=== PATIENT | male | born 1955 | race Two or more races ===

== ENCOUNTER 2022-10-03 22:17 | Inpatient (IN) | payer OTHER ==
[~2022-10-03] VITALS: Ht 177.8 cm; Wt 112.0 kg
[2022-10-03] MEDS ORDERED: ACETAMINOPHEN 650 MG/SUPP.RECT RC ONE ×2 (22:30→22:57)
[2022-10-03] MEDS ORDERED: IV NS 0.9% 500 ML BAG IV ONE ×2 (22:30→23:30)
--- NOTE | 2022-10-03 22:30 | NUR ---
Nayan mccrary in ED - 10/03/22 at 2252 by KELLY CRYS FROM [facility] POST ACUTE FOR AMS LWK 2100. PATIENT IN
--- NOTE | 2022-10-03 22:30 | NUR ---
[id number] FROM [facility] POST ACUTE FOR AMS LWK 2100. PATIENT IN BED 11 ON MONITOR AND POX. MD AT BEDSIDE. ICE PLACED ON PATIENT. PATIENT FEBRILE.
--- NOTE | 2022-10-03 22:47 | NUR ---
COVID SWAB DONE AND SENT TO LAB
--- NOTE | 2022-10-03 22:47 | NUR ---
BLOOD COLLECTED AND SENT TO LAB
--- NOTE | 2022-10-03 22:47 | NUR ---
URINE COLLECTED AND SENT TO LAB
--- NOTE | 2022-10-03 22:50 | NUR ---
IV CANNULA G20 INSERTED ON LEFT HAND AND LEFT INNER WRIST.
--- NOTE | 2022-10-03 23:00 | NUR ---
ADLS DONE. LARGE INCONTINENT BM NOTED. SKIN INTACT; KEPT CLEAN AND DRY. REPOSITIONED PT. SAFETY MEASURES IN PLACE.
--- NOTE | 2022-10-03 23:00 | NUR ---
INFLUENZA SWAB COLLECTED AND SENT TO LAB
[2022-10-03 23:05] LABS: EOSINOPHILS % (AUTO) 0.4 % (0.0-6.0); HEMATOCRIT 28 % (39-51); HEMOGLOBIN 9.1 g/dL (13.5-17.5); LYMPHOCYTES # (AUTO) 0.8 K/uL (0.8-4.8); LYMPHOCYTES % (AUTO) 30.2 % (20.0-44.0); MEAN CORPUSCULAR HGB CONC 33 g/dl (31.0-36.0); MEAN CORPUSCULAR VOLUME 98 fL (80-96); MONOCYTES # (AUTO) 0.2 K/uL (0.1-1.30); MONOCYTES % (AUTO) 9.1 % (2.0-12.0); NEUTROPHILS # (AUTO) 1.5 K/uL (1.8-8.9); NEUTROPHILS % (AUTO) 60.3 % (43.0-81.0); RED BLOOD CELL COUNT(AUTO) 2.85 MIL/uL (4.5-6.0); WHITE BLOOD COUNT (AUTO) 2.5 K/uL (4.3-11.0)
--- NOTE | 2022-10-03 23:07 | NUR ---
taken to radiology
[2022-10-03 23:19] LABS: BILIRUBIN,URINE 2+ (NEGATIVE); COLOR,URINE DARK YELLOW (YELLOW); LEUKOCYTE ESTERASE ,URINE 1+ (NEGATIVE); NITRITE, URINE NEGATIVE (NEGATIVE); PROTEIN,URINE TRACE mg/dl (NEGATIVE); UGLUCOSE NEGATIVE (NEGATIVE); UROBILINOGEN,URINE >=8.0 EU/dL (0.2)
--- NOTE | 2022-10-03 23:19 | NUR ---
PT RETURNED TO ER BED [address]
[2022-10-03 23:27] LABS: PLATELET COUNT (AUTO) 43 K/uL (150-450)
--- NOTE | 2022-10-03 23:27 | NUR ---
PLT 43
[2022-10-03 23:28] LABS: ALANINE AMINOTRANSFERASE 118 U/L (12-78); ALBUMIN 2.5 g/dL (3.4-5.0); ALKALINE PHOSPHATASE 926 U/L (46-116); ASPARTATE AMINOTRANSFERASE 125 U/L (15-37); BILIRUBIN,DIRECT 4.9 mg/dL (0.0-0.2); BILIRUBIN,TOTAL 6.3 mg/dL (0.2-1.0); CALCIUM, SERUM 7.8 mg/dL (8.5-10.1); CARBON DIOXIDE 20 mmol/L (21-32); CHLORIDE 90 mmol/L (98-107); CREATININE 2.9 mg/dL (0.6-1.3); GLUCOSE 96 mg/dL (74-106); POTASSIUM 5.1 mmol/L (3.5-5.1); UREA NITROGEN, BLOOD 54 mg/dL (7-18)
[2022-10-03 23:31] LABS: SODIUM SERUM 120 mmol/L (136-145)
--- NOTE | 2022-10-03 23:31 | NUR ---
BP 76/46 HR 112. ADMINISTERED NS IVF 500ML ORDERED PER DR. ANDINO. WILL REASSESS BP
[2022-10-03] MEDS ORDERED: CEFTRIAXONE 1GM BAG (ER ONLY) 50 ML IV ONE (23:35)
--- NOTE | 2022-10-03 23:36 | NUR ---
LA 4.1 Na 120 COVID +
--- NOTE | 2022-10-03 23:37 | NUR ---
MOVE SHEET SUBMITTED
[2022-10-04] VITALS (46 sets, daily range): BP systolic 77–161; BP diastolic 36–86
[2022-10-04] MEDS ORDERED: CEFTRIAXONE 1GM BAG (ER ONLY) 1 GM/50 ML PIGGYBACK IV ONE
[2022-10-04 00:24] LABS: BACTERIA,URINE Many /HPF (None Seen)
[2022-10-04 00:25] LABS: SQUAMOUS EPITHELIAL CELL,UR Few /HPF (None Seen)
[2022-10-04] MEDS ORDERED: MAGNESIUM HYDROXIDE 30 ML UDC PO PRN (00:30)
[2022-10-04] MEDS ORDERED: ZOLPIDEM TARTRATE 5 MG TABLET PO PRN (00:30)
[2022-10-04] MEDS ORDERED: ONDANSETRON HCL/PF 4 MG/2 ML VIAL IVP PRN (00:30)
[2022-10-04] MEDS ORDERED: Z GUARD REMEDY 4 OZ OINT TP PRN (00:30)
[2022-10-04] MEDS ORDERED: MORPHINE SULFATE INJ 2 MG/ML DISP.SYRIN IV PRN (00:30)
[2022-10-04] MEDS ORDERED: HYDROCODONE/APAP 5/325MG TABLET PO PRN (00:30)
[2022-10-04] MEDS ORDERED: MAG HYDROX/AL HYDROX/SIMETH 30 ML UDC PO PRN (00:30)
[2022-10-04] MEDS ORDERED: IV NS 0.9% 1,000 ML IV PRN (00:30)
--- NOTE | 2022-10-04 00:30 | NUR ---
BELONGINGS LIST DONE AND MRSA SWAB COLLECTED AND SENT TO LAB
--- NOTE | 2022-10-04 00:41 | NUR ---
REPORT GIVEN TO ANN GALLEGOS
--- NOTE | 2022-10-04 00:52 | NUR ---
PT TRANSFERRED TO [facility] VIA ACLS PROTOCOL. VSS. ALL BELONGINGS WITH PT.
--- NOTE | 2022-10-04 01:00 | NUR ---
RN NOTE 0100 RECEIVED 66 Y/O M PATIENT FROM ER TRANSFERRED VIA GURNEY, PT FINAL DX OF ALTERED MENTAL STATUS, PT RESPONSIVE TO TACTILE STIMULI, UNABLE TO OBTAIN INFORMATION FROM PT DUE TO CONDITION, ON O2 VIA NC AT 2LPM, ADMISSION CARE RENDERED, PICTURES TAKEN AND PLACED ON CHART, V/S TAKEN AND RECORDED, ALL DUE MEDS GIVEN, SAFETY MEASURES IN PLACED, BED IN LOWEST AND ISAI POSITION, BED ALARM ON, WILL CONT TO MONITOR THROUGHOUT THE SHIFT.
--- NOTE | 2022-10-04 01:40 | NUR ---
RN NOTE NOTED BP LOW AT 77/53 HR OF 142, ROLLING MACHINE OPERATOR MD WORKMAN MADE AWARE, ORDERED BOLUS NS OF 500 ML. ORDER TAKEN AND CARRIED OUT, WILL CONT TO MONITOR PT.
[2022-10-04] MEDS ORDERED: IV NS 0.9% 500 ML IV ONE ×2 (02:00→10:30)
--- NOTE | 2022-10-04 02:40 | NUR ---
RN NOTE RECHECKED BP AT 98/65, CN MADE AWARE. WILL CONT TO MONITOR.
[2022-10-04 04:46] LABS: BAND % (MANUAL) 5 % (0.0-5.0); BASOPHILS % (MANUAL) 0 % (0.0-2.0); EOSINOPHILS % (MANUAL) 4 % (0-4); LYMPHOCYTES % (MANUAL) 29 % (16-48); MONOCYTES % (MANUAL) 9 % (0-11.0); NEUTROPHILS % (MANUAL) 53 (42-76)
[2022-10-04] MEDS ORDERED: CEFEPIME 1 GM in IV D5W 50 ML IV SCH (05:00)
--- NOTE | 2022-10-04 07:22 | NUR ---
RN CLOSING NOTE PT RESTING ON BED, RESPONSIVE TO TACTILE STIMULI, ON O2 VIA NC AT 2LPM, NOT IN RESPIRATORY DISTRESS, ON TELEMONITORING CURRENTLY READING SR, WITH IVF OF NS AT 100 ML/HR AT L HAND #20G IV ACCESS, ALL DUE MEDS GIVEN, SAFETY MEASURES IN PLACED, BED IN LOWEST AND ISAI POSITION, BED ALARM ON, WILL ENDORSE TO AM SHIFT NURSE FOR CONTINUITY OF CARE.
[2022-10-04] MEDS: PANTOPRAZOLE 40 MG TABLET.DR PO SCH (07:30)
--- NOTE | 2022-10-04 08:30 | NUR ---
TRANSFER SPECIALIST OPENING NOTES RECEIVED PATIENT IN BED SLEEPING, PT RESPONSIVE TO TACTILE STIMULI, UNABLE TO OBTAIN INFORMATION FROM PT DUE TO CONDITION, ON O2 VIA NC AT 2LPM TOLERATING WELL, NOT IN DISTRESS, DENIES ANY PAIN. LFA, RIGHT WRIST, LEFT HAD PIV NOTED INTACT, WITH NS @100ML/HR RUNNING, ON TELE MONITORING WITH READING ST HR 106, NPO STATUS AWAITING SWALLOW EVALUATION, COVID ISOLATIO PRECAUTION CONTINUED. SAFETY MEASURES IN PLACED, BED IN LOWEST AND ISAI POSITION, BED ALARM ON, CALL LIGHT WITHIN REACH. PLAN OF CARE CONTINUED.
[2022-10-04] MEDS ORDERED: AMLO5TAB4 PO (08:31)
[2022-10-04] MEDS ORDERED: MULT-447 PO (08:31)
[2022-10-04] MEDS ORDERED: LEVO25TA7 PO (08:31)
[2022-10-04] MEDS ORDERED: ALLO100T PO (08:31)
[2022-10-04] MEDS ORDERED: TAMS-12 PO (08:31)
[2022-10-04] MEDS ORDERED: SUCR1ORA15 PO (08:31)
[2022-10-04] MEDS ORDERED: EPOE40002 IJ (08:31)
[2022-10-04] MEDS ORDERED: AMIN887L PO (08:31)
[2022-10-04] MEDS ORDERED: ASCO500C17 PO (08:31)
[2022-10-04] MEDS ORDERED: POTA20TA83 PO (08:31)
[2022-10-04] MEDS ORDERED: FINA5TAB4 PO (08:31)
[2022-10-04] MEDS ORDERED: MAGN400O6 PO (08:31)
[2022-10-04] MEDS ORDERED: FERR325T23 PO (08:31)
[2022-10-04] MEDS ORDERED: PANT40TA2 PO (08:31)
[2022-10-04] MEDS: CEFEPIME 2 GM in IV D5W 100 ML IV SCH ×2 (09:44→22:05)
--- NOTE | 2022-10-04 10:20 | NUR ---
CENTRAL OFFICE INSPECTOR NOTES NOTED PATIENT REMOVED PERIPHERAL LINE, NOTIFIED, WITH NEW ORDER TO INSERT MIDLINE, NOTED AND CARRIED OUT, ENVIRONMENTAL PROPERTY ASSESSOR INFORMED AND MIDLINE NURSE. NOTED PATIENT BP 83/43, PATIENT IS ALERT, BUT NOTICED WEAK, MD NOTIFIED, WITH NEW ORDER TO GIVE NS BOLUS 500ML. SEEN BY ST WITH ORDER TO BE NPO TODAY DUE TO PATIENT DYSPHAGIA AND GURGLY. PLAN OF CARE CONTINUED.
[2022-10-04] MEDS ORDERED: NOREPINEPHRINE 8 MG in IV NS 0.9% 242 ML IV PRN (11:30)
--- NOTE | 2022-10-04 11:39 | NUR ---
SPECIALTY COOK Bedside report taken from tele nurse Sultana Prasad RN. Pt arrived to ICU via bed. pt awake, alert and oriented x3, follows commands, moves bue 3/5 and ble 2/5. perrla. pt on room air, tolerating well, natalee lung sounds clear / diminished at bases. pt NSR on monitor hr 90s sbp 90s with map > 65. bue and ble pulses present. pt incontinent of urine and stool. wounds noted, see flowsheet. all lines traced. all drips verified. safety measures in place. will continue to monitor.
--- NOTE | 2022-10-04 11:50 | NUR ---
ELECTRIC METER REPAIRER HELPER NOTES RECHECKED BP USING BP MACINE 85/50, DID MANUAL BP 40/40 HR 96, 99% @2LPM2 02, PATIENT IS ALERT AND VERBALLY RESPONSIVE, NOT IN DISTRESS, MD MADE AWARE WITH ORDER TO TRANSFER TO ICU. TRANSFER PATIENT TO ICU RM 259, GAVE REPORT TO GN RN, FAMILY IS AWARE OF THE TRANSFER.
[2022-10-04] MEDS ORDERED: NOREPINEPHRINE 32 MG in IV NS 0.9% 218 ML IV STA (11:53)
--- NOTE | 2022-10-04 11:57 | NUR ---
GEAR REPAIRER Dr Subramanian at bedside assessing pt and updated on pt status. verbal order for levophed drip entered per OIL AND GAS SPECIALIST , verified with charge nurse Rodri RN, no other orders at this time. safety measures in place. will continue to monitor.
--- NOTE | 2022-10-04 12:45 | NUR ---
MONKEY TRAINER Pharmacy aware that dulplicate order for levophed entered, informed that levophed 8 mg in 250 ml currently infusing and requested that next bag of levophed be 32mg in 250 ml d/t chf, ok per pharmacy. per pharmacy continue running current bag and next bag sent will be quadrouple concentration. charge nurse Rodri GALLEGOS aware.
[2022-10-04] MEDS ORDERED: NOREPINEPHRINE 32 MG in IV NS 0.9% 218 ML IV PRN (13:00)
--- NOTE | 2022-10-04 13:35 | NUR ---
SWIMMER Marilynn SPINNING SUPERVISOR messaged and informed that lactic 2.1, no new orders at this time, per SPINNING SUPERVISOR much better than previous result. charge nurse Rodri GALLEGOS aware.
--- NOTE | 2022-10-04 14:29 | NUR ---
HOSPICE MUSIC THERAPIST Guccistein FACILITIES MAINTENANCE MANAGER messaged and informed that mittens placed on pt d/t pt removing lines and wires, order for restraints placed. FACILITIES MAINTENANCE MANAGER also aware that Karandish placed order for urine specimen collect, pt incontinent, order for chester placed per FACILITIES MAINTENANCE MANAGER. no other orders at this time. charge nurse Rodri GALLEGOS aware.
--- NOTE | 2022-10-04 16:10 | NUR ---
SOCIOLOGY RESEARCH ASSISTANT Pt bathed and cleaned. linen change done. skin check done , no new wounds noted. wound care done per protocol. pt tolerated well. vitals stable. safety measures in place. mittens removed, pt not removing lines or tubes. will continue to monitor.
--- NOTE | 2022-10-04 16:42 | NUR ---
LINE DRIVER Annalise TURF KEEPER from Oncology at bedside assessing pt.
[2022-10-04 17:03] LABS: COLOR,URINE BROWN (YELLOW)
[2022-10-04 17:05] LABS: BACTERIA,URINE 2+ /HPF (None Seen); COARSE GRANULAR CASTS,URINE Few /LPF (None Seen); RBC,URINE 21-50 /HPF (0-2); SQUAMOUS EPITHELIAL CELL,UR 0-2 /HPF (None Seen); WBC,URINE 21-50 /HPF (0-3)
[2022-10-04 18:17] LABS: D-DIMER 2.19 mg/L(FEU (0.17-0.50)
[2022-10-04 18:49] LABS: ALBUMIN 1.9 g/dL (3.4-5.0); BILIRUBIN,DIRECT 4.9 mg/dL (0.0-0.2); BILIRUBIN,TOTAL 6.1 mg/dL (0.2-1.0); TOTAL PROTEIN, SERUM 4.5 g/dL (6.4-8.2)
--- NOTE | 2022-10-04 18:55 | NUR ---
MANAGER OF MANUFACTURING Bedside report given to [facility] nurse Evaristo RN. pt awake alert and resting comfortable in bed. Pt on room air, tolerating well spo2 100%. all lines traced. all drips verified. pt clean and dry. safety measures in place. no signs of acute distress at this time. Addendum: 10/04/22 at 1902 by [facility]ISTRY [facility] INPATIENT RN6 RN MANAGER OF MANUFACTURING Bedside report given to [facility] nurse Moncho GALLEGOS. pt awake alert and resting comfortable in bed. Pt on room air, tolerating well spo2 100%. all lines traced. all drips verified. pt clean and dry. safety measures in place. no signs of acute distress at this time.
--- NOTE | 2022-10-04 19:43 | NUR ---
FENCE INSTALLER FOREMAN NOC shift assignment change, bedside report given to noc nurse Anna GALLEGOS
[2022-10-04 20:29] LABS: THYROID STIMULATING HORMONE 0.012 uIU/mL (0.358-3.74)
[2022-10-04] MEDS: IV NS 0.9% 1,000 ML IV PRN (22:06)
[2022-10-04] MEDS: NOREPINEPHRINE 8 MG in IV NS 0.9% 242 ML IV PRN (22:06)
[2022-10-04] MEDS ORDERED: GUAIFENESIN/CODEINE 10 ML UDC PO PRN (23:00)
[2022-10-04] MEDS ORDERED: BENZONATATE 100 MG CAPSULE PO PRN (23:00)
--- NOTE | 2022-10-04 23:06 | NUR ---
research agricultural engineer. initial assessment. received the pt rest in bed. awake, alert. lethargic. hob eleavted. room air. sat 98%. no acute distress noted. loose stool and cough noted. notified clinical education specialist DNP mary. fc patent. ANNA LOWER and upper extremity weakness noted. IV LT UPPER ARM MID LINE. LEVOPHED 0.1MCG/KG/MIN, NS 100ML/H SKIN TOGGLER SHOWING NSR. SACRUM AND ANNA INNER THIGH ABRATION NOTED. SACRUM DISCOLORATION. WILL CONTINUE TO MONITOR VITALS.
[2022-10-05] VITALS (71 sets, daily range): BP systolic 80–160; BP diastolic 29–97
[2022-10-05] MEDS ORDERED: CEFTRIAXONE 1 G in IV D5W 50 ML IV SCH ×2
--- NOTE | 2022-10-05 05:42 | NUR ---
PAIRING MACHINE OPERATOR. AM CARE GIVEN. REMAINING SAME IVF RUNNING. HOB ELEVATED. ROOM AIR. SAT 98%. WOOD CRAFTER SHOWING NSR. IV LT UPPER ARM MID LINE. NS 100ML/H, LEVOPHED 0.02MCG/KG/MIN,TEMPERATURE 99.6. TURN AND REPOSITION Q2H
[2022-10-05] MEDS ORDERED: METRONIDAZOLE 500 MG TABLET PO SCH (06:30)
--- NOTE | 2022-10-05 07:05 | NUR ---
RN NOTES RECEIVED PT ON BED, ON RA, SLEEPING AT THIS TIME, ON TELE SR HR IN 80'S, CHAMORRO DRAINING TO GRAVITY, NPO AT THIS TIME, PENDING SWALLOWING EVAL . LEFT UPPER ARM MIDLINE AND R HAND IV SITE CDI, LEVO AT .02 MCG/KG/MIN RUNNING FOR BP SUPPORT, SR UP x3, CALL LIGHT WITHIN EASY REACH, BED LOCKED AND IN LOWEST POSITION, CONTINUE TO MONITOR
[2022-10-05 07:07] LABS: IMMUNOGLOBULIN A, SERUM 96 mg/dL (61-437); IMMUNOGLOBULIN G, SERUM 946 mg/dL (603-1613); IMMUNOGLOBULIN M, SERUM 77 mg/dL (20-172)
[2022-10-05] MEDS: PANTOPRAZOLE 40 MG TABLET.DR PO SCH (08:23)
[2022-10-05 09:39] LABS: BASOPHILS # (AUTO) 0.1 K/uL (0.0-0.2); BASOPHILS % (AUTO) 2.3 % (0.0-2.0); EOSINOPHILS % (AUTO) 1.7 % (0.0-6.0); HEMATOCRIT 24 % (39-51); HEMOGLOBIN 7.8 g/dL (13.5-17.5); LYMPHOCYTES # (AUTO) 0.3 K/uL (0.8-4.8); LYMPHOCYTES % (AUTO) 14.2 % (20.0-44.0); MEAN CORPUSCULAR HGB CONC 33 g/dl (31.0-36.0); MEAN CORPUSCULAR VOLUME 97 fL (80-96); MONOCYTES # (AUTO) 0.1 K/uL (0.1-1.30); MONOCYTES % (AUTO) 6.1 % (2.0-12.0); NEUTROPHILS # (AUTO) 1.7 K/uL (1.8-8.9); NEUTROPHILS % (AUTO) 75.7 % (43.0-81.0); RED BLOOD CELL COUNT(AUTO) 2.44 MIL/uL (4.5-6.0); WHITE BLOOD COUNT (AUTO) 2.2 K/uL (4.3-11.0)
[2022-10-05 09:52] LABS: PLATELET COUNT (AUTO) 43 K/uL (150-450)
[2022-10-05] MEDS: CEFEPIME 2 GM in IV D5W 100 ML IV SCH ×2 (10:05→21:42)
[2022-10-05 10:29] LABS: D-DIMER 3.16 mg/L(FEU (0.17-0.50)
--- NOTE | 2022-10-05 11:00 | NUR ---
RN NOTES DR RAMIREZ NOTIFIED REGARDING ,LOW URINE OUT PUT , CONTINUE TO MONITOR
[2022-10-05 11:02] LABS: BILIRUBIN,DIRECT 6.6 mg/dL (0.0-0.2); BILIRUBIN,TOTAL 7.8 mg/dL (0.2-1.0); CALCIUM, SERUM 6.5 mg/dL (8.5-10.1); CREATININE 3.6 mg/dL (0.6-1.3); MAGNESIUM 1.8 mg/dL (1.8-2.4); PHOSPHORUS 3.8 mg/dL (2.5-4.9); POTASSIUM 4.2 mmol/L (3.5-5.1); TOTAL PROTEIN, SERUM 4.6 g/dL (6.4-8.2)
[2022-10-05 11:07] LABS: *SPE A/G RATIO 0.8 (0.7-1.7); *SPE ALPHA-1-GLOBULIN 0.4 g/dL (0.0-0.4); *SPE ALPHA-2-GLOBULIN 0.6 g/dL (0.4-1.0); *SPE BETA GLOBULIN 0.5 g/dL (0.7-1.3); *SPE M-SPIKE Not Observed g/dL (Not Observed)
[2022-10-05] MEDS: IV NS 0.9% 1,000 ML IV PRN (11:30)
[2022-10-05] MEDS: NOREPINEPHRINE 8 MG in IV NS 0.9% 242 ML IV PRN ×2 (11:55→23:53)
[2022-10-05] MEDS: METRONIDAZOLE 500MG/ NS 100ML 500 MG in PREMIX 1 EA IV SCH ×2 (13:18→21:42)
[2022-10-05] MEDS: ACETAMINOPHEN 325 MG TABLET PO PRN (15:52)
--- NOTE | 2022-10-05 17:49 | NUR ---
RN NOTES PT IS CONGESTED , ON RA, O2 SAT 98%, FREQUENT SUCTIONING DONE , STILL LETHARGIC , DR FLORES NOTIFIED, ORDER RECEIVED FOR BREATHING TX, CONTINUE TO MONITOR .
--- NOTE | 2022-10-05 18:45 | NUR ---
RN NOTES DR FLORES NOTIFIED REGARDING LOW URINE OUT PUT
[2022-10-05 18:52] LABS: ABG BASE EXCESS -17.8 mmol/L; ABG OXYGEN SATURATION 81.6 % (92.0-98.5); ABG PCO2 17.5 mmHg (35.0-45.0); ABG PH 7.253 (7.350-7.450); ABG PO2 53.6 mmHg (75.0-100.0); AaDO2 75.2 mmHg; COHb 0.6 % (0.5-1.5); MetHb 0.4 % (0.0-1.5); O2Hb 80.8 % (94.0-97.0); SITE, ABG Left Radial; VENT MODE, BG ROOM AIR
[2022-10-05] MEDS ORDERED: SODIUM BICARBONATE SYR 50 MEQ/50 ML DISP.SYRIN IV ONE (19:00)
--- NOTE | 2022-10-05 19:05 | NUR ---
RN NOTES ABG RESULTS SENT TO DR FLORES, NEW ORDER RECEIVED , WILL ENDORSE TO EMBOSSING MACHINE OPERATOR NURSE FOR CONTINUITY OF CARE
[2022-10-05] MEDS: Sodium Bicarbonate 100 MEQ in IV D5W 1,000 ML IV SCH (19:44)
[2022-10-05] MEDS ORDERED: diphenhydrAMINE HCL 50 MG/ML VIAL IV ONE (20:30)
[2022-10-05] MEDS ORDERED: ACETAMINOPHEN 325 MG TABLET PO ONE (20:30)
--- NOTE | 2022-10-05 21:08 | NUR ---
NUCLEAR MEDICINE PHYSICIAN. INITIAL ASSESSMENT. RECEIVED THE PT REST IN BED. AWAKE, LETHARGIC. HOB ELEVATED. STOCK SHEETS CLEANER INSPECTOR SHOWING S TACH. OXYGEN 3L VIA N/C. IV RT HAND PICC LINE. LT UPPER ARM MID LINE. IVF BICARB DRIP 50 ML/H, LEVOPHED 0.02MCG/KG/MIN. FC PATENT. TEMPERATURE 100. WILL CONTINUE TO MONITOR VITALS.
[2022-10-05 21:32] LABS: ABG BASE EXCESS -15.9 mmol/L; ABG OXYGEN SATURATION 97.9 % (92.0-98.5); ABG PCO2 18.3 mmHg (35.0-45.0); ABG PO2 134.2 mmHg (75.0-100.0); AaDO2 72.6 mmHg; COHb 0.3 % (0.5-1.5); MetHb 0.4 % (0.0-1.5); O2Hb 97.2 % (94.0-97.0); SITE, ABG Right Brachial; VENT MODE, BG Nasal Cannula
--- NOTE | 2022-10-05 21:33 | NUR ---
ABG DONE RN NOTIFIED WITH THE RESULT.
[2022-10-05] MEDS: HYDROCORTISONE SOD SUCCINATE 100 MG/2 ML VIAL IV SCH (21:42)
[2022-10-06] VITALS (76 sets, daily range): BP systolic 65–238; BP diastolic 37–259
[2022-10-06 04:02] LABS: BAND % (MANUAL) 8 % (0.0-5.0); EOSINOPHILS % (MANUAL) 3 % (0-4); LYMPHOCYTES % (MANUAL) 12 % (16-48); MONOCYTES % (MANUAL) 8 % (0-11.0); NEUTROPHILS % (MANUAL) 69 (42-76)
[2022-10-06] MEDS: METRONIDAZOLE 500MG/ NS 100ML 500 MG in PREMIX 1 EA IV SCH ×3 (04:14→21:18)
[2022-10-06] MEDS: HYDROCORTISONE SOD SUCCINATE 100 MG/2 ML VIAL IV SCH ×3 (04:14→21:17)
--- NOTE | 2022-10-06 05:33 | NUR ---
agricultural inspector. cryo not ready. pt antibody positive. lab waiting for [facility].
[2022-10-06 05:56] LABS: BASOPHILS % (AUTO) 0.7 % (0.0-2.0); EOSINOPHILS % (AUTO) 0.2 % (0.0-6.0); LYMPHOCYTES # (AUTO) 0.6 K/uL (0.8-4.8); LYMPHOCYTES % (AUTO) 16.8 % (20.0-44.0); MEAN CORPUSCULAR HGB CONC 32 g/dl (31.0-36.0); MEAN CORPUSCULAR VOLUME 99 fL (80-96); MONOCYTES # (AUTO) 0.2 K/uL (0.1-1.30); MONOCYTES % (AUTO) 6.6 % (2.0-12.0); NEUTROPHILS # (AUTO) 2.5 K/uL (1.8-8.9); NEUTROPHILS % (AUTO) 75.7 % (43.0-81.0); RED BLOOD CELL COUNT(AUTO) 2.05 MIL/uL (4.5-6.0); WHITE BLOOD COUNT (AUTO) 3.3 K/uL (4.3-11.0)
--- NOTE | 2022-10-06 06:01 | NUR ---
SNAKER TRACTOR DRIVER. AM CARE GIVEN. REMAINING SAME OXYGEN TOLERATED WELL. SAT 98%, NO ACUTE DISTRESS NOTED, SCIENCE EDUCATION PROFESSOR SHOWING NSR. IV RT UPPER ARM PICC LINE. BICARB DRIP RUNNING. LEVO OFF. HOB ELEVATED. FC PATENT. MINIMAL OUT PUT. CRYO NOT READY. TURN AND REPOSITION Q2H. WILL CONTINUE TO MONITOR VITALS.
[2022-10-06 06:07] LABS: HEMATOCRIT 20 % (39-51); HEMOGLOBIN 6.5 g/dL (13.5-17.5); PLATELET COUNT (AUTO) 24 K/uL (150-450)
[2022-10-06 06:19] LABS: ALBUMIN 1.6 g/dL (3.4-5.0); BILIRUBIN,DIRECT 5.4 mg/dL (0.0-0.2); BILIRUBIN,TOTAL 6.4 mg/dL (0.2-1.0); CALCIUM, SERUM 6.3 mg/dL (8.5-10.1); CREATININE 4.6 mg/dL (0.6-1.3); PHOSPHORUS 5.2 mg/dL (2.5-4.9); POTASSIUM 4.5 mmol/L (3.5-5.1); TOTAL PROTEIN, SERUM 3.9 g/dL (6.4-8.2)
[2022-10-06] MEDS ORDERED: REMDESIVIR (CHARGED) 200 MG, *LOADING DOSE 1 EA in IV NS 0.9% 210 ML IV ONE (06:30)
[2022-10-06 06:57] LABS: D-DIMER 3.87 mg/L(FEU (0.17-0.50)
--- NOTE | 2022-10-06 07:15 | NUR ---
RN OPENING NOTES RECEIVED PATIENT REPORT FROM NIGHTSHIFT RN BASIL. PATIENT REMAINS IN ROOM ON 2 LITERS SUPPLEMENTAL OXYGEN VIA NASAL CANULA. OXYGEN SATURATION AT 100%, PATIENT IS TACHYPNEIC BREATHING AT 43 BREATHS PER MINUTE. PATIENT ALERT AND ORIENTED TIMES 1, AROUSABLE TO NAME. SINUS RYTHYM ON THE MONITOR AT THIS TIME. CHAMORRO CATHETER DRAINING OUTPUT. PATIENT HAS IV ACCESS ON RIGHT UPPER ARM PICC LINE, LEFT UPPER ARM MIDLINE, AND RIGHT HAND 22 GAUGE. PATIENT SHAKING HAND RESULTING IN ABNORMAL BLOOD PRESSURE READING, WILL READJUST BP CUFF AND PLAN INTERVENTIONS ACCORDINGLY. SAFETY MEASURES IMPLEMENTED, WILL CONTINUE PLAN OF CARE AND ANTICIPATE NEEDS.
--- NOTE | 2022-10-06 08:00 | NUR ---
RECEIVED VERBAL ORDER FROM DR FLORES FOR TRANSFUSION OF 1 UNIT PRBC FOR HGB 6.5 AND HCT 20. NO ACTIVE BLEEDING. WILL CARRY OUT ORDER
--- NOTE | 2022-10-06 08:02 | NUR ---
WOUND CARE CONSULT: REVIEWED CHART, NURSING DOCUMENTATION AND PHOTOS WHICH INDICATE SACRAL DEEP TISSUE INJURY, RASH WITH PEELING SKIN TO BILATERAL BUTTOCKS, AREAS OF DISCOLORATION TO SKIN (LOW PLATELET COUNT NOTED), PRESENT ON ADMISSION. DISCUSSED SKIN PROTECTION AND WOUND CARE WITH NURSING STAFF. MD IN AGREEMENT WITH PLAN OF CARE.
[2022-10-06 08:51] LABS: ABG BASE EXCESS -9.5 mmol/L; ABG OXYGEN SATURATION 98.3 % (92.0-98.5); ABG PCO2 20.1 mmHg (35.0-45.0); ABG PH 7.442 (7.350-7.450); AaDO2 63.3 mmHg; COHb 0.6 % (0.5-1.5); MetHb 0.3 % (0.0-1.5); O2Hb 97.4 % (94.0-97.0); SITE, ABG Left Radial; VENT MODE, BG N/C
[2022-10-06] MEDS: CLOTRIMAZOLE 1% 15 GM TUBE TP SCH ×2 (08:59→16:44)
[2022-10-06] MEDS: PANTOPRAZOLE 40 MG VIAL IV SCH (08:59)
[2022-10-06] MEDS: CEFEPIME 2 GM in IV D5W 100 ML IV SCH ×2 (09:00→16:29)
[2022-10-06 10:17] LABS: BAND % (MANUAL) 1 % (0.0-5.0); LYMPHOCYTES % (MANUAL) 13 % (16-48); MONOCYTES % (MANUAL) 4 % (0-11.0); NEUTROPHILS % (MANUAL) 82 (42-76)
--- NOTE | 2022-10-06 12:20 | NUR ---
LEVOPHED RESTARTED FOR BLOOD PRESSURE 65/43 WITH MAP OF 52. CURRENTLY RUNNING AT 0.1 MCGS PER POLICY.
[2022-10-06] MEDS ORDERED: MAGNESIUM HYDROXIDE 30 ML UDC PO PRN (13:30)
[2022-10-06] MEDS ORDERED: PHYTONADIONE INJ 10 MG/1 ML AMPUL SQ ONE (15:00)
[2022-10-06] MEDS: Sodium Bicarbonate 100 MEQ in IV D5W 1,000 ML IV SCH (16:28)
[2022-10-06] MEDS: FERROUS SULFATE (325 MG) 325 MG/TAB TABLET PO SCH (16:33)
[2022-10-06] MEDS: SUCRALFATE 1 G/10 ML UDC PO SCH ×2 (16:33→21:00)
[2022-10-06] MEDS: EPOETIN ALFA-EPBX 4,000 UNIT/ML VIAL SQ SCH (16:45)
--- NOTE | 2022-10-06 19:15 | NUR ---
HAND OFF REPORT GIVEN TO ROSY NEW FOR CONTINUATION OF CARE.
[2022-10-06] MEDS ORDERED: FAMOTIDINE/PF INJ 20 MG/2 ML VIAL IV SCH (21:00)
--- NOTE | 2022-10-06 21:50 | NUR ---
RN NOTES INFORMED DR ANSARI THAT CRYOPRECIPITATE IS AVAILABLE AND PATIENT HAS ANTIBODY ANTI K AND ISA-A. DR ANSARI OKAY TO PROCEED TRANSFUSION TRANSFUSION
[2022-10-06] MEDS ORDERED: TAMSULOSIN 0.4 MG CAP.SR.24H PO SCH (22:00)
[2022-10-06] MEDS ORDERED: diphenhydrAMINE HCL 50 MG/ML VIAL IV ONE (23:45)
[2022-10-07] VITALS (93 sets, daily range): BP systolic 85–142; BP diastolic 44–82
--- NOTE | 2022-10-07 00:12 | NUR ---
RN NOTES CRYOPRECIPITATE STARTED PER ORDER. DIPHENHYDRAMINE 25MG GIVEN PRIOR TO TRANSFUSION PER ORDERED. WILL CLOSELY MONITOR THE PATIENT
--- NOTE | 2022-10-07 00:45 | NUR ---
RN NOTES TRANSFUSION COMPLETED. NO TRANSFUSION REACTION NOTED AT THIS TIME. WILL CLOSELY MONITOR THE PATIENT
--- NOTE | 2022-10-07 03:40 | NUR ---
RN NOTES CRYOPRECIPITATE STARTED, VITAL SIGNS TAKEN AND RECORDED. WII CLOSELY MONITOR THE PATIENT FOR ANY TRANSFUSION REACTION.
--- NOTE | 2022-10-07 04:10 | NUR ---
RN NOTES TRANSFUSION CRYOPRECIPITATE COMPLETED JANETH TRANSFUSION REACTION NOTED. WILL NABOR MONITOR THE PATIENT
[2022-10-07] MEDS: HYDROCORTISONE SOD SUCCINATE 100 MG/2 ML VIAL IV SCH ×3 (05:15→21:51)
[2022-10-07] MEDS: METRONIDAZOLE 500MG/ NS 100ML 500 MG in PREMIX 1 EA IV SCH ×3 (05:15→21:51)
[2022-10-07 05:25] LABS: BASOPHILS % (AUTO) 0.4 % (0.0-2.0); LYMPHOCYTES # (AUTO) 0.8 K/uL (0.8-4.8); LYMPHOCYTES % (AUTO) 17.9 % (20.0-44.0); MEAN CORPUSCULAR HGB CONC 34 g/dl (31.0-36.0); MEAN CORPUSCULAR VOLUME 94 fL (80-96); MONOCYTES # (AUTO) 0.4 K/uL (0.1-1.30); MONOCYTES % (AUTO) 8.6 % (2.0-12.0); NEUTROPHILS # (AUTO) 3.2 K/uL (1.8-8.9); NEUTROPHILS % (AUTO) 73.1 % (43.0-81.0); WHITE BLOOD COUNT (AUTO) 4.4 K/uL (4.3-11.0)
[2022-10-07 05:42] LABS: ALBUMIN 1.7 g/dL (3.4-5.0); BILIRUBIN,DIRECT 5.5 mg/dL (0.0-0.2); BILIRUBIN,TOTAL 6.6 mg/dL (0.2-1.0); CALCIUM, SERUM 6.1 mg/dL (8.5-10.1); MAGNESIUM 2.2 mg/dL (1.8-2.4); PHOSPHORUS 5.5 mg/dL (2.5-4.9); TOTAL PROTEIN, SERUM 4.1 g/dL (6.4-8.2)
[2022-10-07 05:47] LABS: HEMATOCRIT 17 % (39-51); HEMOGLOBIN 5.8 g/dL (13.5-17.5); PLATELET COUNT (AUTO) 15 K/uL (150-450); RED BLOOD CELL COUNT(AUTO) 1.82 MIL/uL (4.5-6.0)
[2022-10-07 06:18] LABS: C-REACTIVE PROTEIN 22.3 mg/dL (0.0-0.9)
[2022-10-07 06:19] LABS: D-DIMER 2.6 mg/L(FEU (0.17-0.50)
[2022-10-07] MEDS ORDERED: REMDESIVIR (CHARGED) 100 MG in IV NS 0.9% 230 ML IV SCH (06:30)
--- NOTE | 2022-10-07 06:58 | NUR ---
RN NOTES ON NASAL CANULA @ 2LPM SATING 99% NO SOB NO DISTRESS NOTED. IV ACCESS PATENT FLUSHES WELL.CHAMORRO CATH PATENT DRAINING GARFIELD COLORED URINE. PATIENT S/P 10 UNITS CRYOPRECIPITATE NO TRANSFUSION REACTION NOTED. ALL SAFETY MEASURES NOTED AT THIS TIME WILL ENDORSED TO MORNING SHIFT FOR NGUYỄN
--- NOTE | 2022-10-07 07:15 | NUR ---
ICU/RN PT RECEIVED IN BED, LETHARGIC, ON 2L O2 NC WITH NO SIGNS OF LABORED BREATHING. SINUS RHYTHM ON MONITOR. RIGHT UA PICC LINE, LEFT UA MIDLINE AND RIGHT HAND 22G IN PLACE RUNNING D5W WITH NA BICARB AT 50ML/HR. LEVOPHED DRIP OFF SINCE 030 PER GANG TAILER REPORT, BP 99/55 AT THIS TIME. HEMOGLOBIN 5.8 HEMATOCRIT 17 PLT 15. DNP ELAN NOTIFIED BY GANG TAILER. ORDER FOR 1 UNIT PRBC, ORDER FOR 1 UNIT PRBC ALREADY PENDING SINCE YESTERDAY, AWAITING FOR [facility] DELIVERY. 10 UNIT CRYOPRECIPITATE GIVEN BY GANG TAILER. BED LOCKED AND IN LOWEST POSITION, CALL LIGHT WITHIN REACH, 3 SIDE RAILS UP. BILATERAL SOFT WRIST RESTRAINS IN PLACE, SKIN WARM AND INTACT.
[2022-10-07] MEDS: LEVOTHYROXINE SODIUM 50 MCG TABLET PO SCH (07:30)
--- NOTE | 2022-10-07 07:56 | NUR ---
ICU/RN PT LETHARGIC, NOT FOLLOWING SIMPLE COMMANDS. PT OPEN EYES ONLY. UNABLE TO GIVE ANYTHING PO AT THIS TIME. WILL AWAIT SWALLOW EVAL.
[2022-10-07] MEDS: FINASTERIDE (5 MG) 5 MG TABLET PO SCH (08:13)
[2022-10-07] MEDS: ALLOPURINOL 100 MG TABLET PO SCH (08:13)
[2022-10-07] MEDS: FERROUS SULFATE (325 MG) 325 MG/TAB TABLET PO SCH ×3 (08:13→16:37)
[2022-10-07] MEDS: PROSOURCE / PROSTAT (PYXIS) 30 ML UDC PO SCH (08:13)
[2022-10-07] MEDS: AMLODIPINE BESYLATE 5 MG TABLET PO SCH (08:13)
[2022-10-07] MEDS: SUCRALFATE 1 G/10 ML UDC PO SCH ×4 (08:13→21:51)
[2022-10-07] MEDS: ASCORBIC ACID 500 MG TABLET PO SCH (08:13)
[2022-10-07] MEDS: MULTIVITAMINS,THERAGRAN 1 UDTAB TABLET PO SCH (08:13)
[2022-10-07] MEDS: PANTOPRAZOLE 40 MG VIAL IV SCH (08:15)
[2022-10-07] MEDS: CLOTRIMAZOLE 1% 15 GM TUBE TP SCH ×2 (08:16→16:37)
[2022-10-07] MEDS: CEFEPIME 2 GM in IV D5W 100 ML IV SCH (08:16)
[2022-10-07] MEDS: Sodium Bicarbonate 100 MEQ in IV D5W 1,000 ML IV SCH (10:32)
--- NOTE | 2022-10-07 10:45 | NUR ---
ICU/RN CALLED BLOOD BANK REGARDING 1 UNIT PRBC PENDING FOR 24 HR DUE TO NEED TO SPECIAL ORDER IT FROM THE [facility]. NO ANSWER.
--- NOTE | 2022-10-07 11:07 | NUR ---
ICU/RN BLOOD BANK STATES THEY DO NOT HAVE ANY UPDATE ON THE 1 UNIT PRBC PENDING, WILL CALL THEM STAT FOR AN UPDATE.
[2022-10-07] MEDS ORDERED: ACETAMINOPHEN 325 MG TABLET PO ONE (12:30)
--- NOTE | 2022-10-07 12:42 | NUR ---
ICU/RN CONTACTED DR. RAMIREZ REGARDING POSSIBLE NGT PLACEMENT, PT HAS BEEN NPO FOR 4 DAYS AND IS LETHARGIC/ALTERED, UNABLE TO EAT AT THIS TIME.
--- NOTE | 2022-10-07 12:47 | NUR ---
ICU/RN PER LAB, CRYOPRECIPITATE SHOULD BE READY FOR MANAGER FLOAT AROUND 1330 TODAY. BLOOD BANK TO CALL [facility] REGARDING PRBC AND PLATELET. CT SCAN CALLED, TECH STATES HE WILL COME MANAGER FLOAT PATIENT AFTER 1400.
--- NOTE | 2022-10-07 13:48 | NUR ---
ICU/RN PER BLOOD BANK, CRYOPRECIPITATE READY FOR SHOE IRONER. PRBC AND PLT PLACED STAT ORDER WITH [facility], SHOULD ARRIVE THIS EVENING.
--- NOTE | 2022-10-07 15:35 | NUR ---
ICU/RN CRYOPRECIPITATE TRANSFUSION X2 COMPLETED. VITAL SIGNS STABLE. NO S/S OF ADVERSE EVENTS.
--- NOTE | 2022-10-07 16:37 | NUR ---
ICU/RN UNABLE TO PLACE NGT AT THIS TIME. PLT 15. PT IS TOO HIGH RISK FOR BLEEDING.
[2022-10-07 18:50] LABS: LYMPHOCYTES % (MANUAL) 15 % (16-48); MONOCYTES % (MANUAL) 7 % (0-11.0); NEUTROPHILS % (MANUAL) 78 (42-76)
[2022-10-08] VITALS (41 sets, daily range): BP systolic 90–153; BP diastolic 36–107
[2022-10-08] MEDS ORDERED: SODIUM BICARBONATE SYR 50 MEQ/50 ML DISP.SYRIN ONE ×2 (02:50→19:35)
[2022-10-08] MEDS: Sodium Bicarbonate 100 MEQ in IV D5W 1,000 ML IV SCH (03:02)
[2022-10-08 04:40] LABS: EOSINOPHILS % (AUTO) 0.2 % (0.0-6.0); HEMATOCRIT 27 % (39-51); HEMOGLOBIN 8.3 g/dL (13.5-17.5); LYMPHOCYTES # (AUTO) 0.3 K/uL (0.8-4.8); LYMPHOCYTES % (AUTO) 12.9 % (20.0-44.0); MEAN CORPUSCULAR HGB CONC 31 g/dl (31.0-36.0); MEAN CORPUSCULAR VOLUME 99 fL (80-96); MONOCYTES # (AUTO) 0.1 K/uL (0.1-1.30); MONOCYTES % (AUTO) 3.5 % (2.0-12.0); NEUTROPHILS # (AUTO) 2.2 K/uL (1.8-8.9); NEUTROPHILS % (AUTO) 82.4 % (43.0-81.0); RED BLOOD CELL COUNT(AUTO) 2.67 MIL/uL (4.5-6.0); WHITE BLOOD COUNT (AUTO) 2.7 K/uL (4.3-11.0)
[2022-10-08 04:42] LABS: PLATELET COUNT (AUTO) 9 K/uL (150-450)
[2022-10-08] MEDS: METRONIDAZOLE 500MG/ NS 100ML 500 MG in PREMIX 1 EA IV SCH ×3 (04:53→20:58)
[2022-10-08] MEDS: HYDROCORTISONE SOD SUCCINATE 100 MG/2 ML VIAL IV SCH ×3 (04:56→20:58)
--- NOTE | 2022-10-08 05:20 | NUR ---
PT RECEIVED BLOOD TRANSFUSION(0140) WHICH FINISHED AT 0330 BUT IT WAS NOT DOCUMENTED IN THE SYSTEM.
[2022-10-08 05:52] LABS: BASOPHILS % (MANUAL) 0 % (0.0-2.0); EOSINOPHILS % (MANUAL) 0 % (0-4); LYMPHOCYTES % (MANUAL) 16 % (16-48); MONOCYTES % (MANUAL) 5 % (0-11.0); NEUTROPHILS % (MANUAL) 79 (42-76)
[2022-10-08 05:58] LABS: ALBUMIN 1.8 g/dL (3.4-5.0); BILIRUBIN,DIRECT 5.1 mg/dL (0.0-0.2); BILIRUBIN,TOTAL 6.3 mg/dL (0.2-1.0); CALCIUM, SERUM 6.1 mg/dL (8.5-10.1); CREATININE 5.2 mg/dL (0.6-1.3); MAGNESIUM 2.2 mg/dL (1.8-2.4); PHOSPHORUS 5.3 mg/dL (2.5-4.9); POTASSIUM 3.7 mmol/L (3.5-5.1); TOTAL PROTEIN, SERUM 4.3 g/dL (6.4-8.2)
--- NOTE | 2022-10-08 06:48 | NUR ---
pt slept through the night. received 1 unit prbc. hgb level normalized. minimal uo at 100 ml the entire shift. vss stable entire shift.
[2022-10-08] MEDS: LEVOTHYROXINE SODIUM 50 MCG TABLET PO SCH (07:30)
[2022-10-08] MEDS: FERROUS SULFATE (325 MG) 325 MG/TAB TABLET PO SCH ×3 (09:00→17:00)
[2022-10-08] MEDS: PROSOURCE / PROSTAT (PYXIS) 30 ML UDC PO SCH (09:00)
[2022-10-08] MEDS: FINASTERIDE (5 MG) 5 MG TABLET PO SCH (09:00)
[2022-10-08] MEDS: SUCRALFATE 1 G/10 ML UDC PO SCH ×4 (09:00→20:58)
[2022-10-08] MEDS: ASCORBIC ACID 500 MG TABLET PO SCH (09:00)
[2022-10-08] MEDS: AMLODIPINE BESYLATE 5 MG TABLET PO SCH (09:00)
[2022-10-08] MEDS: ALLOPURINOL 100 MG TABLET PO SCH (09:00)
[2022-10-08] MEDS: MULTIVITAMINS,THERAGRAN 1 UDTAB TABLET PO SCH (09:00)
[2022-10-08] MEDS: CEFEPIME 2 GM in IV D5W 100 ML IV SCH (09:16)
[2022-10-08] MEDS: PANTOPRAZOLE 40 MG VIAL IV SCH (09:17)
[2022-10-08] MEDS: CLOTRIMAZOLE 1% 15 GM TUBE TP SCH ×2 (09:32→17:22)
--- NOTE | 2022-10-08 09:50 | NUR ---
FOLLOW-UP MADE TO THE LAB DEPT/BLOOD BANK REGARDING STAT ORDER FOR PLATELET TRANSFUSION AND PER JASPER-STAFF "I WILL ORDER IT TO THE [facility] FOR STAT AND USUALLY IT TAKES ABOUT 8HRS." CHARGE NURSE AWARE.
[2022-10-08] MEDS ORDERED: ACETAMINOPHEN 325 MG TABLET PO ONE (10:30)
[2022-10-08] MEDS ORDERED: diphenhydrAMINE HCL 50 MG/ML VIAL IV ONE ×2 (10:30→15:30)
--- NOTE | 2022-10-08 11:26 | NUR ---
DR RAMIREZ AT THE UNIT AND WAS NOTIFIED THAT PLATELET STILL UNAVAILABLE. NO NEW ORDER MADE AT THIS TIME.
--- NOTE | 2022-10-08 16:30 | NUR ---
PLATELET 1 UNIT ;VOLUME 253MLs WAS TRANSFUSED, NO SSx OF ACUTE DISTRESS NOTED.
[2022-10-08] MEDS ORDERED: SODIUM BICARBONATE 5 ML VIAL IV SCH (17:00)
--- NOTE | 2022-10-08 18:15 | NUR ---
PLATELET 2ND UNIT ;VOLUME 300MLs WAS TRANSFUSED, NO SSx OF ACUTE DISTRESS NOTED.
[2022-10-08] MEDS ORDERED: Sodium Bicarbonate 100 MEQ in IV 1/2NS 1000 ML 1,000 ML IV PRN (19:00)
--- NOTE | 2022-10-08 19:00 | NUR ---
ENDORSED TO PANCHO-RN FOR CONTINUITY OF CARE. HOURLY AND PRN ROUNDING DONE BY STAFF.
[2022-10-08] MEDS: IV NS 0.9% 1,000 ML IV PRN ×2 (20:00→23:05)
[2022-10-09] VITALS (53 sets, daily range): BP systolic 94–128; BP diastolic 55–85
[2022-10-09 04:51] LABS: BASOPHILS % (AUTO) 0.4 % (0.0-2.0); EOSINOPHILS % (AUTO) 0.2 % (0.0-6.0); LYMPHOCYTES # (AUTO) 0.4 K/uL (0.8-4.8); MEAN CORPUSCULAR HGB CONC 34 g/dl (31.0-36.0); MEAN CORPUSCULAR VOLUME 94 fL (80-96); MONOCYTES # (AUTO) 0.2 K/uL (0.1-1.30); MONOCYTES % (AUTO) 4.2 % (2.0-12.0); NEUTROPHILS % (AUTO) 86.2 % (43.0-81.0); RED BLOOD CELL COUNT(AUTO) 1.83 MIL/uL (4.5-6.0); WHITE BLOOD COUNT (AUTO) 4.7 K/uL (4.3-11.0)
[2022-10-09 04:53] LABS: HEMATOCRIT 17 % (39-51); HEMOGLOBIN 5.8 g/dL (13.5-17.5); PLATELET COUNT (AUTO) 14 K/uL (150-450)
[2022-10-09 05:16] LABS: MAGNESIUM 1.9 mg/dL (1.8-2.4); PHOSPHORUS 4.4 mg/dL (2.5-4.9)
[2022-10-09 05:19] LABS: ALBUMIN 1.5 g/dL (3.4-5.0); BILIRUBIN,TOTAL 5.4 mg/dL (0.2-1.0); CREATININE 4.7 mg/dL (0.6-1.3); POTASSIUM 3.1 mmol/L (3.5-5.1); TOTAL PROTEIN, SERUM 3.8 g/dL (6.4-8.2)
[2022-10-09 05:48] LABS: D-DIMER 3.86 mg/L(FEU (0.17-0.50)
[2022-10-09] MEDS: METRONIDAZOLE 500MG/ NS 100ML 500 MG in PREMIX 1 EA IV SCH (06:04)
[2022-10-09] MEDS: HYDROCORTISONE SOD SUCCINATE 100 MG/2 ML VIAL IV SCH ×3 (06:04→21:09)
[2022-10-09] MEDS: PANTOPRAZOLE 40 MG VIAL IV SCH ×3 (06:06→21:10)
[2022-10-09] MEDS: MEROPENEM 500 MG in IV NS 0.9% 50 ML IV SCH ×2 (07:27→18:13)
[2022-10-09] MEDS: LEVOTHYROXINE SODIUM 50 MCG TABLET PO SCH (07:30)
--- NOTE | 2022-10-09 08:28 | NUR ---
Remains NPO. Secondary to AMS/obtunded. High Risk for Asp. Increse "foamy" Oral secretions noted. Orak hygiene provided
[2022-10-09 08:31] LABS: LYMPHOCYTES % (MANUAL) 10 % (16-48); MONOCYTES % (MANUAL) 4 % (0-11.0); NEUTROPHILS % (MANUAL) 86 (42-76)
[2022-10-09] MEDS: FERROUS SULFATE (325 MG) 325 MG/TAB TABLET PO SCH ×3 (08:32→17:00)
[2022-10-09] MEDS: AMLODIPINE BESYLATE 5 MG TABLET PO SCH (08:32)
[2022-10-09] MEDS: SUCRALFATE 1 G/10 ML UDC PO SCH ×4 (08:32→21:00)
[2022-10-09] MEDS: FINASTERIDE (5 MG) 5 MG TABLET PO SCH (08:32)
[2022-10-09] MEDS: ALLOPURINOL 100 MG TABLET PO SCH (08:33)
[2022-10-09] MEDS: MULTIVITAMINS,THERAGRAN 1 UDTAB TABLET PO SCH (08:33)
[2022-10-09] MEDS: PROSOURCE / PROSTAT (PYXIS) 30 ML UDC PO SCH (08:33)
[2022-10-09] MEDS: ASCORBIC ACID 500 MG TABLET PO SCH (08:33)
[2022-10-09] MEDS: CLOTRIMAZOLE 1% 15 GM TUBE TP SCH ×2 (08:35→18:11)
--- NOTE | 2022-10-09 08:35 | NUR ---
Platelet 14. Very High Risk for Bleeding for NGT insertion. Plan to Transfuse Blood Products today when available
[2022-10-09 10:32] LABS: ABG BASE EXCESS -6.3 mmol/L; ABG OXYGEN SATURATION 96.2 % (92.0-98.5); ABG PCO2 24.6 mmHg (35.0-45.0); ABG PH 7.451 (7.350-7.450); ABG PO2 91.9 mmHg (75.0-100.0); AaDO2 78.7 mmHg; COHb 0.1 % (0.5-1.5); MetHb 0.3 % (0.0-1.5); O2Hb 95.8 % (94.0-97.0); SITE, ABG Right Radial
[2022-10-09] MEDS: Sodium Bicarbonate 100 MEQ in IV 1/2NS 1000 ML 1,000 ML IV SCH (15:00)
--- NOTE | 2022-10-09 20:10 | NUR ---
PATIENT WITH O2 MID-TO HIGH 80S, PER RT PLACE PT IN NRM, O2 IMPROVED TO HIGH 90S, WILL CONTINUE TO MONITOR CLOSELY
--- NOTE | 2022-10-09 20:10 | NUR ---
RN OPENING NOTES RECEIVED PT ON 3LPM WITH OPTIMAL O2 SAT LEVEL, NO SOB/ACUTE DISTRESS NOTED DURING THE NIGHT, LETHARGIC, UNABLE YO FOLLOW COMMANDS, WITH ORDER TO INFUSE 1 UNIT OF BLOOD, WILL INFUSE ORDERED, SINUS RHYTHM NPO FOR ASPIRATIONS PRECAUTIONS, ON D5W BICARB AT 50ML/HR, VERY EDEMATOUS, WITH RIGHT HAND MITTEN IN PLACED, NO ABNORMALITY NOTED AT SITE, F/C IN PLACE WITH MINIMAL DARK URINE NOTED, ALL SAFETY PRECAUTIONS MAINTAINED, WILL CONTINUE TO MONITOR CLOSELY.
--- NOTE | 2022-10-09 20:46 | NUR ---
Patient receiving blood transfusion at this time, no s/s of any allergic reaction, afebrile, with stable vital sings, will continue to monitor closely.
--- NOTE | 2022-10-09 23:40 | NUR ---
Done with blood administration at this time, no s/s of any allergic reaction, afebrile, stable vital sings, on NMR 15L for now, will continue to monitor closely.
[2022-10-10] VITALS (51 sets, daily range): BP systolic 83–130; BP diastolic 41–72
[2022-10-10 04:03] LABS: BASOPHILS % (AUTO) 0.6 % (0.0-2.0); EOSINOPHILS % (AUTO) 0.1 % (0.0-6.0); HEMATOCRIT 25 % (39-51); HEMOGLOBIN 8.3 g/dL (13.5-17.5); LYMPHOCYTES # (AUTO) 0.9 K/uL (0.8-4.8); LYMPHOCYTES % (AUTO) 12.1 % (20.0-44.0); MEAN CORPUSCULAR HGB CONC 33 g/dl (31.0-36.0); MEAN CORPUSCULAR VOLUME 96 fL (80-96); MONOCYTES # (AUTO) 0.3 K/uL (0.1-1.30); MONOCYTES % (AUTO) 4.9 % (2.0-12.0); NEUTROPHILS # (AUTO) 5.8 K/uL (1.8-8.9); NEUTROPHILS % (AUTO) 82.3 % (43.0-81.0); RED BLOOD CELL COUNT(AUTO) 2.63 MIL/uL (4.5-6.0); WHITE BLOOD COUNT (AUTO) 7.1 K/uL (4.3-11.0)
[2022-10-10 04:08] LABS: PLATELET COUNT (AUTO) 19 K/uL (150-450)
[2022-10-10 04:18] LABS: ALBUMIN 1.8 g/dL (3.4-5.0); BILIRUBIN,TOTAL 5.7 mg/dL (0.2-1.0); POTASSIUM 4.1 mmol/L (3.5-5.1); TOTAL PROTEIN, SERUM 4.5 g/dL (6.4-8.2)
[2022-10-10 04:20] LABS: D-DIMER 4.18 mg/L(FEU (0.17-0.50)
[2022-10-10 04:22] LABS: CALCIUM, SERUM 5.7 mg/dL (8.5-10.1)
[2022-10-10] MEDS: HYDROCORTISONE SOD SUCCINATE 100 MG/2 ML VIAL IV SCH ×3 (04:47→16:59)
[2022-10-10] MEDS: MEROPENEM 500 MG in IV NS 0.9% 50 ML IV SCH ×2 (06:01→17:22)
--- NOTE | 2022-10-10 06:39 | NUR ---
RN CLOSING NOTES PATIENT ON NRM AT 15LPM, WITH O2 >97%, NO SOB/ACUTE DISTRESS NOTED DURING THE NIGHT, LETHARGIC, UNABLE YO FOLLOW COMMANDS, SUCTIONING PROVIDED NEEDED, 1 UNITS OF BLOOD INFUSED LAST NIGHT, TYLENOL SUPPOSITORY GIVEN FOR BLOOD TRANSFUSION, THIS MORNING HG 8.3, PLATELET THIS MORNING 19, JI ANSARI AWARE OF LOW PLATELET, WITH OPTIMAL O2 DURING THE NIGHT, SINUS RHYTHM WITH PVCS ON THE MONITOR, CONTINUE NPO, ASPIRATIONS PRECAUTIONS, CONT ON D5W BICARB AT 50ML/HR, PT INITIALLY ON 3LPM O2, WITH EPISODE ON DESATURATION AND PLACE PT ON NRM AT 15LPM, ALL SAFETY PRECAUTIONS MAINTAINED, WILL ENDORSE CONTINUITY OF CARE TO ONCOMING NURSE.
--- NOTE | 2022-10-10 06:48 | NUR ---
RN OPENING NOTES RECEIVED PT ON 3LPM WITH OPTIMAL O2 SAT LEVEL, NO SOB/ACUTE DISTRESS NOTED DURING THE NIGHT, LETHARGIC, UNABLE YO FOLLOW COMMANDS, WITH ORDER TO INFUSE 1 UNIT OF BLOOD, WILL INFUSE ORDERED, SINUS RHYTHM NPO FOR ASPIRATIONS PRECAUTIONS, ON D5W BICARB AT 50ML/HR, VERY EDEMATOUS, WITH RIGHT HAND MITTEN IN PLACED, NO ABNORMALITY NOTED AT SITE, F/C IN PLACE WITH MINIMAL DARK URINE NOTED, ALL SAFETY PRECAUTIONS MAINTAINED, WILL CONTINUE TO MONITOR CLOSELY. Addendum: 10/10/22 at 0654 by YANNA CORONADO RN WRONG TIME DOCUMENTATION
[2022-10-10] MEDS: LEVOTHYROXINE SODIUM 50 MCG TABLET PO SCH (07:30)
[2022-10-10 08:36] LABS: MAGNESIUM 2.3 mg/dL (1.8-2.4); POTASSIUM 4.1 mmol/L (3.5-5.1)
[2022-10-10] MEDS: PANTOPRAZOLE 40 MG VIAL IV SCH ×2 (08:39→21:26)
[2022-10-10] MEDS: ASCORBIC ACID 500 MG TABLET PO SCH (09:00)
[2022-10-10] MEDS: FERROUS SULFATE (325 MG) 325 MG/TAB TABLET PO SCH ×3 (09:00→17:00)
[2022-10-10] MEDS: FINASTERIDE (5 MG) 5 MG TABLET PO SCH (09:00)
[2022-10-10] MEDS: ALLOPURINOL 100 MG TABLET PO SCH (09:00)
[2022-10-10] MEDS: PROSOURCE / PROSTAT (PYXIS) 30 ML UDC PO SCH (09:00)
[2022-10-10] MEDS: MULTIVITAMINS,THERAGRAN 1 UDTAB TABLET PO SCH (09:00)
[2022-10-10] MEDS: SUCRALFATE 1 G/10 ML UDC PO SCH ×5 (09:00→21:26)
[2022-10-10] MEDS: AMLODIPINE BESYLATE 5 MG TABLET PO SCH (09:00)
[2022-10-10 09:21] LABS: CALCIUM, SERUM 5.7 mg/dL (8.5-10.1)
[2022-10-10] MEDS: CLOTRIMAZOLE 1% 15 GM TUBE TP SCH ×2 (10:07→17:01)
[2022-10-10 10:13] LABS: BAND % (MANUAL) 1 % (0.0-5.0); EOSINOPHILS % (MANUAL) 1 % (0-4); LYMPHOCYTES % (MANUAL) 15 % (16-48); MONOCYTES % (MANUAL) 2 % (0-11.0); NEUTROPHILS % (MANUAL) 81 (42-76)
--- NOTE | 2022-10-10 10:27 | NUR ---
Primary Family Spokeperson: Talib Contreras Jr. (Eldest son) designated decision maker . Requesting for Hematology to give him a courtesy call regarding blood abnormality. I will also informed the primary MD and consultants to update family about prognosis.
[2022-10-10 12:06] LABS: *ANA ANTI-CENTROMERE B AB <0.2 AI (0.0-0.9); *ANA ANTI-DNA(DS) AB, QN <1 IU/mL (0-9); *ANA ANTI-JO-1 <0.2 AI (0.0-0.9); *ANA ANTICHROMATIN ANTIBODY <0.2 AI (0.0-0.9); *ANA RNP ANTIBODIES 0.3 AI (0.0-0.9); *ANA SJOGREN'S ANTI-SS-A <0.2 AI (0.0-0.9); *ANA SJOGREN'S ANTI-SS-B <0.2 AI (0.0-0.9); *ANAANTI-SCLERODERMA-70 AB <0.2 AI (0.0-0.9); *ANASMITH AB <0.2 AI (0.0-0.9)
[2022-10-10] MEDS: Sodium Bicarbonate 100 MEQ in IV 1/2NS 1000 ML 1,000 ML IV SCH (14:09)
[2022-10-10] MEDS ORDERED: IV NS 0.9% 1,000 ML IV SCH (16:00)
[2022-10-10] MEDS: IV D5/0.45 NACL 1,000 ML IV PRN (17:00)
[2022-10-11] VITALS (39 sets, daily range): BP systolic 114–158; BP diastolic 54–82
[2022-10-11 05:03] LABS: BASOPHILS % (AUTO) 0.6 % (0.0-2.0); EOSINOPHILS % (AUTO) 0.3 % (0.0-6.0); HEMATOCRIT 24 % (39-51); HEMOGLOBIN 8.2 g/dL (13.5-17.5); LYMPHOCYTES % (AUTO) 16.6 % (20.0-44.0); MEAN CORPUSCULAR HGB CONC 33 g/dl (31.0-36.0); MEAN CORPUSCULAR VOLUME 95 fL (80-96); MONOCYTES # (AUTO) 0.2 K/uL (0.1-1.30); MONOCYTES % (AUTO) 4.1 % (2.0-12.0); NEUTROPHILS # (AUTO) 4.7 K/uL (1.8-8.9); NEUTROPHILS % (AUTO) 78.4 % (43.0-81.0); RED BLOOD CELL COUNT(AUTO) 2.58 MIL/uL (4.5-6.0)
[2022-10-11 05:16] LABS: PLATELET COUNT (AUTO) 11 K/uL (150-450)
[2022-10-11 05:17] LABS: BAND % (MANUAL) 3 % (0.0-5.0); LYMPHOCYTES % (MANUAL) 18 % (16-48)
[2022-10-11 05:18] LABS: MONOCYTES % (MANUAL) 5 % (0-11.0); NEUTROPHILS % (MANUAL) 74 (42-76)
[2022-10-11 05:25] LABS: ALBUMIN 1.7 g/dL (3.4-5.0); BILIRUBIN,TOTAL 5.8 mg/dL (0.2-1.0); CREATININE 6.2 mg/dL (0.6-1.3); POTASSIUM 4.1 mmol/L (3.5-5.1); TOTAL PROTEIN, SERUM 4.4 g/dL (6.4-8.2)
[2022-10-11 05:32] LABS: CALCIUM, SERUM 5.5 mg/dL (8.5-10.1)
[2022-10-11 05:33] LABS: D-DIMER 5.59 mg/L(FEU (0.17-0.50)
[2022-10-11] MEDS: MEROPENEM 500 MG in IV NS 0.9% 50 ML IV SCH ×2 (06:06→18:51)
--- NOTE | 2022-10-11 06:25 | NUR ---
VICE PRESIDENT SALES AND MARKETING PT ON ROOM AIR SINCE MIDNIGHT; TOLERATING WELL
--- NOTE | 2022-10-11 07:05 | NUR ---
BURRER MACHINE OPENING NOTE: RECEIVED PT. IN BED, LETHARGIC, UNABLE TO ANSWER QUESTIONS VERBALLY BUT ABLE TO FOLLOW SIMPLE COMMANDS. TRACKS EYES AND SQUEEZES HANDS. NO S/S OF PAIN/DISCOMFORT AT THIS TIME. ON ROOM AIR, NO S/S OF RESPIRATORY DISTRESS. USER EXPERIENCE DEVELOPER READS SINUS RHYTHM/SINUS LOIDA W/ HR OF 63 BPM AT THIS TIME. MULTIPLE SKIN ISSUES NOTED, WILL DO WOUND TREATMENT AND SKIN PRECAUTIONS ORDERED. ON CHAMORRO CATH WITH CLOUDY GARFIELD URINE WITH SEDIMENT NOTED, BAG DRAINING BELOW BLADDER. IV ACCESS ON MERLENE PICC WITH D5 1/2 NS RUNNING AT 75 ML/HR; THADDEUS MIDLINE, PATENT AND SALINE LOCKED. IV SITE DRESSINGS C/D/I WITH NO S/S OF INFILTRATION. SAFETY MEASURES IN PLACE: BED IN LOWEST AND LOCKED POSITION, HOB ELEVATED AT 45 DEGREES, BED ALARM ON, CALL LIGHT WITHIN REACH, SIDE RAILS UP X2. WILL TURN AND REPOSITION IN BED AT LEAST Q2H. WILL CONTINUE TO MONITOR PT. FOR ANY CHANGES.
--- NOTE | 2022-10-11 07:19 | NUR ---
WOUND CARE CONSULT/FOLLOW UP: REVIEWED CHART, NURSING DOCUMENTATION AND SPOKE WITH NURSING STAFF. PT HAS SACRAL DEEP TISSUE INJURY WHICH EXTENDS TO BILATERAL BUTTOCKS/THIGHS WHICH WAS NOTED TO BE PRESENT ON ADMISSION. AT THIS TIME, DTI IS IN EVOLUTION. PT HAS LOW PLATELET COUNT AND MULTIPLE CO-MORBIDITIES INCLUDING OBESITY AND COVID 19 PNEUMONIA. Alegría AIR BED ORDERED. DISCUSSED SKIN PROTECTION AND WOUND CARE RECOMMENDATIONS WITH NURSING STAFF. DR GATES CONSULTED FOR SURGICAL CONSULT OF WOUND. MD IN AGREEMENT WITH PLAN OF CARE. Addendum: 10/11/22 at 0724 by JOHN THORNTON WNDNU OTHER CO-MORBIDITIES INCLUDE NON HODGKINS LYMPHOMA, ANEMIA AND RENAL FAILURE.
[2022-10-11] MEDS: LEVOTHYROXINE SODIUM 50 MCG TABLET PO SCH (07:30)
[2022-10-11] MEDS: FINASTERIDE (5 MG) 5 MG TABLET PO SCH (08:04)
[2022-10-11] MEDS: SUCRALFATE 1 G/10 ML UDC PO SCH ×4 (08:04→21:00)
[2022-10-11] MEDS: FERROUS SULFATE (325 MG) 325 MG/TAB TABLET PO SCH ×3 (08:04→17:00)
[2022-10-11] MEDS: PROSOURCE / PROSTAT (PYXIS) 30 ML UDC PO SCH (08:05)
[2022-10-11] MEDS: ALLOPURINOL 100 MG TABLET PO SCH (08:06)
[2022-10-11] MEDS: MULTIVITAMINS,THERAGRAN 1 UDTAB TABLET PO SCH (08:06)
[2022-10-11] MEDS: ASCORBIC ACID 500 MG TABLET PO SCH (08:06)
[2022-10-11] MEDS: IV D5/0.45 NACL 1,000 ML IV PRN ×2 (08:54→22:22)
[2022-10-11] MEDS: PANTOPRAZOLE 40 MG VIAL IV SCH ×2 (08:55→21:28)
[2022-10-11] MEDS: HYDROCORTISONE SOD SUCCINATE 100 MG/2 ML VIAL IV SCH ×2 (08:56→09:30)
[2022-10-11] MEDS: CLOTRIMAZOLE 1% 15 GM TUBE TP SCH ×2 (09:37→17:10)
--- NOTE | 2022-10-11 09:40 | NUR ---
MANAGER MARKET NOTE: SOLU-CORTEF 50 MG SCHEDULED AT 0930 DAILY ALREADY GIVEN AT 0856. CHANGED SCHEDULE FROM BID TO ONCE DAILY.
[2022-10-11] MEDS ORDERED: diphenhydrAMINE HCL 50 MG/ML VIAL IV ONE (10:00)
[2022-10-11] MEDS ORDERED: DESMOPRESSIN 20 MCG in IV NS 0.9% 50 ML IV ONE (12:00)
--- NOTE | 2022-10-11 12:45 | NUR ---
ONLINE MERCHANDISING SPECIALIST NOTE: PT.'S PLT TODAY IS 11. TANJA MACHINE OPERATOR ORDERED 2 UNITS OF PLASMA AND 2 UNITS OF PLATELETS. WAITING FOR THE PLATELETS FROM BLOOD BANK. 1ST UNIT OF PLASMA STARTED TRANSFUSING AT 1140 AND ENDED AT 1240. NO TRANSFUSION REACTION NOTED. VS STABLE. WILL ADMINISTER 2ND UNIT OF PLASMA AND WILL CONTINUE TO MONITOR PT. FOR S/S OF TRANSFUSION REACTION. NO S/S OF BLEEDING NOTED WELL.
--- NOTE | 2022-10-11 14:16 | NUR ---
ADVENTURE CHALLENGE INSTRUCTOR NOTE: 2ND UNIT OF PLASMA STARTED TRANSFUSING AT 1250 AND ENDED AT 1350. NO TRANSFUSION REACTION NOTED. VS STABLE ON ROOM AIR. WILL CONTINUE TO MONITOR PT. FOR S/S OF TRANSFUSION REACTION. STILL WAITING FOR THE 2 UNITS OF PLATELETS FROM BLOOD BANK. FOLLOWED UP WITH FEBRUARY OF LAB. NO S/S OF BLEEDING NOTED.
--- NOTE | 2022-10-11 19:05 | NUR ---
ENTERTAINMENT MANAGER CLOSING NOTE: PT. REMAINS IN BED, LETHARGIC, UNABLE TO ANSWER QUESTIONS VERBALLY BUT ABLE TO FOLLOW SIMPLE COMMANDS. TRACKS EYES AND SQUEEZES HANDS. NO S/S OF PAIN/DISCOMFORT THIS SHIFT. ON ROOM AIR, NO S/S OF RESPIRATORY DISTRESS. 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 MULTIPLE SKIN ISSUES NOTED, WOUND TREATMENT AND SKIN PRECAUTIONS DONE ORDERED. ON CHAMORRO CATH, DRAINED 180 ML CLOUDY GARFIELD URINE WITH SEDIMENT NOTED, BAG DRAINING BELOW BLADDER. IV ACCESS ON MERLENE PICC WITH D5 1/2 NS RUNNING AT 75 ML/HR; THADDEUS MIDLINE, PATENT AND SALINE LOCKED. IV SITE DRESSINGS C/D/I WITH NO S/S OF INFILTRATION. TRANSFUSED 2 UNITS OF PLASMA THIS SHIFT. STILL WAITING FOR 2 UNITS OF PLATELETS FROM BLOODBANK. SAFETY MEASURES MAINTAINED: BED IN LOWEST AND LOCKED POSITION, HOB ELEVATED AT 45 DEGREES, BED ALARM ON, CALL LIGHT WITHIN REACH, SIDE RAILS UP X2. TURNED AND REPOSITIONED IN BED AT LEAST Q2H. ENDORSED CONTINUITY OF CARE TO HR COORDINATOR ROSY GRACIA.
--- NOTE | 2022-10-11 20:39 | NUR ---
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 INITIAL ASSESSMENT. RECEIVED THE PT REST IN BED. OPEN EYES. DOES NOT FOLLOW COMMANDS, WAREHOUSE ASSOCIATE SHOWING NSR, IV RT UPPER ARM PICC LINE. IVFD5 1/2NS 75 ML/H. HOB ELEVATED. FC PATENT. WILL CONTINUE TO MONITOR VITALS.
[2022-10-12] VITALS (71 sets, daily range): BP systolic 1–128; BP diastolic 55–87
--- NOTE | 2022-10-12 | NUR ---
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 PLATELETS 1 UNITS GIVEN. DURING TRANSFUSION NO COMPLICATION NOTED. WILL CONTINUE TO MONITOR VITALS
--- NOTE | 2022-10-12 00:20 | NUR ---
ANALYTICS ANALYST. PT HEART RATE WENT UPTO 130. EKG DONE. A FIB. NOTIFIED MENDEZ. WAITING FOR CALL BACK
[2022-10-12] MEDS ORDERED: IV NS 0.9% 1,000 ML IV STA (00:46)
--- NOTE | 2022-10-12 01:00 | NUR ---
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 cm with RVR cathlan ordered 1lL NS BOLUS GIVEN.
[2022-10-12] MEDS ORDERED: AMIODARONE 150 MG/3 ML VIAL IV ONE (03:29)
[2022-10-12] MEDS ORDERED: AMIODARONE 150 MG in IV D5W 100 ML IV ONE (04:00)
[2022-10-12] MEDS ORDERED: AMIODARONE 900 MG in IV D5W 482 ML IV PRN (04:00)
[2022-10-12 04:03] LABS: ALBUMIN 1.8 g/dL (3.4-5.0); BILIRUBIN,TOTAL 4.7 mg/dL (0.2-1.0); CREATININE 6.2 mg/dL (0.6-1.3); MAGNESIUM 2.3 mg/dL (1.8-2.4); POTASSIUM 3.5 mmol/L (3.5-5.1); TOTAL PROTEIN, SERUM 4.3 g/dL (6.4-8.2)
[2022-10-12 04:04] LABS: CALCIUM, SERUM 5.4 mg/dL (8.5-10.1)
[2022-10-12] MEDS: AMIODARONE 450 MG in IV D5W 241 ML IV PRN ×2 (04:12→11:05)
[2022-10-12 04:13] LABS: D-DIMER 7.65 mg/L(FEU (0.17-0.50)
[2022-10-12 04:37] LABS: HEMATOCRIT 21 % (39-51); MEAN CORPUSCULAR HGB CONC 33 g/dl (31.0-36.0); MEAN CORPUSCULAR VOLUME 95 fL (80-96); RED BLOOD CELL COUNT(AUTO) 2.16 MIL/uL (4.5-6.0); WHITE BLOOD COUNT (AUTO) 5.6 K/uL (4.3-11.0)
[2022-10-12] MEDS: MULTIVITAMINS,THERAGRAN 1 UDTAB TABLET PO SCH (04:41)
[2022-10-12 04:59] LABS: HEMOGLOBIN 6.8 g/dL (13.5-17.5); PLATELET COUNT (AUTO) 13 K/uL (150-450)
--- NOTE | 2022-10-12 05:07 | NUR ---
NURSING CONSULTANT. AMIODARONE BOLUS NOT GIVEN, ONLY GIVEN DRIP PER PROTOCAL PER CATHALAN DNP.
[2022-10-12 05:38] LABS: LYMPHOCYTES % (MANUAL) 7 % (16-48); MONOCYTES % (MANUAL) 5 % (0-11.0); NEUTROPHILS % (MANUAL) 88 (42-76)
[2022-10-12] MEDS: MEROPENEM 500 MG in IV NS 0.9% 50 ML IV SCH ×2 (06:10→18:57)
--- NOTE | 2022-10-12 06:40 | NUR ---
PILOT PLANT OPERATOR HELPER. ABNORMAL LABS NOTIFIED Everett LUGO ORDERED 1UNIT PRBC,
[2022-10-12] MEDS ORDERED: AMIODARONE 450 MG in IV D5W 241 ML IV PRN (07:00)
--- NOTE | 2022-10-12 07:05 | NUR ---
TERMITE RENEWAL INSPECTOR OPENING NOTE: RECEIVED PT. IN BED, LETHARGIC, UNABLE TO ANSWER QUESTIONS VERBALLY. OPENS EYES TO NAME AND TACTILE STIMULI. NO S/S OF PAIN/DISCOMFORT AT THIS TIME. ON ROOM AIR, NO S/S OF RESPIRATORY DISTRESS. INDUSTRIAL DESIGN INTERN READS AFIB UNCONTROLLED WITH HR OF 123 BPM AT THIS TIME. MULTIPLE SKIN ISSUES NOTED, WILL DO WOUND TREATMENT AND SKIN PRECAUTIONS ORDERED. ON CHAMORRO CATH WITH CLOUDY GARFIELD URINE WITH SEDIMENT NOTED, BAG DRAINING BELOW BLADDER. IV ACCESS ON MERLENE PICC WITH D5 1/2 NS RUNNING AT 75 ML/HR AND AMIODARONE DRIP AT 33.33 ML/HR; THADDEUS MIDLINE, PATENT AND SALINE LOCKED. IV SITE DRESSINGS C/D/I WITH NO S/S OF INFILTRATION. SAFETY MEASURES IN PLACE: BED IN LOWEST AND LOCKED POSITION, HOB ELEVATED AT 45 DEGREES, BED ALARM ON, CALL LIGHT WITHIN REACH, SIDE RAILS UP X2. WILL TURN AND REPOSITION IN BED AT LEAST Q2H. WILL CONTINUE TO MONITOR PT. FOR ANY CHANGES.
[2022-10-12] MEDS: LEVOTHYROXINE SODIUM 50 MCG TABLET PO SCH (07:30)
[2022-10-12] MEDS: SUCRALFATE 1 G/10 ML UDC PO SCH ×4 (08:16→21:00)
[2022-10-12] MEDS: FINASTERIDE (5 MG) 5 MG TABLET PO SCH (08:17)
[2022-10-12] MEDS: ASCORBIC ACID 500 MG TABLET PO SCH (08:17)
[2022-10-12] MEDS: PROSOURCE / PROSTAT (PYXIS) 30 ML UDC PO SCH (08:17)
[2022-10-12] MEDS: ALLOPURINOL 100 MG TABLET PO SCH (08:17)
[2022-10-12] MEDS: FERROUS SULFATE (325 MG) 325 MG/TAB TABLET PO SCH ×3 (08:17→16:29)
[2022-10-12] MEDS: CLOTRIMAZOLE 1% 15 GM TUBE TP SCH ×2 (08:26→18:58)
[2022-10-12] MEDS: HYDROCORTISONE SOD SUCCINATE 100 MG/2 ML VIAL IV SCH (08:27)
[2022-10-12] MEDS: PANTOPRAZOLE 40 MG VIAL IV SCH ×2 (08:27→21:27)
[2022-10-12 09:17] LABS: BASOPHILS % (AUTO) 0.6 % (0.0-2.0); EOSINOPHILS % (AUTO) 0.2 % (0.0-6.0); HEMATOCRIT 21 % (39-51); LYMPHOCYTES # (AUTO) 0.5 K/uL (0.8-4.8); MEAN CORPUSCULAR HGB CONC 33 g/dl (31.0-36.0); MEAN CORPUSCULAR VOLUME 95 fL (80-96); MONOCYTES # (AUTO) 0.3 K/uL (0.1-1.30); MONOCYTES % (AUTO) 5.5 % (2.0-12.0); NEUTROPHILS % (AUTO) 84.7 % (43.0-81.0); WHITE BLOOD COUNT (AUTO) 5.9 K/uL (4.3-11.0)
[2022-10-12 09:18] LABS: ABG BASE EXCESS -4.8 mmol/L; ABG OXYGEN SATURATION 95.4 % (92.0-98.5); ABG PCO2 32.9 mmHg (35.0-45.0); ABG PH 7.393 (7.350-7.450); ABG PO2 90.8 mmHg (75.0-100.0); AaDO2 19.5 mmHg; COHb 1.2 % (0.5-1.5); MetHb 0.2 % (0.0-1.5); O2Hb 94.1 % (94.0-97.0); SITE, ABG Left Radial; VENT MODE, BG room air
[2022-10-12 09:23] LABS: HEMOGLOBIN 6.9 g/dL (13.5-17.5); PLATELET COUNT (AUTO) 10 K/uL (150-450)
--- NOTE | 2022-10-12 12:00 | NUR ---
APPLIED BEHAVIOR SPECIALIST NOTE: PT.'S HEMOGLOBIN AT 6.8 THIS AM WITH REPEAT DRAW AT 6.9. MD ORDERED 1 UNIT OF RBC. STARTED INFUSION AT 0950 AND ENDED AT 1150. NO TRANSFUSION REACTION NOTED. PT. ON AGUILA HUGGER FOR LOW TEMP AT THE BEGINNING OF THE SHIFT. TEMP, BP, SPO2 AND RESPIRATORY RATE STABLE AT THIS TIME. PT. STILL AFIB UNCONROLLED, STILL ON AMIODARONE DRIP. WILL CONTINUE TO MONITOR FOR S/S OF TRANSFUSION REACTION.
--- NOTE | 2022-10-12 13:50 | NUR ---
BINDERY LEADPERSON NOTE: PT.'S PLT AT 13 THIS AM. REPEAT BLOOD DRAW SHOWED PLT AT 10. 1 UNIT OF PLT ORDERED AND STARTED TRANSFUSING AT 1245, ENDED AT 1345. NO TRANSFUSION REACTION NOTED. PT. STILL AFIB UNCONTROLLED ON AMIODARONE DRIP, OTHER VS STABLE. WILL CONTINUE TO MONITOR PT. FOR ANY CHANGES.
[2022-10-12] MEDS: IV D5/0.45 NACL 1,000 ML IV PRN (14:12)
[2022-10-12] MEDS ORDERED: ACETAMINOPHEN 325 MG TABLET PO ONE (14:30)
[2022-10-12] MEDS ORDERED: diphenhydrAMINE HCL 50 MG/ML VIAL IV ONE (14:30)
[2022-10-12] MEDS ORDERED: PHYTONADIONE INJ 10 MG/1 ML AMPUL SQ ONE (14:30)
[2022-10-12 17:42] LABS: BAND % (MANUAL) 7 % (0.0-5.0); LYMPHOCYTES % (MANUAL) 10 % (16-48); MONOCYTES % (MANUAL) 4 % (0-11.0); NEUTROPHILS % (MANUAL) 79 (42-76)
--- NOTE | 2022-10-12 19:00 | NUR ---
RISK ASSESSMENT CONSULTANT NOTE: 2 UNITS OF PLASMA ORDERED BY DR. GALLARDO. 1ST UNIT STARTED TRANSFUSING AT 1605 AND ENDED AT 1705. NO TRANSFUSION REACTION NOTED. 2ND UNIT OF PLASMA STARTED TRANSFUSING AT 1847 AND STILL RUNNING AT THIS TIME. NO TRANSFUSION REACTION SO FAR. STILL WAITING FOR 1 UNIT OF PLATELETS FROM [facility]LOOD[facility]ANK. WILL ENDORSE CONTINUITY OF CARE TO BANK OPERATIONS OFFICER RN BASIL.
--- NOTE | 2022-10-12 19:05 | NUR ---
CLEANING AND WASHING EQUIPMENT OPERATOR NOTE: PRODUCT BARCODE FOR THE 2ND UNIT OF PLASMA THAT WAS STARTED AT 1847 WAS NOT SCANNING. CALLED SILVINA OF [employer] ABOUT THE ISSUE AND WAS AUTHORIZED TO OVERRIDE [place]. OTHER BARCODES WERE SCANNED WITHOUT ISSUE. COSIGNED WITH AD TRAFFICKER CECILE.
--- NOTE | 2022-10-12 19:10 | NUR ---
INJECTOR ASSEMBLER CLOSING NOTE: PT. REMAINS IN BED, LETHARGIC, UNABLE TO ANSWER QUESTIONS VERBALLY. OPENS EYES TO NAME AND TACTILE STIMULI ONLY. NO S/S OF PAIN/DISCOMFORT AT THIS TIME. ON ROOM AIR, NO S/S OF RESPIRATORY DISTRESS. THERMOMETER PRODUCTION WORKER STILL READS AFIB UNCONTROLLED WITH HR OF 129 BPM AT THIS TIME. WOUND TREATMENT AND SKIN PRECAUTIONS DONE ORDERED. CHAMORRO CATH DRAINED 500 ML CLOUDY GARFIELD URINE WITH SEDIMENT NOTED, BAG DRAINING BELOW BLADDER. IV ACCESS ON MERLENE PICC WITH D5 1/2 NS RUNNING AT 75 ML/HR AND AMIODARONE DRIP AT 16.6 ML/HR; THADDEUS MIDLINE, PATENT AND SALINE LOCKED. IV SITE DRESSINGS C/D/I WITH NO S/S OF INFILTRATION. SAFETY MEASURES MAINTAINED: BED IN LOWEST AND LOCKED POSITION, HOB ELEVATED AT 45 DEGREES, BED ALARM ON, CALL LIGHT WITHIN REACH, SIDE RAILS UP X2. TURNED AND REPOSITIONED IN BED AT LEAST Q2H. ENDORSED CONTINUITY OF CARE TO CASING MACHINE OPERATOR ROSY GRACIA.
--- NOTE | 2022-10-12 20:43 | NUR ---
MOLDER OFFBEARER. INITIAL ASSESSMENT. RECEIVED THE PT REST IN BED. AWAKE, VERY LETHARGIC. ROOM AIR SAT 94%. PRACTICAL NURSING INSTRUCTOR SHOWING A, FIB. RATE IS 130. MD DOLAN STATED, CONTINUE THE AMIO DRIP. PT IS NPO. FC PATENT. ANNA HAND OOZING. ANNA UPPER AND LOWER EXTREMITY 3+ SWELLING. A FEBRILE. NO ACTIVE BLEEDING NOTED. WILL CONTINUE TO MONITOR VITALS.
--- NOTE | 2022-10-12 21:07 | NUR ---
PLANT UTILITIES ENGINEER. CARAFATE PO NOT GIVEN. PT IS NPO. NO NGT.
[2022-10-13] VITALS (50 sets, daily range): BP systolic 80–140; BP diastolic 53–86
[2022-10-13] MEDS: IV D5/0.45 NACL 1,000 ML IV PRN ×2 (00:54→17:53)
[2022-10-13] MEDS: AMIODARONE 450 MG in IV D5W 241 ML IV PRN ×2 (00:54→15:24)
[2022-10-13 05:10] LABS: D-DIMER 9.51 mg/L(FEU (0.17-0.50)
[2022-10-13 05:18] LABS: CREATININE 5.8 mg/dL (0.6-1.3); POTASSIUM 3.2 mmol/L (3.5-5.1)
[2022-10-13 05:21] LABS: CALCIUM, SERUM 5.4 mg/dL (8.5-10.1)
--- NOTE | 2022-10-13 05:27 | NUR ---
travel registered nurse icu. am care given. remaining same ivf and amiodarone drip running. hob elevated, fc patent. npo, platelets went up today. turn and reposition q2h. will continue to monitor vitals
[2022-10-13] MEDS: MEROPENEM 500 MG in IV NS 0.9% 50 ML IV SCH ×2 (06:13→18:00)
--- NOTE | 2022-10-13 07:10 | NUR ---
RESHIPPING CLERK OPENING NOTE: RECEIVED PT. IN BED, LETHARGIC, UNABLE TO ANSWER QUESTIONS VERBALLY, MORE AWAKE TODAY THAN YESTERDAY. OPENS EYES TO NAME AND TACTILE STIMULI. ABLE TO FOLLOW COMMANDS, TRACKS WITH EYES, SQUEEZES HANDS AND WIGGLES TOES. NO S/S OF PAIN/DISCOMFORT AT THIS TIME. ON ROOM AIR, NO S/S OF RESPIRATORY DISTRESS. COMMERCIAL TIRE SERVICE TECHNICIAN READS AFIB UNCONTROLLED WITH HR OF 113 BPM AT THIS TIME. MULTIPLE SKIN ISSUES NOTED, WILL DO WOUND TREATMENT AND SKIN PRECAUTIONS ORDERED. ON CHAMORRO CATH WITH CLOUDY GARFIELD URINE WITH SEDIMENT NOTED, BAG DRAINING BELOW BLADDER. IV ACCESS ON MERLENE PICC WITH D5 1/2 NS RUNNING AT 75 ML/HR AND AMIODARONE DRIP AT 16.6 ML/HR; THADDEUS MIDLINE, PATENT AND SALINE LOCKED. IV SITE DRESSINGS C/D/I WITH NO S/S OF INFILTRATION. SAFETY MEASURES IN PLACE: BED IN LOWEST AND LOCKED POSITION, HOB ELEVATED AT 45 DEGREES, BED ALARM ON, CALL LIGHT WITHIN REACH, SIDE RAILS UP X2. WILL TURN AND REPOSITION IN BED AT LEAST Q2H. WILL CONTINUE TO MONITOR PT. FOR ANY CHANGES.
[2022-10-13] MEDS: LEVOTHYROXINE SODIUM 50 MCG TABLET PO SCH (07:30)
[2022-10-13 07:35] LABS: BASOPHILS % (AUTO) 0.5 % (0.0-2.0); EOSINOPHILS % (AUTO) 0.6 % (0.0-6.0); HEMATOCRIT 24 % (39-51); HEMOGLOBIN 7.9 g/dL (13.5-17.5); LYMPHOCYTES % (AUTO) 11.8 % (20.0-44.0); MEAN CORPUSCULAR HGB CONC 33 g/dl (31.0-36.0); MEAN CORPUSCULAR VOLUME 96 fL (80-96); MONOCYTES # (AUTO) 0.3 K/uL (0.1-1.30); MONOCYTES % (AUTO) 3.6 % (2.0-12.0); NEUTROPHILS # (AUTO) 6.9 K/uL (1.8-8.9); NEUTROPHILS % (AUTO) 83.5 % (43.0-81.0); WHITE BLOOD COUNT (AUTO) 8.2 K/uL (4.3-11.0)
[2022-10-13 07:37] LABS: PLATELET COUNT (AUTO) 27 K/uL (150-450)
[2022-10-13] MEDS: ALLOPURINOL 100 MG TABLET PO SCH (08:27)
[2022-10-13] MEDS: SUCRALFATE 1 G/10 ML UDC PO SCH ×4 (08:27→21:24)
[2022-10-13] MEDS: FINASTERIDE (5 MG) 5 MG TABLET PO SCH (08:27)
[2022-10-13] MEDS: FERROUS SULFATE (325 MG) 325 MG/TAB TABLET PO SCH ×3 (08:27→16:03)
[2022-10-13] MEDS: ASCORBIC ACID 500 MG TABLET PO SCH (08:27)
[2022-10-13] MEDS: MULTIVITAMINS,THERAGRAN 1 UDTAB TABLET PO SCH (08:27)
[2022-10-13] MEDS: PROSOURCE / PROSTAT (PYXIS) 30 ML UDC PO SCH (08:27)
[2022-10-13] MEDS: CLOTRIMAZOLE 1% 15 GM TUBE TP SCH ×2 (08:33→16:03)
[2022-10-13] MEDS: PANTOPRAZOLE 40 MG VIAL IV SCH ×2 (08:34→21:24)
[2022-10-13] MEDS: HYDROCORTISONE SOD SUCCINATE 100 MG/2 ML VIAL IV SCH (08:34)
--- NOTE | 2022-10-13 10:00 | NUR ---
MANUSCRIPT EDITOR NOTE: PT.'S POTASSIUM AT 3.2 THIS AM WITH BUN AT 132 AND [address] AT 5.[address]. [address] HALL NOTIFIED AND WAS TOLD TO NOT GIVE POTASSIUM SUPPLEMENT YET. PHARMACY NOTIFIED WELL. WILL WAIT FOR FURTHER INSTRUCTIONS.
--- NOTE | 2022-10-13 12:15 | NUR ---
CIVIL DIVISION COMMANDER DEPUTY SHERIFF NOTE: PT. NOTED TO HAVE AN AXILLARY TEMP OF 94.5F. PT. WAS PUT ON AGUILA HUGGER. WILL CONTINUE TO MONITOR PT.'S TEMP.
--- NOTE | 2022-10-13 13:00 | NUR ---
EXTERNAL RELATIONS MANAGER NOTE: DR. HALL INSERTED TEMPORARY HD CATH IN R FEMORAL VEIN. PRESSURE APPLIED. NO S/S OF BLEEDING NOTED. HEMODIALYSIS SCHEDULED TODAY. NG TUBE ALSO INSERTED IN R NARE, XRAY CONFIRMED PLACEMENT. WILL START RESUMING PO MEDS TO BE GIVEN VIA NGTUBE AND ALSO TUBE FEEDING PER DR. HALL'S ORDER. WILL CONTINUE TO MONITOR PT. FOR S/S OF ASPIRATION AND BLEEDING.
[2022-10-13] MEDS ORDERED: NEPRO 1,000 ML BOTTLE GT PRN (14:30)
[2022-10-13] MEDS: EPOETIN ALFA-EPBX 4,000 UNIT/ML VIAL SQ SCH (15:52)
[2022-10-13] MEDS ORDERED: diphenhydrAMINE HCL 50 MG/ML VIAL IV ONE (16:00)
[2022-10-13] MEDS ORDERED: ACETAMINOPHEN 325 MG TABLET PO ONE (16:00)
--- NOTE | 2022-10-13 17:45 | NUR ---
CHANNEL MARKETING PROGRAM MANAGER NOTE: HEMODIALYSIS STARTED AT 1530 AND ENDED AT 1730. GOT 500 ML OUT. PT. VS STABLE AT THIS TIME. WILL CONTINUE TO MONITOR PT.'S HEMODYNAMIC STATUS.
[2022-10-13] MEDS: NEPRO 1,000 ML BOTTLE GT PRN (17:52)
--- NOTE | 2022-10-13 19:10 | NUR ---
TAILOR'S AIDE CLOSING NOTE: PT. REMAINS IN BED, LETHARGIC, UNABLE TO ANSWER QUESTIONS VERBALLY, MORE AWAKE THIS AM BUT STARTED TO BE MORE LETHARGIC THIS LATE AFTERNOON. STILL OPENS EYES TO TACTILE AND PAINFUL STIMULI AT THIS TIME. NO S/S OF PAIN/DISCOMFORT AT THIS TIME. PT. STARTED TO DESATURATE AT 80-83% AROUND 1814. PT. WAS SUCTIONED ORALLY AND NASOPHARYNGEALLY AND WAS PUT ON 4L NC, NOW SATURATING AT 98-99%. NO S/S OF RESPIRATORY DISTRESS. TABLET REPAIR STILL READS AFIB UNCONTROLLED WITH HR OF 120 BPM AT THIS TIME. WOUND TREATMENT AND SKIN PRECAUTIONS DONE ORDERED. NG TUBE IN R NARE WITH NEPRO RUNNING AT 20 ML/HR WITH GOAL OF 45ML/HR. TUBE FEEDING STOPPED WHEN PT. DESATURATED. WILL GIVE TIME FOR PT. TO RECOVER BEFORE RESUMING TUBE FEEDING. CHAMORRO CATH DRAINED 550 ML CLOUDY GARFIELD URINE WITH SEDIMENT NOTED THIS SHIFT. IV ACCESS ON MERLENE PICC WITH D5 1/2 NS RUNNING AT 75 ML/HR AND AMIODARONE DRIP AT 16.6 ML/HR; THADDEUS MIDLINE, PATENT AND SALINE LOCKED. IV SITE DRESSINGS C/D/I WITH NO S/S OF INFILTRATION. SAFETY MEASURES MAINTAINED: BED IN LOWEST AND LOCKED POSITION, HOB ELEVATED AT 45 DEGREES, BED ALARM ON, CALL LIGHT WITHIN REACH, SIDE RAILS UP X2. TURNED AND REPOSITIONED IN BED AT LEAST Q2H. WAITING FOR 2 UNITS OF PLASMA AND 2 UNITS OF PLATELETS FROM [facility] TO BE TRANSFUSED TONIGHT FOR POSSIBLE CT GUIDED PERCUTAENOUS CHOLECYSTOSTOMY TOMORROW AFTERNOON. ENDORSED CONTINUITY OF CARE TO DIRECTOR OF REGULATORY AFFAIRS RN.
--- NOTE | 2022-10-13 20:56 | NUR ---
MANAGER PORTABLE REMOVED NASAL CANNULA AND PT NOTED TO DESATURATE TO 84%; NC 4L PLACED BACK.
[2022-10-13] MEDS ORDERED: NOREPINEPHRINE 4 MG/4 ML AMPUL IV ONE (22:05)
--- NOTE | 2022-10-13 22:07 | NUR ---
PHOTO MASK PROCESSOR CALLED BLOOD BANK AND SPOKE WITH FERNANDA; INQUIRED ABOUT THE PLASMA PER FERNANDA THE PREVIOUS SHIFT NURSE WAS SUPPOSED TO CALL HIM BACK SHE IS ON HER WAY OUT AND WILL ENDORSE IT TO NEXT SHIFT.
[2022-10-13] MEDS: NOREPINEPHRINE 8 MG in IV NS 0.9% 242 ML IV PRN (22:10)
[2022-10-13 22:19] LABS: BAND % (MANUAL) 3 % (0.0-5.0); LYMPHOCYTES % (MANUAL) 14 % (16-48); MONOCYTES % (MANUAL) 8 % (0-11.0); NEUTROPHILS % (MANUAL) 75 (42-76)
--- NOTE | 2022-10-13 22:59 | NUR ---
OXYHYDROGEN WELDER CALLED BLOOD BANK; NO ANSWER
[2022-10-14] VITALS (105 sets, daily range): BP systolic 73–176; BP diastolic 47–102
--- NOTE | 2022-10-14 03:25 | NUR ---
MANAGER INTENSIVE CARE PT DESATURATED TO 71% ON SIMPLE MASK 8 L; PLACED ON NRB.
[2022-10-14] MEDS: AMIODARONE 450 MG in IV D5W 241 ML IV PRN (05:26)
--- NOTE | 2022-10-14 06:48 | NUR ---
ADMINISTRATIVE DIRECTOR PT TOLERATED TRANSFUSION OF 2 UNITS FFP AND 2 UNITS PLATELETS
--- NOTE | 2022-10-14 06:54 | NUR ---
SHOP MECHANIC HELPER ATTEMPTED TO PLACE PT BACK ON SIMPLE MASK HOWEVER PT DESATURATED TO 80%; PLACED BACK ON NRB
[2022-10-14] MEDS: MEROPENEM 500 MG in IV NS 0.9% 50 ML IV SCH ×2 (07:10→18:17)
--- NOTE | 2022-10-14 08:00 | NUR ---
RN NOTES RECEIVED PATIENT NON REBREATHER MASK FO02-99%, BP 110/73, R-26, P-104 A-FIB, PATIENT ON AMIODARONE 0.5 MG /ML, LEVOPHED 0.08MCG/KG/MIN, PATIENT LETHARGIC, RESTLESS, UNABLE TO VERBALIZE SELF OT OPEN EYES. IV ACCESS ON MERLENE INFUSING D51/2 NS@ 75 ML/HR. PATIENT GENERALIZED EDEMA, TOTAL CARE. NGT GET RESIDUAL 100ML, HELD FEEDING. KEEP HOB ELEVATED, ASSIST TURN AND REPOSTION Q 2 HR. RIGHT FEMORAL HD CATH INTACT. LAB VALUES REVIEWED, CHAMORRO DRAINING VIA GRAVITY 5ML OUTPUT. WILL FOLLOW UP.
[2022-10-14 08:47] LABS: CALCIUM, SERUM 6.3 mg/dL (8.5-10.1); CREATININE 5.1 mg/dL (0.6-1.3); POTASSIUM 3.8 mmol/L (3.5-5.1)
--- NOTE | 2022-10-14 09:24 | NUR ---
RN NOTES GET VERBAL STAT ABG VIA DR FLORES, ORDER TAKEN AND CARRIED OUT. RT AWARE OF.
[2022-10-14] MEDS: SUCRALFATE 1 G/10 ML UDC PO SCH ×4 (09:38→20:57)
[2022-10-14] MEDS: HYDROCORTISONE SOD SUCCINATE 100 MG/2 ML VIAL IV SCH (09:38)
[2022-10-14] MEDS: PANTOPRAZOLE 40 MG VIAL IV SCH ×2 (09:38→20:57)
[2022-10-14] MEDS: FINASTERIDE (5 MG) 5 MG TABLET PO SCH (09:39)
[2022-10-14] MEDS: LEVOTHYROXINE SODIUM 50 MCG TABLET PO SCH (09:39)
[2022-10-14] MEDS: MULTIVITAMINS,THERAGRAN 1 UDTAB TABLET PO SCH (09:39)
[2022-10-14] MEDS: ASCORBIC ACID 500 MG TABLET PO SCH (09:39)
[2022-10-14] MEDS: ALLOPURINOL 100 MG TABLET PO SCH (09:39)
[2022-10-14] MEDS: FERROUS SULFATE (325 MG) 325 MG/TAB TABLET PO SCH ×3 (09:39→18:16)
[2022-10-14] MEDS: CLOTRIMAZOLE 1% 15 GM TUBE TP SCH ×2 (09:40→18:17)
[2022-10-14] MEDS: PROSOURCE / PROSTAT (PYXIS) 30 ML UDC PO SCH (09:41)
--- NOTE | 2022-10-14 10:00 | NUR ---
RN NOTES PATIENT GET INTUBATED AT THIS TIME INFUSED IV PUSH ETOMIDATE 20MG, AND ROCURONIUM 50MG VIA CHRISTIE HALL'S ORDER. ETT SEATINGS ARE 7.5/25, AC- 16,P-8, TV-500, FIO2-80%. ALSO GET ANOTHER VERBAL ORDER VIA Dr FLORES ABG AFTER 30 MINS. PATIENT TOLERATING SETTING WELL, LAB VALUES RECHECKED, PATIENT GOING TO HAVE A HEMODIALYSIS. WILL FOLLOW UP.
[2022-10-14 10:17] LABS: D-DIMER 20.99 mg/L(FEU (0.17-0.50)
[2022-10-14] MEDS: NOREPINEPHRINE 8 MG in IV NS 0.9% 242 ML IV PRN (10:44)
[2022-10-14] MEDS: PROPOFOL 100 ML IV PRN ×2 (10:46→18:21)
[2022-10-14 10:54] LABS: ABG BASE EXCESS -7.7 mmol/L; ABG OXYGEN SATURATION 98.9 % (92.0-98.5); ABG PCO2 74.1 mmHg (35.0-45.0); ABG PH 7.098 (7.350-7.450); ABG PO2 216.4 mmHg (75.0-100.0); AaDO2 276.2 mmHg; COHb 0.2 % (0.5-1.5); MetHb 0.3 % (0.0-1.5); O2Hb 98.4 % (94.0-97.0); PEEP,BG 8 cm H2O; SITE, ABG Left Radial; VENT MODE, BG AC FIO2 80%; VT, ABG 500 mL
[2022-10-14] MEDS: DIGOXIN INJ 0.5 MG/2 ML AMPUL IV SCH ×2 (13:53→18:18)
--- NOTE | 2022-10-14 14:00 | NUR ---
rn notes patient having HD at this time, bp 122/66, p-113, r-98.
[2022-10-14 14:06] LABS: ABG BASE EXCESS -5.9 mmol/L; ABG OXYGEN SATURATION 98.8 % (92.0-98.5); ABG PCO2 34.7 mmHg (35.0-45.0); ABG PH 7.355 (7.350-7.450); AaDO2 174.6 mmHg; COHb 0.3 % (0.5-1.5); MetHb 0.3 % (0.0-1.5); O2Hb 98.2 % (94.0-97.0); SITE, ABG Left Radial
[2022-10-14] MEDS ORDERED: ETOMIDATE 2 MG/ML VIAL IV ONE (14:33)
[2022-10-14] MEDS ORDERED: ROCURONIUM BROMIDE 50 MG/5 ML IV ONE (14:33)
--- NOTE | 2022-10-14 15:00 | NUR ---
RN NOTES HR-150 AT THIS TIME, STOP HD, OUTPUT WAS 300ML. WILL FOLLOW UP.
--- NOTE | 2022-10-14 15:05 | NUR ---
RN NOTES PATIENT VS RETURNED BACK TO NORMAL AFTER STOP HD, BP 133/86,P-98, WILL FOLLOW UP.
[2022-10-14] MEDS: IV D5/0.45 NACL 1,000 ML IV PRN (15:46)
[2022-10-14] MEDS: NEPRO 1,000 ML BOTTLE GT PRN (18:26)
--- NOTE | 2022-10-14 18:30 | NUR ---
RN NOTES PM CARE DONE, DUE MEDICATION ADMINISTERED, DRESSING CHANGED ON LEFT ANDF RIGHT BUTTOCKS, ASSIST TURN AND REPOSTION Q 2 HR, PATIENT STILL A FIB, ADMINISTERED DIGOXIN 0.25ML, INFUSING DIPRIVAN 20MCK/KG/MIN, LEVOPHED 0.04 MCG/KG/MIN ON MERLENE PICC LINE INTACT. RUNNING NEPRO @45ML/HR . URINE OUTPUT WAS 80 ML. KEEP HOB ELEVATED. ENDORSED ONCOMING NURSE NGUYỄN.
--- NOTE | 2022-10-14 19:15 | NUR ---
RN OPENING NOTES RECEIVED PATIENT ON BED, SEDATED, ORALLY INTUBATED SIZE 7.5, 25 CM BY THE LIP, WITH VENT SETTING AC-28, TV- 550, FIO2-60%, PEEP- 5, AFEBRILE, NO S/S OF DISTRESS NOTED. NOTED WITH MERLENE PICC LINE, THADDEUS MID LINE. FLUSHED WITH NS. RUNNING WITH PROPOFOL @ 20 MCG/KG/MIN, LEVO @ 0.5 MCG/KG/MIN. NOTED WITH NGT PATENT AND INTACT, VERIFIED PLACEMENT BY AUSCULTATION, NOTED WITH 20 ML RESIDUAL UPON ASPIRATION, RUNNING WITH NEPHRO @ 40 ML/HR. HEAD OF BED KEPT ELEVATED. WITH RIGHT FEMORAL HD CATHETER, NO ACTIVE BLEEDING NOTED AT THIS TIME. CHAMORRO CATHETER PATENT INTACT WITH SCANTY URINE OUTPUT. ALL SAFETY PRECAUTION PROVIDED. BED IN LOWEST POSITION, LOCKED. CALL LIGHT WITH IN REACH.
--- NOTE | 2022-10-14 19:25 | NUR ---
PATIENT WERE INTUBATED WITH ETT 7.5 @ 25 LIP. BILATERAL BEATH SOUND AND EQUAL CHEST RISE NOTED. PATIENT PLACED ON THE VENT WITH DOCTOR VENTILATOR ORDER. PATIENT REMAIN STABLE W/O DISTRESS. Addendum: 10/14/22 at 1927 by TOMÁS ROSS RT Amended: Links added.
--- NOTE | 2022-10-14 19:34 | NUR ---
Received patient on mechanical vent AC 28, 550, +5, 60% Fi02. ET tube 7.5, 25cm @ lip. No sob or resp. distress noted. Vent plugged into red outlet. Alarms on and audible. Will continue to monitor. Addendum: 10/15/22 at 0557 by MARGARET RUSSELL RT Amended: Links added.
[2022-10-15] VITALS (103 sets, daily range): BP systolic 77–156; BP diastolic 44–95
[2022-10-15] MEDS: DIGOXIN INJ 0.5 MG/2 ML AMPUL IV SCH (00:07)
[2022-10-15] MEDS: PROPOFOL 100 ML IV PRN ×4 (00:09→18:05)
[2022-10-15] MEDS: NOREPINEPHRINE 8 MG in IV NS 0.9% 242 ML IV PRN (03:43)
[2022-10-15 05:00] LABS: BASOPHILS % (AUTO) 0.4 % (0.0-2.0); EOSINOPHILS % (AUTO) 0.4 % (0.0-6.0); HEMATOCRIT 25 % (39-51); HEMOGLOBIN 8.1 g/dL (13.5-17.5); LYMPHOCYTES # (AUTO) 0.7 K/uL (0.8-4.8); LYMPHOCYTES % (AUTO) 6.8 % (20.0-44.0); MEAN CORPUSCULAR HGB CONC 33 g/dl (31.0-36.0); MEAN CORPUSCULAR VOLUME 98 fL (80-96); MONOCYTES # (AUTO) 0.2 K/uL (0.1-1.30); MONOCYTES % (AUTO) 2.4 % (2.0-12.0); NEUTROPHILS # (AUTO) 8.6 K/uL (1.8-8.9); RED BLOOD CELL COUNT(AUTO) 2.54 MIL/uL (4.5-6.0); WHITE BLOOD COUNT (AUTO) 9.6 K/uL (4.3-11.0)
[2022-10-15 05:05] LABS: PLATELET COUNT (AUTO) 32 K/uL (150-450)
[2022-10-15 05:20] LABS: CALCIUM, SERUM 6.4 mg/dL (8.5-10.1); CREATININE 4.9 mg/dL (0.6-1.3); POTASSIUM 3.1 mmol/L (3.5-5.1)
[2022-10-15 05:23] LABS: D-DIMER 8.51 mg/L(FEU (0.17-0.50)
--- NOTE | 2022-10-15 06:00 | NUR ---
RN NOTES NOTIFIED CHRISTIE GLYNN REGARDING PATIENT LATEST PLATELETS- 32, UNABLE TO REACH AT THIS, LESFT MESSAGE WAITING FOR CALL BACK.
[2022-10-15 06:13] LABS: BAND % (MANUAL) 6 % (0.0-5.0); BASOPHILS % (MANUAL) 0 % (0.0-2.0); EOSINOPHILS % (MANUAL) 0 % (0-4); LYMPHOCYTES % (MANUAL) 8 % (16-48); MONOCYTES % (MANUAL) 5 % (0-11.0); NEUTROPHILS % (MANUAL) 81 (42-76)
[2022-10-15] MEDS: MEROPENEM 500 MG in IV NS 0.9% 50 ML IV SCH ×2 (06:54→18:22)
--- NOTE | 2022-10-15 08:00 | NUR ---
RN NOTES RECEIVED PATIENT RESUMED SEDATED, NO SEDATION VACATION TODAY VIA DR FLORES. VENT SETTING AC-28, TV- 550, FIO2-60%, PEEP- 5, AFEBRILE, NO S/S OF DISTRESS NOTED. NOTED WITH MERLENE PICC LINE, PLACEMENT BY AUSCULTATION, NOTED WITH 10 ML RESIDUAL UPON ASPIRATION, RUNNING WITH NEPHRO @ 45 ML/HR. HEAD OF BED KEPT ELEVATED. WITH RIGHT FEMORAL HD CATHETER, NO ACTIVE BLEEDING NOTED AT THIS TIME. CHAMORRO CATHETER PATENT INTACT WITH SCANTY URINE OUTPUT. ASSIST TURN AND REPOSTION Q 2HR. WILL FOLLOW UP.
[2022-10-15] MEDS: FINASTERIDE (5 MG) 5 MG TABLET PO SCH (08:40)
[2022-10-15] MEDS: HYDROCORTISONE SOD SUCCINATE 100 MG/2 ML VIAL IV SCH (08:40)
[2022-10-15] MEDS: SUCRALFATE 1 G/10 ML UDC PO SCH ×4 (08:40→20:51)
[2022-10-15] MEDS: LEVOTHYROXINE SODIUM 50 MCG TABLET PO SCH (08:40)
[2022-10-15] MEDS: PANTOPRAZOLE 40 MG VIAL IV SCH ×2 (08:40→20:51)
[2022-10-15] MEDS: ASCORBIC ACID 500 MG TABLET PO SCH (08:40)
[2022-10-15] MEDS: FERROUS SULFATE (325 MG) 325 MG/TAB TABLET PO SCH ×3 (08:40→18:22)
[2022-10-15] MEDS: ALLOPURINOL 100 MG TABLET PO SCH (08:40)
[2022-10-15] MEDS: MULTIVITAMINS,THERAGRAN 1 UDTAB TABLET PO SCH (08:40)
[2022-10-15] MEDS: PROSOURCE / PROSTAT (PYXIS) 30 ML UDC PO SCH (08:45)
[2022-10-15] MEDS: CLOTRIMAZOLE 1% 15 GM TUBE TP SCH ×2 (08:46→18:23)
--- NOTE | 2022-10-15 09:16 | NUR ---
rn notes get verbal order ABG at this time per Dr Velásquez. RT aware of.
[2022-10-15 09:51] LABS: ABG BASE EXCESS -1.7 mmol/L; ABG OXYGEN SATURATION 98.3 % (92.0-98.5); ABG PCO2 34.7 mmHg (35.0-45.0); ABG PH 7.427 (7.350-7.450); ABG PO2 146.5 mmHg (75.0-100.0); AaDO2 134.9 mmHg; COHb 0.3 % (0.5-1.5); MetHb 0.4 % (0.0-1.5); O2Hb 97.6 % (94.0-97.0); SITE, ABG Left Radial; VENT MODE, BG AC 28 550 45% +5
--- NOTE | 2022-10-15 10:25 | NUR ---
rn notes get stat platelet 2 units at this time. also keep patient NPO for schedule surgery. order taken and carried out.
[2022-10-15] MEDS ORDERED: DESMOPRESSIN 20 MCG in IV NS 0.9% 50 ML IV ONE (11:00)
[2022-10-15] MEDS: DIGOXIN ELIX UDC 0.25 MG/5 ML UDC GT SCH (12:52)
--- NOTE | 2022-10-15 15:21 | NUR ---
rn notes started one unit of platelet transfusion at this time on MERLENE PICC line intact. T-99.1, p-100, bp- 77/51, r-23, patient intubated, has no acute respiratory distress, o2- 99%. will follow up.
--- NOTE | 2022-10-15 15:55 | NUR ---
rn notes patient has no acute respiratory distress increased platelet infusion 200ml/hr, T-99.3F, p-98, bp-93/50, r-29, patient getting HD at this time as well. will follow up.
--- NOTE | 2022-10-15 17:55 | NUR ---
rn notes finished first unit of platelet infusion. patient stable. next to the window.
--- NOTE | 2022-10-15 17:59 | NUR ---
RN NOTES started second units of platelet infusion at this time, 250 ml/hr, t-98.6, p-104, bp 143/92, r-29. patient has no acute respiratory distress. finished Hd at this time patient has 1000ml output. will continuing monitor.
[2022-10-15] MEDS: NEPRO 1,000 ML BOTTLE GT PRN (18:05)
--- NOTE | 2022-10-15 19:10 | NUR ---
RN OPENING NOTES RECEIVED PATIENT ON BED, SEDATED, ORALLY INTUBATED SIZE 7.5, 25 CM BY THE LIP, WITH VENT SETTING AC-28, TV- 550, FIO2-35%, PEEP- 5, AFEBRILE, NO S/S OF DISTRESS NOTED. NOTED WITH MERLENE PICC LINE, THADDEUS MID LINE. FLUSHED WITH NS. RUNNING WITH PROPOFOL @ 35 MCG/KG/MIN, LEVO @ 0.05 MCG/KG/MIN. NOTED WITH NGT PATENT AND INTACT, VERIFIED PLACEMENT BY AUSCULTATION, NOTED WITH 10 ML RESIDUAL UPON ASPIRATION, RUNNING WITH NEPHRO @ 45 ML/HR. HEAD OF BED KEPT ELEVATED. WITH RIGHT FEMORAL HD CATHETER, NO ACTIVE BLEEDING NOTED AT THIS TIME. CHAMORRO CATHETER PATENT INTACT WITH SCANTY URINE OUTPUT. ALL SAFETY PRECAUTION PROVIDED. BED IN LOWEST POSITION, LOCKED. CALL LIGHT WITH IN REACH.
--- NOTE | 2022-10-15 19:27 | NUR ---
rn notes finished platelet infusion at this time. patient stable no acute respiratory distress, endorsed oncoming nurse willie.
[2022-10-16] VITALS (78 sets, daily range): BP systolic 70–173; BP diastolic 36–102
[2022-10-16] MEDS: PROPOFOL 100 ML IV PRN ×6 (01:08→23:52)
[2022-10-16] MEDS: NOREPINEPHRINE 8 MG in IV NS 0.9% 242 ML IV PRN (03:05)
[2022-10-16 04:41] LABS: CALCIUM, SERUM 6.7 mg/dL (8.5-10.1); CREATININE 4.2 mg/dL (0.6-1.3); POTASSIUM 2.9 mmol/L (3.5-5.1)
[2022-10-16 04:42] LABS: BASOPHILS % (AUTO) 0.3 % (0.0-2.0); HEMATOCRIT 23 % (39-51); HEMOGLOBIN 7.6 g/dL (13.5-17.5); LYMPHOCYTES # (AUTO) 1.1 K/uL (0.8-4.8); LYMPHOCYTES % (AUTO) 10.5 % (20.0-44.0); MEAN CORPUSCULAR HGB CONC 33 g/dl (31.0-36.0); MEAN CORPUSCULAR VOLUME 99 fL (80-96); MONOCYTES # (AUTO) 0.4 K/uL (0.1-1.30); NEUTROPHILS # (AUTO) 8.4 K/uL (1.8-8.9); NEUTROPHILS % (AUTO) 83.2 % (43.0-81.0); RED BLOOD CELL COUNT(AUTO) 2.35 MIL/uL (4.5-6.0)
[2022-10-16 04:51] LABS: D-DIMER 5.51 mg/L(FEU (0.17-0.50)
[2022-10-16 04:52] LABS: PLATELET COUNT (AUTO) 34 K/uL (150-450)
--- NOTE | 2022-10-16 05:45 | NUR ---
RN NOTES RECEIVED LAB RESULT, LATEST PLATELETS- 34, PT HAS SCHEDULE PLATELETS TRANSFUSION AT 6AM.
--- NOTE | 2022-10-16 06:10 | NUR ---
RN NOTES BLOOD TRANSFUSION STARTED, 1 UNIT PLATELETS, BP- 103/71, TEMP- 97, PULSE, 76, RR- 28. NO ADVERSE REACTION NOTED, NOT IN DISTRESS. CONTINUE TO MONITOR.
[2022-10-16 06:39] LABS: BAND % (MANUAL) 4 % (0.0-5.0); EOSINOPHILS % (MANUAL) 2 % (0-4); LYMPHOCYTES % (MANUAL) 15 % (16-48); MONOCYTES % (MANUAL) 6 % (0-11.0); NEUTROPHILS % (MANUAL) 73 (42-76)
[2022-10-16] MEDS: MEROPENEM 500 MG in IV NS 0.9% 50 ML IV SCH ×2 (06:45→19:53)
--- NOTE | 2022-10-16 07:22 | NUR ---
RN NOTES TRANSFUSION FINISHED, NO ADVERSE REACTION NOTED, NO S/S OF DISTRESS. CONTINUE TO MONITOR.
[2022-10-16] MEDS: MULTIVITAMINS,THERAGRAN 1 UDTAB TABLET PO SCH (08:51)
[2022-10-16] MEDS: SUCRALFATE 1 G/10 ML UDC PO SCH ×4 (08:51→20:34)
[2022-10-16] MEDS: ASCORBIC ACID 500 MG TABLET PO SCH (08:51)
[2022-10-16] MEDS: HYDROCORTISONE SOD SUCCINATE 100 MG/2 ML VIAL IV SCH (08:51)
[2022-10-16] MEDS: ALLOPURINOL 100 MG TABLET PO SCH (08:51)
[2022-10-16] MEDS: FINASTERIDE (5 MG) 5 MG TABLET PO SCH (08:51)
[2022-10-16] MEDS: PANTOPRAZOLE 40 MG VIAL IV SCH ×2 (08:51→20:34)
[2022-10-16] MEDS: CLOTRIMAZOLE 1% 15 GM TUBE TP SCH ×2 (09:00→16:27)
[2022-10-16] MEDS: PROSOURCE / PROSTAT (PYXIS) 30 ML UDC PO SCH (09:00)
[2022-10-16] MEDS ORDERED: PHENYLEPHRINE 50 MG in IV NS 0.9% 245 ML IV PRN (09:30)
[2022-10-16 10:26] LABS: ABG BASE EXCESS -0.5 mmol/L; ABG OXYGEN SATURATION 98.3 % (92.0-98.5); ABG PCO2 28.2 mmHg (35.0-45.0); ABG PH 7.513 (7.350-7.450); ABG PO2 137.6 mmHg (75.0-100.0); AaDO2 79.2 mmHg; COHb 0.3 % (0.5-1.5); MetHb 0.4 % (0.0-1.5); O2Hb 97.6 % (94.0-97.0); PEEP,BG 5 cm H2O; SITE, ABG Other; VT, ABG 550 mL
--- NOTE | 2022-10-16 10:32 | NUR ---
vent changes below per dr. ramirez: AC 22 VT 500 FIO2 28% PEEP +5 Addendum: 10/16/22 at 1033 by MATI OROZCO RT Amended: Links added.
[2022-10-16] MEDS: FERROUS SULFATE (325 MG) 325 MG/TAB TABLET PO SCH ×3 (11:54→17:48)
[2022-10-16] MEDS: LEVOTHYROXINE SODIUM 50 MCG TABLET PO SCH (11:54)
[2022-10-16] MEDS ORDERED: POTASSIUM CHLORIDE 20 MEQ TAB.PRT.SR PO SCH ×2 (12:00→20:07)
[2022-10-16] MEDS: DIGOXIN ELIX UDC 0.25 MG/5 ML UDC GT SCH (16:26)
--- NOTE | 2022-10-16 19:50 | NUR ---
OPENING NOTES RECEIVED PATIENT ON BED, SEDATED, ORALLY INTUBATED SIZE 7.5, TOLERATED SETTINGS WELL, AFEBRILE, NO S/S OF RESPIRATORY, DISTRESS NOTED, RUNNING WITH PROPOFOL @ 35 MCG/KG/MIN, AND LEVO @ 0.02 MCG/KG/MIN. MAINTAINING BLOOD PRESSURE, NGT IN PLACED, VERIFIED PLACEMENT, NEPHRO @ 45 ML/HR. RIGHT FEMORAL HD CATHETER, INTACT, S/P HD TODAY 2 LITERS OUT, F/C IN PLACED MINIMAL URINE OUTPUT NOTED, HEAD OF BED KEPT ELEVATED, ALL SAFETY PRECAUTION PROVIDED, BED LOCKED AND IN LOWEST POSITION, CALL LIGHT WITH IN WILL CONTINUE TO MONITOR CLOSELY..
[2022-10-17] VITALS (91 sets, daily range): BP systolic 78–168; BP diastolic 43–98
[2022-10-17] MEDS: PROPOFOL 100 ML IV PRN ×4 (04:10→18:48)
[2022-10-17 05:03] LABS: BASOPHILS # (AUTO) 0.1 K/uL (0.0-0.2); BASOPHILS % (AUTO) 0.5 % (0.0-2.0); EOSINOPHILS % (AUTO) 0.9 % (0.0-6.0); HEMATOCRIT 24 % (39-51); HEMOGLOBIN 7.6 g/dL (13.5-17.5); LYMPHOCYTES # (AUTO) 2.3 K/uL (0.8-4.8); LYMPHOCYTES % (AUTO) 16.8 % (20.0-44.0); MEAN CORPUSCULAR HGB CONC 32 g/dl (31.0-36.0); MEAN CORPUSCULAR VOLUME 99 fL (80-96); MONOCYTES # (AUTO) 0.4 K/uL (0.1-1.30); MONOCYTES % (AUTO) 2.9 % (2.0-12.0); NEUTROPHILS % (AUTO) 78.9 % (43.0-81.0); RED BLOOD CELL COUNT(AUTO) 2.38 MIL/uL (4.5-6.0)
[2022-10-17 05:20] LABS: PLATELET COUNT (AUTO) 32 K/uL (150-450)
--- NOTE | 2022-10-17 05:32 | NUR ---
REPORT CRITICAL VALUE FOR PLATELET TO MENDEZ GLYNN REFINERY OPERATOR COKING AND PER HER, ENDORSE TO AM IF PT NOT BLEEDING, NO BLEEDING NOTED.
--- NOTE | 2022-10-17 06:48 | NUR ---
OPENING NOTES PATIENT CONTINUE , SEDATED, INTUBATED, TOLERATED SETTINGS WELL, AFEBRILE, NO S/S OF RESPIRATORY, DISTRESS NOTED DURING THE NIGH, RUNNING WITH PROPOFOL @ 35 MCG/KG/MIN, AND LEVO @ 0.02 MCG/KG/MIN. MAINTAINING BLOOD PRESSURE, REMAINED WITH MINIMAL URINE OUTPUT, STABLE VITAL SINGS, HEAD OF BED KEPT ELEVATED, ALL SAFETY PRECAUTION PROVIDED, NO SIGNIFICANT CHANGE IN CONDITION, BED LOCKED AND IN LOWEST POSITION, WILL ENDORSE CONTINUITY OF CARE TO ONCOMING NURSE.
[2022-10-17] MEDS: MEROPENEM 500 MG in IV NS 0.9% 50 ML IV SCH ×2 (08:00→20:13)
[2022-10-17] MEDS: LEVOTHYROXINE SODIUM 50 MCG TABLET PO SCH (08:00)
[2022-10-17] MEDS: FERROUS SULFATE (325 MG) 325 MG/TAB TABLET PO SCH ×3 (08:19→17:19)
[2022-10-17] MEDS: MULTIVITAMINS,THERAGRAN 1 UDTAB TABLET PO SCH (08:19)
[2022-10-17] MEDS: FINASTERIDE (5 MG) 5 MG TABLET PO SCH (08:20)
[2022-10-17] MEDS: PROSOURCE / PROSTAT (PYXIS) 30 ML UDC PO SCH (08:20)
[2022-10-17] MEDS: ASCORBIC ACID 500 MG TABLET PO SCH (08:20)
[2022-10-17] MEDS: ALLOPURINOL 100 MG TABLET PO SCH (08:20)
[2022-10-17] MEDS: PANTOPRAZOLE 40 MG VIAL IV SCH ×2 (08:21→20:13)
[2022-10-17] MEDS: HYDROCORTISONE SOD SUCCINATE 100 MG/2 ML VIAL IV SCH (08:21)
[2022-10-17] MEDS: SUCRALFATE 1 G/10 ML UDC PO SCH ×4 (08:21→20:13)
[2022-10-17] MEDS: CLOTRIMAZOLE 1% 15 GM TUBE TP SCH ×2 (08:24→17:20)
[2022-10-17 08:52] LABS: BAND % (MANUAL) 7 % (0.0-5.0); LYMPHOCYTES % (MANUAL) 21 % (16-48); MONOCYTES % (MANUAL) 2 % (0-11.0); NEUTROPHILS % (MANUAL) 70 (42-76)
[2022-10-17 12:00] LABS: CALCIUM, SERUM 8.1 mg/dL (8.5-10.1); CREATININE 3.8 mg/dL (0.6-1.3); POTASSIUM 3.7 mmol/L (3.5-5.1)
[2022-10-17] MEDS: DIGOXIN ELIX UDC 0.25 MG/5 ML UDC GT SCH (13:30)
--- NOTE | 2022-10-17 21:11 | NUR ---
CALLISTHENICS INSTRUCTOR OPENING NOTE PT RECEIVED IN BED, OBTUNDED. PT NOTED TO HAVE ETT SIZE 7.5 AT 23 AT THE LIP; AC 22, TV 500, FIO2 35%, PEEP 5 WITH CURRENT O2SAT OF 98%; NO S/S OF RESP DISTRESS, NO SOB OR COUGH, NON-LABORED AND EQUAL BREATHING. PT ATTACHED TO BEDSIDE MONITOR, AFIB WITH HR OF 86. CHAMORRO INTACT AND PATENT, DRAINING TEA COLORED-URINE. PT ALSO NOTED TO HAVE RIGHT-SIDED CHOLECYSTOSTOMY, WITH BROWN DRAINAGE. NGT IN RIGHT NARE AT 70 CM WITH NEPRO RUNNING AT 45 ML/HR. MERLENE PICC AND THADDEUS MIDLINE INTACT AND PATENT, FLUSHES EASILY WITH NO RESISTANCE; PROPOFOL INFUSING AT 30 ML/HR. HD CATH ON RIGHT GROIN. PT NOTED TO HAVE BILATERAL SOFT WRIST RESTRAINTS; NO SIGNS OF IMPAIRED SKIN OR CIRCULATION; WILL PROVIDE PT WITH RELEASE OF RESTRAINTS, HYGIENE. BED IN LOWEST POSITION, CALL LIGHT WITHIN REACH, SIDE RAILS UP X3. WILL CONTINUE TO MONITOR THROUGHOUT THE NIGHT. Addendum: 10/18/22 at 0717 by PRINCESS ORTIZ RN NGT RIGHT NARE AT 64 CM.
[2022-10-18] VITALS (77 sets, daily range): BP systolic 62–143; BP diastolic 25–73
[2022-10-18] MEDS: PROPOFOL 100 ML IV PRN ×5 (00:15→21:49)
[2022-10-18 03:38] LABS: BASOPHILS # (AUTO) 0.1 K/uL (0.0-0.2); BASOPHILS % (AUTO) 0.5 % (0.0-2.0); EOSINOPHILS % (AUTO) 2.6 % (0.0-6.0); HEMATOCRIT 23 % (39-51); HEMOGLOBIN 7.5 g/dL (13.5-17.5); LYMPHOCYTES # (AUTO) 1.3 K/uL (0.8-4.8); LYMPHOCYTES % (AUTO) 12.6 % (20.0-44.0); MEAN CORPUSCULAR HGB CONC 32 g/dl (31.0-36.0); MEAN CORPUSCULAR VOLUME 100 fL (80-96); MONOCYTES # (AUTO) 0.4 K/uL (0.1-1.30); MONOCYTES % (AUTO) 4.1 % (2.0-12.0); NEUTROPHILS # (AUTO) 8.5 K/uL (1.8-8.9); NEUTROPHILS % (AUTO) 80.2 % (43.0-81.0); RED BLOOD CELL COUNT(AUTO) 2.32 MIL/uL (4.5-6.0); WHITE BLOOD COUNT (AUTO) 10.6 K/uL (4.3-11.0)
[2022-10-18 03:39] LABS: PLATELET COUNT (AUTO) 26 K/uL (150-450)
--- NOTE | 2022-10-18 03:40 | NUR ---
RN NOTE CRITICAL RECEIVED FROM LAB, PLT 26, NOTED TO BE TRENDING DOWN FROM 32. ELIER MCGHEE NOTIFIED, NO SIGNS OF BLEEDING. ORDERED TO CONTINUE TO MONITOR.
[2022-10-18] MEDS ORDERED: NOREPINEPHRINE 4 MG/4 ML AMPUL IV ONE (05:04)
[2022-10-18] MEDS: NOREPINEPHRINE 8 MG in IV NS 0.9% 242 ML IV PRN ×2 (05:13→16:22)
[2022-10-18] MEDS: NEPRO 1,000 ML BOTTLE GT PRN (05:39)
[2022-10-18 06:47] LABS: CREATININE 3.4 mg/dL (0.6-1.3); POTASSIUM 3.7 mmol/L (3.5-5.1)
--- NOTE | 2022-10-18 07:24 | NUR ---
SENIOR ACCOUNT REPRESENTATIVE CLOSING NOTE PT REMAINS IN BED, OBTUNDED, NON-VERBAL; NO CHANGES TO NEURO STATUS. PT REMAINS ON SAME VENT SETTINGS; TOLERATED VENT SETTINGS WELL WITH O2SAT RANGING FROM 95%-98%; NO S/S OF RESP DISTRESS, NO SOB OR COUGH, NON-LABORED AND EQUAL BREATHING. ATTACHED TO BEDSIDE MONITOR, AFIB WITH HR RANGING FROM 79-108. WOUNDS CLEANSED AND NEW DRESSINGS APPLIED. NGT IN RIGHT NARE AT 64 CM WITH NEPRO RUNNING AT 45 ML/HR; NO RESIDUALS NOTED. MERLENE PICC AND THADDEUS MIDLINE INTACT AND PATENT, PROPOFOL INFUSING AT 30 MCG/HR AND LEVO AT 0.04 ML/HR. ALL DUE MEDS ADMINISTERED DURING THE NIGHT. BED IN LOWEST POSITION, CALL LIGHT WITHIN REACH, SIDE RAILS UP X3. WILL ENDORSE TO DAYSHIFT NURSE TO CONTINUE CARE.
--- NOTE | 2022-10-18 07:24 | NUR ---
RN NOTES RECEIVED PATIENT RESUMED INTUBATED, GETTING HD AT THIS TIME, BP 62/41, R-52, HR-103 TITRATED LEVOPHED PER PROTOCOL. KEEP HOB ELEVATED. [PATIENT HAS GENERALIZED EDEMA. ETT SETTINGS ARE AC-22, TV-500, P-5, FIO2-35. PATIENT SEDATED INFUSING DIPRIVAN 30 MCG/KG/MIN. NO URINE OUTPUT FROM CHAMORRO CATHETER, ALSO HAS DRAINAGE FROM CHOLECYSTOMY DRAINING VIA GRAVITY. WILL FOLLOW UP.
[2022-10-18] MEDS: MEROPENEM 500 MG in IV NS 0.9% 50 ML IV SCH ×2 (08:02→20:17)
[2022-10-18] MEDS: PANTOPRAZOLE 40 MG VIAL IV SCH (08:05)
[2022-10-18] MEDS: SUCRALFATE 1 G/10 ML UDC PO SCH ×4 (08:05→21:25)
[2022-10-18] MEDS: ALLOPURINOL 100 MG TABLET PO SCH (08:05)
[2022-10-18] MEDS: FERROUS SULFATE (325 MG) 325 MG/TAB TABLET PO SCH ×3 (08:05→16:28)
[2022-10-18] MEDS: FINASTERIDE (5 MG) 5 MG TABLET PO SCH (08:05)
[2022-10-18] MEDS: ASCORBIC ACID 500 MG TABLET PO SCH (08:05)
[2022-10-18] MEDS: CLOTRIMAZOLE 1% 15 GM TUBE TP SCH ×2 (08:07→16:59)
[2022-10-18] MEDS: LEVOTHYROXINE SODIUM 50 MCG TABLET PO SCH (08:11)
[2022-10-18] MEDS: MULTIVITAMINS,THERAGRAN 1 UDTAB TABLET PO SCH (08:11)
[2022-10-18] MEDS: HYDROCORTISONE SOD SUCCINATE 100 MG/2 ML VIAL IV SCH (08:12)
[2022-10-18] MEDS: PROSOURCE / PROSTAT (PYXIS) 30 ML UDC PO SCH (08:22)
--- NOTE | 2022-10-18 08:49 | NUR ---
RN NOTES FINISHED HD AT THIS TIME OUTPUT WAS 1000 ML, BP 102/ 58, P-118. R-60, DUE MEDICATION ADMINISTERED, WILL FOLLOW UP.
[2022-10-18] MEDS: PANTOPRAZOLE 40 MG/PACK PACK GT SCH ×2 (08:56→21:25)
[2022-10-18 09:34] LABS: BASOPHILS # (AUTO) 0.1 K/uL (0.0-0.2); BASOPHILS % (AUTO) 0.5 % (0.0-2.0); EOSINOPHILS % (AUTO) 3.2 % (0.0-6.0); HEMATOCRIT 27 % (39-51); HEMOGLOBIN 8.5 g/dL (13.5-17.5); LYMPHOCYTES # (AUTO) 1.9 K/uL (0.8-4.8); MEAN CORPUSCULAR HGB CONC 32 g/dl (31.0-36.0); MEAN CORPUSCULAR VOLUME 103 fL (80-96); MONOCYTES # (AUTO) 0.6 K/uL (0.1-1.30); MONOCYTES % (AUTO) 3.4 % (2.0-12.0); NEUTROPHILS # (AUTO) 15.6 K/uL (1.8-8.9); NEUTROPHILS % (AUTO) 82.9 % (43.0-81.0); RED BLOOD CELL COUNT(AUTO) 2.61 MIL/uL (4.5-6.0); WHITE BLOOD COUNT (AUTO) 18.8 K/uL (4.3-11.0)
[2022-10-18 10:18] LABS: ALBUMIN 1.8 g/dL (3.4-5.0); BILIRUBIN,TOTAL 2.2 mg/dL (0.2-1.0); CALCIUM, SERUM 7.9 mg/dL (8.5-10.1); POTASSIUM 3.5 mmol/L (3.5-5.1); TOTAL PROTEIN, SERUM 4.7 g/dL (6.4-8.2)
[2022-10-18 10:20] LABS: PLATELET COUNT (AUTO) 16 K/uL (150-450)
[2022-10-18 11:36] LABS: BAND % (MANUAL) 2 % (0.0-5.0); BASOPHILS % (MANUAL) 0 % (0.0-2.0); EOSINOPHILS % (MANUAL) 3 % (0-4); LYMPHOCYTES % (MANUAL) 11 % (16-48); MONOCYTES % (MANUAL) 8 % (0-11.0); NEUTROPHILS % (MANUAL) 76 (42-76)
[2022-10-18] MEDS: DIGOXIN ELIX UDC 0.25 MG/5 ML UDC GT SCH (12:58)
[2022-10-18] MEDS ORDERED: DOSE PER PHARMACY MICAFUNGIN 1 EA XX PRN (16:00)
[2022-10-18] MEDS: IV NS 0.9% 250 ML IV PRN (16:48)
[2022-10-18] MEDS: MICAFUNGIN SODIUM 100 MG in IV NS 0.9% 100 ML IV SCH (17:00)
--- NOTE | 2022-10-18 18:30 | NUR ---
RN NOTES PM CARE DONE, SUCTION, MOUTH CARE DONE, ASSIST TURN AND REPOSTION, DUE MEDICATION ADMINISTERED, INFUSING DIPRIVAN 25MCG/KG/MIN, LEVOPHED TITRATED PER PROTOCOL. PATIENT TOLERATING FEEDING WELL. NO OUTPUT ON URINE, CHOLECYSTECTOMY TUBING DRAINING 330 ML. NEXT TO THE BED. ENDORSED ONCOMING NURSE NGUYỄN.
[2022-10-18 20:18] LABS: BAND % (MANUAL) 11 % (0.0-5.0); EOSINOPHILS % (MANUAL) 3 % (0-4); LYMPHOCYTES % (MANUAL) 9 % (16-48); METAMYELOCYTES % 1 % (0-0); MONOCYTES % (MANUAL) 3 % (0-11.0); NEUTROPHILS % (MANUAL) 73 (42-76)
--- NOTE | 2022-10-18 23:33 | NUR ---
DRESS DESIGNER OPENING NOTE PT RECEIVED IN BED, OBTUNDED. PT'S ETT AT 7.5 CM AND 25 AT THE LIP, AC 20, TV 500, FIO2 40%, PEEP 5 WITH CURRENT O2SAT OF 100%; NO S/S OF RESP DISTRESS, NO SOB OR COUGH, NON-LABORED AND EQUAL BREATHING; APPEARS COMFORTABLE. PT ATTACHED TO BEDSIDE MONITOR, AFIB WITH HR OF 76. CHAMORRO INTACT AND PATENT, DRAINING CLOUDY TEA COLORED URINE. CHOLECYSTOSTOMY IN PLACE, DRAINING LIGHT BROWN DRAINAGE. RIGHT NGT AT 64 CM WITH NEPRO RUNNING AT 45 ML/HR; NOTED TO HAVE 100 ML RESIDUAL. IV ACCESS ON MERLENE PICC AND THADDEUS MIDLINE WITH PROPOFOL AT 25 MCG/KG/MIN AND LEVOPHED AT 0.06 MCG/KG/MIN. BED IN LOWEST POSITION, CALL LIGHT WITHIN REACH, SIDE RAILS UP X3. WILL CONTINUE TO MONITOR THROUGHOUT THE NIGHT.
[2022-10-18 23:36] LABS: BILIRUBIN,URINE 3+ (NEGATIVE); COLOR,URINE AMBER (YELLOW); LEUKOCYTE ESTERASE ,URINE NEGATIVE (NEGATIVE); NITRITE, URINE POSITIVE (NEGATIVE); PH,URINE 6.5 (5.0-8.0); PROTEIN,URINE 3+ mg/dl (NEGATIVE); UGLUCOSE TRACE mg/dL (NEGATIVE)
[2022-10-19] VITALS (92 sets, daily range): BP systolic 66–145; BP diastolic 34–109
[2022-10-19 00:05] LABS: SQUAMOUS EPITHELIAL CELL,UR Few /HPF (None Seen); WBC,URINE 0-2 /HPF (0-3)
[2022-10-19 00:08] LABS: BACTERIA,URINE Moderate /HPF (None Seen); URINE AMORPHOUS URATE Many /HPF (None Seen)
[2022-10-19] MEDS: PROPOFOL 100 ML IV PRN ×5 (00:10→22:20)
[2022-10-19 04:40] LABS: BASOPHILS # (AUTO) 0.1 K/uL (0.0-0.2); BASOPHILS % (AUTO) 0.8 % (0.0-2.0); EOSINOPHILS % (AUTO) 3.3 % (0.0-6.0); HEMATOCRIT 25 % (39-51); HEMOGLOBIN 7.7 g/dL (13.5-17.5); LYMPHOCYTES # (AUTO) 1.9 K/uL (0.8-4.8); LYMPHOCYTES % (AUTO) 11.9 % (20.0-44.0); MEAN CORPUSCULAR HGB CONC 31 g/dl (31.0-36.0); MEAN CORPUSCULAR VOLUME 103 fL (80-96); MONOCYTES # (AUTO) 0.7 K/uL (0.1-1.30); MONOCYTES % (AUTO) 4.5 % (2.0-12.0); NEUTROPHILS # (AUTO) 12.9 K/uL (1.8-8.9); NEUTROPHILS % (AUTO) 79.5 % (43.0-81.0); WHITE BLOOD COUNT (AUTO) 16.2 K/uL (4.3-11.0)
[2022-10-19 04:50] LABS: PLATELET COUNT (AUTO) 28 K/uL (150-450)
--- NOTE | 2022-10-19 04:51 | NUR ---
RN NOTE RECEIVED CRITICAL FROM LAB. PLTS 28, NOTED TO BE TRENDING UP FROM 16.
[2022-10-19 05:06] LABS: ALBUMIN 1.7 g/dL (3.4-5.0); BILIRUBIN,TOTAL 1.9 mg/dL (0.2-1.0); CALCIUM, SERUM 8.7 mg/dL (8.5-10.1); CREATININE 3.9 mg/dL (0.6-1.3); POTASSIUM 4.7 mmol/L (3.5-5.1); TOTAL PROTEIN, SERUM 4.6 g/dL (6.4-8.2)
[2022-10-19] MEDS: NOREPINEPHRINE 8 MG in IV NS 0.9% 242 ML IV PRN ×2 (06:52→22:21)
--- NOTE | 2022-10-19 07:35 | NUR ---
RN NOTES SEDATION VACATION PER Dr YAÑEZ ORDER WEANING FROM VENT, RT AWARE OF. TITRATED SEDATION PER PROTOCOL .
--- NOTE | 2022-10-19 07:40 | NUR ---
PUBLIC RELATIONS SPECIALIST CLOSING NOTE PT REMAINS IN BED, OBTUNDED WITH NO CHANGES TO NEURO STATUS. PT REMAINS ON SAME VENT SETTINGS; PT TOLERATED VENT SETTINGS WELL AND APPEARS COMFORTABLE OVERALL. NGT IN RIGHT NARE AT 64 CM WITH NEPRO INFUSING AT 45 ML/HR. IV ACCESS ON MERLENE PICC AND THADDEUS MIDLINE INTACT AND PATENT, FLUSHES EASILY WITH NO RESISTANCE. LEVOPHED INFUSING AT 0.08 MCG/KG/MIN AND PROPOFOL AT 25 MCG/KG/MIN. CHAMORRO INTACT AND PATENT, DRAINING GARFIELD AND CLOUDY URINE. CHOLECYSTOSTOMY INTACT AND PATENT DRAINING BROWNISH FLUIDS. WOUNDS CLEANSED AND NEW DRESSINGS APPLIED. ALL DUE MEDS ADMINISTERED DURING THE NIGHT. BED IN LOWEST POSITION, CALL LIGHT WITHIN REACH, SIDE RAILS UP X3. WILL ENDORSE TO DAYSHIFT NURSE TO CONTINUE CARE.
--- NOTE | 2022-10-19 08:00 | NUR ---
RN NOTES HELD SEDATION, PATIENT RESUMED SEDATED. RT NEXT TO THE BED. WILL FOLLOW UP.
--- NOTE | 2022-10-19 08:30 | NUR ---
RN NOTES PATIENT HAVING HD AT THIS TIME.
[2022-10-19] MEDS: MEROPENEM 500 MG in IV NS 0.9% 50 ML IV SCH ×2 (08:49→19:30)
[2022-10-19] MEDS: HYDROCORTISONE SOD SUCCINATE 100 MG/2 ML VIAL IV SCH (08:50)
[2022-10-19] MEDS: SUCRALFATE 1 G/10 ML UDC PO SCH ×4 (08:50→20:59)
[2022-10-19] MEDS: PANTOPRAZOLE 40 MG/PACK PACK GT SCH ×2 (08:50→20:59)
[2022-10-19] MEDS: MULTIVITAMINS,THERAGRAN 1 UDTAB TABLET PO SCH (08:51)
[2022-10-19] MEDS: ASCORBIC ACID 500 MG TABLET PO SCH (08:51)
[2022-10-19] MEDS: FERROUS SULFATE (325 MG) 325 MG/TAB TABLET PO SCH ×3 (08:51→16:26)
[2022-10-19] MEDS: FINASTERIDE (5 MG) 5 MG TABLET PO SCH (08:51)
[2022-10-19] MEDS: ALLOPURINOL 100 MG TABLET PO SCH (08:51)
[2022-10-19] MEDS: PROSOURCE / PROSTAT (PYXIS) 30 ML UDC PO SCH (08:52)
[2022-10-19] MEDS: CLOTRIMAZOLE 1% 15 GM TUBE TP SCH ×2 (08:54→16:26)
[2022-10-19] MEDS: LEVOTHYROXINE SODIUM 50 MCG TABLET PO SCH (08:57)
--- NOTE | 2022-10-19 11:00 | NUR ---
rn notes RESUME DIPRIVAN INFUSION AT THIS TIME 10MCG/KG/MIN PER Dr YAÑEZ ORDER.
--- NOTE | 2022-10-19 12:00 | NUR ---
rn notes FINISHED HD AT THIS TIME OUTPUT WAS 1000ML. VSS.
[2022-10-19] MEDS: DIGOXIN ELIX UDC 0.25 MG/5 ML UDC GT SCH (13:25)
[2022-10-19] MEDS: NEPRO 1,000 ML BOTTLE GT PRN (15:18)
[2022-10-19] MEDS: MICAFUNGIN SODIUM 100 MG in IV NS 0.9% 100 ML IV SCH (16:28)
--- NOTE | 2022-10-19 18:42 | NUR ---
RN NOTES PM CARE DONE, SUCTION, MOUTH CARE, PATIENT RESUMED INTUBATED, AND SEDATED DIPRIVAN 30MCG/KG/MIN. DUE MEDICATION ADMINISTERED ,PATIENT HAS GENERALIZED EDEMA. IV ACCESS ON MERLENE PICC LINE INTACT, INFUSING LEVOPHED @0.04 MCG/KG.MIN, AND TKO. ASSIST TURN AND REPOSITION Q 2 HR. KEEP HOB ELEVATED FOR ASPIRATION PRECAUTION. CHAMORRO HAS 60ML OF OUTPUT. ENDORSED ONCOMING NURSE NGUYỄN.
[2022-10-19] MEDS: IV NS 0.9% 250 ML IV PRN (19:30)
--- NOTE | 2022-10-19 20:36 | NUR ---
SPUTUM SAMPLE COLLECTED
--- NOTE | 2022-10-19 20:46 | NUR ---
RECEIVED PT INTUBATED 7.5 ETT SECURED AT 25CM LIP LINE. NO RESP DISTRESS. PT TOLERATING VENT SETTINGS. PT ON AC 16, 500, 30%, +5. VENT ALARMS SET AND AUDIBLE. CONTINUE TO MONITOR. Addendum: 10/19/22 at 2047 by JOAN ANGELES RT Amended: Links added.
[2022-10-19 21:48] LABS: BAND % (MANUAL) 3 % (0.0-5.0); EOSINOPHILS % (MANUAL) 3 % (0-4); LYMPHOCYTES % (MANUAL) 22 % (16-48); MONOCYTES % (MANUAL) 4 % (0-11.0); NEUTROPHILS % (MANUAL) 68 (42-76)
[2022-10-20] VITALS (94 sets, daily range): BP systolic 75–152; BP diastolic 42–102
[2022-10-20] MEDS: PROPOFOL 100 ML IV PRN ×5 (02:26→22:41)
[2022-10-20 05:04] LABS: BASOPHILS # (AUTO) 0.1 K/uL (0.0-0.2); BASOPHILS % (AUTO) 0.4 % (0.0-2.0); EOSINOPHILS % (AUTO) 2.6 % (0.0-6.0); HEMATOCRIT 24 % (39-51); HEMOGLOBIN 7.5 g/dL (13.5-17.5); LYMPHOCYTES # (AUTO) 2.3 K/uL (0.8-4.8); LYMPHOCYTES % (AUTO) 15.7 % (20.0-44.0); MEAN CORPUSCULAR HGB CONC 31 g/dl (31.0-36.0); MEAN CORPUSCULAR VOLUME 104 fL (80-96); MONOCYTES # (AUTO) 0.4 K/uL (0.1-1.30); NEUTROPHILS # (AUTO) 11.4 K/uL (1.8-8.9); NEUTROPHILS % (AUTO) 78.3 % (43.0-81.0); RED BLOOD CELL COUNT(AUTO) 2.29 MIL/uL (4.5-6.0); WHITE BLOOD COUNT (AUTO) 14.5 K/uL (4.3-11.0)
[2022-10-20 05:14] LABS: PLATELET COUNT (AUTO) 24 K/uL (150-450)
[2022-10-20 05:26] LABS: ALANINE AMINOTRANSFERASE < 6 U/L (12-78); ALBUMIN 1.7 g/dL (3.4-5.0); ALKALINE PHOSPHATASE 208 U/L (46-116); ASPARTATE AMINOTRANSFERASE 20 U/L (15-37); BILIRUBIN,TOTAL 1.8 mg/dL (0.2-1.0); CALCIUM, SERUM 9.1 mg/dL (8.5-10.1); CARBON DIOXIDE 24 mmol/L (21-32); CHLORIDE 103 mmol/L (98-107); CREATININE 3.6 mg/dL (0.6-1.3); GLUCOSE 118 mg/dL (74-106); POTASSIUM 4.6 mmol/L (3.5-5.1); SODIUM SERUM 137 mmol/L (136-145); TOTAL PROTEIN, SERUM 4.5 g/dL (6.4-8.2); UREA NITROGEN, BLOOD 75 mg/dL (7-18)
[2022-10-20 05:51] LABS: ABG BASE EXCESS -6.2 mmol/L; ABG OXYGEN SATURATION 97.2 % (92.0-98.5); ABG PCO2 46.8 mmHg (35.0-45.0); ABG PH 7.262 (7.350-7.450); ABG PO2 107.9 mmHg (75.0-100.0); COHb 0.8 % (0.5-1.5); MetHb 0.3 % (0.0-1.5); O2Hb 96.1 % (94.0-97.0); PEEP,BG 5 cm H2O; SITE, ABG Right Radial; VENT MODE, BG AC 16 500 30% +5; VT, ABG 500 mL
--- NOTE | 2022-10-20 07:23 | NUR ---
PT IN BED SEDATED ON PROPOFOL BREATHING ON VENTILATOR NO S/S OF OVER BREATHING THE VENTILATOR. NO ACUTE SIGNS OF DISTRESS NOTED AT THIS TIME. VITALS ARE STABLE WNL PT ON LEVO DRIP CURRENTLY RUNNING 0.1 MCG/KG/MIN. RECEIVING DIALYSIS DIALYSIS NURSE AT BEDSIDE. PICC LINE IN PLACE TKO FLUIDS RUNNING. G TUBE IN PLACE FEEDING RUNNING 45ML/HR NO OCCLUSION.
[2022-10-20] MEDS: ALLOPURINOL 100 MG TABLET PO SCH (08:45)
[2022-10-20] MEDS: SUCRALFATE 1 G/10 ML UDC PO SCH ×4 (08:45→20:30)
[2022-10-20] MEDS: MULTIVITAMINS,THERAGRAN 1 UDTAB TABLET PO SCH (08:45)
[2022-10-20] MEDS: FERROUS SULFATE (325 MG) 325 MG/TAB TABLET PO SCH ×3 (08:45→16:50)
[2022-10-20] MEDS: PANTOPRAZOLE 40 MG/PACK PACK GT SCH ×2 (08:45→20:30)
[2022-10-20] MEDS: HYDROCORTISONE SOD SUCCINATE 100 MG/2 ML VIAL IV SCH (08:45)
[2022-10-20] MEDS: LEVOTHYROXINE SODIUM 50 MCG TABLET PO SCH (08:45)
[2022-10-20] MEDS: ASCORBIC ACID 500 MG TABLET PO SCH (08:45)
[2022-10-20] MEDS: FINASTERIDE (5 MG) 5 MG TABLET PO SCH (08:45)
[2022-10-20] MEDS: PROSOURCE / PROSTAT (PYXIS) 30 ML UDC PO SCH (08:47)
[2022-10-20] MEDS: CLOTRIMAZOLE 1% 15 GM TUBE TP SCH ×2 (08:47→16:51)
[2022-10-20] MEDS: MEROPENEM 500 MG in IV NS 0.9% 50 ML IV SCH ×2 (08:52→20:30)
[2022-10-20] MEDS: DIGOXIN ELIX UDC 0.25 MG/5 ML UDC GT SCH (12:54)
[2022-10-20] MEDS ORDERED: ENSURE ENLIVE CHOC 237 ML CAN PO SCH (13:00)
[2022-10-20 13:45] LABS: BAND % (MANUAL) 4 % (0.0-5.0); LYMPHOCYTES % (MANUAL) 16 % (16-48); METAMYELOCYTES % 1 % (0-0); MONOCYTES % (MANUAL) 3 % (0-11.0); NEUTROPHILS % (MANUAL) 76 (42-76)
[2022-10-20] MEDS: EPOETIN ALFA-EPBX 4,000 UNIT/ML VIAL SQ SCH (15:18)
[2022-10-20] MEDS: NOREPINEPHRINE 8 MG in IV NS 0.9% 242 ML IV PRN (16:30)
[2022-10-20] MEDS: MICAFUNGIN SODIUM 100 MG in IV NS 0.9% 100 ML IV SCH (16:54)
[2022-10-20] MEDS: NEPRO 1,000 ML BOTTLE GT PRN (19:26)
--- NOTE | 2022-10-20 20:20 | NUR ---
RECEIVED PT INTUBATED 7.5 ETT SECURED AT 25CM AT THE LIP. PT TOLERATING VENT SETTINGS. SX'D SMALL AMT OF THICK REYNA SECRETIONS. VENT ALARMS SET AND AUDIBLE. AMBU BAG AT BEDSIDE. CONTINUE TO MONITOR. Addendum: 10/20/22 at 2021 by JOAN ANGELES RT Amended: Links added.
[2022-10-20] MEDS: IV NS 0.9% 250 ML IV PRN (22:45)
[2022-10-21] VITALS (89 sets, daily range): BP systolic 72–151; BP diastolic 47–77
[2022-10-21] MEDS: PROPOFOL 100 ML IV PRN ×2 (03:39→08:52)
[2022-10-21 04:42] LABS: ABG BASE EXCESS -5.7 mmol/L; ABG OXYGEN SATURATION 97.6 % (92.0-98.5); ABG PCO2 40.6 mmHg (35.0-45.0); ABG PH 7.312 (7.350-7.450); ABG PO2 111.8 mmHg (75.0-100.0); AaDO2 54.4 mmHg; COHb 0.7 % (0.5-1.5); MetHb 0.2 % (0.0-1.5); O2Hb 96.7 % (94.0-97.0); PEEP,BG 5 cm H2O; SITE, ABG Right Radial
[2022-10-21 05:17] LABS: BASOPHILS # (AUTO) 0.1 K/uL (0.0-0.2); BASOPHILS % (AUTO) 0.8 % (0.0-2.0); EOSINOPHILS % (AUTO) 8.2 % (0.0-6.0); HEMATOCRIT 26 % (39-51); HEMOGLOBIN 8.4 g/dL (13.5-17.5); LYMPHOCYTES # (AUTO) 0.5 K/uL (0.8-4.8); MEAN CORPUSCULAR HGB CONC 32 g/dl (31.0-36.0); MEAN CORPUSCULAR VOLUME 106 fL (80-96); MONOCYTES # (AUTO) 0.2 K/uL (0.1-1.30); MONOCYTES % (AUTO) 2.4 % (2.0-12.0); NEUTROPHILS # (AUTO) 8.3 K/uL (1.8-8.9); NEUTROPHILS % (AUTO) 83.6 % (43.0-81.0); RED BLOOD CELL COUNT(AUTO) 2.51 MIL/uL (4.5-6.0); WHITE BLOOD COUNT (AUTO) 9.9 K/uL (4.3-11.0)
[2022-10-21 05:35] LABS: ALBUMIN 1.8 g/dL (3.4-5.0); BILIRUBIN,TOTAL 1.9 mg/dL (0.2-1.0); CALCIUM, SERUM 9.3 mg/dL (8.5-10.1); CREATININE 3.2 mg/dL (0.6-1.3); POTASSIUM 4.3 mmol/L (3.5-5.1); TOTAL PROTEIN, SERUM 4.7 g/dL (6.4-8.2)
[2022-10-21 05:52] LABS: PLATELET COUNT (AUTO) 27 K/uL (150-450)
--- NOTE | 2022-10-21 07:05 | NUR ---
RN NOTES RECEIVED PT ON BED, INTUBATED AND SEDATED, ON PROPOFOL AT 30 MCG/KG/MIN RUNNING , NO ACUTE SIGNS OF DISTRESS NOTED AT THIS TIME. VITALS ARE STABLE WNL PT ON LEVO DRIP CURRENTLY RUNNING 0.04 MCG/KG/MIN FOR BP SUPPORT , PICC LINE SITE CDI, SR UP x3, CALL LIGHT WITHIN EASY REACH, BED LOCKED AND IN LOWEST POSITION, CONTINUE TO MONITOR
[2022-10-21] MEDS: MEROPENEM 500 MG in IV NS 0.9% 50 ML IV SCH ×2 (08:13→21:04)
[2022-10-21] MEDS: HYDROCORTISONE SOD SUCCINATE 100 MG/2 ML VIAL IV SCH (08:15)
[2022-10-21] MEDS: MULTIVITAMINS,THERAGRAN 1 UDTAB TABLET PO SCH (08:15)
[2022-10-21] MEDS: SUCRALFATE 1 G/10 ML UDC PO SCH ×4 (08:15→21:04)
[2022-10-21] MEDS: PANTOPRAZOLE 40 MG/PACK PACK GT SCH ×2 (08:15→21:04)
[2022-10-21] MEDS: FINASTERIDE (5 MG) 5 MG TABLET PO SCH (08:15)
[2022-10-21] MEDS: FERROUS SULFATE (325 MG) 325 MG/TAB TABLET PO SCH ×3 (08:16→16:21)
[2022-10-21] MEDS: LEVOTHYROXINE SODIUM 50 MCG TABLET PO SCH (08:16)
[2022-10-21] MEDS: ALLOPURINOL 100 MG TABLET PO SCH (08:16)
[2022-10-21] MEDS: ASCORBIC ACID 500 MG TABLET PO SCH (08:16)
[2022-10-21] MEDS: CLOTRIMAZOLE 1% 15 GM TUBE TP SCH ×2 (08:17→16:22)
[2022-10-21] MEDS: PROSOURCE / PROSTAT (PYXIS) 30 ML UDC PO SCH (08:17)
[2022-10-21] MEDS: DIGOXIN ELIX UDC 0.25 MG/5 ML UDC GT SCH (12:00)
--- NOTE | 2022-10-21 12:00 | NUR ---
RN NOTES PT RECEIVING HD , HR IN 130'S , ON LEVO FOR BP SUPPORT, CONTINUE TO MONITOR
[2022-10-21] MEDS: NOREPINEPHRINE 8 MG in IV NS 0.9% 242 ML IV PRN ×2 (13:28→22:48)
[2022-10-21 13:51] LABS: BAND % (MANUAL) 10 % (0.0-5.0); EOSINOPHILS % (MANUAL) 15 % (0-4); LYMPHOCYTES % (MANUAL) 8 % (16-48); MONOCYTES % (MANUAL) 5 % (0-11.0); NEUTROPHILS % (MANUAL) 58 (42-76)
[2022-10-21 13:52] LABS: METAMYELOCYTES % 2 % (0-0); MYELOCYTES % 2 % (0-0)
--- NOTE | 2022-10-21 18:00 | NUR ---
RN NOTES HR IN 130'S, 140'S , DR RAMIREZ NOTIFED , ORDER RECEIVED FOR NORSYNEPHRINE FOR BP SUPPORT .
[2022-10-21] MEDS: ACETAMINOPHEN 325 MG TABLET PO PRN (18:09)
--- NOTE | 2022-10-21 18:54 | NUR ---
RN NOTES PT REMAINS INTUBATED, OFF SEDATION , NO DISTESS NOTED, TF AT 45CC/HR RUNNING , LEVO AT 0.1 MCG/KG/MIN RUNNING FOR BP SUPPORT , HR IN 130'S DR RAMIREZ AWARE, WILL ENDORSE TO V BELT INSPECTOR NURSE FOR CONTINUITY OF CARE .
--- NOTE | 2022-10-21 21:00 | NUR ---
RN OPENING NOTE PT RECEIVED FROM DEDE. PT INTUBATED AND ON VENT. SKIN IS WARM AND DRY. NG TUBE INTACT IN R NARE AND RUNNING NEPRO AT 45 ML/HR. MERLENE PICC LINE INTACT AN RUNNING LEVOPHED AT 0.1 MCG/KG/MIN. R FEMORAL HD CATH INTACT. PERCUTANEOUS CHOLECYSTEMTOMY CATHER DRAINING APPROPRIATELY. BED LOCKED AND AT LOWEST LEVEL WITH 2 RAILS UP.
[2022-10-22] VITALS (82 sets, daily range): BP systolic 51–159; BP diastolic 37–100
[2022-10-22] MEDS: ACETAMINOPHEN 325 MG TABLET PO PRN ×2 (00:17→06:58)
[2022-10-22] MEDS: PHENYLEPHRINE 50 MG in IV NS 0.9% 245 ML IV PRN ×7 (01:15→23:56)
[2022-10-22] MEDS: PROPOFOL 100 ML IV PRN (01:36)
[2022-10-22] MEDS: IV NS 0.9% 250 ML IV PRN (01:36)
[2022-10-22] MEDS: NEPRO 1,000 ML BOTTLE GT PRN ×2 (02:53→22:50)
--- NOTE | 2022-10-22 04:50 | NUR ---
RN NOTE NEOSYNEPHRINE PULLED FROM [employer] TO CREATE NEOSYNEPHRINE DRIP.
[2022-10-22] MEDS ORDERED: PHENYLEPHRINE 10 MG/ML VIAL ONE (04:51)
[2022-10-22 05:15] LABS: EOSINOPHILS % (AUTO) 1.4 % (0.0-6.0); HEMATOCRIT 24 % (39-51); LYMPHOCYTES # (AUTO) 1.1 K/uL (0.8-4.8); LYMPHOCYTES % (AUTO) 11.2 % (20.0-44.0); MEAN CORPUSCULAR HGB CONC 33 g/dl (31.0-36.0); MEAN CORPUSCULAR VOLUME 107 fL (80-96); NEUTROPHILS # (AUTO) 6.4 K/uL (1.8-8.9); NEUTROPHILS % (AUTO) 66.4 % (43.0-81.0); RED BLOOD CELL COUNT(AUTO) 2.29 MIL/uL (4.5-6.0); WHITE BLOOD COUNT (AUTO) 9.6 K/uL (4.3-11.0)
[2022-10-22 05:20] LABS: PLATELET COUNT (AUTO) 27 K/uL (150-450)
[2022-10-22 05:35] LABS: ALBUMIN 1.5 g/dL (3.4-5.0); BILIRUBIN,TOTAL 1.5 mg/dL (0.2-1.0); CALCIUM, SERUM 8.7 mg/dL (8.5-10.1); CREATININE 3.6 mg/dL (0.6-1.3); POTASSIUM 4.5 mmol/L (3.5-5.1); TOTAL PROTEIN, SERUM 4.2 g/dL (6.4-8.2)
--- NOTE | 2022-10-22 06:42 | NUR ---
RN CLOSING NOTE PT SEDATED BUT RESTLESSS. PT OCASIONALLY SHAKES HEAD SIDE TO SIDE. SKIN IS HOT AND DRY. RESPIRATIONS ARE TACHYPNIC AT 26 WHILE INTUBATED AND ON VENT. MERLENE PICC LINE RUNNING PROPOFOL AT 5 MCG, NEOSYNEPHRINE AT 2.1 MCG AND NS AT 10 ML/HR. CHAMORRO INTACT BUT ANURIC DURING SHIFT. PCT DRAIN DRAINING PROPERLY WITH 100 ML OUTPUT. PT'S HR AND BP HAS IMPROVED SLOWLY; 116 AND 109/70 RESPECTIVELY. BED LOCKED AND AT LOWEST LEVEL WITH 2 RAILS UP.
[2022-10-22] MEDS: LEVOTHYROXINE SODIUM 50 MCG TABLET PO SCH (06:58)
--- NOTE | 2022-10-22 07:05 | NUR ---
RN NOTES RECEIVED PT ON BED, INTUBATED AND SEDATED ON DIPRIVAN AT 5MCG/KG/MIN , CHAVO AT 2.1 MCG/KG/MIN FOR BP SUPPORT RUNNING , ON TELE ST HR IN 110'S, IV SITE CDI, SR UP x3, CALL LIGHT WITHIN EASY REACH, BED LOCKED AND IN LOWEST POSITION, CONTINUE TO MONITOR
[2022-10-22] MEDS: MEROPENEM 500 MG in IV NS 0.9% 50 ML IV SCH ×2 (08:08→20:00)
[2022-10-22] MEDS: SUCRALFATE 1 G/10 ML UDC PO SCH ×4 (08:13→20:05)
[2022-10-22] MEDS: PANTOPRAZOLE 40 MG/PACK PACK GT SCH ×2 (08:13→20:05)
[2022-10-22] MEDS: ASCORBIC ACID 500 MG TABLET PO SCH (08:13)
[2022-10-22] MEDS: FERROUS SULFATE (325 MG) 325 MG/TAB TABLET PO SCH ×3 (08:13→16:54)
[2022-10-22] MEDS: FINASTERIDE (5 MG) 5 MG TABLET PO SCH (08:14)
[2022-10-22] MEDS: ALLOPURINOL 100 MG TABLET PO SCH (08:14)
[2022-10-22] MEDS: HYDROCORTISONE SOD SUCCINATE 100 MG/2 ML VIAL IV SCH (08:14)
[2022-10-22] MEDS: MULTIVITAMINS,THERAGRAN 1 UDTAB TABLET PO SCH (08:14)
[2022-10-22] MEDS: PROSOURCE / PROSTAT (PYXIS) 30 ML UDC PO SCH (08:14)
[2022-10-22] MEDS: CLOTRIMAZOLE 1% 15 GM TUBE TP SCH ×2 (08:15→16:55)
--- NOTE | 2022-10-22 12:00 | NUR ---
RN NOTES ET SUCTIONING AND ORAL CARE DONE, CONTINUE TO MONITOR
[2022-10-22] MEDS: DIGOXIN ELIX UDC 0.25 MG/5 ML UDC GT SCH (12:07)
[2022-10-22 14:14] LABS: D-DIMER 4.15 mg/L(FEU (0.17-0.50)
--- NOTE | 2022-10-22 16:00 | NUR ---
RN NOTES PT RECEIVING HD, LOW BP NOTED, CONTINUE TO TITRATED CHAVO PER MD ORDER .
[2022-10-22 18:07] LABS: BAND % (MANUAL) 16 % (0.0-5.0); LYMPHOCYTES % (MANUAL) 8 % (16-48); MONOCYTES % (MANUAL) 5 % (0-11.0); NEUTROPHILS % (MANUAL) 71 (42-76)
--- NOTE | 2022-10-22 19:14 | NUR ---
RN NOTES PT REMAINS INTUBATED , NO SEDATION , RESPONDS TO PAINFUL STIMULI , ON TELE ST HR IN 100'S, AT THE BEDSIDE, PT RECEIVED HD , CHAVO AT 2.5 MCG/KG/MIN RUNNING FOR BP SUPPORT, SR UP x3, CALL LIGHT WITHIN EASY REACH, BED LOCKED AND IN LOWEST POSITION, WILL ENDORSE TO ADMISSION LIAISON NURSE FOR CONTINUITY OF CARE .
[2022-10-23] VITALS (100 sets, daily range): BP systolic 66–126; BP diastolic 30–75
[2022-10-23 04:56] LABS: BASOPHILS # (AUTO) 0.1 K/uL (0.0-0.2); EOSINOPHILS % (AUTO) 4.7 % (0.0-6.0); HEMATOCRIT 23 % (39-51); HEMOGLOBIN 7.3 g/dL (13.5-17.5); LYMPHOCYTES # (AUTO) 1.2 K/uL (0.8-4.8); LYMPHOCYTES % (AUTO) 9.5 % (20.0-44.0); MEAN CORPUSCULAR HGB CONC 31 g/dl (31.0-36.0); MEAN CORPUSCULAR VOLUME 107 fL (80-96); MONOCYTES # (AUTO) 0.4 K/uL (0.1-1.30); NEUTROPHILS # (AUTO) 10.5 K/uL (1.8-8.9); NEUTROPHILS % (AUTO) 81.8 % (43.0-81.0); RED BLOOD CELL COUNT(AUTO) 2.18 MIL/uL (4.5-6.0); WHITE BLOOD COUNT (AUTO) 12.8 K/uL (4.3-11.0)
[2022-10-23 04:58] LABS: D-DIMER 3.92 mg/L(FEU (0.17-0.50)
[2022-10-23 04:59] LABS: PLATELET COUNT (AUTO) 19 K/uL (150-450)
[2022-10-23 05:18] LABS: BILIRUBIN,TOTAL 1.2 mg/dL (0.2-1.0); CALCIUM, SERUM 9.2 mg/dL (8.5-10.1); CREATININE 3.1 mg/dL (0.6-1.3); POTASSIUM 3.9 mmol/L (3.5-5.1); TOTAL PROTEIN, SERUM 4.1 g/dL (6.4-8.2)
[2022-10-23 05:19] LABS: ALBUMIN 1.4 g/dL (3.4-5.0)
[2022-10-23 05:44] LABS: ABG BASE EXCESS -6.1 mmol/L; ABG OXYGEN SATURATION 96.6 % (92.0-98.5); ABG PCO2 34.2 mmHg (35.0-45.0); ABG PH 7.356 (7.350-7.450); AaDO2 78.7 mmHg; MetHb 0.4 % (0.0-1.5); O2Hb 95.2 % (94.0-97.0); SITE, ABG Right Radial; VENT MODE, BG AC 16 550 30%+0
[2022-10-23] MEDS: PHENYLEPHRINE 50 MG in IV NS 0.9% 245 ML IV PRN ×3 (06:30→22:26)
--- NOTE | 2022-10-23 07:00 | NUR ---
RN NOTES RECEIVED PT ON BED, INTUBATED , EYES OPEN ,,RESPONDS TO PAINFUL STIMULI, TOLERATING VENT SETTING WELL, NO DISTRESS NOTED, CHAVO AT 1 MCG/KG/MIN FOR BP SUPPORT RUNNING , ON TELE SR , IV SITE CDI, SR UP x3, CALL LIGHT WITHIN EASY REACH, BED LOCKED AND IN LOWEST POSITION, CONTINUE TO MONITOR
[2022-10-23] MEDS: MULTIVITAMINS,THERAGRAN 1 UDTAB TABLET PO SCH (08:20)
[2022-10-23] MEDS: HYDROCORTISONE SOD SUCCINATE 100 MG/2 ML VIAL IV SCH (08:21)
[2022-10-23] MEDS: SUCRALFATE 1 G/10 ML UDC PO SCH ×4 (08:21→21:06)
[2022-10-23] MEDS: ASCORBIC ACID 500 MG TABLET PO SCH (08:21)
[2022-10-23] MEDS: PANTOPRAZOLE 40 MG/PACK PACK GT SCH ×2 (08:21→21:07)
[2022-10-23] MEDS: LEVOTHYROXINE SODIUM 50 MCG TABLET PO SCH (08:21)
[2022-10-23] MEDS: ALLOPURINOL 100 MG TABLET PO SCH (08:21)
[2022-10-23] MEDS: FINASTERIDE (5 MG) 5 MG TABLET PO SCH (08:21)
[2022-10-23] MEDS: FERROUS SULFATE (325 MG) 325 MG/TAB TABLET PO SCH ×3 (08:21→16:22)
[2022-10-23] MEDS: CLOTRIMAZOLE 1% 15 GM TUBE TP SCH ×2 (08:22→16:22)
[2022-10-23] MEDS: PROSOURCE / PROSTAT (PYXIS) 30 ML UDC PO SCH (08:22)
[2022-10-23] MEDS: MEROPENEM 500 MG in IV NS 0.9% 50 ML IV SCH ×2 (08:23→20:27)
[2022-10-23 09:19] LABS: ABG OXYGEN SATURATION 96.7 % (92.0-98.5); ABG PCO2 37.6 mmHg (35.0-45.0); ABG PH 7.348 (7.350-7.450); ABG PO2 98.1 mmHg (75.0-100.0); AaDO2 71.6 mmHg; COHb 0.7 % (0.5-1.5); MetHb 0.4 % (0.0-1.5); O2Hb 95.6 % (94.0-97.0); SITE, ABG Right Radial; VENT MODE, BG CPAP PS15 +5 30%
[2022-10-23] MEDS: ALBUMIN 25% 25 GM in PREMIX 1 EA IV SCH ×2 (10:51→22:01)
[2022-10-23] MEDS: NEPRO 1,000 ML BOTTLE GT PRN (11:00)
--- NOTE | 2022-10-23 12:00 | NUR ---
RN NOTES PT MOVING HIS HEAD SIDE TO SIDE AT TIMES, OFF SEDATION, DR FLORES AWARE , NO DISTESS NOTED, ET SUCTIONING DONE NEEDED, ON CHAVO FOR BP SUPPORT , CONTINUE TO MONITOR
[2022-10-23] MEDS: DIGOXIN ELIX UDC 0.25 MG/5 ML UDC GT SCH (13:14)
--- NOTE | 2022-10-23 16:00 | NUR ---
RN NOTES DR GALLARDO NOTIFIED REGARDING PLT 19 , NO NEW ORDER GIVEN
--- NOTE | 2022-10-23 18:49 | NUR ---
RN NOTES PT REMAINS INTUBATED , NO SEDATION , RESPONDS TO PAINFUL STIMULI , ON TELE ST HR IN 100'S, CHAVO AT 0.7 MCG/KG/MIN RUNNING FOR BP SUPPORT, SR UP x3, CALL LIGHT WITHIN EASY REACH, BED LOCKED AND IN LOWEST POSITION, WILL ENDORSE TO INTEGRATION ENGINEER NURSE FOR CONTINUITY OF CARE .
--- NOTE | 2022-10-23 19:10 | NUR ---
RN OPENING NOTES RECEIVED PATIENT ON BED, SEDATED, ORALLY INTUBATED SIZE 7.5, 25 CM BY THE LIP, WITH CPAP SETTINGS 15/5, FIO2-30%, PEEP- 5, AFEBRILE, NO S/S OF DISTRESS NOTED. NOTED WITH MERLENE PICC LINE. FLUSHED WITH NS. RUNNING WITH CHAVO @ 0.7MCG/KG/MIN. NOTED WITH OGT PATENT AND INTACT, VERIFIED PLACEMENT BY AUSCULTATION, NO RESIDUAL NOTED UPON ASPIRATION RUNNING WITH NEPHRO @ 45 ML/HR, HEAD OF BED KEPT ELEVATED. RIGHT FEMORAL HD CATHETER, NO ACTIVE BLEEDING NOTED AT THIS TIME. RIGHT LATERAL BODY CHOLECYSTOSTOMY, CONNECTED TO DRAINAGE BAG VIA GRAVITY. CHAMORRO CATHETER PATENT INTACT DRAINING WITH CLEAR YELLOW URINE VIA GRAVITY. ALL SAFETY PRECAUTION PROVIDED. BED IN LOWEST POSITION, LOCKED. CALL LIGHT WITH IN REACH.
[2022-10-23 19:34] LABS: BAND % (MANUAL) 9 % (0.0-5.0); EOSINOPHILS % (MANUAL) 3 % (0-4); LYMPHOCYTES % (MANUAL) 8 % (16-48); NEUTROPHILS % (MANUAL) 80 (42-76)
[2022-10-23 21:23] LABS: HEMOGLOBIN 6.9 g/dL (13.5-17.5)
--- NOTE | 2022-10-23 21:35 | NUR ---
[employer]O CHIP SACKING MACHINE OPERATOR
--- NOTE | 2022-10-23 21:35 | NUR ---
RN NOTES NOTIFIED CAITLYN MCGHEE, REGARDING PATIENT LATEST HGB- 6.9, HCT- 22 WITH NEW ORDER TRANSFUSE 1 UNIT PRBC NOTED AND CARRIED OUT.
--- NOTE | 2022-10-23 22:02 | NUR ---
RN NOTES ALBUMIN 25 GRAMS GIVEN DURING DIALYSIS.
[2022-10-24] VITALS (104 sets, daily range): BP systolic 54–154; BP diastolic 35–123
[2022-10-24 04:12] LABS: BASOPHILS # (AUTO) 0.1 K/uL (0.0-0.2); BASOPHILS % (AUTO) 0.8 % (0.0-2.0); EOSINOPHILS % (AUTO) 10.4 % (0.0-6.0); HEMATOCRIT 24 % (39-51); HEMOGLOBIN 7.4 g/dL (13.5-17.5); LYMPHOCYTES # (AUTO) 0.9 K/uL (0.8-4.8); LYMPHOCYTES % (AUTO) 9.5 % (20.0-44.0); MEAN CORPUSCULAR HGB CONC 31 g/dl (31.0-36.0); MEAN CORPUSCULAR VOLUME 107 fL (80-96); MONOCYTES # (AUTO) 0.3 K/uL (0.1-1.30); MONOCYTES % (AUTO) 3.5 % (2.0-12.0); NEUTROPHILS % (AUTO) 75.8 % (43.0-81.0); RED BLOOD CELL COUNT(AUTO) 2.21 MIL/uL (4.5-6.0); WHITE BLOOD COUNT (AUTO) 9.2 K/uL (4.3-11.0)
[2022-10-24 04:23] LABS: PLATELET COUNT (AUTO) 13 K/uL (150-450)
[2022-10-24 04:38] LABS: ALBUMIN 2.4 g/dL (3.4-5.0); BILIRUBIN,TOTAL 1.2 mg/dL (0.2-1.0); CALCIUM, SERUM 9.9 mg/dL (8.5-10.1); CREATININE 2.7 mg/dL (0.6-1.3); POTASSIUM 3.7 mmol/L (3.5-5.1); TOTAL PROTEIN, SERUM 4.9 g/dL (6.4-8.2)
--- NOTE | 2022-10-24 04:50 | NUR ---
RN NOTES NOTIFIED MARINE FUEL DOCK ATTENDANT ELIER MCGHEE, REGARDING LATEST PLATELETS- 13, TRANSFUSE I UNIT PLATELETS. AND ALSO SHE ORDERED 1 UNIT PRBC LAST NIGHT FOR HGB- 6.9, BUT BECAUSE THE PATIENT HAS ANTI BODIES ON HIS BLOOD, WE HAVE TO ORDER IT FROM [facility], THE BLOOD IS NOT AVAILABLE AT THIS TIME AND THE LATEST HGB NOW IS 7.4, PER ELIER HOLD OFF THE 1 UNIT PRBC TRANSFUSION.
[2022-10-24] MEDS: PHENYLEPHRINE 50 MG in IV NS 0.9% 245 ML IV PRN ×3 (05:11→12:27)
[2022-10-24 05:38] LABS: ABG OXYGEN SATURATION 96.2 % (92.0-98.5); ABG PCO2 43.6 mmHg (35.0-45.0); ABG PH 7.334 (7.350-7.450); ABG PO2 92.7 mmHg (75.0-100.0); COHb 1.3 % (0.5-1.5); MetHb 0.2 % (0.0-1.5); O2Hb 94.8 % (94.0-97.0); SITE, ABG Right Radial
--- NOTE | 2022-10-24 07:10 | NUR ---
RN OPENING NOTES RECEIVED REPORT FROM [facility] ROSY ENRIQUE. PATIENT REMAINS INTUBATED, CURRENTLY OFF SEDATION. OBTUNDED, SHAKES HEAD OCCASIONALLY. CHAMORRO CATHETER DRAINING OUTPUT. CHOLECYSTOSTOMY ATTACHED DRAINING OUTPUT. ORAL FEEDING TUBE RUNNING NEPRO ORDERED, NO RESIDUAL. IV ACCESS IN RIGHT UPPER ARM PICC FLUSHING EASILY WITHOUT RESISTANCE. ON NORSYNEPHRINE, WILL TITRATE PER PROTOCOL. SAFETY MEASURES IMPLEMENTED, WILL CONTINUE PLAN OF CARE AND ANTICIPATE NEEDS.
--- NOTE | 2022-10-24 07:25 | NUR ---
WOUND CARE CONSULT: RECEIVED CONSULT FOR DISCOLORATION TO AREA AROUND PENIS. PT STILL NOTED TO HAVE LOW PLATELETS. THERE IS DISCOLORATION TO THIGH AND TO PUBIC AREA WITHOUT DRAINAGE. PT NOTED TO HAVE GENERALIZED EDEMA. DEFER TO SURGICAL TEAM CURRENTLY ON CASE. ALL SKIN PROTECTION MEASURES ARE IN PLACE. DISCUSSED WITH NURSING STAFF. PT IS ON [facility] ETS AIR BED. IN AGREEMENT WITH PLAN OF CARE.
[2022-10-24] MEDS: LEVOTHYROXINE SODIUM 50 MCG TABLET PO SCH (07:40)
[2022-10-24] MEDS: MEROPENEM 500 MG in IV NS 0.9% 50 ML IV SCH ×2 (07:40→20:30)
[2022-10-24] MEDS: IV NS 0.9% 250 ML IV PRN (07:49)
[2022-10-24 08:55] LABS: BAND % (MANUAL) 3 % (0.0-5.0); EOSINOPHILS % (MANUAL) 10 % (0-4); LYMPHOCYTES % (MANUAL) 10 % (16-48); MONOCYTES % (MANUAL) 2 % (0-11.0); NEUTROPHILS % (MANUAL) 75 (42-76)
[2022-10-24] MEDS ORDERED: IV NS 0.9% 500 ML BAG IV ONE (09:00)
[2022-10-24] MEDS ORDERED: NOREPINEPHRINE 32 MG in IV NS 0.9% 218 ML IV PRN (09:00)
[2022-10-24] MEDS: ALLOPURINOL 100 MG TABLET PO SCH (09:41)
[2022-10-24] MEDS: ASCORBIC ACID 500 MG TABLET PO SCH (09:41)
[2022-10-24] MEDS: FERROUS SULFATE (325 MG) 325 MG/TAB TABLET PO SCH ×3 (09:41→17:02)
[2022-10-24] MEDS: SUCRALFATE 1 G/10 ML UDC PO SCH ×4 (09:41→20:53)
[2022-10-24] MEDS: PANTOPRAZOLE 40 MG/PACK PACK GT SCH ×2 (09:41→20:53)
[2022-10-24] MEDS: MULTIVITAMINS,THERAGRAN 1 UDTAB TABLET PO SCH (09:41)
[2022-10-24] MEDS: FINASTERIDE (5 MG) 5 MG TABLET PO SCH (09:41)
[2022-10-24] MEDS: HYDROCORTISONE SOD SUCCINATE 100 MG/2 ML VIAL IV SCH (09:43)
[2022-10-24] MEDS: PROSOURCE / PROSTAT (PYXIS) 30 ML UDC PO SCH (09:44)
[2022-10-24] MEDS ORDERED: PHENYLEPHRINE 100 MG in IV NS 0.9% 240 ML IV PRN (10:30)
[2022-10-24] MEDS: NEPRO 1,000 ML BOTTLE GT PRN (11:01)
[2022-10-24] MEDS: ACETAMINOPHEN 325 MG TABLET PO PRN (12:10)
--- NOTE | 2022-10-24 12:11 | NUR ---
PRN TYLENOL GIVEN FOR FEVER 101.8. BLANKET REMOVED. WILL REASSESS TEMPERATURE IN ONE HOUR.
[2022-10-24] MEDS: DIGOXIN ELIX UDC 0.25 MG/5 ML UDC GT SCH (12:59)
--- NOTE | 2022-10-24 13:11 | NUR ---
PATIENTS TEMPERATURE REMAINS AT 101.8 DEGREES FAHRENHEIT. BILATERAL ICE PACKS ADDED TO ARM PITS. ICE PACK ADDED TO PATIENTS FOREHEAD. WILL REASSESS TEMPERATURE IN ONE HOUR.
[2022-10-24] MEDS: CLOTRIMAZOLE 1% 15 GM TUBE TP SCH ×2 (13:17→17:02)
--- NOTE | 2022-10-24 14:30 | NUR ---
TEMPERATURE ON RECHECK 100.1.
[2022-10-24] MEDS: ACETAMINOPHEN 650 MG/SUPP.RECT RC PRN (15:03)
--- NOTE | 2022-10-24 15:03 | NUR ---
RECTAL TYLENOL ADMINISTERED PER DR GALLARDO FOR COOLING MEASURES. WILL REASSESS TEMPERATURE IN ONE HOUR.
[2022-10-24] MEDS ORDERED: ACETAMINOPHEN 325 MG TABLET PO ONE (16:30)
--- NOTE | 2022-10-24 16:42 | NUR ---
NON ADMIN FOR TYLENOL. PATIENT ALREADY RECEIVED RECTAL TYLENOL. TEMPERATURE BEFORE PLATELET TRANSFUSION AT 99 DEGREES F
[2022-10-24] MEDS: PHENYLEPHRINE 100 MG in IV NS 0.9% 240 ML IV PRN ×2 (16:53→23:26)
--- NOTE | 2022-10-24 17:48 | NUR ---
PLATELETS TRANSFUSED, PATIENT TOLERATED WELL. POSTTRANSFUSION VITAL SIGNS ARE FOLLOWS TEMPERATURE 99.2 DEGREES FAHRENHEIT PULSE: 91 RESPIRATORY RATE 18 SP02: 100 BLOOD PRESSURE: 97/55 NO COMPLAINTS OF PAIN
[2022-10-24] MEDS: ALBUMIN 25% 25 GM in PREMIX 1 EA IV SCH (18:40)
--- NOTE | 2022-10-24 19:05 | NUR ---
RN OPENING NOTES RECEIVED PATIENT ON BED, SEDATED, ORALLY INTUBATED SIZE 7.5, 25 CM BY THE LIP, WITH VENT SETTINGS AC- 16, TV- 550, FIO2-30%, PEEP- 5, AFEBRILE, NO S/S OF DISTRESS NOTED. WITH ON GOING HEMODIALYSIS, PATIENT APPEARS TO BE CALM AND COMFORTABLE. NOTED WITH MERLENE PICC LINE. FLUSHED WITH NS. RUNNING WITH CHAVO @ 2.5 MCG/KG/MIN. NOTED WITH OGT PATENT AND INTACT, VERIFIED PLACEMENT BY AUSCULTATION, NO RESIDUAL NOTED UPON ASPIRATION RUNNING WITH NEPHRO @ 45 ML/HR, HEAD OF BED KEPT ELEVATED. RIGHT FEMORAL HD CATHETER, NO ACTIVE BLEEDING NOTED AT THIS TIME. RIGHT LATERAL BODY CHOLECYSTOSTOMY, DRAINING WELL, CONNECTED TO DRAINAGE BAG VIA GRAVITY. CHAMORRO CATHETER PATENT INTACT DRAINING WITH TEA COLORED URINE VIA GRAVITY. ALL SAFETY PRECAUTION PROVIDED. BED IN LOWEST POSITION, LOCKED. CALL LIGHT WITH IN REACH.
--- NOTE | 2022-10-24 19:20 | NUR ---
HAND OFF REPORT GIVEN TO KLAUS GALLEGOS FOR CONTINUATION OF CARE
--- NOTE | 2022-10-24 19:45 | NUR ---
RN NOTES HEMODIALYSIS DONE, TOOK OUT 1700ML OUTPUT.
--- NOTE | 2022-10-24 23:00 | NUR ---
RN NOTES NOTIFIED DR RAMIREZ REGARDING LATEST HGB- 7.0, WITH NEW ORDER TRANSFUSE 1 UNIT PRBC NOTED AND CARRIED OUT
[2022-10-25] VITALS (106 sets, daily range): BP systolic 52–172; BP diastolic 25–95
--- NOTE | 2022-10-25 04:25 | NUR ---
RN NOTES BLOOD TRANSFUSION 1 UNIT PRBC, STARTED INITIAL V/S BP- 130/70, HR- 104, RR- 32, TEMP. - 98.9, NO ADVERSE REACTION NOTED. CONTINUE TO MONITOR
[2022-10-25 04:54] LABS: BASOPHILS # (AUTO) 0.1 K/uL (0.0-0.2); BASOPHILS % (AUTO) 0.6 % (0.0-2.0); EOSINOPHILS % (AUTO) 12.8 % (0.0-6.0); HEMATOCRIT 22 % (39-51); LYMPHOCYTES # (AUTO) 1.3 K/uL (0.8-4.8); LYMPHOCYTES % (AUTO) 13.2 % (20.0-44.0); MEAN CORPUSCULAR HGB CONC 31 g/dl (31.0-36.0); MEAN CORPUSCULAR VOLUME 107 fL (80-96); MONOCYTES # (AUTO) 0.4 K/uL (0.1-1.30); MONOCYTES % (AUTO) 3.9 % (2.0-12.0); NEUTROPHILS # (AUTO) 6.7 K/uL (1.8-8.9); NEUTROPHILS % (AUTO) 69.5 % (43.0-81.0); RED BLOOD CELL COUNT(AUTO) 2.04 MIL/uL (4.5-6.0); WHITE BLOOD COUNT (AUTO) 9.7 K/uL (4.3-11.0)
[2022-10-25] MEDS: PHENYLEPHRINE 100 MG in IV NS 0.9% 240 ML IV PRN ×3 (04:59→19:45)
[2022-10-25 05:02] LABS: PLATELET COUNT (AUTO) 12 K/uL (150-450)
[2022-10-25 05:03] LABS: HEMOGLOBIN 6.8 g/dL (13.5-17.5)
[2022-10-25 05:09] LABS: D-DIMER 3.58 mg/L(FEU (0.17-0.50)
[2022-10-25 05:10] LABS: ALBUMIN 2.7 g/dL (3.4-5.0); BILIRUBIN,TOTAL 1.3 mg/dL (0.2-1.0); CALCIUM, SERUM 10.1 mg/dL (8.5-10.1); CREATININE 2.7 mg/dL (0.6-1.3); POTASSIUM 3.7 mmol/L (3.5-5.1); TOTAL PROTEIN, SERUM 4.8 g/dL (6.4-8.2)
--- NOTE | 2022-10-25 05:15 | NUR ---
RN NOTES NOTIFIED DR RAMIREZ REGARDING LATEST HGB- 6.8, HCT- 22, PLATELETS-12, PER . V[facility]KAT TRANSFUSE 1 UNIT PRBC, BUT PATIENT IS CURRENTLY TRANSFUSING 1 UNIT PRBC THAT SHE ORDERED LAST NIGHT, CALLED HER AGAIN FOR CLARIFICATION IF SHE WANTS TOTAL OF 2 UNITS AND SHE DID NOT MENTION ABOUT THE PLATELETS. WAITING FOR CALLED BACK.
[2022-10-25] MEDS: ALBUMIN 25% 25 GM in PREMIX 1 EA IV SCH (06:02)
--- NOTE | 2022-10-25 06:10 | NUR ---
RN NOTES CALLED [facility] TO PAGED DR. RAMIREZ. WAITING FOR CALL BACK
--- NOTE | 2022-10-25 06:30 | NUR ---
RN NOTES CALLED [facility] TO PAGE DR RAMIREZ, NO ANSWER AT THIS TIME, PER SODA FLAKER HE WILL PAGED DR. RAMIREZ STAT. WAITING FOR CALL BACK.
--- NOTE | 2022-10-25 07:25 | NUR ---
RN NOTES TRANSFUSION END, V/S TAKEN AND RECORDED, NO ADVERSE REACTION NOTED. CONTINUE TO MONITOR.
--- NOTE | 2022-10-25 07:26 | NUR ---
RN OPENING NOTES RECEIVED REPORT FROM [facility] ROSY ENRIQUE. PATIENT REMAINS INTUBATED, CURRENTLY OFF SEDATION. OBTUNDED, SHAKES HEAD OCCASIONALLY. CHAMORRO CATHETER DRAINING OUTPUT. CHOLECYSTOSTOMY ATTACHED DRAINING OUTPUT. ORAL FEEDING TUBE RUNNING NEPRO ORDERED, NO RESIDUAL. IV ACCESS IN RIGHT UPPER ARM PICC FLUSHING EASILY WITHOUT RESISTANCE. ON NORSYNEPHRINE, WILL TITRATE PER PROTOCOL. STATUS POST PRBC TRANSFUSION. SAFETY MEASURES IMPLEMENTED, WILL CONTINUE PLAN OF CARE AND ANTICIPATE NEEDS.
[2022-10-25] MEDS: LEVOTHYROXINE SODIUM 50 MCG TABLET PO SCH (07:47)
[2022-10-25] MEDS: MEROPENEM 500 MG in IV NS 0.9% 50 ML IV SCH ×2 (07:47→20:14)
[2022-10-25] MEDS: ALLOPURINOL 100 MG TABLET PO SCH (08:14)
[2022-10-25] MEDS: HYDROCORTISONE SOD SUCCINATE 100 MG/2 ML VIAL IV SCH (08:14)
[2022-10-25] MEDS: FINASTERIDE (5 MG) 5 MG TABLET PO SCH (08:14)
[2022-10-25] MEDS: PANTOPRAZOLE 40 MG/PACK PACK GT SCH ×2 (08:14→21:16)
[2022-10-25] MEDS: ASCORBIC ACID 500 MG TABLET PO SCH (08:14)
[2022-10-25] MEDS: SUCRALFATE 1 G/10 ML UDC PO SCH ×4 (08:14→21:16)
[2022-10-25] MEDS: MULTIVITAMINS,THERAGRAN 1 UDTAB TABLET PO SCH (08:14)
[2022-10-25] MEDS: CLOTRIMAZOLE 1% 15 GM TUBE TP SCH ×2 (08:15→16:12)
[2022-10-25] MEDS: PROSOURCE / PROSTAT (PYXIS) 30 ML UDC PO SCH (08:17)
[2022-10-25] MEDS: FERROUS SULFATE (325 MG) 325 MG/TAB TABLET PO SCH ×3 (08:17→16:14)
[2022-10-25 10:11] LABS: BASOPHILS # (AUTO) 0.1 K/uL (0.0-0.2); BASOPHILS % (AUTO) 1.1 % (0.0-2.0); EOSINOPHILS % (AUTO) 15.8 % (0.0-6.0); HEMATOCRIT 26 % (39-51); LYMPHOCYTES # (AUTO) 1.4 K/uL (0.8-4.8); LYMPHOCYTES % (AUTO) 14.5 % (20.0-44.0); MEAN CORPUSCULAR HGB CONC 31 g/dl (31.0-36.0); MEAN CORPUSCULAR VOLUME 105 fL (80-96); MONOCYTES # (AUTO) 0.3 K/uL (0.1-1.30); MONOCYTES % (AUTO) 3.5 % (2.0-12.0); NEUTROPHILS # (AUTO) 6.2 K/uL (1.8-8.9); NEUTROPHILS % (AUTO) 65.1 % (43.0-81.0); RED BLOOD CELL COUNT(AUTO) 2.43 MIL/uL (4.5-6.0); WHITE BLOOD COUNT (AUTO) 9.5 K/uL (4.3-11.0)
[2022-10-25 10:15] LABS: PLATELET COUNT (AUTO) 11 K/uL (150-450)
[2022-10-25 10:39] LABS: BAND % (MANUAL) 15 % (0.0-5.0); BASOPHILS % (MANUAL) 0 % (0.0-2.0); EOSINOPHILS % (MANUAL) 2 % (0-4); LYMPHOCYTES % (MANUAL) 18 % (16-48); MONOCYTES % (MANUAL) 3 % (0-11.0); NEUTROPHILS % (MANUAL) 62 (42-76)
[2022-10-25] MEDS: DIGOXIN ELIX UDC 0.25 MG/5 ML UDC GT SCH (12:31)
--- NOTE | 2022-10-25 14:00 | NUR ---
DURING ROUNDING PATIENT WAS NOTED TO BE DIAPHORETIC. AXILLARY TEMPERATURE DURING ASSESSMENT WAS 101.8 DEGREES FAHRENHEIT. CALLED PHARMACY TO SWITCH PO TYLENOL TO LIQUID FOR GASTRIC TUBE ADMINISTRATION. WILL ADMINISTER TYLENOL ONCE VERIFIED BY PHARMACY AND REASSESS TEMPERATURE IN ONE HOUR. Addendum: 10/25/22 at 1506 by LAYTON JONES RN PRN TYLENOL ADMINISTERED AT 1411. WILL REASSESS TEMPERATURE AT 1511 PER PROTOCOL.
[2022-10-25] MEDS: ACETAMINOPHEN 650 MG/20.3 ML UDC GT PRN (14:11)
--- NOTE | 2022-10-25 15:11 | NUR ---
TEMPERATURE ON RECHECK AT 99.1 DEGREES FAHRENHEIT.
[2022-10-25 16:54] LABS: BAND % (MANUAL) 13 % (0.0-5.0); EOSINOPHILS % (MANUAL) 14 % (0-4); LYMPHOCYTES % (MANUAL) 11 % (16-48); MONOCYTES % (MANUAL) 2 % (0-11.0); NEUTROPHILS % (MANUAL) 60 (42-76)
[2022-10-25] MEDS: ALBUMIN 25% 25 GM in PREMIX 1 EA IV PRN (17:17)
--- NOTE | 2022-10-25 19:09 | NUR ---
HAND OFF REPORT GIVEN TO KLAUS FOR CONTINUATION OF CARE
--- NOTE | 2022-10-25 19:10 | NUR ---
RN OPENING NOTES RECEIVED PATIENT ON BED, SEDATED, ORALLY INTUBATED SIZE 7.5, 25 CM BY THE LIP, WITH VENT SETTINGS AC- 16, TV- 550, FIO2-30%, PEEP- 5, AFEBRILE, NO S/S OF DISTRESS NOTED. NOTED WITH MERLENE PICC LINE. FLUSHED WITH NS. RUNNING WITH CHAVO @ 2.9 MCG/KG/MIN. NOTED WITH OGT PATENT AND INTACT, VERIFIED PLACEMENT BY AUSCULTATION, NO RESIDUAL NOTED UPON ASPIRATION RUNNING WITH NEPHRO @ 45 ML/HR, HEAD OF BED KEPT ELEVATED. RIGHT FEMORAL HD CATHETER, NO ACTIVE BLEEDING NOTED AT THIS TIME. RIGHT LATERAL BODY CHOLECYSTOSTOMY, DRAINING WELL, CONNECTED TO DRAINAGE BAG VIA GRAVITY. CHAMORRO CATHETER PATENT INTACT DRAINING WITH TEA COLORED URINE VIA GRAVITY. ALL SAFETY PRECAUTION PROVIDED. BED IN LOWEST POSITION, LOCKED. CALL LIGHT WITH IN REACH.
--- NOTE | 2022-10-25 20:02 | NUR ---
PT RCVD ORALLY INTUBATED W/ 7.5 ETT SECURED @ 25 CM LIP LINE ON VENT SETTINGS OF AC 16, VT 550,FIO2 30% PEEP 5. VENT PLUGGED INTO RED OUTLET. VENT ALARMS ON AND AUDIBLE.. AMBU BAG AT BEDSIDE. NO RESPIRATORY DISTRESS NOTED AT THIS TIME. WILL CONTINUE TO MONITOR T/O SHIFT.
[2022-10-25 20:55] LABS: HEMOGLOBIN 8.4 g/dL (13.5-17.5)
[2022-10-25] MEDS: DAKINS HALF STRENGTH (0.25%) 480 ML BOTTLE TOP SCH (21:16)
[2022-10-25] MEDS: NEPRO 1,000 ML BOTTLE GT PRN (22:58)
[2022-10-26] VITALS (102 sets, daily range): BP systolic 65–140; BP diastolic 32–84
--- NOTE | 2022-10-26 00:45 | NUR ---
RN NOTES UNABLE TO SCAN THE BAR CODE FOR FRESH FROZEN PLASMA, CALLED [facility] GANDARA TO OVERRIDE AND GIVE THE FFP.
--- NOTE | 2022-10-26 00:49 | NUR ---
RN NOTES BLOOD TRANSFUSION STARTED, FRESH FROZEN PLASMA, V/S TEMP.- 98.3, HR- 104, RR- 21, BP- 125/61. NO ADVERSE REACTION NOTED. CONTINUE TO MONITOR.
[2022-10-26] MEDS: PHENYLEPHRINE 100 MG in IV NS 0.9% 240 ML IV PRN ×5 (01:11→21:25)
--- NOTE | 2022-10-26 02:03 | NUR ---
RN NOTES BLOOD TRANSFUSION DONE. V/S TEMP- 98.4, HR- 100, RR- 21, BP- 120/69. NO ADVERSE REACTION NOTED. CONTINUE TO MONITOR.
--- NOTE | 2022-10-26 03:00 | NUR ---
RN NOTES UNABLE TO SCAN THE BAR CODE FOR PLATELETS, CALLED [facility] GANDARA OK TO OVERRIDE AND GIVE THE PLATELETS
--- NOTE | 2022-10-26 03:03 | NUR ---
RN NOTES BLOOD TRANSFUSION STARTED, 1 UNIT PLATELETES, V/S TEMP.- 98.2, HR- 104, RR- 21, BP- 108/63. NO ADVERSE REACTION NOTED. CONTINUE TO MONITOR.
--- NOTE | 2022-10-26 07:10 | NUR ---
RN NOTES RECEIVED PATIENT ON BED, ORALLY INTUBATED SIZE 7.5, 25 CM BY THE LIP, WITH VENT SETTINGS AC- 16, TV- 550, FIO2-30%, PEEP- 5, AFEBRILE, NO S/S OF DISTRESS NOTED. NOTED WITH MERLENE PICC LINE. FLUSHED WITH NS. RUNNING FOR BP SUPPORT, NOTED WITH OGT PATENT AND INTACT, VERIFIED PLACEMENT BY AUSCULTATION, NO RESIDUAL NOTED UPON ASPIRATION RUNNING WITH NEPHRO @ 45 ML/HR, HEAD OF BED KEPT ELEVATED. RIGHT FEMORAL HD CATHETER, NO ACTIVE BLEEDING NOTED AT THIS TIME. RIGHT LATERAL BODY CHOLECYSTOSTOMY, DRAINING WELL, CONNECTED TO DRAINAGE BAG VIA GRAVITY. CHAMORRO CATHETER PATENT INTACT DRAINING WITH TEA COLORED , URINE VIA GRAVITY. ALL SAFETY PRECAUTION PROVIDED. BED IN LOWEST POSITION, LOCKED. CALL LIGHT WITH IN REACH.CONTINUE TO MONITOR .
[2022-10-26 07:48] LABS: BASOPHILS # (AUTO) 0.1 K/uL (0.0-0.2); BASOPHILS % (AUTO) 0.6 % (0.0-2.0); EOSINOPHILS % (AUTO) 12.8 % (0.0-6.0); HEMATOCRIT 26 % (39-51); HEMOGLOBIN 8.1 g/dL (13.5-17.5); LYMPHOCYTES # (AUTO) 2.1 K/uL (0.8-4.8); LYMPHOCYTES % (AUTO) 16.3 % (20.0-44.0); MEAN CORPUSCULAR HGB CONC 31 g/dl (31.0-36.0); MEAN CORPUSCULAR VOLUME 106 fL (80-96); MONOCYTES # (AUTO) 0.5 K/uL (0.1-1.30); MONOCYTES % (AUTO) 3.9 % (2.0-12.0); NEUTROPHILS # (AUTO) 8.7 K/uL (1.8-8.9); NEUTROPHILS % (AUTO) 66.4 % (43.0-81.0); WHITE BLOOD COUNT (AUTO) 13.1 K/uL (4.3-11.0)
[2022-10-26 07:52] LABS: PLATELET COUNT (AUTO) 34 K/uL (150-450)
[2022-10-26 08:06] LABS: ALBUMIN 2.4 g/dL (3.4-5.0); BILIRUBIN,TOTAL 1.1 mg/dL (0.2-1.0); CALCIUM, SERUM 9.9 mg/dL (8.5-10.1); CREATININE 3.3 mg/dL (0.6-1.3); D-DIMER 3.79 mg/L(FEU (0.17-0.50); POTASSIUM 4.2 mmol/L (3.5-5.1); TOTAL PROTEIN, SERUM 4.7 g/dL (6.4-8.2)
[2022-10-26] MEDS: MEROPENEM 500 MG in IV NS 0.9% 50 ML IV SCH ×2 (08:27→22:17)
[2022-10-26] MEDS: ASCORBIC ACID 500 MG TABLET PO SCH (08:28)
[2022-10-26] MEDS: SUCRALFATE 1 G/10 ML UDC PO SCH ×4 (08:28→21:34)
[2022-10-26] MEDS: FERROUS SULFATE (325 MG) 325 MG/TAB TABLET PO SCH ×3 (08:28→16:49)
[2022-10-26] MEDS: LEVOTHYROXINE SODIUM 50 MCG TABLET PO SCH (08:28)
[2022-10-26] MEDS: PANTOPRAZOLE 40 MG/PACK PACK GT SCH ×2 (08:28→21:34)
[2022-10-26] MEDS: ALLOPURINOL 100 MG TABLET PO SCH (08:28)
[2022-10-26] MEDS: HYDROCORTISONE SOD SUCCINATE 100 MG/2 ML VIAL IV SCH (08:28)
[2022-10-26] MEDS: FINASTERIDE (5 MG) 5 MG TABLET PO SCH (08:28)
[2022-10-26] MEDS: MULTIVITAMINS,THERAGRAN 1 UDTAB TABLET PO SCH (08:28)
[2022-10-26] MEDS: PROSOURCE / PROSTAT (PYXIS) 30 ML UDC PO SCH (08:29)
[2022-10-26] MEDS: DAKINS HALF STRENGTH (0.25%) 480 ML BOTTLE TOP SCH (08:30)
[2022-10-26] MEDS: CLOTRIMAZOLE 1% 15 GM TUBE TP SCH ×2 (08:31→16:50)
[2022-10-26] MEDS ORDERED: VANCOMYCIN 1 GM in IV D5W 250 ML IV ONE (10:30)
--- NOTE | 2022-10-26 12:00 | NUR ---
RN NOTES ET SUCTIONING AND ORAL CARE DONE, CONTINUE TO MONITOR
[2022-10-26] MEDS: DIGOXIN ELIX UDC 0.25 MG/5 ML UDC GT SCH (13:16)
[2022-10-26] MEDS ORDERED: VANCOMYCIN 500 MG in IV D5W 100 ML IV PRN (14:00)
--- NOTE | 2022-10-26 18:30 | NUR ---
RN NOTES PT REMAINS INTUBATED , NO SEDATION , RESPONDS TO PAINFUL STIMULI , ON TELE ST HR IN 100'S, CHAVO AT 2.7 MCG/KG/MIN RUNNING FOR BP SUPPORT, SR UP x3, CALL LIGHT WITHIN EASY REACH, BED LOCKED AND IN LOWEST POSITION, WILL ENDORSE TO EVAPORATOR REPAIRER NURSE FOR CONTINUITY OF CARE .
[2022-10-26 20:22] LABS: BAND % (MANUAL) 6 % (0.0-5.0); EOSINOPHILS % (MANUAL) 15 % (0-4); LYMPHOCYTES % (MANUAL) 11 % (16-48); MONOCYTES % (MANUAL) 1 % (0-11.0); NEUTROPHILS % (MANUAL) 67 (42-76)
--- NOTE | 2022-10-26 20:27 | NUR ---
RN NOTE HD RN AT [facility]. LAB COLLECTED FOR H/H AND VANCO TROUGH
[2022-10-26] MEDS ORDERED: NOREPINEPHRINE 8 MG in IV NS 0.9% 250ML IV PRN (21:00)
[2022-10-26] MEDS ORDERED: VANCOMYCIN 1 GM in IV D5W 250ml IV ONE (22:00)
[2022-10-26] MEDS ORDERED: VANCOMYCIN 1 GM VIAL ONE (23:33)
[2022-10-26] MEDS: IV NS 0.9% 250 ML IV PRN (23:47)
[2022-10-27] VITALS (85 sets, daily range): BP systolic 87–168; BP diastolic 17–82
[2022-10-27] MEDS: PHENYLEPHRINE 100 MG in IV NS 0.9% 240 ML IV PRN ×5 (01:44→23:50)
[2022-10-27 05:41] LABS: BASOPHILS # (AUTO) 0.1 K/uL (0.0-0.2); BASOPHILS % (AUTO) 0.7 % (0.0-2.0); HEMATOCRIT 25 % (39-51); HEMOGLOBIN 7.9 g/dL (13.5-17.5); LYMPHOCYTES # (AUTO) 2.1 K/uL (0.8-4.8); LYMPHOCYTES % (AUTO) 20.1 % (20.0-44.0); MEAN CORPUSCULAR HGB CONC 32 g/dl (31.0-36.0); MEAN CORPUSCULAR VOLUME 104 fL (80-96); MONOCYTES # (AUTO) 0.3 K/uL (0.1-1.30); MONOCYTES % (AUTO) 2.8 % (2.0-12.0); NEUTROPHILS # (AUTO) 6.6 K/uL (1.8-8.9); NEUTROPHILS % (AUTO) 62.4 % (43.0-81.0); RED BLOOD CELL COUNT(AUTO) 2.37 MIL/uL (4.5-6.0); WHITE BLOOD COUNT (AUTO) 10.6 K/uL (4.3-11.0)
[2022-10-27] MEDS: NEPRO 1,000 ML BOTTLE GT PRN (05:44)
[2022-10-27 05:46] LABS: ABG BASE EXCESS -8.2 mmol/L; ABG PCO2 42.6 mmHg (35.0-45.0); ABG PH 7.253 (7.350-7.450); ABG PO2 91.3 mmHg (75.0-100.0); COHb 0.9 % (0.5-1.5); MetHb 0.2 % (0.0-1.5); O2Hb 94.4 % (94.0-97.0); PEEP,BG 5 cm H2O; SITE, ABG Left Radial; VT, ABG 550 mL
[2022-10-27 05:52] LABS: PLATELET COUNT (AUTO) 13 K/uL (150-450)
[2022-10-27 05:56] LABS: ALBUMIN 2.6 g/dL (3.4-5.0); BILIRUBIN,TOTAL 1.1 mg/dL (0.2-1.0); CALCIUM, SERUM 9.9 mg/dL (8.5-10.1); CREATININE 2.9 mg/dL (0.6-1.3); POTASSIUM 4.4 mmol/L (3.5-5.1); TOTAL PROTEIN, SERUM 4.7 g/dL (6.4-8.2)
--- NOTE | 2022-10-27 06:55 | NUR ---
RN CLOSING NOTE PATIENT REMAINS OFF SEDATION AND OBTUNDED. NO CHANGES IN VENT SETTINGS. NO RESP DISTRESS. SUCTION THICK YELLOW. WHITE. HR SR.ST AND IN AND OUT OF AFIB. LEVOPHED STARTED WHILE PATIENT RECIEVING HD. OFF LEVO NOW. HD REMOVED 1L. VANCO GIVEN AFTER HD. CONFIRMED OK TO GIVE 1GM WITH [facility]. CHAVO AT 3MCG/KG/MIN. AFEBRILE. NO S/S PAIN. WOUND CARE ORDERED. CRITICAL LAB FOR PLT 13. dR. RAMIREZ MADE AWARE. ORDER 1 UNIT PLT TRANSFUSION. PENDING BLE ULTRASOND TO R/T DVT. CHOLECYSTOSTOMY BAG 225ML, YELLOW WITH SLIGHT BLOOD TINGE.
--- NOTE | 2022-10-27 07:05 | NUR ---
RN NOTES RECEIVED PATIENT ON BED, ORALLY INTUBATED, TOLERATING VENT SETTINGS WELL, NO DISTRESS NOTED, AFEBRILE, NO S/S OF DISTRESS NOTED. NOTED WITH MERLENE PICC LINE. FLUSHED WITH NS. RUNNING FOR BP SUPPORT, NOTED WITH OGT PATENT AND INTACT, VERIFIED PLACEMENT BY AUSCULTATION, NO RESIDUAL NOTED UPON ASPIRATION RUNNING WITH NEPHRO @ 45 ML/HR, HEAD OF BED KEPT ELEVATED. RIGHT FEMORAL HD CATHETER CDI, RIGHT LATERAL BODY CHOLECYSTOSTOMY, DRAINING WELL, CONNECTED TO DRAINAGE BAG VIA GRAVITY. CHAMORRO CATHETER PATENT INTACT DRAINING WITH TEA COLORED , URINE VIA GRAVITY. ALL SAFETY PRECAUTION PROVIDED. BED IN LOWEST POSITION, LOCKED. CALL LIGHT WITH IN REACH.CONTINUE TO MONITOR .
[2022-10-27] MEDS ORDERED: IV NS 0.9% 1,000 ML IV ONE (08:00)
[2022-10-27] MEDS: MEROPENEM 500 MG in IV NS 0.9% 50 ML IV SCH ×2 (08:19→19:38)
[2022-10-27] MEDS: HYDROCORTISONE SOD SUCCINATE 100 MG/2 ML VIAL IV SCH (08:20)
[2022-10-27] MEDS: FERROUS SULFATE (325 MG) 325 MG/TAB TABLET PO SCH ×3 (08:20→16:22)
[2022-10-27] MEDS: FINASTERIDE (5 MG) 5 MG TABLET PO SCH (08:24)
[2022-10-27] MEDS: SUCRALFATE 1 G/10 ML UDC PO SCH ×4 (08:24→21:39)
[2022-10-27] MEDS: LEVOTHYROXINE SODIUM 50 MCG TABLET PO SCH (08:24)
[2022-10-27] MEDS: ALLOPURINOL 100 MG TABLET PO SCH (08:25)
[2022-10-27] MEDS: PANTOPRAZOLE 40 MG/PACK PACK GT SCH ×2 (08:25→21:39)
[2022-10-27] MEDS: ASCORBIC ACID 500 MG TABLET PO SCH (08:25)
[2022-10-27] MEDS: MULTIVITAMINS,THERAGRAN 1 UDTAB TABLET PO SCH (08:25)
[2022-10-27] MEDS: DAKINS HALF STRENGTH (0.25%) 480 ML BOTTLE TOP SCH (08:30)
[2022-10-27] MEDS: CLOTRIMAZOLE 1% 15 GM TUBE TP SCH ×2 (08:30→16:24)
[2022-10-27] MEDS: PROSOURCE / PROSTAT (PYXIS) 30 ML UDC PO SCH (08:30)
[2022-10-27 11:26] LABS: BAND % (MANUAL) 4 % (0.0-5.0); EOSINOPHILS % (MANUAL) 11 % (0-4); LYMPHOCYTES % (MANUAL) 23 % (16-48); MONOCYTES % (MANUAL) 5 % (0-11.0); NEUTROPHILS % (MANUAL) 57 (42-76)
--- NOTE | 2022-10-27 12:00 | NUR ---
RN NOTES PLT WILL BE DELIVER AROUND 8 PM FROM [facility] , PER BLOOD BANK .
[2022-10-27] MEDS: DIGOXIN ELIX UDC 0.25 MG/5 ML UDC GT SCH (13:05)
[2022-10-27] MEDS ORDERED: ACETAMINOPHEN 325 MG TABLET PO ONE (15:00)
[2022-10-27] MEDS ORDERED: diphenhydrAMINE HCL 50 MG/ML VIAL IV ONE (15:00)
[2022-10-27] MEDS: EPOETIN ALFA-EPBX 4,000 UNIT/ML VIAL SQ SCH (15:34)
--- NOTE | 2022-10-27 16:00 | NUR ---
RN NOTES CALL MADE TO LAB REGARDING PLT AND FFP , NO BLOOD PRODUCTS AVAILABLE YET PER [facility] ( BLOOD BANK),
--- NOTE | 2022-10-27 18:20 | NUR ---
RN NOTES PATIENT REMAINS OFF SEDATION AND OBTUNDED. RESPONDS TO PAINFUL STIMULI, NO RESP DISTRESS NOTED, ET TUBE SUCTIONING DONE PRN, CHAVO AT 2.3 MCG/KG/MIN. RUNNING FOR BP SUPPORT, TF AT 45CC/HR RUNNING , IV SITE CDI, NO BLOOD PRODUCT AVAILABLE PER BLOOD BANK YET, SR UP X3, CALL LIGHT WITHIN EASY REACH, BED LOCKED AND IN LOWEST POSITION, CONTINUE TO MONITOR .
--- NOTE | 2022-10-27 19:45 | NUR ---
BUDDER NOTES RECEIVED PATIENT ON BED, ORALLY INTUBATED, TOLERATING VENT SETTINGS WELL, NO DISTRESS NOTED, AFEBRILE, NO S/S OF DISTRESS NOTED. NOTED WITH MERLENE PICC LINE. FLUSHED WITH NS. RUNNING CHAVO FOR BP SUPPORT, NOTED WITH OGT PATENT AND INTACT RUNNING WITH NEPHRO @ 45 ML/HR, HEAD OF BED KEPT ELEVATED. RIGHT FEMORAL HD CATHETER CDI, RIGHT LATERAL BODY CHOLECYSTOSTOMY, DRAINING WELL, CONNECTED TO DRAINAGE BAG VIA GRAVITY. CHAMORRO CATHETER PATENT INTACT DRAINING WITH TEA COLORED , URINE VIA GRAVITY. ALL SAFETY PRECAUTION PROVIDED. BED IN LOWEST POSITION, LOCKED. CALL LIGHT WITH IN REACH. AWAITING TO TRANSFUSE 2 FFP AND PLATELETS. WILL CONTINUE TO MONITOR THROUGHOUT THE SHIFT.
--- NOTE | 2022-10-27 20:43 | NUR ---
RN NOTE STARTED 1ST BAG OF FFP AT THIS TIME WITH V/S TAKEN AND RECORDED. NO TRANSFUSION REACTION NOTED.
[2022-10-28] VITALS (33 sets, daily range): BP systolic 84–149; BP diastolic 60–93
--- NOTE | 2022-10-28 00:20 | NUR ---
RN NOTE STARTED PLATELET TRANSFUSION V/S TAKEN AT 97.7, 138/74,71,16,100%. WILL CONT TO MONITOR PT.
--- NOTE | 2022-10-28 04:44 | NUR ---
RN NOTE TRANSFUSED 2ND BAG OF FFP, PT TOLERATED WELL. NOTED WITH HYPOTHERMIA AT 96.9, WARM BLANKETS PROVIDED AND PLACED PT ON AGUILA HUGGER. WILL CONT TO MONITOR.
[2022-10-28] MEDS: NEPRO 1,000 ML BOTTLE GT PRN (04:48)
[2022-10-28 05:22] LABS: BASOPHILS # (AUTO) 0.1 K/uL (0.0-0.2); BASOPHILS % (AUTO) 0.9 % (0.0-2.0); EOSINOPHILS % (AUTO) 5.1 % (0.0-6.0); HEMATOCRIT 23 % (39-51); HEMOGLOBIN 7.2 g/dL (13.5-17.5); LYMPHOCYTES # (AUTO) 1.9 K/uL (0.8-4.8); LYMPHOCYTES % (AUTO) 15.7 % (20.0-44.0); MEAN CORPUSCULAR HGB CONC 31 g/dl (31.0-36.0); MEAN CORPUSCULAR VOLUME 105 fL (80-96); MONOCYTES # (AUTO) 0.8 K/uL (0.1-1.30); MONOCYTES % (AUTO) 6.7 % (2.0-12.0); NEUTROPHILS # (AUTO) 8.6 K/uL (1.8-8.9); NEUTROPHILS % (AUTO) 71.6 % (43.0-81.0); RED BLOOD CELL COUNT(AUTO) 2.21 MIL/uL (4.5-6.0); WHITE BLOOD COUNT (AUTO) 12.1 K/uL (4.3-11.0)
[2022-10-28 05:28] LABS: PLATELET COUNT (AUTO) 35 K/uL (150-450)
[2022-10-28 05:34] LABS: D-DIMER 3.91 mg/L(FEU (0.17-0.50)
[2022-10-28 05:39] LABS: ALBUMIN 2.5 g/dL (3.4-5.0); BILIRUBIN,TOTAL 1.3 mg/dL (0.2-1.0); CALCIUM, SERUM 9.6 mg/dL (8.5-10.1); CREATININE 3.3 mg/dL (0.6-1.3); POTASSIUM 4.2 mmol/L (3.5-5.1); TOTAL PROTEIN, SERUM 4.9 g/dL (6.4-8.2)
[2022-10-28] MEDS: PHENYLEPHRINE 100 MG in IV NS 0.9% 240 ML IV PRN ×3 (05:54→22:47)
--- NOTE | 2022-10-28 06:00 | NUR ---
RN NOTE TEMPERATURE AT 97.8
--- NOTE | 2022-10-28 07:14 | NUR ---
RN OPEN NOTES PATIENT REMAINS OFF SEDATION BUT STILL OBTUNDED. NO CHANGES IN VENT SETTINGS. NO RESP DISTRESS. HR SR.ST AND IN AND OUT OF AFIB. PATIENT IS ON PHENYLEPHRINE DRIP 1.9 RIGHT NOW WILL TITRATE IF BLOOD PRESSURE STABILIZED .HD SCHEDULED FOR TODAY NO S/S PAIN. BED IS AT LOWEST POSITION , CALL LIGHT WITHIN REACH , BED SIDE RAILS ARE UP . WILL CONTINUE TO MONITOR
--- NOTE | 2022-10-28 07:15 | NUR ---
TELEGRAPH OFFICE MANAGER CLOSING NOTES PATIENT ON BED, ORALLY INTUBATED, TOLERATING VENT SETTINGS WELL, NO DISTRESS NOTED, AFEBRILE, NO S/S OF DISTRESS NOTED. NOTED WITH MERLENE PICC LINE. FLUSHED WITH NS. RUNNING CHAVO FOR BP SUPPORT, NOTED WITH OGT PATENT AND INTACT RUNNING WITH NEPHRO @ 45 ML/HR, HEAD OF BED KEPT ELEVATED. RIGHT FEMORAL HD CATHETER CDI, RIGHT LATERAL BODY CHOLECYSTOSTOMY, DRAINING WELL, CONNECTED TO DRAINAGE BAG VIA GRAVITY. CHAMORRO CATHETER PATENT INTACT DRAINING WITH TEA COLORED , URINE VIA GRAVITY. ALL DUE MEDS GIVEN, KEPT DRY AND CLEAN, ALL SAFETY PRECAUTION PROVIDED. BED IN LOWEST POSITION, LOCKED. CALL LIGHT WITH IN REACH. WILL ENDORSE TO AM SHIFT NURSE FOR NGUYỄN.
[2022-10-28] MEDS: MEROPENEM 500 MG in IV NS 0.9% 50 ML IV SCH ×2 (07:44→19:50)
[2022-10-28] MEDS: LEVOTHYROXINE SODIUM 50 MCG TABLET PO SCH (07:44)
[2022-10-28] MEDS: CLOTRIMAZOLE 1% 15 GM TUBE TP SCH ×2 (08:37→17:09)
[2022-10-28] MEDS: ASCORBIC ACID 500 MG TABLET PO SCH (08:37)
[2022-10-28] MEDS: DAKINS HALF STRENGTH (0.25%) 480 ML BOTTLE TOP SCH (08:37)
[2022-10-28] MEDS: ALLOPURINOL 100 MG TABLET PO SCH (08:37)
[2022-10-28] MEDS: FERROUS SULFATE (325 MG) 325 MG/TAB TABLET PO SCH ×3 (08:37→17:09)
[2022-10-28] MEDS: PANTOPRAZOLE 40 MG/PACK PACK GT SCH ×2 (08:38→20:30)
[2022-10-28] MEDS: SUCRALFATE 1 G/10 ML UDC PO SCH ×4 (08:38→20:30)
[2022-10-28] MEDS: HYDROCORTISONE SOD SUCCINATE 100 MG/2 ML VIAL IV SCH (08:38)
[2022-10-28] MEDS: MULTIVITAMINS,THERAGRAN 1 UDTAB TABLET PO SCH (08:38)
[2022-10-28] MEDS: FINASTERIDE (5 MG) 5 MG TABLET PO SCH (08:38)
[2022-10-28] MEDS: PROSOURCE / PROSTAT (PYXIS) 30 ML UDC PO SCH (08:40)
[2022-10-28 09:15] LABS: BAND % (MANUAL) 5 % (0.0-5.0); BASOPHILS % (MANUAL) 0 % (0.0-2.0); EOSINOPHILS % (MANUAL) 0 % (0-4); LYMPHOCYTES % (MANUAL) 18 % (16-48); MONOCYTES % (MANUAL) 7 % (0-11.0); NEUTROPHILS % (MANUAL) 70 (42-76)
[2022-10-28] MEDS: DIGOXIN ELIX UDC 0.25 MG/5 ML UDC GT SCH (13:38)
--- NOTE | 2022-10-28 18:22 | NUR ---
RN CLOSING NOTE PATIENT REMAINS OFF SEDATION AND OBTUNDED. NO CHANGES IN VENT SETTINGS. NO RESP DISTRESS. HR SR.ST AND IN AND OUT OF AFIB. Phenylephrine STARTED AT 1.9 ML/KG TITRATED to 1.7 HD REMOVED 1.9L. CONFIRMED OK TO GIVE 1GM WITH [facility]. CONSENT FOR TRACHEOSTOMY SIGH BY SPOUSE , EXPLAINED PROCEDURE IN DENTALIS , PATIENT'S SPOUSE VERBALIZED UNDERSTANDING PRIOR TO SIGHING THE CONSENT .NO S/S PAIN. WOUND CARE ORDERED. CRITICAL LAB FOR PLT 35 , BUN 85 . dR. CHAMPION MADE AWARE. .BED IS AT LOWEST POSITION , CALL LIGHT WITHIN REACH , BED SIDE RAILS ARE UP, WILL ENDORSE PRODUCTION CONTROL MANAGER NURSE TO FALLOW POC
--- NOTE | 2022-10-28 19:23 | NUR ---
MACHINES TECHNICIAN NOTES RECEIVED PATIENT ON BED, ORALLY INTUBATED, TOLERATING VENT SETTINGS WELL, NO DISTRESS NOTED, AFEBRILE, NO S/S OF DISTRESS NOTED. NOTED WITH MERLENE PICC LINE RUNNING WITH NS AT 85 ML/HR. RUNNING CHAVO FOR BP SUPPORT AT 1.7 MCG, PT ON CVP MONITOR, NOTED WITH OGT PATENT AND INTACT RUNNING WITH NEPHRO @ 45 ML/HR, HEAD OF BED KEPT ELEVATED. RIGHT FEMORAL HD CATHETER CDI, RIGHT LATERAL BODY CHOLECYSTOSTOMY CONNECTED TO DRAINAGE BAG VIA GRAVITY. CHAMORRO CATHETER PATENT INTACT DRAINING WITH TEA COLORED, URINE VIA GRAVITY. ALL SAFETY PRECAUTION PROVIDED. BED IN LOWEST POSITION, LOCKED. CALL LIGHT WITH IN REACH. WILL CONTINUE TO MONITOR THROUGHOUT THE SHIFT.
[2022-10-28] MEDS ORDERED: VANCOMYCIN 1 GM in IV D5W 250 ML IV ONE (20:00)
[2022-10-28 20:56] LABS: OCCULT BLOOD STOOL NEGATIVE (NEGATIVE)
[2022-10-28 22:21] LABS: HEMOGLOBIN 6.9 g/dL (13.5-17.5)
--- NOTE | 2022-10-28 22:28 | NUR ---
RN NOTE CRITICAL LAB HGB 6.9 RELAYED TO AUTO SERVICE WRITER JI, ORDERED TO TRANSFUSED 1 PRBC, CALLED LAB. AWAITING FOR BLOOD TO BE AVAILABLE.
[2022-10-29] VITALS (44 sets, daily range): BP systolic 101–154; BP diastolic 52–79
[2022-10-29 05:37] LABS: BASOPHILS # (AUTO) 0.1 K/uL (0.0-0.2); BASOPHILS % (AUTO) 0.7 % (0.0-2.0); EOSINOPHILS % (AUTO) 5.8 % (0.0-6.0); HEMATOCRIT 24 % (39-51); HEMOGLOBIN 7.4 g/dL (13.5-17.5); LYMPHOCYTES # (AUTO) 1.4 K/uL (0.8-4.8); MEAN CORPUSCULAR HGB CONC 31 g/dl (31.0-36.0); MEAN CORPUSCULAR VOLUME 104 fL (80-96); MONOCYTES # (AUTO) 0.6 K/uL (0.1-1.30); MONOCYTES % (AUTO) 5.1 % (2.0-12.0); NEUTROPHILS # (AUTO) 8.7 K/uL (1.8-8.9); NEUTROPHILS % (AUTO) 76.4 % (43.0-81.0); RED BLOOD CELL COUNT(AUTO) 2.25 MIL/uL (4.5-6.0); WHITE BLOOD COUNT (AUTO) 11.4 K/uL (4.3-11.0)
[2022-10-29] MEDS: NEPRO 1,000 ML BOTTLE GT PRN (05:39)
[2022-10-29 05:45] LABS: PLATELET COUNT (AUTO) 31 K/uL (150-450)
[2022-10-29 05:59] LABS: ALBUMIN 2.2 g/dL (3.4-5.0); BILIRUBIN,TOTAL 0.9 mg/dL (0.2-1.0); CALCIUM, SERUM 9.6 mg/dL (8.5-10.1); CREATININE 3.3 mg/dL (0.6-1.3); POTASSIUM 3.9 mmol/L (3.5-5.1); TOTAL PROTEIN, SERUM 4.6 g/dL (6.4-8.2)
[2022-10-29] MEDS ORDERED: VANCOMYCIN 500 MG in IV D5W 100 ML IV PRN (06:00)
[2022-10-29 06:11] LABS: D-DIMER 4.77 mg/L(FEU (0.17-0.50)
--- NOTE | 2022-10-29 07:05 | NUR ---
RN OPEN NOTES PATIENT IS OBTUNDED. VENT SETTINGS PRESCRIBED NO RESP DISTRESS. HR SR . PATIENT IS ON PHENYLEPHRINE DRIP 1.1 RIGHT NOW WILL TITRATE IF BLOOD PRESSURE STABILIZED.OGT RUNNING NEPRO AT 45 ML/HR .R CHOLECYSTOSTOMY TUBE IN PLACE DRAINING PINK SECRETION HD SCHEDULED FOR TODAY NO S/S PAIN. BED IS AT LOWEST POSITION , CALL LIGHT WITHIN REACH , BED SIDE RAILS ARE UP . WILL CONTINUE TO MONITOR
--- NOTE | 2022-10-29 07:05 | NUR ---
CHAIRLIFT OPERATOR CLOSING NOTES PATIENT ON BED, ORALLY INTUBATED, TOLERATING VENT SETTINGS WELL, NO DISTRESS NOTED, AFEBRILE, NO S/S OF DISTRESS NOTED. NOTED WITH MERLENE PICC LINE RUNNING CHAVO FOR BP SUPPORT, NOTED WITH OGT PATENT AND INTACT RUNNING WITH NEPHRO @ 45 ML/HR, HEAD OF BED KEPT ELEVATED. RIGHT FEMORAL HD CATHETER CDI RUUNING BLOOD TRANSFUSION TEMPORARILY DUE TO PICCLINE OCCLUSION, HEALTH CONCIERGE JI MADE AWARE. RIGHT LATERAL BODY CHOLECYSTOSTOMY, DRAINING WELL, CONNECTED TO DRAINAGE BAG VIA GRAVITY. CHAMORRO CATHETER PATENT INTACT DRAINING WITH TEA COLORED , URINE VIA GRAVITY. ALL DUE MEDS GIVEN, KEPT DRY AND CLEAN, ALL SAFETY PRECAUTION PROVIDED. BED IN LOWEST POSITION, LOCKED. CALL LIGHT WITH IN REACH. WILL ENDORSE TO AM SHIFT NURSE FOR NGUYỄN.
[2022-10-29] MEDS: LEVOTHYROXINE SODIUM 50 MCG TABLET PO SCH (07:49)
[2022-10-29] MEDS: PROSOURCE / PROSTAT (PYXIS) 30 ML UDC PO SCH (09:05)
[2022-10-29] MEDS: MEROPENEM 500 MG in IV NS 0.9% 50 ML IV SCH ×2 (09:05→20:43)
[2022-10-29] MEDS: CLOTRIMAZOLE 1% 15 GM TUBE TP SCH ×2 (09:06→17:15)
[2022-10-29] MEDS: DAKINS HALF STRENGTH (0.25%) 480 ML BOTTLE TOP SCH (09:06)
[2022-10-29] MEDS: SUCRALFATE 1 G/10 ML UDC PO SCH ×4 (09:23→20:48)
[2022-10-29] MEDS: FINASTERIDE (5 MG) 5 MG TABLET PO SCH (09:24)
[2022-10-29] MEDS: MULTIVITAMINS,THERAGRAN 1 UDTAB TABLET PO SCH (09:24)
[2022-10-29] MEDS: HYDROCORTISONE SOD SUCCINATE 100 MG/2 ML VIAL IV SCH (09:24)
[2022-10-29] MEDS: FERROUS SULFATE (325 MG) 325 MG/TAB TABLET PO SCH ×3 (09:24→16:02)
[2022-10-29] MEDS: PANTOPRAZOLE 40 MG/PACK PACK GT SCH ×2 (09:24→20:48)
[2022-10-29] MEDS: ALLOPURINOL 100 MG TABLET PO SCH (09:24)
[2022-10-29] MEDS: ASCORBIC ACID 500 MG TABLET PO SCH (09:24)
[2022-10-29] MEDS: PHENYLEPHRINE 100 MG in IV NS 0.9% 240 ML IV PRN (09:53)
[2022-10-29] MEDS ORDERED: IV NS 0.9% 1,000 ML IV ONE (10:00)
--- NOTE | 2022-10-29 10:00 | NUR ---
rn notes: spoke to dr ramirez pt is dialysis if ok to give iv fluid ns at 100 ml/hr he said yes he needs it due to low bp and low cvp, initiated iv NS at 100 ml/hr
[2022-10-29 10:04] LABS: BAND % (MANUAL) 3 % (0.0-5.0); NEUTROPHILS % (MANUAL) 71 (42-76)
[2022-10-29 10:05] LABS: BASOPHILS % (MANUAL) 0 % (0.0-2.0); EOSINOPHILS % (MANUAL) 6 % (0-4); LYMPHOCYTES % (MANUAL) 8 % (16-48); MONOCYTES % (MANUAL) 12 % (0-11.0)
[2022-10-29] MEDS: DIGOXIN ELIX UDC 0.25 MG/5 ML UDC GT SCH (13:06)
--- NOTE | 2022-10-29 19:10 | NUR ---
CAR BODY INSPECTOR CLOSING NOTES PATIENT ON BED, ORALLY INTUBATED, TOLERATING VENT SETTINGS WELL, NO DISTRESS NOTED, AFEBRILE, NO S/S OF DISTRESS NOTED. NOTED WITH MERLENE PICC LINE RUNNING CHAVO AT 0.8 MCG/KG/MIN FOR BP SUPPORT, NOTED WITH OGT PATENT AND INTACT RUNNING WITH NEPHRO @ 45 ML/HR, HEAD OF BED KEPT ELEVATED. RIGHT FEMORAL DRESSING CHANGED. RIGHT LATERAL BODY CHOLECYSTOSTOMY, DRAINING WELL, CONNECTED TO DRAINAGE BAG VIA GRAVITY. CHAMORRO CATHETER WAS LEAKING, REPLACED, DRAINING YELLOW DARK URINE. VIA GRAVITY. ALL DUE MEDS GIVEN, KEPT DRY AND CLEAN, ALL SAFETY PRECAUTION
[2022-10-29] MEDS: IV NS 0.9% 250 ML IV PRN (20:56)
[2022-10-29 22:20] LABS: HEMOGLOBIN 8.5 g/dL (13.5-17.5)
[2022-10-30] VITALS (74 sets, daily range): BP systolic 80–137; BP diastolic 45–73
[2022-10-30 05:11] LABS: BASOPHILS # (AUTO) 0.1 K/uL (0.0-0.2); BASOPHILS % (AUTO) 1.1 % (0.0-2.0); EOSINOPHILS % (AUTO) 9.6 % (0.0-6.0); HEMATOCRIT 25 % (39-51); LYMPHOCYTES # (AUTO) 0.9 K/uL (0.8-4.8); LYMPHOCYTES % (AUTO) 14.2 % (20.0-44.0); MEAN CORPUSCULAR HGB CONC 32 g/dl (31.0-36.0); MEAN CORPUSCULAR VOLUME 101 fL (80-96); MONOCYTES # (AUTO) 0.3 K/uL (0.1-1.30); MONOCYTES % (AUTO) 4.2 % (2.0-12.0); NEUTROPHILS # (AUTO) 4.3 K/uL (1.8-8.9); NEUTROPHILS % (AUTO) 70.9 % (43.0-81.0); RED BLOOD CELL COUNT(AUTO) 2.46 MIL/uL (4.5-6.0); WHITE BLOOD COUNT (AUTO) 6.1 K/uL (4.3-11.0)
[2022-10-30 05:17] LABS: PLATELET COUNT (AUTO) 13 K/uL (150-450)
[2022-10-30] MEDS: NEPRO 1,000 ML BOTTLE GT PRN (05:43)
[2022-10-30 05:48] LABS: BILIRUBIN,TOTAL 0.8 mg/dL (0.2-1.0); CALCIUM, SERUM 9.8 mg/dL (8.5-10.1); CREATININE 3.6 mg/dL (0.6-1.3); POTASSIUM 3.9 mmol/L (3.5-5.1); TOTAL PROTEIN, SERUM 4.2 g/dL (6.4-8.2)
[2022-10-30 05:58] LABS: ABG OXYGEN SATURATION 97.7 % (92.0-98.5); ABG PCO2 33.7 mmHg (35.0-45.0); ABG PH 7.306 (7.350-7.450); ABG PO2 114.6 mmHg (75.0-100.0); AaDO2 59.7 mmHg; COHb 0.7 % (0.5-1.5); MetHb 0.3 % (0.0-1.5); O2Hb 96.7 % (94.0-97.0); PEEP,BG 0 cm H2O; SITE, ABG Right Brachial; VENT MODE, BG AC 16 575 30% +0; VT, ABG 575 mL
--- NOTE | 2022-10-30 07:00 | NUR ---
RN NOTES RECEIVED PT ON BED, INTUBATED, NO SEDATION , RESPONDS TO PAINFUL STIMULI, OFF CHAVO, ON TELE SR , CHOLECYSTOSTOMY BAG TO GRAVITY DRAINING WITH YELLOWS CLOUDY DRAINAGE , NO URINE OUTPUT NOTED IN CHAMORRO BAG, TF AT 45CC/HR RUNNING, IV SITES CDI, SR UP x3, CALL LIGHT WITHIN EASY REACH, BED LOCKED AND IN LOWEST POSITION, CONTINUE TO MONITOR
--- NOTE | 2022-10-30 07:44 | NUR ---
RN CLOSING NOTE PATIENT OBTUNDED. NO CHANGES IN VENT SETTINGS. SINUS RHYTHM , CONVERTED TO IN AND OUT OF AFIB AROUND 2330. CHAMORRO CATHETER MAINTAINED 200ML OUTPUT. CHOLECYSTECTOMY BAG WITH NO OUTPUT. WOUND CARE DONE ORDERED. CRITICAL LAB FOR PLT 13. DR. RAMIREZ MADE AWARE. RECEIVED PATIENT ON CHAVO 0.8MCG. PATIENT IS NOW OFF PRESSORS SINCE 2300. 1L NS X1 COMPLETED ON THIS SHIFT. ABX GIVEN ORDERED. GT FEEDING RUNNING. PLAN FOR TRACH PLACEMENT. CONSENT IN CHART.
[2022-10-30] MEDS: MEROPENEM 500 MG in IV NS 0.9% 50 ML IV SCH (08:11)
[2022-10-30] MEDS: PANTOPRAZOLE 40 MG/PACK PACK GT SCH ×2 (08:11→22:16)
[2022-10-30] MEDS: FERROUS SULFATE (325 MG) 325 MG/TAB TABLET PO SCH ×3 (08:12→16:49)
[2022-10-30] MEDS: HYDROCORTISONE SOD SUCCINATE 100 MG/2 ML VIAL IV SCH (08:12)
[2022-10-30] MEDS: FINASTERIDE (5 MG) 5 MG TABLET PO SCH (08:12)
[2022-10-30] MEDS: LEVOTHYROXINE SODIUM 50 MCG TABLET PO SCH (08:12)
[2022-10-30] MEDS: MULTIVITAMINS,THERAGRAN 1 UDTAB TABLET PO SCH (08:12)
[2022-10-30] MEDS: ASCORBIC ACID 500 MG TABLET PO SCH (08:12)
[2022-10-30] MEDS: SUCRALFATE 1 G/10 ML UDC PO SCH ×4 (08:12→22:16)
[2022-10-30] MEDS: ALLOPURINOL 100 MG TABLET PO SCH (08:14)
[2022-10-30] MEDS: PROSOURCE / PROSTAT (PYXIS) 30 ML UDC PO SCH (08:15)
[2022-10-30] MEDS: DAKINS HALF STRENGTH (0.25%) 480 ML BOTTLE TOP SCH (08:15)
[2022-10-30] MEDS: CLOTRIMAZOLE 1% 15 GM TUBE TP SCH ×2 (08:15→16:49)
--- NOTE | 2022-10-30 10:00 | NUR ---
RN NOTES DR DUBOIS NOTIFIED REGARDING PLT 13 , NOW NEW ORDER RECEIVED , CONTINUE TO MONITOR .
[2022-10-30 11:52] LABS: BAND % (MANUAL) 10 % (0.0-5.0); BASOPHILS % (MANUAL) 0 % (0.0-2.0); EOSINOPHILS % (MANUAL) 3 % (0-4); LYMPHOCYTES % (MANUAL) 16 % (16-48); MONOCYTES % (MANUAL) 5 % (0-11.0); NEUTROPHILS % (MANUAL) 66 (42-76)
--- NOTE | 2022-10-30 13:00 | NUR ---
RN NOTES ET TUBE AND ORAL CARE AND SUCTIONING DONE. O2 SAT WNL, CONTINUE TO MONITOR .
[2022-10-30] MEDS: DIGOXIN ELIX UDC 0.25 MG/5 ML UDC GT SCH (13:19)
--- NOTE | 2022-10-30 18:16 | NUR ---
RN NOTES PT REMAINS INTUBATED, OFF SEDATION AND PRESSORS, TOLERATING TUBE FEEDING WELL, NO DISTESS NOTED ON THIS SHIFT, WILL ENDORSE TO TIMEKEEPING SUPERVISOR NURSE FOR CONTINUITY OF CARE .
--- NOTE | 2022-10-30 20:00 | NUR ---
ICU/RN: CHAVO RESTARTED @0.5MCG FOR BP SUPPORT DURING DIALYSIS. WILL TITRATE PER PROTOCOL.
[2022-10-30] MEDS: PHENYLEPHRINE 100 MG in IV NS 0.9% 240 ML IV PRN (20:09)
[2022-10-30 22:45] LABS: HEMOGLOBIN 8.3 g/dL (13.5-17.5)
[2022-10-31] VITALS (99 sets, daily range): BP systolic 79–150; BP diastolic 42–73
[2022-10-31] MEDS: NEPRO 1,000 ML BOTTLE GT PRN (04:38)
[2022-10-31 05:14] LABS: BASOPHILS # (AUTO) 0.1 K/uL (0.0-0.2); D-DIMER 4.17 mg/L(FEU (0.17-0.50); EOSINOPHILS % (AUTO) 5.8 % (0.0-6.0); HEMATOCRIT 26 % (39-51); HEMOGLOBIN 8.2 g/dL (13.5-17.5); LYMPHOCYTES # (AUTO) 1.7 K/uL (0.8-4.8); LYMPHOCYTES % (AUTO) 14.4 % (20.0-44.0); MEAN CORPUSCULAR HGB CONC 32 g/dl (31.0-36.0); MEAN CORPUSCULAR VOLUME 101 fL (80-96); MONOCYTES # (AUTO) 0.6 K/uL (0.1-1.30); MONOCYTES % (AUTO) 5.2 % (2.0-12.0); NEUTROPHILS # (AUTO) 8.6 K/uL (1.8-8.9); NEUTROPHILS % (AUTO) 73.6 % (43.0-81.0); RED BLOOD CELL COUNT(AUTO) 2.56 MIL/uL (4.5-6.0); WHITE BLOOD COUNT (AUTO) 11.7 K/uL (4.3-11.0)
[2022-10-31 05:21] LABS: PLATELET COUNT (AUTO) 28 K/uL (150-450)
[2022-10-31 05:24] LABS: BILIRUBIN,TOTAL 0.9 mg/dL (0.2-1.0); CREATININE 3.4 mg/dL (0.6-1.3); TOTAL PROTEIN, SERUM 4.4 g/dL (6.4-8.2)
--- NOTE | 2022-10-31 07:00 | NUR ---
RN NOTES RECEIVED PT ON BED, INTUBATED, NO SEDATION , RESPONDS TO PAINFUL STIMULI, ON CHAVO AT .5 MCG/KG/MIN RUNNING FOR BP SUPPORT, ON TELE A. FIB HR IN 70'S , CHOLECYSTOSTOMY BAG TO GRAVITY DRAINING WITH YELLOWS CLOUDY DRAINAGE , NO URINE OUTPUT NOTED IN CHAMORRO BAG, TF AT 45CC/HR RUNNING, IV SITES CDI, SR UP x3, CALL LIGHT WITHIN EASY REACH, BED LOCKED AND IN LOWEST POSITION, CONTINUE TO MONITOR
[2022-10-31] MEDS: LEVOTHYROXINE SODIUM 50 MCG TABLET PO SCH (08:06)
[2022-10-31] MEDS: ASCORBIC ACID 500 MG TABLET PO SCH (08:06)
[2022-10-31] MEDS: FERROUS SULFATE (325 MG) 325 MG/TAB TABLET PO SCH ×3 (08:07→16:24)
[2022-10-31] MEDS: SUCRALFATE 1 G/10 ML UDC PO SCH ×4 (08:07→21:18)
[2022-10-31] MEDS: HYDROCORTISONE SOD SUCCINATE 100 MG/2 ML VIAL IV SCH (08:07)
[2022-10-31] MEDS: ALLOPURINOL 100 MG TABLET PO SCH (08:07)
[2022-10-31] MEDS: PANTOPRAZOLE 40 MG/PACK PACK GT SCH ×2 (08:07→21:18)
[2022-10-31] MEDS: FINASTERIDE (5 MG) 5 MG TABLET PO SCH (08:08)
[2022-10-31] MEDS: MULTIVITAMINS,THERAGRAN 1 UDTAB TABLET PO SCH (08:08)
[2022-10-31] MEDS: PROSOURCE / PROSTAT (PYXIS) 30 ML UDC PO SCH ×3 (08:08→16:25)
[2022-10-31] MEDS: CLOTRIMAZOLE 1% 15 GM TUBE TP SCH ×2 (08:09→16:25)
[2022-10-31] MEDS: DAKINS HALF STRENGTH (0.25%) 480 ML BOTTLE TOP SCH (08:09)
[2022-10-31] MEDS ORDERED: IV NS 0.9% 500 ML IV ONE (09:00)
[2022-10-31 11:04] LABS: BAND % (MANUAL) 7 % (0.0-5.0); LYMPHOCYTES % (MANUAL) 23 % (16-48); NEUTROPHILS % (MANUAL) 64 (42-76)
[2022-10-31 11:05] LABS: EOSINOPHILS % (MANUAL) 1 % (0-4); MONOCYTES % (MANUAL) 5 % (0-11.0)
--- NOTE | 2022-10-31 11:31 | NUR ---
RN NOTES CALL MADE TO DR JONES OFFICE REGARDING DATE AND TIME FOR THE TRACHEOSTOMY PLACEMENT . SPOKEN TO JONEL . NO RETURN CALL FROM DR JONES YET .
[2022-10-31] MEDS: DIGOXIN ELIX UDC 0.25 MG/5 ML UDC GT SCH (12:59)
[2022-10-31] MEDS: PHENYLEPHRINE 100 MG in IV NS 0.9% 240 ML IV PRN (16:24)
--- NOTE | 2022-10-31 18:06 | NUR ---
RN NOTES PT RECEIVING HD AT THIS TIME . NO DISTESS NOTED
--- NOTE | 2022-10-31 18:16 | NUR ---
RN NOTES PT REMAINS INTUBATED , OFF SEDATION , ON CHAVO AT 0.7 MCG/KG/MIN RUNNING FOR BP SUPPORT, ON TELE A.FIB TOLERATING TUBE FEEDING AT 45CC/HR , NO RESIDUAL NOTED, PT RECEIVING HD , NO DISTESS NOTED, WILL ENDORSE TO ASSOCIATE CHEMIST NURSE FOR CONTINUITY OF CARE .
[2022-10-31] MEDS: ALBUMIN 25% 25 GM in PREMIX 1 EA IV PRN (19:03)
[2022-10-31 21:32] LABS: HEMOGLOBIN 7.5 g/dL (13.5-17.5)
[2022-11-01] VITALS (100 sets, daily range): BP systolic 71–129; BP diastolic 45–71
[2022-11-01 04:26] LABS: BASOPHILS # (AUTO) 0.1 K/uL (0.0-0.2); BASOPHILS % (AUTO) 1.2 % (0.0-2.0); EOSINOPHILS % (AUTO) 7.4 % (0.0-6.0); HEMATOCRIT 23 % (39-51); HEMOGLOBIN 7.5 g/dL (13.5-17.5); LYMPHOCYTES # (AUTO) 1.6 K/uL (0.8-4.8); LYMPHOCYTES % (AUTO) 13.8 % (20.0-44.0); MEAN CORPUSCULAR HGB CONC 32 g/dl (31.0-36.0); MEAN CORPUSCULAR VOLUME 100 fL (80-96); MONOCYTES % (AUTO) 8.1 % (2.0-12.0); NEUTROPHILS # (AUTO) 8.3 K/uL (1.8-8.9); NEUTROPHILS % (AUTO) 69.5 % (43.0-81.0); RED BLOOD CELL COUNT(AUTO) 2.33 MIL/uL (4.5-6.0)
[2022-11-01 04:32] LABS: ALBUMIN 2.2 g/dL (3.4-5.0); BILIRUBIN,TOTAL 0.8 mg/dL (0.2-1.0); CALCIUM, SERUM 9.7 mg/dL (8.5-10.1); POTASSIUM 3.6 mmol/L (3.5-5.1); TOTAL PROTEIN, SERUM 4.3 g/dL (6.4-8.2)
[2022-11-01 04:37] LABS: PLATELET COUNT (AUTO) 45 K/uL (150-450)
[2022-11-01] MEDS: PHENYLEPHRINE 100 MG in IV NS 0.9% 240 ML IV PRN ×3 (05:17→16:11)
[2022-11-01] MEDS: NEPRO 1,000 ML BOTTLE GT PRN (05:32)
--- NOTE | 2022-11-01 07:00 | NUR ---
RN NOTES RECEIVED PT ON BED, INTUBATED, NO SEDATION , RESPONDS TO PAINFUL STIMULI, ON CHAVO 0.5 MCG/KG/MIN RUNNING FOR BP SUPPORT, ON TELE SR HR IN 80'S , CHOLECYSTOSTOMY BAG TO GRAVITY DRAINING WITH YELLOWS CLOUDY DRAINAGE , NO URINE OUTPUT NOTED IN CHAMORRO BAG, TF AT 45CC/HR RUNNING, IV SITES CDI, SR UP x3, CALL LIGHT WITHIN EASY REACH, BED LOCKED AND IN LOWEST POSITION, CONTINUE TO MONITOR
[2022-11-01] MEDS: MULTIVITAMINS,THERAGRAN 1 UDTAB TABLET PO SCH (08:14)
[2022-11-01] MEDS: FERROUS SULFATE (325 MG) 325 MG/TAB TABLET PO SCH ×3 (08:14→16:16)
[2022-11-01] MEDS: LEVOTHYROXINE SODIUM 50 MCG TABLET PO SCH (08:14)
[2022-11-01] MEDS: FINASTERIDE (5 MG) 5 MG TABLET PO SCH (08:14)
[2022-11-01] MEDS: PANTOPRAZOLE 40 MG/PACK PACK GT SCH ×2 (08:14→21:12)
[2022-11-01] MEDS: ASCORBIC ACID 500 MG TABLET PO SCH (08:14)
[2022-11-01] MEDS: HYDROCORTISONE SOD SUCCINATE 100 MG/2 ML VIAL IV SCH (08:14)
[2022-11-01] MEDS: ALLOPURINOL 100 MG TABLET PO SCH (08:14)
[2022-11-01] MEDS: SUCRALFATE 1 G/10 ML UDC PO SCH ×4 (08:14→21:12)
[2022-11-01] MEDS: PROSOURCE / PROSTAT (PYXIS) 30 ML UDC PO SCH ×2 (08:15→16:17)
[2022-11-01] MEDS: DAKINS HALF STRENGTH (0.25%) 480 ML BOTTLE TOP SCH (08:16)
[2022-11-01] MEDS: CLOTRIMAZOLE 1% 15 GM TUBE TP SCH ×2 (08:16→16:17)
--- NOTE | 2022-11-01 12:00 | NUR ---
RN NOTES ET TUBE SUCTIONING DONE, CONTINUE TO MONITOR
[2022-11-01 12:09] LABS: BAND % (MANUAL) 5 % (0.0-5.0); BASOPHILS % (MANUAL) 0 % (0.0-2.0); EOSINOPHILS % (MANUAL) 7 % (0-4); LYMPHOCYTES % (MANUAL) 10 % (16-48); MONOCYTES % (MANUAL) 17 % (0-11.0); NEUTROPHILS % (MANUAL) 61 (42-76)
[2022-11-01] MEDS: DIGOXIN ELIX UDC 0.25 MG/5 ML UDC GT SCH (14:25)
--- NOTE | 2022-11-01 16:08 | NUR ---
RN NOTES PT RECEIVING HD , CONTINUE TO TITRATE CHAVO FOR BP SUPPORT .
--- NOTE | 2022-11-01 18:07 | NUR ---
RN NOTES PT REMAINS INTUBATED, OFF SEDATION ON CHAVO AT 1.5 MCG/KG/MIN, TOLERATING TUBE FEEDING WELL, RECEIVED HD ON THIS SHIFT, WILL ENDORSE TO HYDROELECTRIC SYSTEMS TECHNICIAN NURSE FOR CONTINUITY OF CARE .
--- NOTE | 2022-11-01 19:44 | NUR ---
PT RCVD ORALLY INTUBATED 7.5 ETT SECURED @ 22 CM LIP LINE ON VENT SETTINGS OF AC 16, VT 575,FIO2 30% . PT RESPOND TO STIMULI WHEN SUCTIONED. SUCTIONED SMALL AMOUNT OF WHITE THIN SECRETIONS.VENT PLUGGED INTO RED OUTLET. VENT ALARMS ON AND AUDIBLE.. AMBU BAG AT BEDSIDE. NO RESPIRATORY DISTRESS NOTED AT THIS TIME. WILL CONTINUE TO MONITOR T/O SHIFT.
[2022-11-01 20:37] LABS: HEMOGLOBIN 7.7 g/dL (13.5-17.5)
--- NOTE | 2022-11-01 21:00 | NUR ---
ELECTRONIC SCANNER OPERATOR OPENING RECEIVED PATIENT LYING IN BED. LETHARGIC. RESPONDS BY NODDING TO TACTILE STIMULI. NO EYE OPENING. [facility]PR[facility] WITH SETTINGS: TV 575, AC 16, PEEP O, FI02 30%. TOLERATING WELL. IV ACCESS AT MERLENE PICC RUNNING NS TKO, CHAVO AT 1.5mcg, INFUSING WELL. HD ACCESS AT RIGHT POPLITEAL AREA. NO REDNESS OR INFILTRATION NOTED. NG TUBE AT RIGHT NARES, NO RESIDUAL NOTED, INTACT. CHAMORRO CATH IN PLACED DRAINING CLEAR YELLOW URINE. WITH CHOLECYSTOSTOMY DRAIN AT RIGHT LOWER ABDOMEN. ADEQUATE DRAIN. DUE MEDS GIVEN VIA NG TUBE. KEPT COMFORTABLE. TURNED AND REPOSITIONED. SAFETY MEASURES MAINTAINED. WILL CONTINUE TO MONITOR.
[2022-11-02] VITALS (92 sets, daily range): BP systolic 82–129; BP diastolic 40–84
[2022-11-02] MEDS: PHENYLEPHRINE 100 MG in IV NS 0.9% 240 ML IV PRN ×3 (02:36→17:17)
[2022-11-02 04:16] LABS: BASOPHILS # (AUTO) 0.1 K/uL (0.0-0.2); BASOPHILS % (AUTO) 1.1 % (0.0-2.0); EOSINOPHILS % (AUTO) 7.9 % (0.0-6.0); HEMATOCRIT 24 % (39-51); HEMOGLOBIN 7.7 g/dL (13.5-17.5); LYMPHOCYTES # (AUTO) 1.4 K/uL (0.8-4.8); LYMPHOCYTES % (AUTO) 11.1 % (20.0-44.0); MEAN CORPUSCULAR HGB CONC 32 g/dl (31.0-36.0); MEAN CORPUSCULAR VOLUME 101 fL (80-96); MONOCYTES # (AUTO) 1.3 K/uL (0.1-1.30); MONOCYTES % (AUTO) 10.3 % (2.0-12.0); NEUTROPHILS # (AUTO) 8.9 K/uL (1.8-8.9); NEUTROPHILS % (AUTO) 69.6 % (43.0-81.0); PLATELET COUNT (AUTO) 65 K/uL (150-450); WHITE BLOOD COUNT (AUTO) 12.8 K/uL (4.3-11.0)
[2022-11-02 04:24] LABS: ALBUMIN 1.9 g/dL (3.4-5.0); BILIRUBIN,TOTAL 0.8 mg/dL (0.2-1.0); CALCIUM, SERUM 9.6 mg/dL (8.5-10.1); CREATININE 2.6 mg/dL (0.6-1.3); POTASSIUM 3.5 mmol/L (3.5-5.1); TOTAL PROTEIN, SERUM 4.2 g/dL (6.4-8.2)
[2022-11-02 04:50] LABS: D-DIMER 2.66 mg/L(FEU (0.17-0.50)
--- NOTE | 2022-11-02 05:00 | NUR ---
RN NEW GRADUATE - PATIENT'S SBP <90 F0R 3 CONSECUTIVE READINGS. TITRATED UP CHAVO TO 1.6 mcg/kg/min. WILL CONTINUE TO MONITOR.
[2022-11-02] MEDS: NEPRO 1,000 ML BOTTLE GT PRN (05:59)
--- NOTE | 2022-11-02 06:46 | NUR ---
LOAD DROPPER CLOSING PATIENT LYING IN BED. LETHARGIC. RESPONDS BY NODDING TO TACTILE STIMULI. NO EYE OPENING. [facility] WITH SETTINGS: TV 575, AC 16, PEEP O, FI02 30%. TOLERATING WELL. IV ACCESS AT MERLENE PICC INFUSING WELL. HD ACCESS AT RIGHT POPLITEAL AREA. NO REDNESS OR INFILTRATION NOTED. NG TUBE AT RIGHT NARES, NO RESIDUAL NOTED, INTACT. CHAMORRO CATH IN PLACED DRAINING CLEAR YELLOW URINE. WITH CHOLECYSTOSTOMY DRAIN AT RIGHT LOWER ABDOMEN. ADEQUATE DRAIN. DUE MEDS GIVEN VIA NG TUBE. MORNING CARE DONE. WOUND CARE DONE. TURNED AND REPOSITIONED. KEPT COMFORTABLE. SAFETY MEASURES MAINTAINED. WILL ENDORSE TO NEXT SHIFT RN FOR NGUYỄN.
--- NOTE | 2022-11-02 07:10 | NUR ---
RN NOTES RECEIVED PT ON BED, INTUBATED, NO SEDATION , RESPONDS TO PAINFUL STIMULI, ON CHAVO 1.6 MCG/KG/MIN RUNNING FOR BP SUPPORT, ON TELE A.FLUTTER, CHOLECYSTOSTOMY BAG TO GRAVITY DRAINING WITH YELLOWS CLOUDY DRAINAGE , TF AT 45CC/HR RUNNING, IV SITES CDI, SR UP x3, CALL LIGHT WITHIN EASY REACH, BED LOCKED AND IN LOWEST POSITION, CONTINUE TO MONITOR
[2022-11-02 07:56] LABS: BAND % (MANUAL) 2 % (0.0-5.0); EOSINOPHILS % (MANUAL) 9 % (0-4); LYMPHOCYTES % (MANUAL) 23 % (16-48); MONOCYTES % (MANUAL) 12 % (0-11.0); NEUTROPHILS % (MANUAL) 54 (42-76)
[2022-11-02] MEDS: ALLOPURINOL 100 MG TABLET PO SCH (09:37)
[2022-11-02] MEDS: SUCRALFATE 1 G/10 ML UDC PO SCH ×4 (09:37→21:23)
[2022-11-02] MEDS: ASCORBIC ACID 500 MG TABLET PO SCH (09:37)
[2022-11-02] MEDS: MULTIVITAMINS,THERAGRAN 1 UDTAB TABLET PO SCH (09:38)
[2022-11-02] MEDS: LEVOTHYROXINE SODIUM 50 MCG TABLET PO SCH (09:38)
[2022-11-02] MEDS: PANTOPRAZOLE 40 MG/PACK PACK GT SCH ×2 (09:38→21:23)
[2022-11-02] MEDS: HYDROCORTISONE SOD SUCCINATE 100 MG/2 ML VIAL IV SCH (09:38)
[2022-11-02] MEDS: DAKINS HALF STRENGTH (0.25%) 480 ML BOTTLE TOP SCH (09:40)
[2022-11-02] MEDS: CLOTRIMAZOLE 1% 15 GM TUBE TP SCH ×2 (09:40→16:53)
[2022-11-02] MEDS: FINASTERIDE (5 MG) 5 MG TABLET PO SCH (10:00)
[2022-11-02] MEDS: PROSOURCE / PROSTAT (PYXIS) 30 ML UDC PO SCH ×2 (10:00→16:52)
[2022-11-02] MEDS: FERROUS SULFATE (325 MG) 325 MG/TAB TABLET PO SCH ×3 (10:00→16:52)
--- NOTE | 2022-11-02 12:00 | NUR ---
RN NOTES ET TUBE SUCTIONING DONE, CONTINUE TO MONITOR
[2022-11-02] MEDS: DIGOXIN ELIX UDC 0.25 MG/5 ML UDC GT SCH (12:59)
--- NOTE | 2022-11-02 18:18 | NUR ---
RN NOTES PT REMAINS INTUBATED, RESPONDS TO PAINFUL STIMULI, OFF SEDATION ON CHAVO AT 1.7 MCG/KG/MIN, TOLERATING TUBE FEEDING WELL, WILL ENDORSE TO CASH CONTROLLER NURSE FOR CONTINUITY OF CARE .
--- NOTE | 2022-11-02 19:10 | NUR ---
RN OPENING NOTES RECEIVED PATIENT ON BED, SEDATED, ORALLY INTUBATED SIZE 7.5, 22 CM BY THE LIP, WITH VENT SETTINGS AC- 16, TV- 575, FIO2-30%, PEEP- 0, AFEBRILE, NO S/S OF DISTRESS NOTED. NOTED WITH MERLENE PICC LINE. FLUSHED WITH NS. RUNNING WITH CHAVO @ 1.7 MCG/KG/MIN. NOTED WITH NGT ON THE RIGHT NARE PATENT AND INTACT, VERIFIED PLACEMENT BY AUSCULTATION, NO RESIDUAL NOTED UPON ASPIRATION RUNNING WITH NEPHRO @ 45 ML/HR, HEAD OF BED KEPT ELEVATED. RIGHT FEMORAL HD CATHETER, NO ACTIVE BLEEDING NOTED AT THIS TIME. RIGHT LATERAL BODY CHOLECYSTOSTOMY, DRAINING WELL, CONNECTED TO DRAINAGE BAG VIA GRAVITY. CHAMORRO CATHETER PATENT INTACT DRAINING WITH DARK YELLOW URINE VIA GRAVITY. ALL SAFETY PRECAUTION PROVIDED. BED IN LOWEST POSITION, LOCKED. CALL LIGHT WITH IN REACH.
[2022-11-02] MEDS: ALBUMIN 25% 25 GM in PREMIX 1 EA IV PRN (20:06)
--- NOTE | 2022-11-02 21:00 | NUR ---
RN NOTES OBTAINED TELEPHONE CONSENT FOR ANESTHESIA AND CONSENT FOR SERIAL DEBRIDEMENT OF SACRUM AND BILATERAL BUTTOCKS FROM JERARDO EDGE, PATIENT'S SPOUSE, AND VERIFIED BY CHARGE NURSE TIERRA.
[2022-11-02 23:33] LABS: HEMOGLOBIN 7.2 g/dL (13.5-17.5)
[2022-11-03] VITALS (99 sets, daily range): BP systolic 74–146; BP diastolic 42–79
--- NOTE | 2022-11-03 00:30 | NUR ---
RN NOTES NOTIFIED FACILITIES OPERATIONS TECHNICIAN BETTY DAI REGARDING PATIENT LATEST HGB- 7.2, HCT- 23 NO BLEEDING NOTED, PER MILLA HERNÁNDEZ NO NEW ORDER AT THIS TIME.
[2022-11-03] MEDS: PHENYLEPHRINE 100 MG in IV NS 0.9% 240 ML IV PRN ×3 (00:41→21:37)
[2022-11-03 04:40] LABS: BASOPHILS # (AUTO) 0.1 K/uL (0.0-0.2); BASOPHILS % (AUTO) 0.8 % (0.0-2.0); EOSINOPHILS % (AUTO) 5.9 % (0.0-6.0); HEMATOCRIT 23 % (39-51); HEMOGLOBIN 7.2 g/dL (13.5-17.5); LYMPHOCYTES # (AUTO) 1.8 K/uL (0.8-4.8); LYMPHOCYTES % (AUTO) 15.1 % (20.0-44.0); MEAN CORPUSCULAR HGB CONC 31 g/dl (31.0-36.0); MEAN CORPUSCULAR VOLUME 101 fL (80-96); MONOCYTES # (AUTO) 1.2 K/uL (0.1-1.30); NEUTROPHILS # (AUTO) 8.2 K/uL (1.8-8.9); NEUTROPHILS % (AUTO) 68.2 % (43.0-81.0); PLATELET COUNT (AUTO) 78 K/uL (150-450); RED BLOOD CELL COUNT(AUTO) 2.26 MIL/uL (4.5-6.0); WHITE BLOOD COUNT (AUTO) 12.1 K/uL (4.3-11.0)
[2022-11-03 05:03] LABS: ALBUMIN 2.2 g/dL (3.4-5.0); BILIRUBIN,TOTAL 0.7 mg/dL (0.2-1.0); CALCIUM, SERUM 9.3 mg/dL (8.5-10.1); CREATININE 2.1 mg/dL (0.6-1.3); POTASSIUM 3.2 mmol/L (3.5-5.1); TOTAL PROTEIN, SERUM 4.4 g/dL (6.4-8.2)
--- NOTE | 2022-11-03 05:30 | NUR ---
RN NOTES NOTIFIED LIBRARIAN HEAD BETTY DAI REGARDING PATIENT LATEST HGB- 7.2, HCT- 23 NO BLEEDING NOTED, PER MILLA HERNÁNDEZ NO NEW ORDER AT THIS TIME. FOR POTASSIUM- 3.2 LEAVE IT FOR NOW. BECAUSE PATIENT IS DIALYSIS.
[2022-11-03] MEDS ORDERED: SILVER NITRATE APPLICATOR 1 EA BOX TP SCH (06:00)
[2022-11-03] MEDS ORDERED: LIDOCAINE 1%-EPI 1:100,000 50 ML VIAL IJ ONE (06:00)
[2022-11-03] MEDS: NEPRO 1,000 ML BOTTLE GT PRN (06:22)
--- NOTE | 2022-11-03 07:10 | NUR ---
RN NOTES RECEIVED PT ON BED, INTUBATED, NO SEDATION , RESPONDS TO PAINFUL STIMULI, ON CHAVO 1.4 MCG/KG/MIN RUNNING FOR BP SUPPORT, ON TELE SR HR IN 70'S, CHOLECYSTOSTOMY BAG TO GRAVITY DRAINING WITH YELLOWS CLOUDY DRAINAGE , TF AT 45CC/HR RUNNING, IV SITES CDI, SR UP x3, CALL LIGHT WITHIN EASY REACH, BED LOCKED AND IN LOWEST POSITION, CONTINUE TO MONITOR
[2022-11-03] MEDS: ASCORBIC ACID 500 MG TABLET PO SCH (08:22)
[2022-11-03] MEDS: SUCRALFATE 1 G/10 ML UDC PO SCH ×4 (08:22→21:36)
[2022-11-03] MEDS: PANTOPRAZOLE 40 MG/PACK PACK GT SCH ×2 (08:22→21:36)
[2022-11-03] MEDS: HYDROCORTISONE SOD SUCCINATE 100 MG/2 ML VIAL IV SCH (08:22)
[2022-11-03] MEDS: ALLOPURINOL 100 MG TABLET PO SCH (08:22)
[2022-11-03] MEDS: FERROUS SULFATE (325 MG) 325 MG/TAB TABLET PO SCH ×3 (08:22→16:16)
[2022-11-03] MEDS: FINASTERIDE (5 MG) 5 MG TABLET PO SCH (08:22)
[2022-11-03] MEDS: MULTIVITAMINS,THERAGRAN 1 UDTAB TABLET PO SCH (08:22)
[2022-11-03] MEDS: LEVOTHYROXINE SODIUM 50 MCG TABLET PO SCH (08:22)
[2022-11-03] MEDS: PROSOURCE / PROSTAT (PYXIS) 30 ML UDC PO SCH ×2 (08:23→16:16)
[2022-11-03] MEDS: CLOTRIMAZOLE 1% 15 GM TUBE TP SCH ×2 (08:24→16:18)
[2022-11-03] MEDS: DAKINS HALF STRENGTH (0.25%) 480 ML BOTTLE TOP SCH (08:24)
--- NOTE | 2022-11-03 09:30 | NUR ---
RN NOTES WOUND DEBRIDEMENT DONE AT THE BEDSIDE BY PA, NEW DRESSING APPLIED, CONTINUE TO MONITOR
[2022-11-03 10:09] LABS: BAND % (MANUAL) 11 % (0.0-5.0); LYMPHOCYTES % (MANUAL) 17 % (16-48); MONOCYTES % (MANUAL) 4 % (0-11.0); NEUTROPHILS % (MANUAL) 57 (42-76); REACTIVE LYMPHOCYTES 11 % (0-0)
[2022-11-03] MEDS: POTASSIUM CL. PREMIX PERIPHER. 50 ML IV SCH ×3 (10:25→12:39)
[2022-11-03] MEDS: DIGOXIN ELIX UDC 0.25 MG/5 ML UDC GT SCH (13:14)
[2022-11-03] MEDS: EPOETIN ALFA-EPBX 4,000 UNIT/ML VIAL SQ SCH (15:46)
[2022-11-03] MEDS ORDERED: VECURONIUM 10 MG VIAL IV ONE ×2 (16:00→16:30)
[2022-11-03] MEDS ORDERED: ROCURONIUM BROMIDE 50 MG/5 ML IV ONE (16:00)
[2022-11-03] MEDS ORDERED: MIDAZOLAM HCL 2 MG/2ML VIAL IV ONE ×2 (16:00→16:30)
--- NOTE | 2022-11-03 16:45 | NUR ---
RN NOTES TRACHEOSTOMY TUBE PLACEMENT DONE AT THE BEDSIDE BY DR JONES AND DR VELAZQUEZ , VSS STABLE , NO COMPLICATION NOTED , PT TOLERATED WELL , CONTINUE TO MONITOR .
--- NOTE | 2022-11-03 16:45 | NUR ---
Bedside tracheostomy done by Dr. Damian. Number 8 Shiley trach used with zero complication. trach secured. minimal bleeding spare trach at bedside. suction catheter changed to appropriate length.
[2022-11-03] MEDS ORDERED: FENTANYL PF 100MCG/2ML AMPUL IV ONE (17:00)
--- NOTE | 2022-11-03 18:18 | NUR ---
RN NOTES NO DRAINAGE NOTED AT THE TRACHEOSTOMY SITE , TOLERATING VENT SETTING WELL, RESPONDS TO TO PAINFUL STIMULI, OFF SEDATION ON CHAVO AT 0.7 MCG/KG/MIN, TOLERATING TUBE FEEDING WELL, WILL ENDORSE TO ROLLING MILL OPERATOR HELPER NURSE FOR CONTINUITY OF CARE .
--- NOTE | 2022-11-03 19:10 | NUR ---
RN OPENING NOTES RECEIVED PATIENT ON BED, S/P TRACHEOSTOMY, WITH VENT SETTINGS AC- 16, TV- 575, FIO2-30%, PEEP- 0, AFEBRILE, NO S/S OF DISTRESS NOTED. NOTED WITH MERLENE PICC LINE. FLUSHED WITH NS. RUNNING WITH CHAVO @ 0.6 MCG/KG/MIN. NOTED WITH NGT ON THE RIGHT NARE PATENT AND INTACT, VERIFIED PLACEMENT BY AUSCULTATION, NO RESIDUAL NOTED UPON ASPIRATION RUNNING WITH NEPHRO @ 45 ML/HR, HEAD OF BED KEPT ELEVATED. RIGHT FEMORAL HD CATHETER, NO ACTIVE BLEEDING NOTED AT THIS TIME. RIGHT LATERAL BODY CHOLECYSTOSTOMY, DRAINING WITH CLOUDY YELLOW OUTPUT, CONNECTED TO DRAINAGE BAG VIA GRAVITY. CHAMORRO CATHETER PATENT INTACT DRAINING WITH DARK YELLOW URINE VIA GRAVITY. ALL SAFETY PRECAUTION PROVIDED. BED IN LOWEST POSITION, LOCKED. CALL LIGHT WITH IN REACH.
[2022-11-03] MEDS: ALBUMIN 25% 25 GM in PREMIX 1 EA IV PRN (19:55)
[2022-11-04] VITALS (85 sets, daily range): BP systolic 71–129; BP diastolic 41–75
[2022-11-04 05:15] LABS: BASOPHILS # (AUTO) 0.1 K/uL (0.0-0.2); BASOPHILS % (AUTO) 0.7 % (0.0-2.0); EOSINOPHILS % (AUTO) 6.2 % (0.0-6.0); LYMPHOCYTES % (AUTO) 10.2 % (20.0-44.0); MEAN CORPUSCULAR HGB CONC 32 g/dl (31.0-36.0); MEAN CORPUSCULAR VOLUME 102 fL (80-96); MONOCYTES # (AUTO) 1.1 K/uL (0.1-1.30); MONOCYTES % (AUTO) 11.1 % (2.0-12.0); NEUTROPHILS # (AUTO) 6.8 K/uL (1.8-8.9); NEUTROPHILS % (AUTO) 71.8 % (43.0-81.0); PLATELET COUNT (AUTO) 69 K/uL (150-450); WHITE BLOOD COUNT (AUTO) 9.5 K/uL (4.3-11.0)
[2022-11-04 05:33] LABS: RED BLOOD CELL COUNT(AUTO) 1.95 MIL/uL (4.5-6.0)
[2022-11-04 05:34] LABS: HEMATOCRIT 20 % (39-51); HEMOGLOBIN 6.3 g/dL (13.5-17.5)
[2022-11-04 05:41] LABS: ALBUMIN 2.2 g/dL (3.4-5.0); BILIRUBIN,TOTAL 0.7 mg/dL (0.2-1.0); CALCIUM, SERUM 9.1 mg/dL (8.5-10.1); CREATININE 1.7 mg/dL (0.6-1.3); POTASSIUM 3.3 mmol/L (3.5-5.1); TOTAL PROTEIN, SERUM 4.3 g/dL (6.4-8.2)
[2022-11-04] MEDS: NEPRO 1,000 ML BOTTLE GT PRN (07:19)
--- NOTE | 2022-11-04 07:41 | NUR ---
ICU/RN PT RECEIVED IN BED, OBTUNDED. PT WITH TRACH ON MECHANICAL VENTILATOR FIO2 30% SAT 100% ON BEDSIDE MONITOR. SR HR 80 ON MONITOR. RIGHT CHOLECYSTECTOMY IN PLACE. CHAMORRO CATH IN PLACE. NGT IN PLACE RUNNING NEPRO AT 45ML/HR. RIGHT UA PICC AND RIGHT FEMORAL HD CATH IN PLACE. CHAVO RUNNING AT 1.1MCG/KG/MIN BP 129/60, CHAVO DECREASED TO 1MCG/KG/MIN. BED LOCKED AND IN LOWEST POSITION, CALL LIGHT WITHIN REACH, 3 SIDE RAILS UP.
[2022-11-04] MEDS: FERROUS SULFATE (325 MG) 325 MG/TAB TABLET PO SCH ×3 (08:11→16:35)
[2022-11-04] MEDS: ASCORBIC ACID 500 MG TABLET PO SCH (08:11)
[2022-11-04] MEDS: HYDROCORTISONE SOD SUCCINATE 100 MG/2 ML VIAL IV SCH (08:11)
[2022-11-04] MEDS: SUCRALFATE 1 G/10 ML UDC PO SCH ×4 (08:11→21:30)
[2022-11-04] MEDS: LEVOTHYROXINE SODIUM 50 MCG TABLET PO SCH (08:11)
[2022-11-04] MEDS: FINASTERIDE (5 MG) 5 MG TABLET PO SCH (08:11)
[2022-11-04] MEDS: ALLOPURINOL 100 MG TABLET PO SCH (08:11)
[2022-11-04] MEDS: PANTOPRAZOLE 40 MG/PACK PACK GT SCH ×2 (08:11→21:30)
[2022-11-04] MEDS: MULTIVITAMINS,THERAGRAN 1 UDTAB TABLET PO SCH (08:12)
[2022-11-04] MEDS: DAKINS HALF STRENGTH (0.25%) 480 ML BOTTLE TOP SCH (08:12)
[2022-11-04] MEDS: PROSOURCE / PROSTAT (PYXIS) 30 ML UDC PO SCH ×2 (08:16→16:35)
[2022-11-04] MEDS: CLOTRIMAZOLE 1% 15 GM TUBE TP SCH ×2 (08:29→16:19)
[2022-11-04] MEDS: PHENYLEPHRINE 100 MG in IV NS 0.9% 240 ML IV PRN (10:08)
[2022-11-04] MEDS: IV NS 0.9% 250 ML IV PRN (10:29)
[2022-11-04] MEDS ORDERED: POTASSIUM CL. PREMIX PERIPHER. 50 ML IV SCH (10:30)
[2022-11-04] MEDS: DIGOXIN ELIX UDC 0.25 MG/5 ML UDC GT SCH (12:03)
[2022-11-04] MEDS ORDERED: CELLULOSE,OXIDIZED 1 EACH EACH MC ONE (12:30)
--- NOTE | 2022-11-04 15:00 | NUR ---
ICU/RN HD INITIATED.
[2022-11-04 17:18] LABS: BAND % (MANUAL) 2 % (0.0-5.0); LYMPHOCYTES % (MANUAL) 6 % (16-48); METAMYELOCYTES % 2 % (0-0); MONOCYTES % (MANUAL) 6 % (0-11.0); NEUTROPHILS % (MANUAL) 84 (42-76)
--- NOTE | 2022-11-04 19:29 | NUR ---
RN OPENING NOTES RECEIVED PT IN BED, OBTUNDED. PT WITH TRACH ON MECHANICAL VENTILATOR FIO2 30% SAT 100% ON BEDSIDE MONITOR. SR HR 0 ON MONITOR. RIGHT CHOLECYSTECTOMY IN PLACE. CHAMORRO CATH IN PLACE. NGT IN PLACE RUNNING NEPRO AT 45ML/HR. RIGHT UA PICC AND RIGHT FEMORAL HD CATH IN PLACE. CHAVO RUNNING AT 0.8 MCG/KG/MIN BP 109/64, BED LOCKED AND IN LOWEST POSITION, CALL LIGHT WITHIN REACH, 3 SIDE RAILS UP. WILL CONTINUE TO MONITOR THROUGHOUT THE SHIFT.
[2022-11-05] VITALS (77 sets, daily range): BP systolic 63–132; BP diastolic 27–74
[2022-11-05] MEDS: PHENYLEPHRINE 100 MG in IV NS 0.9% 240 ML IV PRN ×2 (01:34→17:12)
[2022-11-05 05:18] LABS: BASOPHILS # (AUTO) 0.1 K/uL (0.0-0.2); BASOPHILS % (AUTO) 0.7 % (0.0-2.0); EOSINOPHILS % (AUTO) 5.7 % (0.0-6.0); HEMATOCRIT 23 % (39-51); HEMOGLOBIN 7.7 g/dL (13.5-17.5); LYMPHOCYTES # (AUTO) 0.9 K/uL (0.8-4.8); LYMPHOCYTES % (AUTO) 8.9 % (20.0-44.0); MEAN CORPUSCULAR HGB CONC 33 g/dl (31.0-36.0); MEAN CORPUSCULAR VOLUME 97 fL (80-96); MONOCYTES % (AUTO) 9.7 % (2.0-12.0); NEUTROPHILS # (AUTO) 7.9 K/uL (1.8-8.9); PLATELET COUNT (AUTO) 59 K/uL (150-450); WHITE BLOOD COUNT (AUTO) 10.5 K/uL (4.3-11.0)
[2022-11-05 05:32] LABS: ALBUMIN 1.9 g/dL (3.4-5.0); BILIRUBIN,TOTAL 0.7 mg/dL (0.2-1.0); CREATININE 1.7 mg/dL (0.6-1.3); TOTAL PROTEIN, SERUM 4.2 g/dL (6.4-8.2)
[2022-11-05 06:10] LABS: ABG BASE EXCESS -3.8 mmol/L; ABG OXYGEN SATURATION 97.3 % (92.0-98.5); ABG PCO2 33.4 mmHg (35.0-45.0); ABG PH 7.404 (7.350-7.450); ABG PO2 97.6 mmHg (75.0-100.0); AaDO2 77.1 mmHg; COHb 1.1 % (0.5-1.5); MetHb 0.3 % (0.0-1.5); O2Hb 95.9 % (94.0-97.0); PEEP,BG 0 cm H2O; SITE, ABG Right Radial; VENT MODE, BG AC16 VT575 30% PEEP+0; VT, ABG 575 mL
--- NOTE | 2022-11-05 06:25 | NUR ---
RN NOTE RELAYED LATEST ABG RESULT TO COMMUNITY RESOURCE CONSULTANT MD WITH NNO AT THIS TIME. WILL CONT TO MONITOR.
--- NOTE | 2022-11-05 06:48 | NUR ---
RN CLOSING NOTES PT REMAINS IN BED, OBTUNDED. PT WITH TRACH ON MECHANICAL VENTILATOR FIO2 30% SAT 100% ON BEDSIDE MONITOR. SR HR 68 ON MONITOR. RIGHT CHOLECYSTECTOMY IN PLACE DRAINING 400 CC. CHAMORRO CATH IN PLACE. NGT IN PLACE RUNNING NEPRO AT 45ML/HR. RIGHT UA PICC AND RIGHT FEMORAL HD CATH IN PLACE. CHAVO RUNNING AT 0.8 MCG/KG/MIN, ALL DUE MEDS GIVEN, KEPT DRY AND CLEAN, BED LOCKED AND IN LOWEST POSITION, CALL LIGHT WITHIN REACH, 3 SIDE RAILS UP. WILL ENDORSE TO AM SHIFT FOR CONTINUITY OF CARE.
--- NOTE | 2022-11-05 07:21 | NUR ---
ICU/RN PT RECEIVED IN BED, OBTUNDED. PT ON MECHANICAL VENTILATOR NO SIGNS OF LABORED BREATHING AT THIS TIME. NGT IN PLACE RUNNNG NEPRO AT 45MLS/HR, NO RESIDUAL NOTED. CHOLECYSTECTOMY DRAIN IN PLACE. CHAMORRO CATH IN PLACE. RIGHT UA PICC AND RIGHT FEMORAL HD CATH IN PLACE. CHAVO RUNNING AT 0.8MCG/KG/MIN. BED LOCKED AND IN LOWEST POSITION, CALL LIGHT WITHIN REACH, 3 SIDE RAILS UP.
[2022-11-05] MEDS: FINASTERIDE (5 MG) 5 MG TABLET PO SCH (08:06)
[2022-11-05] MEDS: ASCORBIC ACID 500 MG TABLET PO SCH (08:06)
[2022-11-05] MEDS: SUCRALFATE 1 G/10 ML UDC PO SCH ×4 (08:06→21:30)
[2022-11-05] MEDS: MULTIVITAMINS,THERAGRAN 1 UDTAB TABLET PO SCH (08:06)
[2022-11-05] MEDS: ALLOPURINOL 100 MG TABLET PO SCH (08:06)
[2022-11-05] MEDS: HYDROCORTISONE SOD SUCCINATE 100 MG/2 ML VIAL IV SCH (08:06)
[2022-11-05] MEDS: LEVOTHYROXINE SODIUM 50 MCG TABLET PO SCH (08:06)
[2022-11-05] MEDS: FERROUS SULFATE (325 MG) 325 MG/TAB TABLET PO SCH ×3 (08:06→16:15)
[2022-11-05] MEDS: PANTOPRAZOLE 40 MG/PACK PACK GT SCH ×2 (08:06→21:30)
[2022-11-05] MEDS: PROSOURCE / PROSTAT (PYXIS) 30 ML UDC PO SCH ×2 (08:06→16:15)
[2022-11-05] MEDS: DAKINS HALF STRENGTH (0.25%) 480 ML BOTTLE TOP SCH (08:07)
[2022-11-05] MEDS: CLOTRIMAZOLE 1% 15 GM TUBE TP SCH ×2 (08:08→16:15)
[2022-11-05] MEDS: NEPRO 1,000 ML BOTTLE GT PRN (08:24)
[2022-11-05] MEDS: IV NS 0.9% 250 ML IV PRN (08:24)
[2022-11-05] MEDS: POTASSIUM CL. PREMIX PERIPHER. 50 ML IV SCH ×5 (10:47→14:52)
[2022-11-05 10:53] LABS: LYMPHOCYTES % (MANUAL) 10 % (16-48); MONOCYTES % (MANUAL) 10 % (0-11.0); NEUTROPHILS % (MANUAL) 80 (42-76)
[2022-11-05] MEDS: DIGOXIN ELIX UDC 0.25 MG/5 ML UDC GT SCH (12:33)
--- NOTE | 2022-11-05 19:05 | NUR ---
RN OPENING NOTES RECEIVED PATIENT ON BED, ON TRACH, WITH VENT SETTINGS AC- 16, TV- 575, FIO2-30%, PEEP- 0, AFEBRILE, NO S/S OF DISTRESS NOTED. NOTED WITH MERLENE PICC LINE. FLUSHED WITH NS. RUNNING WITH CHAVO @ 0.9 MCG/KG/MIN. NOTED WITH NGT ON THE RIGHT NARE PATENT AND INTACT, VERIFIED PLACEMENT BY AUSCULTATION, NO RESIDUAL NOTED UPON ASPIRATION RUNNING WITH NEPHRO @ 45 ML/HR, HEAD OF BED KEPT ELEVATED. RIGHT FEMORAL HD CATHETER, NO ACTIVE BLEEDING NOTED AT THIS TIME. RIGHT LATERAL BODY CHOLECYSTOSTOMY, DRAINING WITH CLOUDY YELLOW OUTPUT, CONNECTED TO DRAINAGE BAG VIA GRAVITY. CHAMORRO CATHETER PATENT INTACT DRAINING WITH DARK YELLOW URINE VIA GRAVITY. ALL SAFETY PRECAUTION PROVIDED. BED IN LOWEST POSITION, LOCKED. CALL LIGHT WITH IN REACH.
--- NOTE | 2022-11-05 22:00 | NUR ---
ROSY NOTES TRANSFUSION FINISHED, NO ADVERSE REACTION NOTED, LATEST V/S T- 97.4, HR- 117, BP- 115/69, RR- 16. CONTINUE TO MONITOR Addendum: 11/06/22 at 2033 by KLAUS ESQUIVEL RN WRONG PATIENT
--- NOTE | 2022-11-05 22:05 | NUR ---
RN NOTES NOTIFIED HYDRAMATIC MECHANIC BETTY DAI REGARDING PATIENT ON AND OFF A FLUTTER ON RENTAL CAR FERRY DRIVER, PER BETTY CARDIOLOGY CONSULT IN THE MORNING.
[2022-11-06] VITALS (93 sets, daily range): BP systolic 83–126; BP diastolic 44–72
[2022-11-06 04:50] LABS: BASOPHILS # (AUTO) 0.1 K/uL (0.0-0.2); BASOPHILS % (AUTO) 0.8 % (0.0-2.0); EOSINOPHILS % (AUTO) 3.3 % (0.0-6.0); HEMATOCRIT 23 % (39-51); HEMOGLOBIN 7.4 g/dL (13.5-17.5); LYMPHOCYTES # (AUTO) 1.3 K/uL (0.8-4.8); LYMPHOCYTES % (AUTO) 9.4 % (20.0-44.0); MEAN CORPUSCULAR HGB CONC 32 g/dl (31.0-36.0); MEAN CORPUSCULAR VOLUME 97 fL (80-96); MONOCYTES # (AUTO) 1.1 K/uL (0.1-1.30); MONOCYTES % (AUTO) 8.4 % (2.0-12.0); NEUTROPHILS # (AUTO) 10.7 K/uL (1.8-8.9); NEUTROPHILS % (AUTO) 78.1 % (43.0-81.0); PLATELET COUNT (AUTO) 81 K/uL (150-450); RED BLOOD CELL COUNT(AUTO) 2.38 MIL/uL (4.5-6.0); WHITE BLOOD COUNT (AUTO) 13.7 K/uL (4.3-11.0)
[2022-11-06 04:51] LABS: ALBUMIN 1.8 g/dL (3.4-5.0); BILIRUBIN,TOTAL 0.6 mg/dL (0.2-1.0); CALCIUM, SERUM 8.9 mg/dL (8.5-10.1); CREATININE 1.4 mg/dL (0.6-1.3); POTASSIUM 3.2 mmol/L (3.5-5.1); TOTAL PROTEIN, SERUM 4.3 g/dL (6.4-8.2)
--- NOTE | 2022-11-06 05:30 | NUR ---
RN NOTES NOTED WITH CLOGGED NGT, REINSERTION ATTEMPTED 3X, UNABLE TO REINSERT. WE WILL TRY AGAIN LATER.
[2022-11-06] MEDS: PHENYLEPHRINE 100 MG in IV NS 0.9% 240 ML IV PRN ×2 (06:01→22:02)
--- NOTE | 2022-11-06 07:00 | NUR ---
RN NOTES RECEIVED PATIENT ON BED, VENT/ TRACH DEPENDENT, WITH VENT SETTINGS AC- 16, TV- 575, FIO2-30%, PEEP- 0, AFEBRILE, NO S/S OF DISTRESS NOTED. NOTED WITH MERLENE PICC LINE. FLUSHED WITH NS. RUNNING WITH CHAVO @ 0.9 MCG/KG/MIN FOR BP SUPPORT, HEAD OF BED KEPT ELEVATED. RIGHT FEMORAL HD CATHETER, NO ACTIVE BLEEDING NOTED AT THIS TIME. RIGHT LATERAL BODY CHOLECYSTOSTOMY, DRAINING WITH CLOUDY YELLOW OUTPUT, CONNECTED TO DRAINAGE BAG VIA GRAVITY. CHAMORRO CATHETER PATENT INTACT DRAINING WITH DARK YELLOW URINE VIA GRAVITY. ALL SAFETY PRECAUTION PROVIDED. BED IN LOWEST POSITION, LOCKED. CALL LIGHT WITH IN REACH. CONTINUE TO MONITOR .
--- NOTE | 2022-11-06 07:30 | NUR ---
RN NOTES NGT INSERTED, PLACEMENT VARIFIED WITH TWO RNS, CONTINUE TF
[2022-11-06] MEDS: ASCORBIC ACID 500 MG TABLET PO SCH (08:14)
[2022-11-06] MEDS: MULTIVITAMINS,THERAGRAN 1 UDTAB TABLET PO SCH (08:14)
[2022-11-06] MEDS: LEVOTHYROXINE SODIUM 50 MCG TABLET PO SCH (08:14)
[2022-11-06] MEDS: FINASTERIDE (5 MG) 5 MG TABLET PO SCH (08:14)
[2022-11-06] MEDS: PANTOPRAZOLE 40 MG/PACK PACK GT SCH ×2 (08:14→21:07)
[2022-11-06] MEDS: SUCRALFATE 1 G/10 ML UDC PO SCH ×4 (08:14→21:07)
[2022-11-06] MEDS: FERROUS SULFATE (325 MG) 325 MG/TAB TABLET PO SCH ×3 (08:15→16:19)
[2022-11-06] MEDS: HYDROCORTISONE SOD SUCCINATE 100 MG/2 ML VIAL IV SCH (08:15)
[2022-11-06] MEDS: ALLOPURINOL 100 MG TABLET PO SCH (08:16)
[2022-11-06] MEDS: CLOTRIMAZOLE 1% 15 GM TUBE TP SCH ×2 (08:17→16:21)
[2022-11-06] MEDS: DAKINS HALF STRENGTH (0.25%) 480 ML BOTTLE TOP SCH (08:17)
[2022-11-06] MEDS: PROSOURCE / PROSTAT (PYXIS) 30 ML UDC PO SCH ×2 (08:19→16:20)
[2022-11-06] MEDS ORDERED: POTASSIUM CHLORIDE 20 MEQ POWDER PACKET NG SCH (10:30)
[2022-11-06] MEDS: DIGOXIN ELIX UDC 0.25 MG/5 ML UDC GT SCH (12:05)
[2022-11-06] MEDS: NEPRO 1,000 ML BOTTLE GT PRN (13:53)
--- NOTE | 2022-11-06 14:00 | NUR ---
RN NOTES PT RECEIVING HD AT THIS TIME, CONTINUE TO MONITOR
--- NOTE | 2022-11-06 15:00 | NUR ---
RN NOTES TRACH CARE DONE,
[2022-11-06 16:37] LABS: BILIRUBIN,URINE NEGATIVE (NEGATIVE); COLOR,URINE YELLOW (YELLOW); LEUKOCYTE ESTERASE ,URINE TRACE (NEGATIVE); NITRITE, URINE NEGATIVE (NEGATIVE); PH,URINE 5.5 (5.0-8.0); PROTEIN,URINE 1+ mg/dl (NEGATIVE); UGLUCOSE NEGATIVE (NEGATIVE); UROBILINOGEN,URINE 0.2 EU/dL (0.2)
[2022-11-06 17:21] LABS: BACTERIA,URINE 1+ /HPF (None Seen); SQUAMOUS EPITHELIAL CELL,UR 0-2 /HPF (None Seen)
[2022-11-06 17:22] LABS: CALCIUM OXALATE CRYSTALS,UR Few /HPF (None Seen); YEAST,URINE Moderate /HPF (None Seen)
--- NOTE | 2022-11-06 18:10 | NUR ---
RN NOTES NO SIGNIFICANT CHANGES NOTED ON THIS SHIFT, CHAVO AT 0.6 MCG/KG/MIN RUNNING , TOLERATING TF WELL, ON TELE SR AT THIS TIME, WOUND CARE DONE, SR UP x3, CALL LIGHT WITHIN EASY REACH, BED LOCKED AND IN LOWEST POSITION, WILL ENDORSE TO QUALITY ASSURANCE ANALYST NURSE FOR CONTINUITY OF CARE .
--- NOTE | 2022-11-06 19:05 | NUR ---
RN OPENING NOTES RECEIVED PATIENT ON BED, ON TRACH, WITH VENT SETTINGS AC- 16, TV- 575, FIO2-30%, PEEP- 0, AFEBRILE, NO S/S OF DISTRESS NOTED. NOTED WITH MERLENE PICC LINE. FLUSHED WITH NS. RUNNING WITH CHAVO @ 0.8 MCG/KG/MIN. NOTED WITH NGT ON THE RIGHT NARE PATENT AND INTACT, VERIFIED PLACEMENT BY AUSCULTATION, NO RESIDUAL NOTED UPON ASPIRATION RUNNING WITH NEPHRO @ 45 ML/HR, HEAD OF BED KEPT ELEVATED. RIGHT FEMORAL HD CATHETER, NO ACTIVE BLEEDING NOTED AT THIS TIME. RIGHT LATERAL BODY CHOLECYSTOSTOMY, DRAINING WITH CLOUDY YELLOW OUTPUT, CONNECTED TO DRAINAGE BAG VIA GRAVITY. CHAMORRO CATHETER PATENT INTACT DRAINING WITH DARK YELLOW URINE VIA GRAVITY. ALL SAFETY PRECAUTION PROVIDED. BED IN LOWEST POSITION, LOCKED. CALL LIGHT WITH IN REACH.
[2022-11-06] MEDS: IV NS 0.9% 250 ML IV PRN (21:05)
[2022-11-06 22:33] LABS: BAND % (MANUAL) 2 % (0.0-5.0); EOSINOPHILS % (MANUAL) 2 % (0-4); LYMPHOCYTES % (MANUAL) 16 % (16-48); MONOCYTES % (MANUAL) 7 % (0-11.0); NEUTROPHILS % (MANUAL) 73 (42-76)
[2022-11-07] VITALS (99 sets, daily range): BP systolic 76–151; BP diastolic 43–71
[2022-11-07 04:10] LABS: BASOPHILS # (AUTO) 0.1 K/uL (0.0-0.2); BASOPHILS % (AUTO) 0.4 % (0.0-2.0); EOSINOPHILS % (AUTO) 3.6 % (0.0-6.0); HEMATOCRIT 23 % (39-51); HEMOGLOBIN 7.1 g/dL (13.5-17.5); LYMPHOCYTES # (AUTO) 1.2 K/uL (0.8-4.8); LYMPHOCYTES % (AUTO) 7.9 % (20.0-44.0); MEAN CORPUSCULAR HGB CONC 32 g/dl (31.0-36.0); MEAN CORPUSCULAR VOLUME 97 fL (80-96); MONOCYTES # (AUTO) 1.3 K/uL (0.1-1.30); MONOCYTES % (AUTO) 8.4 % (2.0-12.0); NEUTROPHILS # (AUTO) 12.3 K/uL (1.8-8.9); NEUTROPHILS % (AUTO) 79.7 % (43.0-81.0); PLATELET COUNT (AUTO) 96 K/uL (150-450); RED BLOOD CELL COUNT(AUTO) 2.32 MIL/uL (4.5-6.0); WHITE BLOOD COUNT (AUTO) 15.4 K/uL (4.3-11.0)
[2022-11-07 04:36] LABS: ALBUMIN 1.7 g/dL (3.4-5.0); BILIRUBIN,TOTAL 0.6 mg/dL (0.2-1.0); CALCIUM, SERUM 8.5 mg/dL (8.5-10.1); CREATININE 1.3 mg/dL (0.6-1.3); D-DIMER 2.31 mg/L(FEU (0.17-0.50); POTASSIUM 3.1 mmol/L (3.5-5.1); TOTAL PROTEIN, SERUM 4.2 g/dL (6.4-8.2)
[2022-11-07] MEDS ORDERED: MAG HYDROX/AL HYDROX/SIMETH 30 ML UDC GT PRN (08:27)
[2022-11-07] MEDS ORDERED: MAGNESIUM HYDROXIDE 30 ML UDC GT PRN (08:29)
[2022-11-07] MEDS ORDERED: POTASSIUM CHLORIDE 20 MEQ POWDER PACKET GT ONE (08:30)
[2022-11-07] MEDS: HYDROCORTISONE SOD SUCCINATE 100 MG/2 ML VIAL IV SCH (08:33)
[2022-11-07] MEDS: PANTOPRAZOLE 40 MG/PACK PACK GT SCH ×2 (08:36→21:27)
[2022-11-07] MEDS: MULTIVITAMINS,THERAGRAN 1 UDTAB TABLET PO SCH (08:36)
[2022-11-07] MEDS: SUCRALFATE 1 G/10 ML UDC GT SCH ×4 (08:37→21:27)
[2022-11-07] MEDS: ASCORBIC ACID 500 MG TABLET GT SCH (08:37)
[2022-11-07] MEDS: ALLOPURINOL 100 MG TABLET GT SCH (08:37)
[2022-11-07] MEDS: FERROUS SULFATE (325 MG) 325 MG/TAB TABLET GT SCH ×3 (08:37→17:43)
[2022-11-07] MEDS: LEVOTHYROXINE SODIUM 50 MCG TABLET PO SCH (08:38)
[2022-11-07] MEDS: FINASTERIDE (5 MG) 5 MG TABLET GT SCH (08:38)
[2022-11-07] MEDS: PROSOURCE / PROSTAT (PYXIS) 30 ML UDC PO SCH ×2 (08:42→17:45)
[2022-11-07] MEDS: DAKINS HALF STRENGTH (0.25%) 480 ML BOTTLE TOP SCH (08:43)
[2022-11-07] MEDS: CLOTRIMAZOLE 1% 15 GM TUBE TP SCH ×2 (08:44→17:46)
[2022-11-07 11:03] LABS: BAND % (MANUAL) 2 % (0.0-5.0); EOSINOPHILS % (MANUAL) 3 % (0-4); LYMPHOCYTES % (MANUAL) 10 % (16-48); MONOCYTES % (MANUAL) 8 % (0-11.0); NEUTROPHILS % (MANUAL) 77 (42-76)
[2022-11-07] MEDS: DIGOXIN ELIX UDC 0.25 MG/5 ML UDC GT SCH (13:09)
--- NOTE | 2022-11-07 13:22 | NUR ---
DR MARINA MADE AWARE REGARDING CARDIO CONSULT AND EPISODES OF A-FLUTTER LAST NIGHT AND THIS MORNING.
--- NOTE | 2022-11-07 13:44 | NUR ---
DR MARINA AWARE REGARDING CARDIO CONSULT AND EPISODES OF A-FLUTTER LAST NIGHT AND THIS MORNING. PER DR. MARINA "JUST KEEP MONITORING PT."
[2022-11-07] MEDS: PHENYLEPHRINE 100 MG in IV NS 0.9% 240 ML IV PRN (13:56)
[2022-11-07] MEDS: NEPRO 1,000 ML BOTTLE GT PRN (14:06)
[2022-11-07] MEDS: IV NS 0.9% 250 ML IV PRN (17:47)
[2022-11-07] MEDS: ALBUMIN 25% 25 GM in PREMIX 1 EA IV PRN (17:52)
--- NOTE | 2022-11-07 18:57 | NUR ---
H-DIALYSIS SESSION WAS STOPPED D/T PT. BRADYCARDIA 50s HR, CHARGE NURSE AWARE, OUTPUT 600ML
--- NOTE | 2022-11-07 19:10 | NUR ---
RN OPENING NOTES RECEIVED PATIENT ON BED, ON TRACH, WITH VENT SETTINGS AC- 16, TV- 575, FIO2-30%, PEEP- 0, AFEBRILE, NO S/S OF DISTRESS NOTED. NOTED WITH MERLENE PICC LINE. FLUSHED WITH NS. RUNNING WITH CHAVO @ 1.4 MCG/KG/MIN. NOTED WITH NGT ON THE RIGHT NARE PATENT AND INTACT, VERIFIED PLACEMENT BY AUSCULTATION, NO RESIDUAL NOTED UPON ASPIRATION RUNNING WITH NEPHRO @ 45 ML/HR, HEAD OF BED KEPT ELEVATED. RIGHT FEMORAL HD CATHETER, NO ACTIVE BLEEDING NOTED AT THIS TIME. RIGHT LATERAL BODY CHOLECYSTOSTOMY, DRAINING WITH CLOUDY YELLOW OUTPUT, CONNECTED TO DRAINAGE BAG VIA GRAVITY. CHAMORRO CATHETER PATENT INTACT DRAINING WITH DARK YELLOW URINE VIA GRAVITY. ALL SAFETY PRECAUTION PROVIDED. BED IN LOWEST POSITION, LOCKED. CALL LIGHT WITH IN REACH.
[2022-11-08] VITALS (96 sets, daily range): BP systolic 86–143; BP diastolic 39–79
[2022-11-08 04:23] LABS: BASOPHILS # (AUTO) 0.1 K/uL (0.0-0.2); BASOPHILS % (AUTO) 0.8 % (0.0-2.0); EOSINOPHILS % (AUTO) 3.3 % (0.0-6.0); HEMATOCRIT 21 % (39-51); LYMPHOCYTES # (AUTO) 1.3 K/uL (0.8-4.8); LYMPHOCYTES % (AUTO) 8.3 % (20.0-44.0); MEAN CORPUSCULAR HGB CONC 32 g/dl (31.0-36.0); MEAN CORPUSCULAR VOLUME 97 fL (80-96); MONOCYTES # (AUTO) 1.1 K/uL (0.1-1.30); MONOCYTES % (AUTO) 6.8 % (2.0-12.0); NEUTROPHILS # (AUTO) 12.6 K/uL (1.8-8.9); NEUTROPHILS % (AUTO) 80.8 % (43.0-81.0); PLATELET COUNT (AUTO) 102 K/uL (150-450); RED BLOOD CELL COUNT(AUTO) 2.17 MIL/uL (4.5-6.0); WHITE BLOOD COUNT (AUTO) 15.6 K/uL (4.3-11.0)
[2022-11-08 04:30] LABS: HEMOGLOBIN 6.6 g/dL (13.5-17.5)
[2022-11-08 04:41] LABS: ALBUMIN 1.9 g/dL (3.4-5.0); BILIRUBIN,TOTAL 0.5 mg/dL (0.2-1.0); CALCIUM, SERUM 8.9 mg/dL (8.5-10.1); CREATININE 1.1 mg/dL (0.6-1.3); POTASSIUM 3.2 mmol/L (3.5-5.1); TOTAL PROTEIN, SERUM 4.3 g/dL (6.4-8.2)
--- NOTE | 2022-11-08 05:15 | NUR ---
RN NOTES NOTIFIED DR KINGSLEY REGARDING PATIENT'S LATEST HGB- 6.6, HCT- 21 WITH NEW ORDER TRANSFUSE 1 UNIT PRBC NOTED AND CARRIED OUT.
[2022-11-08 05:37] LABS: BAND % (MANUAL) 4 % (0.0-5.0); BASOPHILS % (MANUAL) 0 % (0.0-2.0); EOSINOPHILS % (MANUAL) 3 % (0-4); LYMPHOCYTES % (MANUAL) 5 % (16-48); MONOCYTES % (MANUAL) 5 % (0-11.0); NEUTROPHILS % (MANUAL) 83 (42-76)
[2022-11-08] MEDS: PHENYLEPHRINE 100 MG in IV NS 0.9% 240 ML IV PRN (05:54)
--- NOTE | 2022-11-08 07:00 | NUR ---
RN OPENING NOTES RECEIVED PATIENT ON BED, ON TRACH, WITH VENT SETTINGS SD PRESCRIBEDAFEBRILE, NO S/S OF DISTRESS NOTED. NOTED WITH MERLENE PICC LINE. FLUSHED WITH NS. RUNNING WITH CHAVO @ 0.8 MCG/KG/MIN. NOTED WITH NGT ON THE RIGHT NARE PATENT AND INTACT, VERIFIED PLACEMENT BY AUSCULTATION, NO RESIDUAL NOTED UPON ASPIRATION RUNNING WITH NEPHRO @ 45 ML/HR, HEAD OF BED KEPT ELEVATED. RIGHT FEMORAL HD CATHETER, NO ACTIVE BLEEDING NOTED AT THIS TIME. PROJECT PROGRAM MANAGER REPORTED THAT HEMOGLOBIN IS AT 6.6 AND AWAITING 1PRBC TRANSFUSION. RIGHT LATERAL BODY CHOLECYSTOSTOMY, DRAINING WITH CLOUDY YELLOW OUTPUT, CONNECTED TO DRAINAGE BAG VIA GRAVITY. CHAMORRO CATHETER PATENT INTACT DRAINING WITH DARK YELLOW URINE VIA GRAVITY. ALL SAFETY PRECAUTION PROVIDED. BED IN LOWEST POSITION, LOCKED. CALL LIGHT WITH IN REACH.
[2022-11-08] MEDS: LEVOTHYROXINE SODIUM 50 MCG TABLET PO SCH (07:33)
--- NOTE | 2022-11-08 07:45 | NUR ---
RT NOTE PLACED PT ON SIMV MODE PER MD ORDER. NO SIGNS OF DISTRESS NOTED AT THIS TIME. RN NOTIFIED AND AWARE. WILL CONTINUE TO MONITOR FOR ANY CHANGES. Addendum: 11/08/22 at 0825 by JERROD BENSON RT Amended: Links added.
[2022-11-08] MEDS: SUCRALFATE 1 G/10 ML UDC GT SCH ×4 (08:15→21:47)
[2022-11-08] MEDS: FERROUS SULFATE (325 MG) 325 MG/TAB TABLET GT SCH ×3 (08:15→16:53)
[2022-11-08] MEDS: FINASTERIDE (5 MG) 5 MG TABLET GT SCH (08:15)
[2022-11-08] MEDS: HYDROCORTISONE SOD SUCCINATE 100 MG/2 ML VIAL IV SCH (08:15)
[2022-11-08] MEDS: ASCORBIC ACID 500 MG TABLET GT SCH (08:16)
[2022-11-08] MEDS: PROSOURCE / PROSTAT (PYXIS) 30 ML UDC PO SCH ×2 (08:16→16:53)
[2022-11-08] MEDS: ALLOPURINOL 100 MG TABLET GT SCH (08:16)
[2022-11-08] MEDS: DAKINS HALF STRENGTH (0.25%) 480 ML BOTTLE TOP SCH (08:16)
[2022-11-08] MEDS: MULTIVITAMINS,THERAGRAN 1 UDTAB TABLET PO SCH (08:16)
[2022-11-08] MEDS: PANTOPRAZOLE 40 MG/PACK PACK GT SCH ×2 (08:16→21:47)
[2022-11-08] MEDS: CLOTRIMAZOLE 1% 15 GM TUBE TP SCH ×2 (08:17→16:54)
[2022-11-08 09:03] LABS: ABG BASE EXCESS -2.4 mmol/L; ABG OXYGEN SATURATION 97.2 % (92.0-98.5); ABG PCO2 31.8 mmHg (35.0-45.0); ABG PH 7.444 (7.350-7.450); ABG PO2 95.6 mmHg (75.0-100.0); AaDO2 80.9 mmHg; COHb 0.7 % (0.5-1.5); MetHb 0.1 % (0.0-1.5); O2Hb 96.4 % (94.0-97.0); PEEP,BG 5 cm H2O; SITE, ABG Left Radial
--- NOTE | 2022-11-08 09:15 | NUR ---
RN NOTE PATIENT VENT SETTINGS SET TO SIMV
[2022-11-08] MEDS ORDERED: POTASSIUM CHLORIDE 20 MEQ POWDER PACKET ONE (11:54)
[2022-11-08] MEDS ORDERED: POTASSIUM CHLORIDE 20 MEQ POWDER PACKET GT ONE (12:00)
--- NOTE | 2022-11-08 12:21 | NUR ---
RN NOTE 40 MEQ POTASSIUM TOTAL GIVEN. ANOTHER ORDER FOR 20 MEQ NOT GIVEN BECAUSE IT WAS A DUPLICATE ERROR MADE. DUPLICATE ON EMAR WAS REJECTED.
[2022-11-08] MEDS: DIGOXIN ELIX UDC 0.25 MG/5 ML UDC GT SCH (12:46)
--- NOTE | 2022-11-08 14:10 | NUR ---
RN NOTE DIALYSIS STARTED. WENT TO GET 1PRBC BUT PROBLEM ON LABS END AND WAS TOLD TO RETURN IN 30
--- NOTE | 2022-11-08 14:59 | NUR ---
RN NOTE STARTED TO GIVE 1 UNIT PRBC WITH DIALYSIS
[2022-11-08] MEDS: IV NS 0.9% 250 ML IV PRN (18:42)
--- NOTE | 2022-11-08 19:16 | NUR ---
RN CLOSING NOTE PT REMAINS IN BED, OBTUNDED. PT WITH TRACH ON MECHANICAL VENTILATOR SIMV, FIO2 30% SAT 100% ON BEDSIDE MONITOR. HR 86 ON MONITOR. RIGHT CHOLECYSTECTOMY IN PLACE DRAINING 400 CC. CHAMORRO CATH IN PLACE DRAINING [address] RUNNING NEPRO AT 45ML/HR. RIGHT UA PICC AND RIGHT FEMORAL HD CATH IN PLACE. CHAVO RUNNING AT 0.2 MCG/KG/MIN, ALL DUE MEDS GIVEN, KEPT DRY AND CLEAN, BED LOCKED AND IN LOWEST POSITION, CALL LIGHT WITHIN REACH, 3 SIDE RAILS UP. WILL ENDORSE TO ORNAMENT STAPLER FOR CONTINUITY OF CARE.
[2022-11-09] VITALS (107 sets, daily range): BP systolic 82–123; BP diastolic 43–73
--- NOTE | 2022-11-09 | NUR ---
ICU/RN: PT NPO FOR PROCEDURE.
[2022-11-09 04:52] LABS: BASOPHILS # (AUTO) 0.1 K/uL (0.0-0.2); BASOPHILS % (AUTO) 0.4 % (0.0-2.0); EOSINOPHILS % (AUTO) 3.1 % (0.0-6.0); HEMATOCRIT 26 % (39-51); HEMOGLOBIN 8.3 g/dL (13.5-17.5); LYMPHOCYTES # (AUTO) 0.7 K/uL (0.8-4.8); LYMPHOCYTES % (AUTO) 5.1 % (20.0-44.0); MEAN CORPUSCULAR HGB CONC 32 g/dl (31.0-36.0); MEAN CORPUSCULAR VOLUME 93 fL (80-96); MONOCYTES # (AUTO) 0.7 K/uL (0.1-1.30); MONOCYTES % (AUTO) 5.4 % (2.0-12.0); NEUTROPHILS # (AUTO) 11.2 K/uL (1.8-8.9); PLATELET COUNT (AUTO) 74 K/uL (150-450); RED BLOOD CELL COUNT(AUTO) 2.82 MIL/uL (4.5-6.0)
[2022-11-09 05:08] LABS: D-DIMER 2.65 mg/L(FEU (0.17-0.50)
[2022-11-09 05:31] LABS: ALBUMIN 1.7 g/dL (3.4-5.0); BILIRUBIN,TOTAL 0.5 mg/dL (0.2-1.0); CALCIUM, SERUM 8.8 mg/dL (8.5-10.1); CREATININE 1.2 mg/dL (0.6-1.3); POTASSIUM 3.3 mmol/L (3.5-5.1); TOTAL PROTEIN, SERUM 4.2 g/dL (6.4-8.2)
--- NOTE | 2022-11-09 06:15 | NUR ---
ICU/RN: OBTAINED CONSENT FOR ACENESTHESIA FROM PTS . WITNESSED BY AIRLINE PILOT/FIRST OFFICERROSY MAYORGA.
[2022-11-09] MEDS ORDERED: LIDOCAINE HCL/MPF 1% 30 ML VIAL IJ ONE (06:21)
[2022-11-09] MEDS ORDERED: HEPARIN SODIUM, PORCINE 1,000 UNIT/ML VIAL ONE (06:23)
[2022-11-09] MEDS ORDERED: IOHEXOL 50 ML IV ONE (06:23)
[2022-11-09] MEDS: LEVOTHYROXINE SODIUM 50 MCG TABLET PO SCH (07:30)
[2022-11-09] MEDS: HYDROCORTISONE SOD SUCCINATE 100 MG/2 ML VIAL IV SCH (08:07)
--- NOTE | 2022-11-09 08:20 | NUR ---
TO Evangelista FRANZ FOR PERMACATH PLACEMENT.
[2022-11-09] MEDS: SUCRALFATE 1 G/10 ML UDC GT SCH ×4 (08:24→21:07)
[2022-11-09] MEDS: FINASTERIDE (5 MG) 5 MG TABLET GT SCH (08:25)
[2022-11-09] MEDS: FERROUS SULFATE (325 MG) 325 MG/TAB TABLET GT SCH ×3 (08:25→17:42)
[2022-11-09] MEDS: ASCORBIC ACID 500 MG TABLET GT SCH (08:25)
[2022-11-09] MEDS: PANTOPRAZOLE 40 MG/PACK PACK GT SCH ×2 (08:25→21:07)
[2022-11-09] MEDS: PROSOURCE / PROSTAT (PYXIS) 30 ML UDC PO SCH ×2 (08:25→17:42)
[2022-11-09] MEDS: ALLOPURINOL 100 MG TABLET GT SCH (08:25)
[2022-11-09] MEDS: MULTIVITAMINS,THERAGRAN 1 UDTAB TABLET PO SCH (08:26)
[2022-11-09] MEDS ORDERED: FENTANYL PF 100MCG/2ML AMPUL ONE (08:29)
--- NOTE | 2022-11-09 09:05 | NUR ---
ON POST-PERMACATH PLACEMENT MONITORING BY PACU-RN
--- NOTE | 2022-11-09 09:40 | NUR ---
REPORT GIVEN BY TIRE REPAIRER, POST PERMACATH PLACEMENT. CDI DRESSING RIGHT UPPER CHEST. NO SSX OF DISTRESS NOTED.
[2022-11-09] MEDS: DAKINS HALF STRENGTH (0.25%) 480 ML BOTTLE TOP SCH (10:00)
[2022-11-09] MEDS: CLOTRIMAZOLE 1% 15 GM TUBE TP SCH ×2 (10:01→17:51)
[2022-11-09] MEDS: PHENYLEPHRINE 100 MG in IV NS 0.9% 240 ML IV PRN (10:29)
[2022-11-09] MEDS: IV NS 0.9% 250 ML IV PRN (10:33)
[2022-11-09] MEDS: POTASSIUM CL. PREMIX PERIPHER. 50 ML IV SCH ×2 (11:11→12:11)
[2022-11-09 12:22] LABS: ABG BASE EXCESS -3.2 mmol/L; ABG OXYGEN SATURATION 97.4 % (92.0-98.5); ABG PCO2 32.1 mmHg (35.0-45.0); ABG PH 7.424 (7.350-7.450); ABG PO2 110.8 mmHg (75.0-100.0); AaDO2 65.4 mmHg; MetHb 0.1 % (0.0-1.5); O2Hb 97.3 % (94.0-97.0); SITE, ABG Left Radial; VENT MODE, BG CPAP PS15 +5 30%
[2022-11-09] MEDS: NEPRO 1,000 ML BOTTLE GT PRN (13:24)
[2022-11-09] MEDS: DIGOXIN ELIX UDC 0.25 MG/5 ML UDC GT SCH (13:26)
[2022-11-09] MEDS: ALBUMIN 25% 25 GM in PREMIX 1 EA IV PRN (16:57)
--- NOTE | 2022-11-09 19:38 | NUR ---
RCVD PT TRACHED WITH SHILEY 8 ON VENT W CPAP MODE , PEEP 5, FIO2 30% AND PS 15. SUCTIONED MODERATE AMOUNT OF REYNA THICK SECRETIONS. NO RESPIRATORY DISTRESS NOTED AT THIS TIME . WILL CONTINUE TO MONITOR T/O SHIFT.
[2022-11-09 20:01] LABS: BAND % (MANUAL) 6 % (0.0-5.0); EOSINOPHILS % (MANUAL) 8 % (0-4); LYMPHOCYTES % (MANUAL) 4 % (16-48); MONOCYTES % (MANUAL) 2 % (0-11.0); NEUTROPHILS % (MANUAL) 80 (42-76)
[2022-11-10] VITALS (103 sets, daily range): BP systolic 69–144; BP diastolic 45–79
[2022-11-10 04:44] LABS: BASOPHILS % (AUTO) 0.4 % (0.0-2.0); EOSINOPHILS % (AUTO) 3.9 % (0.0-6.0); HEMATOCRIT 24 % (39-51); HEMOGLOBIN 7.8 g/dL (13.5-17.5); LYMPHOCYTES # (AUTO) 0.4 K/uL (0.8-4.8); LYMPHOCYTES % (AUTO) 3.1 % (20.0-44.0); MEAN CORPUSCULAR HGB CONC 32 g/dl (31.0-36.0); MEAN CORPUSCULAR VOLUME 93 fL (80-96); MONOCYTES # (AUTO) 0.5 K/uL (0.1-1.30); MONOCYTES % (AUTO) 4.8 % (2.0-12.0); NEUTROPHILS # (AUTO) 9.9 K/uL (1.8-8.9); NEUTROPHILS % (AUTO) 87.8 % (43.0-81.0); PLATELET COUNT (AUTO) 57 K/uL (150-450); WHITE BLOOD COUNT (AUTO) 11.3 K/uL (4.3-11.0)
[2022-11-10 05:18] LABS: ALBUMIN 1.9 g/dL (3.4-5.0); BILIRUBIN,TOTAL 0.5 mg/dL (0.2-1.0); CREATININE 1.3 mg/dL (0.6-1.3); POTASSIUM 3.3 mmol/L (3.5-5.1); TOTAL PROTEIN, SERUM 4.3 g/dL (6.4-8.2)
[2022-11-10 05:56] LABS: BAND % (MANUAL) 5 % (0.0-5.0); EOSINOPHILS % (MANUAL) 5 % (0-4); LYMPHOCYTES % (MANUAL) 5 % (16-48); MONOCYTES % (MANUAL) 3 % (0-11.0); NEUTROPHILS % (MANUAL) 82 (42-76)
[2022-11-10 05:57] LABS: BASOPHILS % (MANUAL) 0 % (0.0-2.0)
--- NOTE | 2022-11-10 08:00 | NUR ---
RN NOTES RECEIVED PATIENT ON TRACHEA/ VENT DEPENDENT, AND NEW ORDER IS COOL AEROSOL TRIAL, RT NEXT TO THE BED TO CHANGE COOL AEROSOL 28%. RECHECKED NO RESIDUAL, NGT INTACT. PATIENT ON NORSYNEPHRINE 0.1MCG/KG/MIN, TITRATED PER PROTOCOL, NO SEDATION, GENERALIZED EDEMA , CHOLECYSTECTOMY TUBE DRAINING WELL , CHAMORRO DRAINING VIA GRAVITY. HR-84-114 AFIB, KEEP HOB ELEVATED FOR ASPIRATION PRECAUTION, PATIENT ON BARIATRIC BED. ASSIST TURN AND REPOSTION Q 2 HR. WILL FOLLOW UP.
[2022-11-10] MEDS: ASCORBIC ACID 500 MG TABLET GT SCH (08:32)
[2022-11-10] MEDS: PANTOPRAZOLE 40 MG/PACK PACK GT SCH ×2 (08:32→21:23)
[2022-11-10] MEDS: FERROUS SULFATE (325 MG) 325 MG/TAB TABLET GT SCH ×3 (08:32→17:41)
[2022-11-10] MEDS: SUCRALFATE 1 G/10 ML UDC GT SCH ×4 (08:32→21:23)
[2022-11-10] MEDS: ALLOPURINOL 100 MG TABLET GT SCH (08:32)
[2022-11-10] MEDS: PROSOURCE / PROSTAT (PYXIS) 30 ML UDC PO SCH ×2 (08:33→17:42)
[2022-11-10] MEDS: HYDROCORTISONE SOD SUCCINATE 100 MG/2 ML VIAL IV SCH (08:33)
[2022-11-10] MEDS: FINASTERIDE (5 MG) 5 MG TABLET GT SCH (08:33)
[2022-11-10] MEDS: LEVOTHYROXINE SODIUM 50 MCG TABLET PO SCH (08:33)
[2022-11-10] MEDS: MULTIVITAMINS,THERAGRAN 1 UDTAB TABLET PO SCH (08:33)
[2022-11-10] MEDS: CLOTRIMAZOLE 1% 15 GM TUBE TP SCH ×2 (08:35→17:42)
[2022-11-10] MEDS: DAKINS HALF STRENGTH (0.25%) 480 ML BOTTLE TOP SCH (08:35)
[2022-11-10] MEDS: IV NS 0.9% 250 ML IV PRN (10:05)
[2022-11-10] MEDS ORDERED: POTASSIUM CHLORIDE 20 MEQ POWDER PACKET NG SCH (10:30)
[2022-11-10] MEDS: DIGOXIN ELIX UDC 0.25 MG/5 ML UDC GT SCH (13:00)
--- NOTE | 2022-11-10 13:00 | NUR ---
RN NOTES NOT ADMINISTER DIGOXIN BECAUSE LOW PULSE 59 .
[2022-11-10] MEDS ORDERED: IV NS 0.9% 1,000 ML IV ONE (14:30)
--- NOTE | 2022-11-10 15:10 | NUR ---
rn notes patient getting HD at this time bp 113/57, p-78. will follow up.
[2022-11-10] MEDS: EPOETIN ALFA-EPBX 4,000 UNIT/ML VIAL SQ SCH (15:16)
--- NOTE | 2022-11-10 17:40 | NUR ---
RN NOTES FFINISHED HD AT THIS TIME OUTPUT WSA 1000ML BP 124/58, P-71, O2-100. WILL FOLLOW UP.
--- NOTE | 2022-11-10 18:30 | NUR ---
RN NOTES PM CARE DONE, SUCTION, MOUTH CARE DONE, DUE MEDICATION ADMINISTERED, TITRATED NEOSYNEPHRINE PER PROTOCOL 0.08MCG/KG/HR. RUNNING NEPRO @45 ML/HR. URINE OUTPUT WAS 280 ML, ASSIST TURN AND REPOSTION Q2 HR. ENDORSED ONCOMING NURSE NGUYỄN.
[2022-11-10] MEDS: NEPRO 1,000 ML BOTTLE GT PRN (19:03)
[2022-11-11] VITALS (97 sets, daily range): BP systolic 82–149; BP diastolic 40–74
[2022-11-11 05:08] LABS: BASOPHILS # (AUTO) 0.1 K/uL (0.0-0.2); BASOPHILS % (AUTO) 0.5 % (0.0-2.0); EOSINOPHILS % (AUTO) 5.5 % (0.0-6.0); HEMATOCRIT 23 % (39-51); HEMOGLOBIN 7.4 g/dL (13.5-17.5); LYMPHOCYTES # (AUTO) 0.6 K/uL (0.8-4.8); LYMPHOCYTES % (AUTO) 5.3 % (20.0-44.0); MEAN CORPUSCULAR HGB CONC 32 g/dl (31.0-36.0); MEAN CORPUSCULAR VOLUME 93 fL (80-96); MONOCYTES # (AUTO) 0.7 K/uL (0.1-1.30); NEUTROPHILS # (AUTO) 9.8 K/uL (1.8-8.9); NEUTROPHILS % (AUTO) 82.7 % (43.0-81.0); PLATELET COUNT (AUTO) 63 K/uL (150-450); WHITE BLOOD COUNT (AUTO) 11.9 K/uL (4.3-11.0)
[2022-11-11 05:11] LABS: ALBUMIN 1.7 g/dL (3.4-5.0); BILIRUBIN,TOTAL 0.5 mg/dL (0.2-1.0); CALCIUM, SERUM 8.4 mg/dL (8.5-10.1); CREATININE 1.1 mg/dL (0.6-1.3); POTASSIUM 3.2 mmol/L (3.5-5.1)
--- NOTE | 2022-11-11 07:22 | NUR ---
ICU/RN PT RECEIVED IN BED, OBTUNDED. PT WITH TPIECE 5L O2 28% FIO2 SAT 100%. CHAMORRO CATH IN PLACE. RIGHT ABD CHOLECYSTECTOMY DRAIN IN PLACE. NGT IN PLACE RUNNING NEPRO AT 45ML/HR. RIGHT UA PICC LINE, RIGHT FEMORAL HD CATH AND RIGHT SUBCLAVIAN PERMACATH IN PLACE. VASOPRESSOR OFF SINCE 2100 YESTERDAY, BLOOD PRESSURE STABLE. BED LOCKED AND IN LOWEST POSITION, CALL LIGHT WITHIN REACH, 3 SIDE RAILS UP.
[2022-11-11] MEDS: HYDROCORTISONE SOD SUCCINATE 100 MG/2 ML VIAL IV SCH (08:03)
[2022-11-11] MEDS: SUCRALFATE 1 G/10 ML UDC GT SCH ×4 (08:03→20:41)
[2022-11-11] MEDS: MULTIVITAMINS,THERAGRAN 1 UDTAB TABLET PO SCH (08:04)
[2022-11-11] MEDS: FINASTERIDE (5 MG) 5 MG TABLET GT SCH (08:04)
[2022-11-11] MEDS: PANTOPRAZOLE 40 MG/PACK PACK GT SCH ×2 (08:04→20:41)
[2022-11-11] MEDS: ALLOPURINOL 100 MG TABLET GT SCH (08:04)
[2022-11-11] MEDS: LEVOTHYROXINE SODIUM 50 MCG TABLET PO SCH (08:04)
[2022-11-11] MEDS: FERROUS SULFATE (325 MG) 325 MG/TAB TABLET GT SCH ×3 (08:04→16:01)
[2022-11-11] MEDS: ASCORBIC ACID 500 MG TABLET GT SCH (08:04)
[2022-11-11] MEDS: CLOTRIMAZOLE 1% 15 GM TUBE TP SCH ×2 (08:05→16:01)
[2022-11-11] MEDS: DAKINS HALF STRENGTH (0.25%) 480 ML BOTTLE TOP SCH (08:06)
[2022-11-11] MEDS: PROSOURCE / PROSTAT (PYXIS) 30 ML UDC PO SCH ×2 (08:08→16:01)
[2022-11-11] MEDS: PHENYLEPHRINE 100 MG in IV NS 0.9% 240 ML IV PRN (08:27)
[2022-11-11 10:58] LABS: BAND % (MANUAL) 5 % (0.0-5.0); BASOPHILS % (MANUAL) 0 % (0.0-2.0); EOSINOPHILS % (MANUAL) 2 % (0-4); LYMPHOCYTES % (MANUAL) 5 % (16-48); MONOCYTES % (MANUAL) 6 % (0-11.0); NEUTROPHILS % (MANUAL) 82 (42-76)
[2022-11-11] MEDS: IV NS 0.9% 250 ML IV PRN (11:21)
--- NOTE | 2022-11-11 12:00 | NUR ---
ICU/RN NGT CLOGGED. NEW NGT INSERTED. PLACEMENT VERIFIED BY 2 RNS.
[2022-11-11] MEDS ORDERED: POTASSIUM CHLORIDE 20 MEQ POWDER PACKET PO ONE (13:00)
[2022-11-11] MEDS: DIGOXIN ELIX UDC 0.25 MG/5 ML UDC GT SCH (14:18)
[2022-11-11] MEDS: NEPRO 1,000 ML BOTTLE GT PRN (15:16)
--- NOTE | 2022-11-11 20:00 | NUR ---
Pt. verbal bedside report received from off going day RN. Complete initial assessment rendered. court monitor intact with VS being taken q 15 min. Neosynephrine gtts. continue. Pt. within parameters set. T-piece intact with pt. Spo2 at 99%. Pt. sleeping/obtunded. Not opening eyes and resistant to pupil assessment. Details of assessment on flowsheet. Pt. monitored for acute distress.
--- NOTE | 2022-11-11 23:00 | NUR ---
Pt. cleansed of stool. Sacral decubiti and posterior thigh wounds cleansed of fecal matter. Pt. repositioned for comfort. Opens eyes to name at this time.
[2022-11-12] VITALS (95 sets, daily range): BP systolic 72–141; BP diastolic 41–72
[2022-11-12 04:54] LABS: BASOPHILS # (AUTO) 0.1 K/uL (0.0-0.2); BASOPHILS % (AUTO) 0.9 % (0.0-2.0); EOSINOPHILS % (AUTO) 6.6 % (0.0-6.0); HEMATOCRIT 24 % (39-51); HEMOGLOBIN 7.6 g/dL (13.5-17.5); LYMPHOCYTES # (AUTO) 0.6 K/uL (0.8-4.8); LYMPHOCYTES % (AUTO) 4.9 % (20.0-44.0); MEAN CORPUSCULAR HGB CONC 32 g/dl (31.0-36.0); MEAN CORPUSCULAR VOLUME 93 fL (80-96); MONOCYTES % (AUTO) 7.6 % (2.0-12.0); NEUTROPHILS # (AUTO) 10.6 K/uL (1.8-8.9); PLATELET COUNT (AUTO) 87 K/uL (150-450); WHITE BLOOD COUNT (AUTO) 13.2 K/uL (4.3-11.0)
[2022-11-12 05:18] LABS: ALBUMIN 1.7 g/dL (3.4-5.0); BILIRUBIN,TOTAL 0.5 mg/dL (0.2-1.0); CALCIUM, SERUM 8.5 mg/dL (8.5-10.1); CREATININE 1.1 mg/dL (0.6-1.3); POTASSIUM 3.5 mmol/L (3.5-5.1); TOTAL PROTEIN, SERUM 4.2 g/dL (6.4-8.2)
--- NOTE | 2022-11-12 07:27 | NUR ---
Pt. with no acute change in clinical status. Remains on Elijah at 0.3mcg/kg/min. for hemodynamic stability. Endorsed injury free. 2 siderails up.
--- NOTE | 2022-11-12 07:33 | NUR ---
ICU/RN PT RECEIVED IN BED, OBTUNDED. PT WITH TPIECE 5L O2 28% FIO2 SAT 100%. CHAMORRO CATH IN PLACE. RIGHT ABD CHOLECYSTECTOMY DRAIN IN PLACE. NGT IN PLACE RUNNING NEPRO AT 45ML/HR. RIGHT UA PICC LINE, RIGHT FEMORAL HD CATH AND RIGHT SUBCLAVIAN PERMACATH IN PLACE. CHAVO DRIP RUNNING AT 0.3MCG/KG/MIN FOR BP SUPPORT. BED LOCKED AND IN LOWEST POSITION, CALL LIGHT WITHIN REACH, 3 SIDE RAILS UP.
[2022-11-12] MEDS: ASCORBIC ACID 500 MG TABLET GT SCH (08:04)
[2022-11-12] MEDS: SUCRALFATE 1 G/10 ML UDC GT SCH ×4 (08:04→21:16)
[2022-11-12] MEDS: PANTOPRAZOLE 40 MG/PACK PACK GT SCH ×2 (08:04→21:16)
[2022-11-12] MEDS: FERROUS SULFATE (325 MG) 325 MG/TAB TABLET GT SCH ×3 (08:04→16:41)
[2022-11-12] MEDS: HYDROCORTISONE SOD SUCCINATE 100 MG/2 ML VIAL IV SCH (08:04)
[2022-11-12] MEDS: FINASTERIDE (5 MG) 5 MG TABLET GT SCH (08:04)
[2022-11-12] MEDS: PROSOURCE / PROSTAT (PYXIS) 30 ML UDC PO SCH ×2 (08:04→16:41)
[2022-11-12] MEDS: LEVOTHYROXINE SODIUM 50 MCG TABLET PO SCH (08:04)
[2022-11-12] MEDS: MULTIVITAMINS,THERAGRAN 1 UDTAB TABLET PO SCH (08:04)
[2022-11-12] MEDS: ALLOPURINOL 100 MG TABLET GT SCH (08:04)
[2022-11-12] MEDS: CLOTRIMAZOLE 1% 15 GM TUBE TP SCH ×2 (08:05→16:54)
[2022-11-12] MEDS: IV NS 0.9% 250 ML IV PRN (09:08)
[2022-11-12] MEDS: DAKINS HALF STRENGTH (0.25%) 480 ML BOTTLE TOP SCH (10:31)
[2022-11-12] MEDS: DIGOXIN ELIX UDC 0.25 MG/5 ML UDC GT SCH (12:08)
[2022-11-12] MEDS: NEPRO 1,000 ML BOTTLE GT PRN (12:14)
[2022-11-12] MEDS: PHENYLEPHRINE 100 MG in IV NS 0.9% 240 ML IV PRN (14:44)
[2022-11-12 21:33] LABS: EOSINOPHILS % (MANUAL) 6 % (0-4); LYMPHOCYTES % (MANUAL) 11 % (16-48); MONOCYTES % (MANUAL) 8 % (0-11.0); NEUTROPHILS % (MANUAL) 75 (42-76)
--- NOTE | 2022-11-12 22:30 | NUR ---
Pt. respirations manually counted at 44bpm. Pt. flushed. Sx. for fung secretions. BUSINESS OFFICE ASSISTANT paged and to bedside for eval. HR 155-130. Low grade fever at 100.0. This episode lasted approx. 15 min. Pt. continues to saturate at 98%. Will get ABG if he begins to desaturate to low 90's. tylenol given for discomfort . At this present time pt. is resting more comfortale. No longer gasping for air and heart rate 96-111.
[2022-11-12] MEDS: ACETAMINOPHEN 650 MG/20.3 ML UDC GT PRN (22:40)
[2022-11-13] VITALS (87 sets, daily range): BP systolic 80–130; BP diastolic 44–90
[2022-11-13 04:49] LABS: BASOPHILS # (AUTO) 0.1 K/uL (0.0-0.2); BASOPHILS % (AUTO) 0.6 % (0.0-2.0); EOSINOPHILS % (AUTO) 7.8 % (0.0-6.0); HEMATOCRIT 25 % (39-51); HEMOGLOBIN 8.1 g/dL (13.5-17.5); LYMPHOCYTES # (AUTO) 0.5 K/uL (0.8-4.8); LYMPHOCYTES % (AUTO) 4.3 % (20.0-44.0); MEAN CORPUSCULAR HGB CONC 32 g/dl (31.0-36.0); MEAN CORPUSCULAR VOLUME 93 fL (80-96); MONOCYTES # (AUTO) 0.8 K/uL (0.1-1.30); MONOCYTES % (AUTO) 6.4 % (2.0-12.0); NEUTROPHILS # (AUTO) 10.1 K/uL (1.8-8.9); NEUTROPHILS % (AUTO) 80.9 % (43.0-81.0); PLATELET COUNT (AUTO) 78 K/uL (150-450); RED BLOOD CELL COUNT(AUTO) 2.74 MIL/uL (4.5-6.0); WHITE BLOOD COUNT (AUTO) 12.5 K/uL (4.3-11.0)
[2022-11-13 05:04] LABS: ALBUMIN 1.7 g/dL (3.4-5.0); BILIRUBIN,TOTAL 0.5 mg/dL (0.2-1.0); CALCIUM, SERUM 8.7 mg/dL (8.5-10.1); CREATININE 1.2 mg/dL (0.6-1.3); POTASSIUM 3.3 mmol/L (3.5-5.1); TOTAL PROTEIN, SERUM 4.2 g/dL (6.4-8.2)
--- NOTE | 2022-11-13 07:24 | NUR ---
Pt. resting without further acute change in status. Elijah increased to 0.5mcg/kg/min. as SBP frquents 80s Wound care to sacrum completed. Priti applied as orderd. Endorsed to oncoming AM RN injury free.
--- NOTE | 2022-11-13 07:37 | NUR ---
RN OPENING NOTES RECEIVED REPORT FROM [facility] ROSY NAJERA. PATIENT REMAINS IN BED ON COOL AEROSOL VIA TRACH. [id number] WELL EVIDENCED BY OXYGEN SATURATION AT 100%. BEDSIDE MONITOR SHOWING SINUS RHYTHM AT THIS TIME. PATIENT REMAINS OBTUNDED. CHAMORRO DRAINING OUTPUT. TRINI DRAIN ATTACHED, 100 ML OF OUTPUT OVERNIGHT. WOUND DRESSING INTACT. NASOGASTRIC TUBE ON RIGHT NARE RUNNING NEPRO ORDERED, NO RESIDUAL. IV ACCESS MAINTAINED ON RIGHT UPPER ARM PICC LINE RUNNING CHAVO ORDERED. HEMODIALYSIS ACCESS ON RIGHT FEMORAL AND RIGHT UPPER CHEST. SAFETY MEASURES IMPLEMENTED, WILL CONTINUE PLAN OF CARE AND ANTICIPATE NEEDS.
[2022-11-13] MEDS: LEVOTHYROXINE SODIUM 50 MCG TABLET PO SCH (07:51)
--- NOTE | 2022-11-13 08:08 | NUR ---
rn notes per Dr Bennett order Midodrine 10mg tid, order taken and carried out.
[2022-11-13 08:41] LABS: BAND % (MANUAL) 2 % (0.0-5.0); EOSINOPHILS % (MANUAL) 6 % (0-4); LYMPHOCYTES % (MANUAL) 4 % (16-48); MONOCYTES % (MANUAL) 10 % (0-11.0); NEUTROPHILS % (MANUAL) 77 (42-76); REACTIVE LYMPHOCYTES 1 % (0-0)
[2022-11-13] MEDS: FINASTERIDE (5 MG) 5 MG TABLET GT SCH (08:44)
[2022-11-13] MEDS: MULTIVITAMINS,THERAGRAN 1 UDTAB TABLET PO SCH (08:44)
[2022-11-13] MEDS: PROSOURCE / PROSTAT (PYXIS) 30 ML UDC PO SCH (08:44)
[2022-11-13] MEDS: ASCORBIC ACID 500 MG TABLET GT SCH (08:44)
[2022-11-13] MEDS: PANTOPRAZOLE 40 MG/PACK PACK GT SCH ×2 (08:44→20:36)
[2022-11-13] MEDS: ALLOPURINOL 100 MG TABLET GT SCH (08:44)
[2022-11-13] MEDS: SUCRALFATE 1 G/10 ML UDC GT SCH ×4 (08:44→20:36)
[2022-11-13] MEDS: FERROUS SULFATE (325 MG) 325 MG/TAB TABLET GT SCH ×3 (08:44→17:03)
[2022-11-13] MEDS: CLOTRIMAZOLE 1% 15 GM TUBE TP SCH ×2 (08:45→17:04)
[2022-11-13] MEDS: DAKINS HALF STRENGTH (0.25%) 480 ML BOTTLE TOP SCH (08:45)
[2022-11-13] MEDS ORDERED: MIDODRINE HCL (5MG) 5 MG TABLET PO SCH (09:00)
[2022-11-13] MEDS: IV NS 0.9% 250 ML IV PRN (09:29)
[2022-11-13] MEDS ORDERED: GUAIFENESIN/CODEINE 10 ML UDC GT PRN (11:06)
[2022-11-13] MEDS ORDERED: POTASSIUM CHLORIDE 20 MEQ POWDER PACKET GT ONE (11:30)
[2022-11-13] MEDS: DIGOXIN ELIX UDC 0.25 MG/5 ML UDC GT SCH (12:36)
[2022-11-13] MEDS: MIDODRINE HCL (5MG) 5 MG TABLET GT SCH ×2 (12:36→17:03)
[2022-11-13] MEDS: NEPRO 1,000 ML BOTTLE GT PRN (12:49)
[2022-11-13] MEDS: PROSOURCE / PROSTAT (PYXIS) 30 ML UDC GT SCH (17:04)
--- NOTE | 2022-11-13 18:47 | NUR ---
HAND OFF REPORT GIVEN TO [facility] ROSY TODD FOR CONTINUATION OF CARE.
--- NOTE | 2022-11-13 20:28 | NUR ---
BLOCK BOLTER MULE OPERATOR OPENING NOTE PT RECEIVED IN BED, OBTUNDED. NOTED TO HAVE TRACH WITH COOL AEROSOL AT 5L AND FIO2 OF 28%; NO S/S OF RESP DISTRESS, NO COUGH OR SOB, NON-LABORED AND EQUAL BREATHING. PT ATTACHED TO BEDSIDE MONITOR, CURRENTLY SR WITH PVCS AND HR OF 93. CHAMORRO INTACT AND PATENT, DRAINING GARFIELD AND CLEAR URINE. CHOLECYSTOSTOMY IN PLACE, INTACT AND PATENT, DRAINING SEROSANGUINEOUS. NGT IN RIGHT NARE AT 60 CM WITH NEPRO INFUSING AT 45 ML/HR; NO RESIDUAL NOTED. MERLENE PICC INTACT AND PATENT, FLUSHES EASILY WITH NO RESISTANCE; CHAVO AT 0.7 MCG AND NS TKO. BED IN LOWEST POSITION, CALL LIGHT WITHIN REACH, SIDE RAILS UP X3. WILL CONTINUE TO MONITOR THROUGHOUT THE NIGHT.
[2022-11-14] VITALS (90 sets, daily range): BP systolic 83–135; BP diastolic 42–71
[2022-11-14 04:19] LABS: CALCIUM, SERUM 8.8 mg/dL (8.5-10.1); CREATININE 1.4 mg/dL (0.6-1.3); POTASSIUM 3.5 mmol/L (3.5-5.1)
[2022-11-14] MEDS: IV NS 0.9% 250 ML IV PRN (05:23)
[2022-11-14] MEDS: PHENYLEPHRINE 100 MG in IV NS 0.9% 240 ML IV PRN (05:40)
--- NOTE | 2022-11-14 06:36 | NUR ---
SUPERVISOR FIBERGLASS BOAT ASSEMBLY CLOSING NOTE PT REMAINS IN BED, OBTUNDED, OPENS EYES TO TOUCH AND PAIN. CONTINUES TO BE ON T-PIECE AT 5L WITH FIO2 28%; O2SAT RANGED FROM 93%-100%; NO S/S OF RESP DISTRESS, NO SOB OR COUGH, NON-LABORED AND EQUAL BREATHING. ATTACHED TO BEDSIDE MONITOR NOTED TO BE SR, ST, SINUS ARRHYTHMIA WITH PVCS AND PACS THROUGHOUT THE NIGHT; HR RANGED FROM 73-105. CHAMORRO INTACT AND PATENT, DRAINING GARFIELD AND CLEAR URINE. CHOLECYSTOSTOMY INTACT AND PATENT DRAINING SEROSANGUINEOUS. NGT IN RIGHT NARE INTACT AND PATENT, NEPRO INFUSING AT 45 ML/HR, TOLERATING FEEDING WELL WITH NO RESIDUALS. MERLENE PICC INTACT AND PATENT, CHAVO AT 0.5 MCG/KG/MIN AND NS TKO. WOUNDS CLEANSED AND NEW DRESSINGS APPLIED. ALL DUE MEDS ADMINISTERED DURING THE NIGHT. BED IN LOWEST POSITION CALL LIGHT WITHIN REACH, SIDE RAILS UP X3. WILL ENDORSE TO DAYSHIFT NURSE TO CONTINUE CARE.
[2022-11-14] MEDS: FINASTERIDE (5 MG) 5 MG TABLET GT SCH (08:08)
[2022-11-14] MEDS: PANTOPRAZOLE 40 MG/PACK PACK GT SCH ×2 (08:08→20:42)
[2022-11-14] MEDS: FERROUS SULFATE (325 MG) 325 MG/TAB TABLET GT SCH ×3 (08:09→17:33)
[2022-11-14] MEDS: MIDODRINE HCL (5MG) 5 MG TABLET GT SCH ×3 (08:09→17:33)
[2022-11-14] MEDS: ASCORBIC ACID 500 MG TABLET GT SCH (08:09)
[2022-11-14] MEDS: MULTIVITAMINS,THERAGRAN 1 UDTAB TABLET GT SCH (08:09)
[2022-11-14] MEDS: SUCRALFATE 1 G/10 ML UDC GT SCH ×4 (08:09→20:42)
[2022-11-14] MEDS: LEVOTHYROXINE SODIUM 50 MCG TABLET GT SCH (08:09)
[2022-11-14] MEDS: PROSOURCE / PROSTAT (PYXIS) 30 ML UDC GT SCH ×2 (08:10→17:34)
[2022-11-14] MEDS: ALLOPURINOL 100 MG TABLET GT SCH (08:10)
[2022-11-14] MEDS: DAKINS HALF STRENGTH (0.25%) 480 ML BOTTLE TOP SCH (08:11)
[2022-11-14] MEDS: CLOTRIMAZOLE 1% 15 GM TUBE TP SCH ×2 (08:25→17:34)
[2022-11-14] MEDS ORDERED: IV NS 0.9% 1,000 ML IV ONE (08:30)
[2022-11-14] MEDS ORDERED: MEROPENEM 500 MG in IV NS 0.9% 50 ML IV SCH (09:00)
[2022-11-14] MEDS ORDERED: VANCOMYCIN POST DIALYSIS 500MG IV PRN ×2 (11:00)
[2022-11-14] MEDS ORDERED: VANCOMYCIN 1 GM in IV D5W 250 ML IV ONE (13:00)
[2022-11-14] MEDS: MEROPENEM 500 MG in IV NS 0.9% 50 ML IV SCH (14:13)
[2022-11-14] MEDS: DIGOXIN ELIX UDC 0.25 MG/5 ML UDC GT SCH (14:14)
--- NOTE | 2022-11-14 18:00 | NUR ---
Am Shift RN CLOSING NOTE: PT REMAINS IN BED, OBTUNDED, OPENS EYES TO TOUCH AND PAIN. REMAINS ON T-PIECE AT 5L WITH FIO2 28%; O2SAT RANGED FROM 93%-100%; NO S/S OF RESP DISTRESS, NO SOB OR COUGH, NON-LABORED AND EQUAL BREATHING. CHERRY DIPPER NOTED TO BE SR & ST, WITH PVCS AND PACS HR 70'S-100'S. CHAMORRO INTACT AND PATENT, CHOLECYSTOSTOMY INTACT AND PATENT DRAINING SEROSANGUINEOUS. NGT IN RIGHT NARE INTACT AND PATENT, NEPRO INFUSING AT 45 ML/HR, TOLERATING FEEDING WELL WITH NO RESIDUALS. MERLENE PICC INTACT AND PATENT, PT REMAINS ON CHAVO AT 0.5 MCG/KG/MIN AND NS TKO. PT HD DONE TODAY WITH 1000 OUTPUT
--- NOTE | 2022-11-14 20:30 | NUR ---
SAW TAILER OPENING NOTE PT RECEIVED IN BED, OBTUNDED, OPENS EYES. PT ON T-PIECE COOL AEROSOL AT 5L FIO2 AT 28% WITH CURRENT O2SAT OF 99%; NO S/S OF RESP DISTRESS, NO SOB OR COUGH, NON-LABORED AND EQUAL BREATHING. PT ATTACHED TO BEDSIDE MONITOR, CURRENTLY ST WITH HR OF 100. CHAMORRO INTACT AND PATENT, DRAINING GARFIELD AND CLEAR URINE. CHOLECYSTOSTOMY IN PLACE WITH YELLOWISH DRAINAGE. NGT IN RIGHT NARE AT 60 CM WITH NEPRO AT 50 ML/HR; NO RESIDUAL NOTED. MERLENE PICC INTACT AND PATENT, WITH NS TKO AND CHAVO CURRENTLY AT 0.6 MCG/KG/MIN. BED IN LOWEST POSITION, CALL LIGHT WITHIN REACH, SIDE RAILS UP X3. WILL CONTINUE TO MONITOR THROUGHOUT THE NIGHT.
--- NOTE | 2022-11-14 22:07 | NUR ---
RN NOTE PHYSICAL COPY OF SPUTUM CULTURE ORDER FAXED OVER TO LAB.
[2022-11-14] MEDS: NEPRO 1,000 ML BOTTLE NG PRN (22:29)
[2022-11-15] VITALS (96 sets, daily range): BP systolic 78–149; BP diastolic 39–73
[2022-11-15] MEDS: PHENYLEPHRINE 100 MG in IV NS 0.9% 240 ML IV PRN (03:08)
[2022-11-15 04:42] LABS: BASOPHILS # (AUTO) 0.2 K/uL (0.0-0.2); BASOPHILS % (AUTO) 1.1 % (0.0-2.0); EOSINOPHILS % (AUTO) 13.1 % (0.0-6.0); HEMATOCRIT 23 % (39-51); HEMOGLOBIN 7.3 g/dL (13.5-17.5); LYMPHOCYTES # (AUTO) 0.6 K/uL (0.8-4.8); LYMPHOCYTES % (AUTO) 3.5 % (20.0-44.0); MEAN CORPUSCULAR HGB CONC 32 g/dl (31.0-36.0); MEAN CORPUSCULAR VOLUME 93 fL (80-96); MONOCYTES # (AUTO) 0.7 K/uL (0.1-1.30); MONOCYTES % (AUTO) 4.7 % (2.0-12.0); NEUTROPHILS # (AUTO) 12.3 K/uL (1.8-8.9); NEUTROPHILS % (AUTO) 77.6 % (43.0-81.0); PLATELET COUNT (AUTO) 85 K/uL (150-450); RED BLOOD CELL COUNT(AUTO) 2.48 MIL/uL (4.5-6.0); WHITE BLOOD COUNT (AUTO) 15.9 K/uL (4.3-11.0)
[2022-11-15 05:32] LABS: CALCIUM, SERUM 8.8 mg/dL (8.5-10.1); CREATININE 1.3 mg/dL (0.6-1.3); POTASSIUM 3.3 mmol/L (3.5-5.1)
[2022-11-15] MEDS: IV NS 0.9% 250 ML IV PRN (05:41)
--- NOTE | 2022-11-15 06:26 | NUR ---
VP TRAINING CLOSING NOTE PT REMAINS IN BED, OBTUNDED. TOLERATED T-PIECE WELL AT 5L AND FIO2 28%; O2SAT RANGED FROM 95%-100%. SR,ST, SINUS ARRHYTHMIA WITH PVCS AND PACS WITH HR 84-109. CHAMORRO AND CHOLECYSTOSTOMY INTACT AND PATENT, DRAINING WELL. NEPRO CONTINUES TO INFUSE IN RIGHT NGT AT 50 ML/HR; TOLERATED NEW RATE SETTINGS WELL WITH NO RESIDUALS NOTED. CHAVO INFUSING AT 0.4 MCG/KG/MIN AND NS TKO. WOUNDS CLEANSED AND NEW DRESSINGS APPLIED. ALL DUE MEDS ADMINISTERED DURING THE NIGHT. BED IN LOWEST POSITION, CALL LIGHT WITHIN REACH, SIDE RAILS UP X3. WILL ENDORSE TO DAYSHIFT NURSE TO CONTINUE CARE.
[2022-11-15] MEDS: MIDODRINE HCL (5MG) 5 MG TABLET GT SCH ×3 (08:07→17:14)
[2022-11-15] MEDS: LEVOTHYROXINE SODIUM 50 MCG TABLET GT SCH (08:07)
[2022-11-15] MEDS: FINASTERIDE (5 MG) 5 MG TABLET GT SCH (08:07)
[2022-11-15] MEDS: ALLOPURINOL 100 MG TABLET GT SCH (08:08)
[2022-11-15] MEDS: DAKINS HALF STRENGTH (0.25%) 480 ML BOTTLE TOP SCH (08:08)
[2022-11-15] MEDS: FERROUS SULFATE (325 MG) 325 MG/TAB TABLET GT SCH ×3 (08:08→17:14)
[2022-11-15] MEDS: PANTOPRAZOLE 40 MG/PACK PACK GT SCH ×2 (08:08→21:43)
[2022-11-15] MEDS: ASCORBIC ACID 500 MG TABLET GT SCH (08:08)
[2022-11-15] MEDS: MULTIVITAMINS,THERAGRAN 1 UDTAB TABLET GT SCH (08:08)
[2022-11-15] MEDS: CLOTRIMAZOLE 1% 15 GM TUBE TP SCH ×2 (08:09→17:15)
[2022-11-15] MEDS: SUCRALFATE 1 G/10 ML UDC GT SCH ×4 (08:09→21:43)
[2022-11-15] MEDS: PROSOURCE / PROSTAT (PYXIS) 30 ML UDC GT SCH ×2 (08:10→17:14)
[2022-11-15] MEDS ORDERED: POTASSIUM CHLORIDE 20 MEQ POWDER PACKET NG SCH (09:00)
[2022-11-15] MEDS ORDERED: IV NS 0.9% 1,000 ML IV ONE (09:30)
[2022-11-15 12:55] LABS: BAND % (MANUAL) 5 % (0.0-5.0); EOSINOPHILS % (MANUAL) 16 % (0-4); LYMPHOCYTES % (MANUAL) 3 % (16-48); MONOCYTES % (MANUAL) 10 % (0-11.0); NEUTROPHILS % (MANUAL) 66 (42-76)
[2022-11-15] MEDS: MEROPENEM 500 MG in IV NS 0.9% 50 ML IV SCH (13:44)
[2022-11-15] MEDS: DIGOXIN ELIX UDC 0.25 MG/5 ML UDC GT SCH (13:45)
[2022-11-15] MEDS ORDERED: VANCOMYCIN 1 GM in IV D5W 250ml IV ONE (15:00)
[2022-11-15 15:03] LABS: D-DIMER 3.06 mg/L(FEU (0.17-0.50)
[2022-11-16] VITALS (95 sets, daily range): BP systolic 69–135; BP diastolic 20–75
[2022-11-16] MEDS: IV NS 0.9% 250 ML IV PRN (02:28)
[2022-11-16] MEDS: PHENYLEPHRINE 100 MG in IV NS 0.9% 240 ML IV PRN (02:29)
--- NOTE | 2022-11-16 02:48 | NUR ---
ICU/RN: PICC LINE DRESSING CHANGED.
[2022-11-16 03:55] LABS: BASOPHILS # (AUTO) 0.1 K/uL (0.0-0.2); BASOPHILS % (AUTO) 0.9 % (0.0-2.0); EOSINOPHILS % (AUTO) 14.6 % (0.0-6.0); HEMATOCRIT 21 % (39-51); LYMPHOCYTES # (AUTO) 0.6 K/uL (0.8-4.8); LYMPHOCYTES % (AUTO) 4.1 % (20.0-44.0); MEAN CORPUSCULAR HGB CONC 32 g/dl (31.0-36.0); MEAN CORPUSCULAR VOLUME 93 fL (80-96); MONOCYTES # (AUTO) 0.7 K/uL (0.1-1.30); MONOCYTES % (AUTO) 5.1 % (2.0-12.0); NEUTROPHILS # (AUTO) 10.8 K/uL (1.8-8.9); NEUTROPHILS % (AUTO) 75.3 % (43.0-81.0); PLATELET COUNT (AUTO) 73 K/uL (150-450); WHITE BLOOD COUNT (AUTO) 14.3 K/uL (4.3-11.0)
[2022-11-16 04:05] LABS: HEMOGLOBIN 6.8 g/dL (13.5-17.5)
[2022-11-16 04:06] LABS: D-DIMER 1.52 mg/L(FEU (0.17-0.50)
[2022-11-16 04:07] LABS: CALCIUM, SERUM 8.2 mg/dL (8.5-10.1); CREATININE 1.2 mg/dL (0.6-1.3); POTASSIUM 3.6 mmol/L (3.5-5.1)
[2022-11-16] MEDS ORDERED: VANCOMYCIN POST DIALYSIS 500MG IV PRN ×2 (05:00)
[2022-11-16] MEDS: NEPRO 1,000 ML BOTTLE NG PRN (06:12)
--- NOTE | 2022-11-16 06:26 | NUR ---
ICU/RN: CRITICAL HEMOGLOBIN 6.8 REPORTED TO FRANCIA PEDRO. NEW ORDER FOR 1 UNIT PRBC WITH DIALYSIS.
[2022-11-16] MEDS: ASCORBIC ACID 500 MG TABLET GT SCH (08:24)
[2022-11-16] MEDS: LEVOTHYROXINE SODIUM 50 MCG TABLET GT SCH (08:24)
[2022-11-16] MEDS: FERROUS SULFATE (325 MG) 325 MG/TAB TABLET GT SCH ×3 (08:24→16:43)
[2022-11-16] MEDS: ALLOPURINOL 100 MG TABLET GT SCH (08:24)
[2022-11-16] MEDS: FINASTERIDE (5 MG) 5 MG TABLET GT SCH (08:24)
[2022-11-16] MEDS: MIDODRINE HCL (5MG) 5 MG TABLET GT SCH ×3 (08:24→16:43)
[2022-11-16] MEDS: SUCRALFATE 1 G/10 ML UDC GT SCH ×4 (08:25→21:36)
[2022-11-16] MEDS: PANTOPRAZOLE 40 MG/PACK PACK GT SCH ×2 (08:25→21:36)
[2022-11-16] MEDS: DAKINS HALF STRENGTH (0.25%) 480 ML BOTTLE TOP SCH (08:26)
[2022-11-16] MEDS: PROSOURCE / PROSTAT (PYXIS) 30 ML UDC GT SCH ×2 (08:26→16:43)
[2022-11-16] MEDS: MULTIVITAMINS,THERAGRAN 1 UDTAB TABLET GT SCH (08:26)
[2022-11-16] MEDS: CLOTRIMAZOLE 1% 15 GM TUBE TP SCH ×2 (08:27→16:44)
[2022-11-16] MEDS: DIGOXIN ELIX UDC 0.25 MG/5 ML UDC GT SCH (12:12)
[2022-11-16] MEDS: MEROPENEM 500 MG in IV NS 0.9% 50 ML IV SCH (12:42)
[2022-11-16 15:25] LABS: BAND % (MANUAL) 11 % (0.0-5.0); EOSINOPHILS % (MANUAL) 13 % (0-4); LYMPHOCYTES % (MANUAL) 4 % (16-48); METAMYELOCYTES % 1 % (0-0); MONOCYTES % (MANUAL) 4 % (0-11.0); NEUTROPHILS % (MANUAL) 67 (42-76)
--- NOTE | 2022-11-16 19:31 | NUR ---
RECYCLABLE MATERIALS COLLECTOR INITIAL ASSESSMENT. RECEIVED TRANSMISSION REPAIRER SHOWING THE PT REST IN BED. TRACH TO VENT CONNECTED. TRACH SHILEY#8. OXYGEN 28%. SAT 100%. TRANSMISSION REPAIRER SHOWING A FIB. IV RT UPPER ARM PICC LINE. CHAVO 0.1 MCG/KG/MIN. RT SUBCLAVIAN HD CATH . NGT INTACT. NEPRO 50 ML/H. HOB ELEVATED. FC PATENT.CHOLECYSTOSTOMY TUBE INTACT. HOB ELEVATED. CHAVO 0.1 MCG/KG/MIN, WILL CONTINUE TO MONITOR VITALS.
--- NOTE | 2022-11-16 20:07 | NUR ---
RECEIVED PT TRACH ON COOL AEROSOL 28%. SX'D MODERATE AMT OF THICK REYNA SECRETIONS. PT HAS TARA 8 TRACH. NO RESP DISTRESS. CONTINUE TO MONITOR. Addendum: 11/16/22 at 2009 by JOAN ANGELES RT Amended: Links added.
[2022-11-17] VITALS (79 sets, daily range): BP systolic 74–139; BP diastolic 44–75
[2022-11-17] MEDS: IV NS 0.9% 250 ML IV PRN ×2 (04:24→23:15)
[2022-11-17 04:38] LABS: BASOPHILS # (AUTO) 0.1 K/uL (0.0-0.2); BASOPHILS % (AUTO) 0.8 % (0.0-2.0); EOSINOPHILS % (AUTO) 10.1 % (0.0-6.0); HEMATOCRIT 26 % (39-51); HEMOGLOBIN 8.5 g/dL (13.5-17.5); LYMPHOCYTES # (AUTO) 0.5 K/uL (0.8-4.8); LYMPHOCYTES % (AUTO) 3.1 % (20.0-44.0); MEAN CORPUSCULAR HGB CONC 32 g/dl (31.0-36.0); MEAN CORPUSCULAR VOLUME 89 fL (80-96); MONOCYTES # (AUTO) 0.7 K/uL (0.1-1.30); MONOCYTES % (AUTO) 4.4 % (2.0-12.0); NEUTROPHILS # (AUTO) 13.2 K/uL (1.8-8.9); NEUTROPHILS % (AUTO) 81.6 % (43.0-81.0); PLATELET COUNT (AUTO) 70 K/uL (150-450); RED BLOOD CELL COUNT(AUTO) 2.96 MIL/uL (4.5-6.0); WHITE BLOOD COUNT (AUTO) 16.2 K/uL (4.3-11.0)
[2022-11-17 04:53] LABS: CALCIUM, SERUM 8.4 mg/dL (8.5-10.1); CREATININE 1.3 mg/dL (0.6-1.3); POTASSIUM 3.6 mmol/L (3.5-5.1)
--- NOTE | 2022-11-17 06:47 | NUR ---
agricultural economist. am care given. remaining same oxygen tolerated well. sat 98%. no acute distress noted. monitoring analyst showing s tach. hob elevated. npo. possible gt placement. fc patent. cholecystostomy drain intact. hob elevated, turn and reposition q2h. will continue to monitor vitals.
--- NOTE | 2022-11-17 07:29 | NUR ---
ICU/RN PT RECEIVED IN BED, OBTUNDED. PT WITH TPIECE 5L O2 28% FIO2 SAT 100% ON BEDSIDE MONITOR. A-FIB HR IN THE 100S ON MONITOR. NGT IN PLACE, FEEDING HELD SINCE 0600 FOR POSSIBLE PEG PLACEMENT TODAY. PT REMAINS ON CHAVO AT 0.3MCG/KG/MIN AT THIS TIME FOR BP SUPPORT. RIGHT UA PICC LINE AND RIGHT CHEST WALL PERMACATH IN PLACE. BED LOCKED AND IN LOWEST POSITION, CALL LIGHT WITHIN REACH, 3 SIDE RAILS UP.
--- NOTE | 2022-11-17 07:32 | NUR ---
WOUND CARE CONSULT: PT SEEN FOR RT NECK SKIN TEAR. RECOMMENDATIONS MADE FOR SKIN PROTECTION AND WOUND TREATMENT. DISCUSSED WITH NURSING STAFF AND SURGICAL TEAM CURRENTLY ON CASE. MD IN AGREEMENT WITH PLAN OF CARE.
[2022-11-17] MEDS: PROSOURCE / PROSTAT (PYXIS) 30 ML UDC GT SCH ×2 (08:05→16:36)
[2022-11-17] MEDS: SUCRALFATE 1 G/10 ML UDC GT SCH ×4 (08:05→21:05)
[2022-11-17] MEDS: FERROUS SULFATE (325 MG) 325 MG/TAB TABLET GT SCH ×3 (08:06→16:36)
[2022-11-17] MEDS: MIDODRINE HCL (5MG) 5 MG TABLET GT SCH ×3 (08:06→16:36)
[2022-11-17] MEDS: PANTOPRAZOLE 40 MG/PACK PACK GT SCH ×2 (08:06→21:05)
[2022-11-17] MEDS: MULTIVITAMINS,THERAGRAN 1 UDTAB TABLET GT SCH (08:06)
[2022-11-17] MEDS: FINASTERIDE (5 MG) 5 MG TABLET GT SCH (08:06)
[2022-11-17] MEDS: LEVOTHYROXINE SODIUM 50 MCG TABLET GT SCH (08:06)
[2022-11-17] MEDS: ALLOPURINOL 100 MG TABLET GT SCH (08:06)
[2022-11-17] MEDS: ASCORBIC ACID 500 MG TABLET GT SCH (08:06)
[2022-11-17] MEDS: CLOTRIMAZOLE 1% 15 GM TUBE TP SCH ×2 (08:07→16:35)
[2022-11-17] MEDS: DAKINS HALF STRENGTH (0.25%) 480 ML BOTTLE TOP SCH (10:14)
--- NOTE | 2022-11-17 10:49 | NUR ---
ICU/RN PER LAST GREASER LAURIE, PEG TUBE PROCEDURE CANCELLED DUE PER ANESTHESIOLOGY. NGT FEEDING WILL BE RESUME.
[2022-11-17] MEDS: NEPRO 1,000 ML BOTTLE NG PRN (10:50)
[2022-11-17] MEDS: MEROPENEM 500 MG in IV NS 0.9% 50 ML IV SCH (11:07)
[2022-11-17] MEDS: DIGOXIN ELIX UDC 0.25 MG/5 ML UDC GT SCH (12:08)
[2022-11-17] MEDS ORDERED: IV D5/ 0.9% NACL 1,000 ML IV ONE (13:00)
[2022-11-17] MEDS: PHENYLEPHRINE 100 MG in IV NS 0.9% 240 ML IV PRN (13:16)
[2022-11-17] MEDS: EPOETIN ALFA-EPBX 4,000 UNIT/ML VIAL SQ SCH (14:19)
[2022-11-17 19:14] LABS: BAND % (MANUAL) 5 % (0.0-5.0); EOSINOPHILS % (MANUAL) 10 % (0-4); LYMPHOCYTES % (MANUAL) 4 % (16-48); MONOCYTES % (MANUAL) 8 % (0-11.0); NEUTROPHILS % (MANUAL) 73 (42-76)
--- NOTE | 2022-11-17 20:31 | NUR ---
Pt trach shly 8 on cool aerosol 28%. No distress noted. Sx'd moderate amount of thick fung secretions. Continue to monitor. Addendum: 11/17/22 at 2032 by JOAN ANGELES RT Amended: Links added.
[2022-11-18] VITALS (49 sets, daily range): BP systolic 77–111; BP diastolic 37–63
[2022-11-18 05:01] LABS: BASOPHILS # (AUTO) 0.2 K/uL (0.0-0.2); BASOPHILS % (AUTO) 1.1 % (0.0-2.0); EOSINOPHILS % (AUTO) 8.8 % (0.0-6.0); HEMATOCRIT 24 % (39-51); HEMOGLOBIN 7.5 g/dL (13.5-17.5); LYMPHOCYTES # (AUTO) 1.3 K/uL (0.8-4.8); LYMPHOCYTES % (AUTO) 9.3 % (20.0-44.0); MEAN CORPUSCULAR HGB CONC 32 g/dl (31.0-36.0); MEAN CORPUSCULAR VOLUME 91 fL (80-96); MONOCYTES # (AUTO) 0.9 K/uL (0.1-1.30); MONOCYTES % (AUTO) 6.6 % (2.0-12.0); NEUTROPHILS # (AUTO) 10.2 K/uL (1.8-8.9); NEUTROPHILS % (AUTO) 74.2 % (43.0-81.0); PLATELET COUNT (AUTO) 77 K/uL (150-450); RED BLOOD CELL COUNT(AUTO) 2.61 MIL/uL (4.5-6.0); WHITE BLOOD COUNT (AUTO) 13.7 K/uL (4.3-11.0)
[2022-11-18 05:07] LABS: CALCIUM, SERUM 8.2 mg/dL (8.5-10.1); CREATININE 1.4 mg/dL (0.6-1.3); POTASSIUM 3.7 mmol/L (3.5-5.1)
--- NOTE | 2022-11-18 07:30 | NUR ---
ICU/RN PT RECEIVED IN BED, OBTUNDED. PT WITH TRACH ON COOL AEROSOL 5L O2 28% FIO2 SAT 99% ON BEDSIDE MONITOR. FC IN PLACE, CHOLECYSTECTOMY DRAIN IN PLACE. NGT IN PLACE RUNNING NEPRO AT 50ML/HR, NO RESIDUAL NOTED. RIGHT UA PICC LINE AND RIGHT CHEST WALL PERMA CATH IN PLACE. CHAVO DRIP OFF SINCE 11/17 1929, BP MAINTAINED WITH SCHEDULED MIDODRINE. BED LOCKED AND IN LOWEST POSITION, CALL LIGHT WITHIN REACH, 3 SIDE RAILS UP.
[2022-11-18] MEDS: PROSOURCE / PROSTAT (PYXIS) 30 ML UDC GT SCH ×2 (08:27→16:02)
[2022-11-18] MEDS: CLOTRIMAZOLE 1% 15 GM TUBE TP SCH ×2 (08:27→16:07)
[2022-11-18] MEDS: FERROUS SULFATE (325 MG) 325 MG/TAB TABLET GT SCH ×3 (08:28→16:03)
[2022-11-18] MEDS: MULTIVITAMINS,THERAGRAN 1 UDTAB TABLET GT SCH (08:28)
[2022-11-18] MEDS: ASCORBIC ACID 500 MG TABLET GT SCH (08:28)
[2022-11-18] MEDS: SUCRALFATE 1 G/10 ML UDC GT SCH ×4 (08:28→20:20)
[2022-11-18] MEDS: MIDODRINE HCL (5MG) 5 MG TABLET GT SCH ×3 (08:28→16:03)
[2022-11-18] MEDS: DAKINS HALF STRENGTH (0.25%) 480 ML BOTTLE TOP SCH (08:28)
[2022-11-18] MEDS: LEVOTHYROXINE SODIUM 50 MCG TABLET GT SCH (08:28)
[2022-11-18] MEDS: FINASTERIDE (5 MG) 5 MG TABLET GT SCH (08:28)
[2022-11-18] MEDS: ALLOPURINOL 100 MG TABLET GT SCH (08:28)
[2022-11-18] MEDS: PANTOPRAZOLE 40 MG/PACK PACK GT SCH ×2 (08:28→20:20)
[2022-11-18] MEDS: NEPRO 1,000 ML BOTTLE NG PRN (09:21)
--- NOTE | 2022-11-18 09:49 | NUR ---
ICU/RN PER DR. FLORES, IF HD SCHEDULED TODAY, NO FLUID REMOVAL FOR BP SUPPORT.
[2022-11-18] MEDS: VANCOMYCIN HCL 0.75 GM in IV D5W 250 ML IV SCH ×2 (10:50→22:24)
[2022-11-18] MEDS: DIGOXIN ELIX UDC 0.25 MG/5 ML UDC GT SCH (12:07)
[2022-11-18] MEDS: MEROPENEM 500 MG in IV NS 0.9% 50 ML IV SCH ×2 (13:17→20:20)
[2022-11-18 16:15] LABS: BAND % (MANUAL) 19 % (0.0-5.0); EOSINOPHILS % (MANUAL) 8 % (0-4); LYMPHOCYTES % (MANUAL) 7 % (16-48); MONOCYTES % (MANUAL) 6 % (0-11.0); NEUTROPHILS % (MANUAL) 60 (42-76)
--- NOTE | 2022-11-18 16:19 | NUR ---
ICU/RN LOW BP 74/49, 80/50 AND 78/50. DR. FLORES CONTACTED, ORDER RECEIVED TO GIVE 500ML NS OVER 2H, AND IF NO IMPROVEMENT IS NOTED ON THE BLOOD PRESSURE, START CHAVO DRIP.
[2022-11-18] MEDS ORDERED: IV NS 0.9% 500 ML IV ONE (16:30)
[2022-11-18] MEDS ORDERED: COLISTIMETHATE SODIUM 100 MG in IV NS 0.9% 50 ML IV PRN (17:00)
[2022-11-18] MEDS: IV NS 0.9% 250 ML IV PRN (18:00)
[2022-11-18] MEDS ORDERED: COLISTIMETHATE SODIUM 100 MG in IV NS 0.9% 50 ML IV SCH (18:00)
--- NOTE | 2022-11-18 20:13 | NUR ---
CARTON CATCHER OPENING NOTE PT RECEIVED IN BED, OBTUNDED, OPENS EYES OCCASIONALLY. PT WITH TRACH SHILEY SIZE #8, ON COOL AEROSOL AT 5L AND FIO2 OF 28% WITH CURRENT O2SAT OF 98%; NO S/S OF RESP DISTRESS, NO SOB OR COUGH, NON-LABORED AND EQUAL BREATHING. PT ATTACHED TO BEDSIDE MONITOR, SR WITH HR OF 92. CHOLECYSTOSTOMY AND CHAMORRO INTACT AND PATENT. RIGHT NGT AT 60 CM WITH NEPRO RUNNING AT 50 ML/HR WITH NO RESIDUALS. MERLENE PICC INTACT AND PATENT WITH NS TKO. RIGHT CHEST PERMACATH DRESSING C/D/I. BED IN LOWEST POSITION, CALL LIGHT WITHIN REACH, SIDE RAILS UP X3. WILL CONTINUE TO MONITOR THROUGHOUT THE NIGHT.
[2022-11-19] VITALS (37 sets, daily range): BP systolic 86–128; BP diastolic 41–69
[2022-11-19] MEDS: MEROPENEM 500 MG in IV NS 0.9% 50 ML IV SCH ×3 (04:28→20:30)
[2022-11-19 04:51] LABS: BASOPHILS # (AUTO) 0.1 K/uL (0.0-0.2); BASOPHILS % (AUTO) 0.8 % (0.0-2.0); EOSINOPHILS % (AUTO) 10.3 % (0.0-6.0); HEMATOCRIT 24 % (39-51); HEMOGLOBIN 7.4 g/dL (13.5-17.5); LYMPHOCYTES # (AUTO) 2.2 K/uL (0.8-4.8); LYMPHOCYTES % (AUTO) 12.7 % (20.0-44.0); MEAN CORPUSCULAR HGB CONC 31 g/dl (31.0-36.0); MEAN CORPUSCULAR VOLUME 92 fL (80-96); MONOCYTES # (AUTO) 1.2 K/uL (0.1-1.30); MONOCYTES % (AUTO) 6.8 % (2.0-12.0); NEUTROPHILS # (AUTO) 11.9 K/uL (1.8-8.9); NEUTROPHILS % (AUTO) 69.4 % (43.0-81.0); PLATELET COUNT (AUTO) 88 K/uL (150-450); RED BLOOD CELL COUNT(AUTO) 2.59 MIL/uL (4.5-6.0); WHITE BLOOD COUNT (AUTO) 17.2 K/uL (4.3-11.0)
[2022-11-19 04:59] LABS: CALCIUM, SERUM 8.8 mg/dL (8.5-10.1); CREATININE 1.3 mg/dL (0.6-1.3); POTASSIUM 3.8 mmol/L (3.5-5.1)
[2022-11-19] MEDS: NEPRO 1,000 ML BOTTLE NG PRN (05:43)
--- NOTE | 2022-11-19 06:44 | NUR ---
SEGMENT PRODUCER CLOSING NOTE PT REMAINS IN BED, OBTUNDED, OPENS EYES, NON-VERBAL. CONTINUES TO BE ON 5L COOL AEROSOL WITH FIO2 OF 28%; O2SAT RANGED FROM 97%-100%; NO S/S OF RESP DISTRESS, NO SOB OR COUGH, NON-LABORED AND EQUAL BREATHING. ATTACHED TO BEDSIDE MONITOR, SR WITH 1ST DEGREE AV BLOCK; HR RANGED FROM 82-98. BP REMAINS STABLE WITHOUT CHAVO; HAD 2 INSTANCES WHERE SBP WAS IN THE HIGH 80S, BUT NOT SUSTAINED. CHAMORRO AND CHOLECYSTOSTOMY INTACT AND PATENT. MERLENE PICC INTACT AND PATENT WITH NS TKO INFUSING. RIGHT NARE NGT, NEPRO AT 50 ML/HR; TOLERATED FEEDING WELL WITH NO RESIDUALS. WOUNDS CLEANSED AND NEW DRESSINGS APPLIED. ALL DUE MEDS ADMINISTERED DURING THE NIGHT. BED IN LOWEST POSITION, CALL LIGHT WITHIN REACH, SIDE RAILS UP X3. WILL ENDORSE TO DAYSHIFT NURSE TO CONTINUE CARE.
--- NOTE | 2022-11-19 07:30 | NUR ---
OPENING NOTE: REPORT RECEIVED FROM PRINCESS GALLEGOS. ORDERS AND LABS REVIEWED DURING REPORT. CHAVO-SYNEPHRINE GTT OFF SINCE 11/17, POSSIBLE DOWNGRADE. PT ON T-PIECE O2 TO TRACH, NO VENT. PT ON BARIATRIC AUTO TURN BED. LARGE SACRAL/BUTTOCKS WOUND WITH BID DRESSING CHANGES. PER REPORT DRESSING CHANGE WAS DONE AT 0500. WILL CHANGE TIMES TO DRESSING CHANGES TO 0500 & 1700. PT CHECKED ON HOURLY AND PRN BY NURSING STAFF.
[2022-11-19 07:52] LABS: BAND % (MANUAL) 2 % (0.0-5.0); EOSINOPHILS % (MANUAL) 11 % (0-4); LYMPHOCYTES % (MANUAL) 13 % (16-48); MONOCYTES % (MANUAL) 5 % (0-11.0); NEUTROPHILS % (MANUAL) 69 (42-76)
--- NOTE | 2022-11-19 09:00 | NUR ---
PER DR FLORES: KEEP CVP MONITORING. CVP SET UP AND NS BAG CHANGED AND LABELED AT THIS TIME. CVP READING WAS 6. DR FLORES TO ORDER IVF. PT CAN NOT DOWNGRADE OUT OF ICU WITH CVP MONITORING.
--- NOTE | 2022-11-19 09:45 | NUR ---
WOUND CARE ORDERS CLARIFIED WITH ATTILA REYNOSO. ORDERS DID NOT MATCH WITH ATTILA'S NOTED REGARDING WOUND CARE. WOUND CARE IS TO BE BID WITH DAKINS PACKING AT ORDERED AT TODAY.
[2022-11-19] MEDS: SUCRALFATE 1 G/10 ML UDC GT SCH ×4 (10:01→20:24)
[2022-11-19] MEDS: MIDODRINE HCL (5MG) 5 MG TABLET GT SCH ×3 (10:01→18:36)
[2022-11-19] MEDS: ASCORBIC ACID 500 MG TABLET GT SCH (10:01)
[2022-11-19] MEDS: PANTOPRAZOLE 40 MG/PACK PACK GT SCH ×2 (10:01→20:24)
[2022-11-19] MEDS: LEVOTHYROXINE SODIUM 50 MCG TABLET GT SCH (10:02)
[2022-11-19] MEDS: FINASTERIDE (5 MG) 5 MG TABLET GT SCH (10:02)
[2022-11-19] MEDS: MULTIVITAMINS,THERAGRAN 1 UDTAB TABLET GT SCH (10:02)
[2022-11-19] MEDS: FERROUS SULFATE (325 MG) 325 MG/TAB TABLET GT SCH ×3 (10:02→18:36)
[2022-11-19] MEDS: ALLOPURINOL 100 MG TABLET GT SCH (10:03)
[2022-11-19] MEDS: PROSOURCE / PROSTAT (PYXIS) 30 ML UDC GT SCH ×2 (10:03→18:36)
[2022-11-19] MEDS: CLOTRIMAZOLE 1% 15 GM TUBE TP SCH ×2 (10:04→18:37)
[2022-11-19] MEDS: IV D5/ 0.9% NACL 1,000 ML IV PRN (10:41)
[2022-11-19] MEDS: VANCOMYCIN HCL 0.75 GM in IV D5W 250 ML IV SCH ×2 (10:47→23:00)
--- NOTE | 2022-11-19 12:57 | NUR ---
PER MD ORDERS HD CATHETER AND PICC LINE TO BE DC'D, TIP SENT FOR CULTURE. A MIDLINE TO BE INSERTED PRIOR TO PICC LINE REMOVAL. CVP MONITORING STOPPED AT THIS TIME D/T PICC LINE PENDING DC.
[2022-11-19] MEDS: DIGOXIN ELIX UDC 0.25 MG/5 ML UDC GT SCH (13:23)
--- NOTE | 2022-11-19 15:07 | NUR ---
PER MD ORDERS LEFT UPPER ARM MIDLINE INSERTED BY MIDLINE RN. RIGHT UPPER ARM PICC LINE REMOVED WITHOUT DIFFICULTY BY SUSAN GALLEGOS AND LATOSHA GALLEGOS, CATH TIP INTACT AND SENT TO LAB FOR CULTURE.
--- NOTE | 2022-11-19 18:17 | NUR ---
PT WAS TAKEN TO CT OF ABD/PELVIS. UPON RETURN TO ROOM, PT'S DRESSINGS WERE CHANGED PER MD ORDERS AND ALL SHEETS CHANGED ON BED. IVF AND TUBE FEEDING RECONNECTED TO PATIENT.
[2022-11-19] MEDS: IV NS 0.9% 250 ML IV PRN (18:37)
[2022-11-19] MEDS: DAKINS HALF STRENGTH (0.25%) 480 ML BOTTLE TOP SCH (18:37)
--- NOTE | 2022-11-19 19:10 | NUR ---
RN OPENING NOTES RECEIVED PATIENT ON BED, OBTUNDED, OPEN EYES, ON TRACH, SHILEY # 8 CONNECTED TO COOL AEROSOL @ 5LPM, FIO2- 28% SATING AT 99%. AFEBRILE, NO S/S OF DISTRESS NOTED. NOTED WITH THADDEUS MID LINE, PATENT AND INTACT, FLUSHED WITH NS, RUNNING WITH D5NS @ 80 ML/HR. NOTED WITH NGT ON THE RIGHT NARE PATENT AND INTACT, VERIFIED PLACEMENT BY AUSCULTATION, NO RESIDUAL NOTED UPON ASPIRATION RUNNING WITH NEPHRO @ 50 ML/HR, HEAD OF BED KEPT ELEVATED. RIGHT UPPER CHEST PERMA CATH, NO ACTIVE BLEEDING NOTED AT THIS TIME. RIGHT LATERAL BODY CHOLECYSTOSTOMY, DRAINING WITH CLOUDY YELLOW OUTPUT, CONNECTED TO DRAINAGE BAG VIA GRAVITY. CHAMORRO CATHETER PATENT INTACT DRAINING WITH CLEAR YELLOW URINE VIA GRAVITY. ALL SAFETY PRECAUTION PROVIDED. BED IN LOWEST POSITION, LOCKED. CALL LIGHT WITH IN REACH.
[2022-11-19] MEDS: COLISTIMETHATE SODIUM 100 MG in IV NS 0.9% 50 ML IV SCH (21:07)
--- NOTE | 2022-11-19 22:10 | NUR ---
RN NOTES RECEIVED TELEPHONE ORDER FROM ERVIN ALVARADO TO DRAW BLOOD FROM RIGHT UPPER CHEST PERMA CATH.
--- NOTE | 2022-11-19 23:43 | NUR ---
RN NOTES RECEIVED VANCO TROUGH RESULT- 22, HELD VANCOMYCIN 0.75MG IV DUE AT 2300.
[2022-11-20] VITALS (21 sets, daily range): BP systolic 95–136; BP diastolic 52–88
[2022-11-20] MEDS: IV D5/ 0.9% NACL 1,000 ML IV PRN (02:03)
[2022-11-20 04:47] LABS: BASOPHILS # (AUTO) 0.1 K/uL (0.0-0.2); BASOPHILS % (AUTO) 0.9 % (0.0-2.0); EOSINOPHILS % (AUTO) 10.8 % (0.0-6.0); HEMATOCRIT 24 % (39-51); HEMOGLOBIN 7.3 g/dL (13.5-17.5); LYMPHOCYTES # (AUTO) 2.8 K/uL (0.8-4.8); LYMPHOCYTES % (AUTO) 17.2 % (20.0-44.0); MEAN CORPUSCULAR HGB CONC 31 g/dl (31.0-36.0); MEAN CORPUSCULAR VOLUME 93 fL (80-96); MONOCYTES # (AUTO) 0.9 K/uL (0.1-1.30); MONOCYTES % (AUTO) 5.8 % (2.0-12.0); NEUTROPHILS # (AUTO) 10.4 K/uL (1.8-8.9); NEUTROPHILS % (AUTO) 65.3 % (43.0-81.0); PLATELET COUNT (AUTO) 85 K/uL (150-450); RED BLOOD CELL COUNT(AUTO) 2.55 MIL/uL (4.5-6.0)
[2022-11-20 05:02] LABS: CALCIUM, SERUM 8.9 mg/dL (8.5-10.1); CREATININE 1.2 mg/dL (0.6-1.3); POTASSIUM 3.4 mmol/L (3.5-5.1)
[2022-11-20] MEDS: MEROPENEM 500 MG in IV NS 0.9% 50 ML IV SCH ×3 (05:12→21:44)
[2022-11-20] MEDS: DAKINS HALF STRENGTH (0.25%) 480 ML BOTTLE TOP SCH ×2 (05:13→16:20)
[2022-11-20 05:36] LABS: BAND % (MANUAL) 1 % (0.0-5.0); BASOPHILS % (MANUAL) 0 % (0.0-2.0); EOSINOPHILS % (MANUAL) 11 % (0-4); LYMPHOCYTES % (MANUAL) 19 % (16-48); MONOCYTES % (MANUAL) 6 % (0-11.0); NEUTROPHILS % (MANUAL) 63 (42-76)
[2022-11-20] MEDS: NEPRO 1,000 ML BOTTLE NG PRN (06:06)
[2022-11-20] MEDS: MULTIVITAMINS,THERAGRAN 1 UDTAB TABLET GT SCH (08:22)
[2022-11-20] MEDS: LEVOTHYROXINE SODIUM 50 MCG TABLET GT SCH (08:22)
[2022-11-20] MEDS: PANTOPRAZOLE 40 MG/PACK PACK GT SCH ×2 (08:22→21:44)
[2022-11-20] MEDS: ASCORBIC ACID 500 MG TABLET GT SCH (08:22)
[2022-11-20] MEDS: FINASTERIDE (5 MG) 5 MG TABLET GT SCH (08:22)
[2022-11-20] MEDS: FERROUS SULFATE (325 MG) 325 MG/TAB TABLET GT SCH ×3 (08:22→16:20)
[2022-11-20] MEDS: ALLOPURINOL 100 MG TABLET GT SCH (08:22)
[2022-11-20] MEDS: SUCRALFATE 1 G/10 ML UDC GT SCH ×4 (08:22→21:44)
[2022-11-20] MEDS: CLOTRIMAZOLE 1% 15 GM TUBE TP SCH ×2 (08:23→16:21)
[2022-11-20] MEDS: MIDODRINE HCL (5MG) 5 MG TABLET GT SCH ×3 (08:23→16:20)
[2022-11-20] MEDS: PROSOURCE / PROSTAT (PYXIS) 30 ML UDC GT SCH ×2 (08:23→16:20)
[2022-11-20] MEDS: COLISTIMETHATE SODIUM 100 MG in IV NS 0.9% 50 ML IV SCH ×2 (09:21→21:45)
[2022-11-20] MEDS: VANCOMYCIN HCL 0.75 GM in IV D5W 250 ML IV SCH (11:03)
[2022-11-20] MEDS ORDERED: POTASSIUM CHLORIDE 20 MEQ POWDER PACKET NG SCH (12:00)
[2022-11-20] MEDS: DIGOXIN ELIX UDC 0.25 MG/5 ML UDC GT SCH (13:13)
[2022-11-20] MEDS ORDERED: LIDOCAINE HCL/PF 1% 30 ML SDV IJ ONE (15:30)
--- NOTE | 2022-11-20 19:14 | NUR ---
PRODUCTION COORDINATOR NOTES PT TRANSFERRED FROM ICU WITH ACLS PROTOCOL TO SHIRA. PLACED IN ROOM 117 BED 1. PT OBTUNDED, OPEN BOTH EYES, ON TRACH, CONNECTED TO COOL AEROSOL @ 5LPM, S#8 AND PT TOLERATED WELL. BREATHING EVEN AND UNLABORED. IV ACCESS ON THADDEUS MID LINE INTACT AND PATENT. NG TUBE ON THE RIGHT NARES INTACT AND PATENT. RUNNING WITH NEPHRO @ 50 ML/HR. HEAD OF BED ELEVATED. RIGHT LATERAL BODY NOTED CHOLECYSTOSTOMY, DRAINING WITH CLOUDY YELLOWISH DRAINING. CONNECTED TO DRAINAGE BAG VIA GRAVITY. CHAMORRO CATHETER IN PLACE, DRAINING YELLOWISH/CLEAR URINE.. ALL SAFETY PRECAUTION IN PLACE. BED IN LOWEST POSITION AND LOCKED. PLACE CALL LIGHT WITH IN REACH. WILL CONTINUE TO MONITOR
[2022-11-21] VITALS: BP 134/63
[2022-11-21 04:00] VITALS: BP 142/66
[2022-11-21] MEDS: MEROPENEM 500 MG in IV NS 0.9% 50 ML IV SCH (05:34)
[2022-11-21] MEDS: DAKINS HALF STRENGTH (0.25%) 480 ML BOTTLE TOP SCH ×2 (05:35→16:19)
[2022-11-21] MEDS ORDERED: CEFTAZIDIME 1 G in IV D5W 50 ML IV SCH (06:00)
--- NOTE | 2022-11-21 06:44 | NUR ---
RN CLOSING NOTES PT OBTUNDED, OPEN BOTH EYES, ON TRACH, CONNECTED TO COOL AEROSOL @ 5LPM, S#8 AND PT TOLERATED WELL. BREATHING EVEN AND UNLABORED. IV ACCESS ON THADDEUS MID LINE INTACT AND PATENT. NG TUBE ON THE RIGHT NARES INTACT AND PATENT. RUNNING WITH NEPHRO @ 50 ML/HR. HEAD OF BED ELEVATED. RIGHT LATERAL BODY NOTED CHOLECYSTOSTOMY, DRAINING WITH CLOUDY YELLOWISH DRAINING. CONNECTED TO DRAINAGE BAG VIA GRAVITY. CHAMORRO CATHETER IN PLACE, DRAINING YELLOWISH/CLEAR URINE. NO SIGNIFICANT CHANGES. ALL DUE MEDS GIVEN ORDERED. ALL SAFETY PRECAUTION IN PLACE. BED IN LOWEST POSITION AND LOCKED. PLACE CALL LIGHT WITH IN REACH. LUISORSE TO MORNING SHIFT NURSE.
--- NOTE | 2022-11-21 07:15 | NUR ---
SIGNAL PROCESSING ENGINEER OPENING NOTES: RECEIVED PATIENT IN BED, OBTUNDED, WITH BOTH EYES OPEN. NO RESPIRATORY DISTRESS NOTED AT THIS TIME WITH COOL AEROSOL @ 5L/MIN WITH OXYGEN SATURATION OF 100%. PATIENT IS ON SR WITH HR OF 98 PER TELE MONITOR. PATIENT HAS AN IV ACCESS ON LEFT UPPER ARM MIDLINE, INTACT, FLUSHES WELL, WITH NO S/S INFILTRATION NOTED. NGT TUBE INTACT, IN PLACE, NO RESIDUAL NOTED WITH NEPHRO RUNNING @ 50 ML/HR. NEPHROSTOMY INTACT, DRAINING WITH YELLOW COLORED URINE, ALSO HAS CHAMORRO CATHETER IN PLACE, DRAINING VIA GRAVITY WITH YELLOWISH/CLEAR URINE. NO HEMATURIA AND NO SEDIMENTATION NOTED. ALL SAFETY MEASURES IN PLACE. BED LOCKED AND IN LOWEST POSITION. CALL LIGHT WITHIN REACH. HOB KEPT ELEVATED. WILL CONTINUE TO MONITOR PATIENT THROUGHOUT SHIFT.
[2022-11-21 07:58] LABS: BASOPHILS # (AUTO) 0.2 K/uL (0.0-0.2); BASOPHILS % (AUTO) 1.5 % (0.0-2.0); EOSINOPHILS % (AUTO) 9.2 % (0.0-6.0); HEMATOCRIT 24 % (39-51); HEMOGLOBIN 7.3 g/dL (13.5-17.5); LYMPHOCYTES # (AUTO) 2.1 K/uL (0.8-4.8); LYMPHOCYTES % (AUTO) 15.2 % (20.0-44.0); MEAN CORPUSCULAR HGB CONC 31 g/dl (31.0-36.0); MEAN CORPUSCULAR VOLUME 93 fL (80-96); MONOCYTES # (AUTO) 0.6 K/uL (0.1-1.30); MONOCYTES % (AUTO) 4.3 % (2.0-12.0); NEUTROPHILS # (AUTO) 9.7 K/uL (1.8-8.9); NEUTROPHILS % (AUTO) 69.8 % (43.0-81.0); PLATELET COUNT (AUTO) 89 K/uL (150-450); RED BLOOD CELL COUNT(AUTO) 2.57 MIL/uL (4.5-6.0); WHITE BLOOD COUNT (AUTO) 13.9 K/uL (4.3-11.0)
[2022-11-21] MEDS: LEVOTHYROXINE SODIUM 50 MCG TABLET GT SCH (07:59)
[2022-11-21 08:00] VITALS: BP 147/69
[2022-11-21 08:11] LABS: CALCIUM, SERUM 9.4 mg/dL (8.5-10.1); CREATININE 1.3 mg/dL (0.6-1.3); POTASSIUM 3.6 mmol/L (3.5-5.1)
[2022-11-21] MEDS: PANTOPRAZOLE 40 MG/PACK PACK GT SCH ×2 (08:44→21:11)
[2022-11-21] MEDS: ALLOPURINOL 100 MG TABLET GT SCH (08:44)
[2022-11-21] MEDS: MULTIVITAMINS,THERAGRAN 1 UDTAB TABLET GT SCH (08:44)
[2022-11-21] MEDS: SUCRALFATE 1 G/10 ML UDC GT SCH ×4 (08:44→21:12)
[2022-11-21] MEDS: ASCORBIC ACID 500 MG TABLET GT SCH (08:44)
[2022-11-21] MEDS: FERROUS SULFATE (325 MG) 325 MG/TAB TABLET GT SCH ×3 (08:45→16:34)
[2022-11-21] MEDS: FINASTERIDE (5 MG) 5 MG TABLET GT SCH (08:45)
[2022-11-21] MEDS: MIDODRINE HCL (5MG) 5 MG TABLET GT SCH ×3 (08:47→16:34)
[2022-11-21] MEDS: CLOTRIMAZOLE 1% 15 GM TUBE TP SCH ×2 (09:01→16:19)
[2022-11-21] MEDS: PROSOURCE / PROSTAT (PYXIS) 30 ML UDC GT SCH ×2 (09:03→16:18)
[2022-11-21] MEDS: CEFTAZIDIME 2 G in IV D5W 100 ML IV SCH ×2 (09:07→16:05)
[2022-11-21] MEDS: COLISTIMETHATE SODIUM 100 MG in IV NS 0.9% 50 ML IV SCH ×2 (09:52→21:11)
[2022-11-21 10:57] LABS: BAND % (MANUAL) 7 % (0.0-5.0); EOSINOPHILS % (MANUAL) 7 % (0-4); LYMPHOCYTES % (MANUAL) 16 % (16-48); MONOCYTES % (MANUAL) 5 % (0-11.0); NEUTROPHILS % (MANUAL) 65 (42-76)
[2022-11-21] MEDS ORDERED: VANCOMYCIN 1.25 GM in IV D5W 250 ML IV SCH (11:00)
--- NOTE | 2022-11-21 11:27 | NUR ---
CALLED [facility] PHARMACIST @ EXT [phone] AND INFORMED OF TROUGH LEVEL OF 21 AND WAS INFORMED TO PLEASE HOLD THE DOSAGE @ 1100.
[2022-11-21 12:00] VITALS: BP 123/76
--- NOTE | 2022-11-21 12:02 | NUR ---
DR QUIJANO CAME BY WITH ORDERS TO D/C NEOSYNEPHRINE AND LEVOPHED AND TO PUT A COMMENT FOR MIDODRINE TO HOLD IF SBP MORE THAN 120. ORDERS NOTED AND CARRIED OUT
[2022-11-21] MEDS: DIGOXIN ELIX UDC 0.25 MG/5 ML UDC GT SCH (12:31)
[2022-11-21 16:00] VITALS: BP 138/59
[2022-11-21] MEDS: NEPRO 1,000 ML BOTTLE NG PRN (17:46)
--- NOTE | 2022-11-21 18:45 | NUR ---
MEDIA LAW FACULTY MEMBER CLOSING NOTES: PATIENT IN BED, ASLEEP BUT EASILY AROUSES TO VOICE AND TOUCH. NO RESPIRATORY DISTRESS NOTED THROUGHOUT SHIFT. PATIENT HAS SHILEY # 8 AND IS ON 5L/MIN VIA COOL AEROSOL WITH OXYGEN SATURATION OF 100%. PATIENT IS ON SR WITH HR OF 78 PER TELE MONITOR. IV ACCESS ON LEFT UPPER ARM MIDLINE, INTACT, FLUSHES WELL, WITH NO S/S INFILTRATION NOTED. NGT TUBE INTACT, IN PLACE, NO RESIDUAL NOTED WITH NEPHRO RUNNING @ 50 ML/HR. NEPHROSTOMY INTACT, EMPTIED 200 ML OF YELLOW COLORED URINE, AND EMPTIED 500 ML OF YELLOW CLEAR URINE FROM PATIENT'S CHAMORRO CATHETER. ALL SAFETY MEASURES IMPLEMENTED. BED LOCKED AND IN LOWEST POSITION. CALL LIGHT WITHIN REACH. HOB KEPT ELEVATED AT ALL TIMES. WOUND TREATMENT DONE ORDERED. WILL ENDORSE TO INCOMING NURSE FOR CONTINUITY OF CARE.
--- NOTE | 2022-11-21 19:30 | NUR ---
ORGANIZATIONAL DEVELOPMENT DIRECTOR OPENING NOTES: RECEIVED PATIENT IN BED, OBTUNDED, NO RESPIRATORY DISTRESS NOTED AT THIS TIME WITH COOL AEROSOL @ 5L/MIN WITH OXYGEN SATURATION OF 100%. PATIENT IS ON SR WITH HR OF 95 PER TELE MONITOR. PATIENT HAS AN IV ACCESS ON LEFT UPPER ARM MIDLINE, INTACT, FLUSHES WELL, WITH NO S/S INFILTRATION NOTED. NGT TUBE INTACT, IN PLACE, NO RESIDUAL NOTED WITH NEPHRO RUNNING @ 50 ML/HR. NEPHROSTOMY INTACT, DRAINING WITH YELLOW COLORED URINE, ALSO HAS CHAMORRO CATHETER IN PLACE, DRAINING VIA GRAVITY WITH YELLOWISH/CLEAR URINE. NO HEMATURIA AND NO SEDIMENTATION NOTED. ALL SAFETY MEASURES IN PLACE. BED LOCKED AND IN LOWEST POSITION. CALL LIGHT WITHIN REACH. HOB KEPT ELEVATED. WILL CONTINUE TO MONITOR PATIENT THROUGHOUT SHIFT.
[2022-11-21 20:00] VITALS: BP 142/72
[2022-11-22] VITALS: BP 110/57
[2022-11-22] MEDS: CEFTAZIDIME 2 G in IV D5W 100 ML IV SCH ×3 (01:15→16:18)
[2022-11-22 04:00] VITALS: BP 143/68
[2022-11-22] MEDS: DAKINS HALF STRENGTH (0.25%) 480 ML BOTTLE TOP SCH ×2 (04:54→16:14)
--- NOTE | 2022-11-22 06:28 | NUR ---
SHIRA RN CLOSING NOTES: PATIENT IN BED, OBTUNDED, NO RESPIRATORY DISTRESS NOTED AT THIS TIME WITH COOL AEROSOL @ 5L/MIN WITH OXYGEN SATURATION OF 99%. PATIENT IS ON SR WITH HR OF 75 PER TELE MONITOR. PATIENT HAS AN IV ACCESS ON LEFT UPPER ARM MIDLINE, INTACT, FLUSHES WELL, WITH NO S/S INFILTRATION NOTED. NGT TUBE INTACT, IN PLACE, NO RESIDUAL NOTED WITH NEPHRO RUNNING @ 50 ML/HR. NEPHROSTOMY INTACT, DRAINING WITH YELLOW COLORED URINE, ALSO HAS CHAMORRO CATHETER IN PLACE, DRAINING VIA GRAVITY WITH YELLOWISH/CLEAR URINE. NO HEMATURIA AND NO SEDIMENTATION NOTED. ALL DUE MEDS GIVEN, KEPT DRY AND CLEAN, ALL SAFETY MEASURES IN PLACE; BED LOCKED AND IN LOWEST POSITION. CALL LIGHT WITHIN REACH. WILL ENDORSE TO AM SHIFT NURSE FOR CONTINUITY OF CARE.
[2022-11-22 06:40] LABS: BASOPHILS # (AUTO) 0.1 K/uL (0.0-0.2); BASOPHILS % (AUTO) 0.6 % (0.0-2.0); EOSINOPHILS % (AUTO) 8.4 % (0.0-6.0); HEMATOCRIT 25 % (39-51); HEMOGLOBIN 7.6 g/dL (13.5-17.5); LYMPHOCYTES # (AUTO) 1.3 K/uL (0.8-4.8); LYMPHOCYTES % (AUTO) 9.6 % (20.0-44.0); MEAN CORPUSCULAR HGB CONC 30 g/dl (31.0-36.0); MEAN CORPUSCULAR VOLUME 97 fL (80-96); MONOCYTES # (AUTO) 0.8 K/uL (0.1-1.30); MONOCYTES % (AUTO) 5.7 % (2.0-12.0); NEUTROPHILS # (AUTO) 9.9 K/uL (1.8-8.9); NEUTROPHILS % (AUTO) 75.7 % (43.0-81.0); PLATELET COUNT (AUTO) 99 K/uL (150-450); RED BLOOD CELL COUNT(AUTO) 2.62 MIL/uL (4.5-6.0); WHITE BLOOD COUNT (AUTO) 13.1 K/uL (4.3-11.0)
--- NOTE | 2022-11-22 07:20 | NUR ---
MARKETING COORDINATOR OPENING NOTES Received pt awake in bed. Non verbal and unable to follow command. No signs of pain or discomfort at this time. Respirations are equal and unlabored with no SOB. Pt is on cool aerosol Fi02 at 28% and tolerating it well. Pt is on GTF on prescribed settings tolerating it well. IV access on THADDEUS midline patent and intact. HOB elevated to 30-45 degrees. Siderails up at all times. Call light within reach. Will continue to monitor.
[2022-11-22 08:00] VITALS: BP 101/35
[2022-11-22] MEDS: PANTOPRAZOLE 40 MG/PACK PACK GT SCH ×2 (08:13→21:12)
[2022-11-22] MEDS: SUCRALFATE 1 G/10 ML UDC GT SCH ×4 (08:13→21:12)
[2022-11-22] MEDS: MIDODRINE HCL (5MG) 5 MG TABLET GT SCH ×3 (08:14→16:14)
[2022-11-22] MEDS: LEVOTHYROXINE SODIUM 50 MCG TABLET GT SCH (08:14)
[2022-11-22] MEDS: ALLOPURINOL 100 MG TABLET GT SCH (08:14)
[2022-11-22] MEDS: FERROUS SULFATE (325 MG) 325 MG/TAB TABLET GT SCH ×3 (08:14→16:14)
[2022-11-22] MEDS: FINASTERIDE (5 MG) 5 MG TABLET GT SCH (08:14)
[2022-11-22] MEDS: MULTIVITAMINS,THERAGRAN 1 UDTAB TABLET GT SCH (08:15)
[2022-11-22] MEDS: ASCORBIC ACID 500 MG TABLET GT SCH (08:15)
[2022-11-22] MEDS: CLOTRIMAZOLE 1% 15 GM TUBE TP SCH ×2 (08:16→16:14)
[2022-11-22] MEDS: PROSOURCE / PROSTAT (PYXIS) 30 ML UDC GT SCH ×4 (08:34→16:14)
[2022-11-22] MEDS: COLISTIMETHATE SODIUM 100 MG in IV NS 0.9% 50 ML IV SCH ×2 (09:24→21:12)
--- NOTE | 2022-11-22 10:23 | NUR ---
PROPERTY CLAIMS ADJUSTER NOTES 1030 Prostat not given d/t order change from BID to TID. 0900 dose already given. Will space out medication to new schedule.
[2022-11-22 12:00] VITALS: BP 93/49
[2022-11-22 12:43] LABS: BAND % (MANUAL) 2 % (0.0-5.0); BASOPHILS % (MANUAL) 0 % (0.0-2.0); EOSINOPHILS % (MANUAL) 11 % (0-4); LYMPHOCYTES % (MANUAL) 12 % (16-48); MONOCYTES % (MANUAL) 6 % (0-11.0); NEUTROPHILS % (MANUAL) 69 (42-76)
[2022-11-22] MEDS: DIGOXIN ELIX UDC 0.25 MG/5 ML UDC GT SCH (12:48)
[2022-11-22] MEDS ORDERED: VANCOMYCIN 1.25 GM in IV D5W 250 ML IV SCH (13:00)
[2022-11-22 16:00] VITALS: BP 108/49
--- NOTE | 2022-11-22 18:44 | NUR ---
MEDICAL DELIVERY DRIVER CLOSING NOTES All due meds and tx given as ordered. Pt tolerated everything well. All needs attended to. Pt is still on cool aerosol and tolerating it well. NGT is patent and intact with feeding running on prescribed settings. IV access on THADDEUS midline patent and intact. HOB elevated to 30-45 degrees. Siderails up at all times. Will endorse to oncoming nurse.
[2022-11-22 20:00] VITALS: BP 87/50
[2022-11-22] MEDS: NEPRO 1,000 ML BOTTLE NG PRN (21:12)
--- NOTE | 2022-11-22 22:21 | NUR ---
RN NOTE NOTED BP LOW AT 85/41 HR AT 66. PROCEDURE ANALYST MD MADE AWARE, ORDERED 500 CC NS BOLUS. ORDER TAKEN AND CARRIED OUT. WILL CONT TO MONITOR PT.
[2022-11-22] MEDS ORDERED: IV NS 0.9% 500 ML IV ONE (22:30)
--- NOTE | 2022-11-22 23:33 | NUR ---
RN NOTE BP RECHECKED AT 97/54 HR 85 BPM AFTER 1 BOLUS OF 500 CC NS. WILL CONT TO MONITOR.
[2022-11-23] VITALS: BP 97/54
[2022-11-23] MEDS: CEFTAZIDIME 2 G in IV D5W 100 ML IV SCH ×3 (01:39→16:13)
[2022-11-23 04:00] VITALS: BP 95/57
[2022-11-23] MEDS: DAKINS HALF STRENGTH (0.25%) 480 ML BOTTLE TOP SCH ×2 (04:36→16:07)
--- NOTE | 2022-11-23 06:55 | NUR ---
REGISTERED NURSES CLOSING NOTES: PATIENT IN BED, OBTUNDED, NO RESPIRATORY DISTRESS NOTED AT THIS TIME WITH COOL AEROSOL @ 5L/MIN WITH OXYGEN SATURATION OF 99%. PATIENT IS ON SR WITH HR OF 83 PER TELE MONITOR. PATIENT HAS AN IV ACCESS ON LEFT UPPER ARM MIDLINE, INTACT, FLUSHES WELL, WITH NO S/S INFILTRATION NOTED. NGT TUBE INTACT, IN PLACE, NO RESIDUAL NOTED WITH NEPHRO RUNNING @ 50 ML/HR. NEPHROSTOMY INTACT, DRAINING WITH CLOUDY YELLOW COLORED URINE, ALSO HAS CHAMORRO CATHETER IN PLACE, DRAINING VIA GRAVITY WITH YELLOWISH/CLEAR URINE. NO HEMATURIA AND NO SEDIMENTATION NOTED. ALL DUE MEDS GIVEN, KEPT DRY AND CLEAN, ALL SAFETY MEASURES IN PLACE; BED LOCKED AND IN LOWEST POSITION. CALL LIGHT WITHIN REACH. WILL ENDORSE TO AM SHIFT NURSE FOR CONTINUITY OF CARE.
--- NOTE | 2022-11-23 07:15 | NUR ---
DIE STAMPING PRESS OPERATOR OPENING NOTE: RECEIVED PT. IN BED, OBTUNDED, MOVES EYELIDS TO PAINFUL STIMULI. PT ON TRACH, SHILEY#8, T-PIECE AND AEROSOL MIST AT 28% FIO2. NO S/S OF RESPIRATORY DISTRESS. DIRECTOR PAYER READS SINUS RHYTHM WITH PVC AT THIS TIME. MULTIPLE SKIN ISSUES NOTED, WILL DO WOUND TREATMENT ORDERED. IV ACCESS ON THADDEUS MIDLINE WITH NS TKO, IV DRESSING C/D/I WITH NO S/S OF INFILTRATION. ALSO HAS R CHOLECYSTOSTOMY DRAIN WITH PURULENT DRAINAGE NOTED IN BAG. HAS R NARE NGT WITH NEPRO RUNNING AT 50 ML/HR, NO GASTRIC RESIDUAL NOTED. SAFETY MEASURES IN PLACE: BED IN LOWEST & LOCKED POSITION, CALL LIGHT WITHIN REACH, SIDE RAILS UP X3, HOB ELEVATED AT 30 DEGREES, CALL LIGHT WITHIN REACH, BED ALARM ON. WILL CONTINUE TO MONITOR PT. FOR ANY CHANGES.
[2022-11-23 08:00] VITALS: BP 101/48
[2022-11-23 08:10] LABS: BASOPHILS # (AUTO) 0.2 K/uL (0.0-0.2); BASOPHILS % (AUTO) 1.2 % (0.0-2.0); EOSINOPHILS % (AUTO) 7.5 % (0.0-6.0); HEMATOCRIT 24 % (39-51); HEMOGLOBIN 7.4 g/dL (13.5-17.5); LYMPHOCYTES # (AUTO) 2.4 K/uL (0.8-4.8); LYMPHOCYTES % (AUTO) 14.9 % (20.0-44.0); MEAN CORPUSCULAR HGB CONC 31 g/dl (31.0-36.0); MEAN CORPUSCULAR VOLUME 96 fL (80-96); MONOCYTES # (AUTO) 0.9 K/uL (0.1-1.30); MONOCYTES % (AUTO) 5.3 % (2.0-12.0); NEUTROPHILS # (AUTO) 11.6 K/uL (1.8-8.9); NEUTROPHILS % (AUTO) 71.1 % (43.0-81.0); PLATELET COUNT (AUTO) 111 K/uL (150-450); RED BLOOD CELL COUNT(AUTO) 2.53 MIL/uL (4.5-6.0); WHITE BLOOD COUNT (AUTO) 16.3 K/uL (4.3-11.0)
[2022-11-23] MEDS: CLOTRIMAZOLE 1% 15 GM TUBE TP SCH ×2 (08:44→16:07)
[2022-11-23] MEDS: PROSOURCE / PROSTAT (PYXIS) 30 ML UDC GT SCH ×3 (08:44→16:12)
[2022-11-23] MEDS: ASCORBIC ACID 500 MG TABLET GT SCH (08:45)
[2022-11-23] MEDS: MULTIVITAMINS,THERAGRAN 1 UDTAB TABLET GT SCH (08:45)
[2022-11-23] MEDS: PANTOPRAZOLE 40 MG/PACK PACK GT SCH ×2 (08:45→21:50)
[2022-11-23] MEDS: FINASTERIDE (5 MG) 5 MG TABLET GT SCH (08:45)
[2022-11-23] MEDS: SUCRALFATE 1 G/10 ML UDC GT SCH ×4 (08:45→21:50)
[2022-11-23] MEDS: MIDODRINE HCL (5MG) 5 MG TABLET GT SCH ×3 (08:47→16:02)
[2022-11-23] MEDS: LEVOTHYROXINE SODIUM 50 MCG TABLET GT SCH (08:48)
[2022-11-23] MEDS: FERROUS SULFATE (325 MG) 325 MG/TAB TABLET GT SCH ×3 (08:48→16:12)
[2022-11-23] MEDS: ALLOPURINOL 100 MG TABLET GT SCH (08:48)
[2022-11-23] MEDS: COLISTIMETHATE SODIUM 100 MG in IV NS 0.9% 50 ML IV SCH ×2 (09:29→21:50)
[2022-11-23 12:00] VITALS: BP 122/41
[2022-11-23] MEDS: VANCOMYCIN 0.75 GM in IV D5W 250 ML IV SCH (12:39)
--- NOTE | 2022-11-23 12:45 | NUR ---
SUMMER ANALYST NOTE: LAST VANCO TROUGH DRAWN ON 11/[address] BAR ORDERED 0.75GM OF VANCOMYCIN IV TODAY, CONFIRMED WITH PHARMACY AND OK TO GIVE VANCO TODAY. ORDERED FOLLOWED AND MED ADMINISTERED.
[2022-11-23] MEDS: DIGOXIN ELIX UDC 0.25 MG/5 ML UDC GT SCH (12:48)
[2022-11-23 13:03] LABS: BAND % (MANUAL) 5 % (0.0-5.0); BASOPHILS % (MANUAL) 0 % (0.0-2.0); EOSINOPHILS % (MANUAL) 4 % (0-4); LYMPHOCYTES % (MANUAL) 17 % (16-48); MONOCYTES % (MANUAL) 5 % (0-11.0); NEUTROPHILS % (MANUAL) 69 (42-76)
[2022-11-23 16:00] VITALS: BP 130/62
[2022-11-23] MEDS: IV NS 0.9% 250 ML IV PRN (16:11)
--- NOTE | 2022-11-23 19:20 | NUR ---
PHOTOGRAPHIC ENLARGER OPERATOR CLOSING NOTE: PT. REMAINS IN BED, OBTUNDED, MOVES EYELIDS TO PAINFUL STIMULI. NO S/S OF PAIN/DISCOMFORT AT THIS TIME. PT ON TRACH, SHILEY#8, T-PIECE AND AEROSOL MIST AT 28% FIO2. NO S/S OF RESPIRATORY DISTRESS. HEEL COVERER READS SINUS RHYTHM WITH PVC THIS SHIFT. WOUND TREATMENT DONE ORDERED. IV ACCESS ON THADDEUS MIDLINE WITH NS TKO, IV DRESSING C/D/I WITH NO S/S OF INFILTRATION. ALSO HAS R CHOLECYSTOSTOMY DRAINED 450 ML PURULENT DRAINAGE THIS SHIFT. HAS R NARE NGT WITH NEPRO RUNNING AT 50 ML/HR, NO GASTRIC RESIDUAL NOTED. HAS CHAMORRO CATH, DRAINED 530 ML CLOUDY YELLOW URINE THIS SHIFT. SAFETY MEASURES MAINTAINED: BED IN LOWEST & LOCKED POSITION, CALL LIGHT WITHIN REACH, SIDE RAILS UP X3, HOB ELEVATED AT 30 DEGREES, CALL LIGHT WITHIN REACH, BED ALARM ON. TURNED AND REPOSITIONED IN BED AT LEAST Q2H. ENDORSED CONTINUITY OF CARE TO WATER FITNESS INSTRUCTOR RN.
--- NOTE | 2022-11-23 19:30 | NUR ---
RN NOTE Received patient in bed, on semi xiong's, obtunded, in no acute distress, breathing unlabored, saturation at 96% on trach to cool aerosol at 28% fio2, SR on the monitor, HR is 79. THADDEUS midline patent and flushing well, no s/s of infection or infiltration. NG tube at R nare in place, positive placement noted on auscultation and aspiration, no residual, with Jevity at 50 ml/hr. Mancilal catheter draining to a clear, yellow output. Safety measures in place, bed is locked and at lowest position, HOB elevated, call light within reach of patient. Will cont to monitor
[2022-11-23 20:00] VITALS: BP 93/51
[2022-11-24] VITALS: BP 96/63
[2022-11-24] MEDS: CEFTAZIDIME 2 G in IV D5W 100 ML IV SCH ×3 (01:00→18:44)
[2022-11-24 04:00] VITALS: BP 105/56
[2022-11-24] MEDS: DAKINS HALF STRENGTH (0.25%) 480 ML BOTTLE TOP SCH ×2 (04:44→17:08)
[2022-11-24] MEDS ORDERED: SILVER NITRATE APPLICATOR 1 EA BOX TP SCH (06:00)
[2022-11-24 07:03] LABS: BASOPHILS # (AUTO) 0.2 K/uL (0.0-0.2); BASOPHILS % (AUTO) 1.4 % (0.0-2.0); EOSINOPHILS % (AUTO) 9.4 % (0.0-6.0); HEMATOCRIT 24 % (39-51); HEMOGLOBIN 7.1 g/dL (13.5-17.5); LYMPHOCYTES # (AUTO) 2.6 K/uL (0.8-4.8); LYMPHOCYTES % (AUTO) 15.6 % (20.0-44.0); MEAN CORPUSCULAR HGB CONC 30 g/dl (31.0-36.0); MEAN CORPUSCULAR VOLUME 98 fL (80-96); MONOCYTES # (AUTO) 0.8 K/uL (0.1-1.30); MONOCYTES % (AUTO) 4.9 % (2.0-12.0); NEUTROPHILS # (AUTO) 11.4 K/uL (1.8-8.9); NEUTROPHILS % (AUTO) 68.7 % (43.0-81.0); PLATELET COUNT (AUTO) 115 K/uL (150-450); WHITE BLOOD COUNT (AUTO) 16.7 K/uL (4.3-11.0)
[2022-11-24 07:12] LABS: CALCIUM, SERUM 10.5 mg/dL (8.5-10.1); CREATININE 1.4 mg/dL (0.6-1.3); POTASSIUM 3.6 mmol/L (3.5-5.1)
[2022-11-24] MEDS: LEVOTHYROXINE SODIUM 50 MCG TABLET GT SCH (07:30)
--- NOTE | 2022-11-24 07:51 | NUR ---
RN NOTE PER WIGGINS DETASSELER, PATIENT IS TO BE NPO INCLUDING MEDS, SURGERY TIME APPROXIMATELY [id number]. NOTIFIED CRITICAL LAB OF BUN OF 103.
[2022-11-24 08:00] VITALS: BP 107/55
[2022-11-24] MEDS: ASCORBIC ACID 500 MG TABLET GT SCH (09:00)
[2022-11-24] MEDS: PANTOPRAZOLE 40 MG/PACK PACK GT SCH ×2 (09:00→21:03)
[2022-11-24] MEDS: ALLOPURINOL 100 MG TABLET GT SCH (09:00)
[2022-11-24] MEDS: MIDODRINE HCL (5MG) 5 MG TABLET GT SCH ×3 (09:00→17:16)
[2022-11-24] MEDS: SUCRALFATE 1 G/10 ML UDC GT SCH ×4 (09:00→21:03)
[2022-11-24] MEDS: PROSOURCE / PROSTAT (PYXIS) 30 ML UDC GT SCH ×3 (09:00→17:15)
[2022-11-24] MEDS: FERROUS SULFATE (325 MG) 325 MG/TAB TABLET GT SCH ×3 (09:00→17:15)
[2022-11-24] MEDS: MULTIVITAMINS,THERAGRAN 1 UDTAB TABLET GT SCH (09:00)
[2022-11-24] MEDS: FINASTERIDE (5 MG) 5 MG TABLET GT SCH (09:00)
[2022-11-24] MEDS: COLISTIMETHATE SODIUM 100 MG in IV NS 0.9% 50 ML IV SCH ×2 (09:00→21:03)
[2022-11-24] MEDS: CLOTRIMAZOLE 1% 15 GM TUBE TP SCH ×2 (09:14→17:08)
--- NOTE | 2022-11-24 09:21 | NUR ---
RN NOTE SPOKE TO CHARANJIT FROM SURGERY TAXONOMIST TIME WILL BE AT 0930.
[2022-11-24] MEDS ORDERED: ANESTHESIA TRAY IN PYXIS 1 EA TRAY MC ONE (09:25)
--- NOTE | 2022-11-24 10:00 | NUR ---
RN NOTE SURGERY WILL BE PERFORMED AT BEDSIDE PER ROSY SHINE. RT MARGARET AT BEDSIDE.
[2022-11-24] MEDS ORDERED: ALBUMIN 5% 25 GM in PREMIX 1 EA IV ONE ×4 (11:30)
[2022-11-24 12:00] VITALS: BP 107/55
[2022-11-24] MEDS: VANCOMYCIN 0.75 GM in IV D5W 250 ML IV SCH (12:00)
--- NOTE | 2022-11-24 12:26 | NUR ---
telemarketing agent note per dr root gi doctor ok to start g tube feeding tomorrow and resume Meds after 4hours after procedure at 1400
[2022-11-24 12:34] LABS: BAND % (MANUAL) 5 % (0.0-5.0); EOSINOPHILS % (MANUAL) 9 % (0-4); LYMPHOCYTES % (MANUAL) 22 % (16-48); MONOCYTES % (MANUAL) 6 % (0-11.0); NEUTROPHILS % (MANUAL) 58 (42-76)
--- NOTE | 2022-11-24 12:49 | NUR ---
RN NOTE VANCO FOR 1200 HELD AT THIS TIME, TROUGH LEVEL IS 21. NOTIFIED PHARMACY AND CHARGE NURSE AWARE.
[2022-11-24] MEDS: EPOETIN ALFA-EPBX 4,000 UNIT/ML VIAL SQ SCH (14:44)
--- NOTE | 2022-11-24 15:13 | NUR ---
telemetry rn note called to blood bank no blood ready to transfuse
--- NOTE | 2022-11-24 15:19 | NUR ---
senior telecommunications engineer note per dr ramirez o to keep vent overnight, will monitor tomorrow
[2022-11-24 16:00] VITALS: BP 97/48
[2022-11-24] MEDS ORDERED: VANCOMYCIN 0.75 GM in IV D5W 250 ML IV SCH (17:00)
[2022-11-24] MEDS: DIGOXIN ELIX UDC 0.25 MG/5 ML UDC GT SCH (17:15)
--- NOTE | 2022-11-24 18:39 | NUR ---
RN NOTE CALLED BLOOD BANK FOR STATUS ON RBC, FERNANDA STATED IT IS NOT, SHE WILL NOTIFY ONCE BLOOD IS READY.
--- NOTE | 2022-11-24 19:30 | NUR ---
RN NOTE Received patient in bed, on semi xiong's, obtunded, in no acute distress, breathing unlabored, saturation at 100% on trach to mechanical vent with prescribed settings, SR on the monitor, HR is 61. THADDEUS midline patent and flushing well, no s/s of infection or infiltration. Gtube in place,clamped, kept NPO for now to start tube feeding in AM. Mancilla catheter draining to a clear, yellow output. Safety measures in place, bed is locked and at lowest position, HOB elevated, call light within reach of patient. Will cont to monitor
--- NOTE | 2022-11-24 19:34 | NUR ---
INSURANCE ANALYST CLOSING NOTE: PT IN BED, OBTUNDED, MOVES EYELIDS TO PAINFUL STIMULI. NO S/S OF PAIN/DISCOMFORT AT THIS TIME. PT ON MECHANICAL VENT, TOLERATING CURRENT SETTINGS. NO S/S OF RESPIRATORY DISTRESS. SSIS SSRS DEVELOPER READING A.FIB IV ACCESS ON THADDEUS MIDLINE WITH NS TKO, IV DRESSING C/D/I WITH NO S/S OF INFILTRATION. ALSO HAS R CHOLECYSTOSTOMY DRAINED 200ML PURULENT DRAINAGE THIS SHIFT. HAS CHAMORRO CATH, DRAINED CLOUDY YELLOW URINE THIS SHIFT. SAFETY MEASURES MAINTAINED: BED IN LOWEST & LOCKED POSITION, CALL LIGHT WITHIN REACH, SIDE RAILS UP X3, HOB ELEVATED AT 30 DEGREES, CALL LIGHT WITHIN REACH, BED ALARM ON. TURNED AND REPOSITIONED IN BED AT LEAST Q2H. ENDORSED CONTINUITY OF CARE TO ASSOCIATE PROFESSOR OF THEOLOGY RN.
[2022-11-24 20:00] VITALS: BP 97/48
[2022-11-25] VITALS (10 sets, daily range): BP systolic 81–150; BP diastolic 40–66
[2022-11-25] MEDS ORDERED: IV NS 0.9% 500 ML IV ONE (00:30)
--- NOTE | 2022-11-25 01:00 | NUR ---
RN NOTE noted low BP at 81/45 at 0010, placed patient on trendelenburg, repeated and resulted 85/47. Dr Feldman was notified, order received for NS 500 ml bolus x 1. Bp repeated 116/43
[2022-11-25] MEDS: CEFTAZIDIME 2 G in IV D5W 100 ML IV SCH ×3 (01:03→16:22)
--- NOTE | 2022-11-25 04:19 | NUR ---
RN NOTE Noted patient more alert, nods head when asked of yes or no questions.
[2022-11-25] MEDS: DAKINS HALF STRENGTH (0.25%) 480 ML BOTTLE TOP SCH ×2 (05:41→16:22)
[2022-11-25] MEDS ORDERED: LIDOCAINE 2%-EPI 1:100,000 MDV 50 ML IJ ONE (06:00)
--- NOTE | 2022-11-25 06:28 | NUR ---
RN NOTE Notified by personnel monitor patient HR noted at high 30's non sustaining but consistent. on-call MD was notified, order received for EKG.
[2022-11-25 06:51] LABS: BASOPHILS # (AUTO) 0.2 K/uL (0.0-0.2); BASOPHILS % (AUTO) 1.5 % (0.0-2.0); EOSINOPHILS % (AUTO) 11.1 % (0.0-6.0); HEMATOCRIT 27 % (39-51); HEMOGLOBIN 7.9 g/dL (13.5-17.5); LYMPHOCYTES # (AUTO) 1.8 K/uL (0.8-4.8); LYMPHOCYTES % (AUTO) 14.4 % (20.0-44.0); MEAN CORPUSCULAR HGB CONC 30 g/dl (31.0-36.0); MEAN CORPUSCULAR VOLUME 98 fL (80-96); MONOCYTES # (AUTO) 0.9 K/uL (0.1-1.30); MONOCYTES % (AUTO) 6.9 % (2.0-12.0); NEUTROPHILS # (AUTO) 8.2 K/uL (1.8-8.9); NEUTROPHILS % (AUTO) 66.1 % (43.0-81.0); PLATELET COUNT (AUTO) 92 K/uL (150-450); WHITE BLOOD COUNT (AUTO) 12.4 K/uL (4.3-11.0)
--- NOTE | 2022-11-25 06:52 | NUR ---
RN NOTE EKG relayed to on-call MD, advised Dr Bhardwaj following on case, no new orders received. Endorsed to Tiana GALLEGOS to inform cardio during rounds. machine set up Rebeca morley
[2022-11-25 07:15] LABS: CALCIUM, SERUM 10.5 mg/dL (8.5-10.1); CREATININE 1.5 mg/dL (0.6-1.3); POTASSIUM 3.7 mmol/L (3.5-5.1)
[2022-11-25] MEDS: PANTOPRAZOLE 40 MG/PACK PACK GT SCH ×2 (08:10→21:32)
[2022-11-25] MEDS: MIDODRINE HCL (5MG) 5 MG TABLET GT SCH ×3 (08:10→16:22)
[2022-11-25] MEDS: PROSOURCE / PROSTAT (PYXIS) 30 ML UDC GT SCH ×3 (08:10→16:21)
[2022-11-25] MEDS: SUCRALFATE 1 G/10 ML UDC GT SCH ×4 (08:10→21:32)
[2022-11-25] MEDS: ALLOPURINOL 100 MG TABLET GT SCH (08:11)
[2022-11-25] MEDS: FERROUS SULFATE (325 MG) 325 MG/TAB TABLET GT SCH ×3 (08:11→16:21)
[2022-11-25] MEDS: MULTIVITAMINS,THERAGRAN 1 UDTAB TABLET GT SCH (08:11)
[2022-11-25] MEDS: LEVOTHYROXINE SODIUM 50 MCG TABLET GT SCH (08:11)
[2022-11-25] MEDS: ASCORBIC ACID 500 MG TABLET GT SCH (08:11)
[2022-11-25] MEDS: FINASTERIDE (5 MG) 5 MG TABLET GT SCH (08:11)
[2022-11-25] MEDS: CLOTRIMAZOLE 1% 15 GM TUBE TP SCH ×2 (08:30→16:23)
[2022-11-25] MEDS: COLISTIMETHATE SODIUM 100 MG in IV NS 0.9% 50 ML IV SCH ×2 (09:26→21:32)
[2022-11-25] MEDS: NEPRO 1,000 ML BOTTLE NG PRN (09:27)
--- NOTE | 2022-11-25 10:30 | NUR ---
RN NOTE BLOOD TRANSFUSION INITIATED, VITAL SIGNS STABLE
--- NOTE | 2022-11-25 11:00 | NUR ---
RN NOTE LAMAR AT BEDSIDE, UPDATED ON PT'S CONDITION.
[2022-11-25] MEDS ORDERED: DAPTOMYCIN 800 MG in IV NS 0.9% 50 ML IV SCH (12:00)
[2022-11-25] MEDS: DIGOXIN ELIX UDC 0.25 MG/5 ML UDC GT SCH (12:04)
--- NOTE | 2022-11-25 13:00 | NUR ---
RN NOTE BLOOD TRANSFUSION COMPLETED, PT TOLERATED WELL, NO SIGNS OF ADVERSE EFFECT.
[2022-11-25 13:48] LABS: ABG BASE EXCESS -7.6 mmol/L; ABG PCO2 30.6 mmHg (35.0-45.0); ABG PH 7.359 (7.350-7.450); ABG PO2 175.7 mmHg (75.0-100.0); COHb 0.3 % (0.5-1.5); MetHb 0.3 % (0.0-1.5); O2Hb 98.3 % (94.0-97.0); SITE, ABG Left Radial
[2022-11-25 14:25] LABS: BAND % (MANUAL) 5 % (0.0-5.0); LYMPHOCYTES % (MANUAL) 17 % (16-48); MONOCYTES % (MANUAL) 7 % (0-11.0); NEUTROPHILS % (MANUAL) 56 (42-76)
[2022-11-25 14:26] LABS: EOSINOPHILS % (MANUAL) 11 % (0-4); METAMYELOCYTES % 2 % (0-0); MYELOCYTES % 2 % (0-0)
--- NOTE | 2022-11-25 19:30 | NUR ---
RN NOTES RECEIVED REPORT FROM MORNING RN. PATIENT IN BED A/O X1 OPEN EYES. ON TRACH CONNECTED TO MV WITH PRESCRIBED SETTINGS. WITH IV ACCESS AT THADDEUS MIDLINE PATENT FLUSHES WELL SL. WITH GT PATENT CONNECTED TO CONTINUOS GT FEEDING, CHAMORRO CATHETER CONNECTED TO URINE BAG DRAINING YELLOWISH URINE OUTPUT. VITAL SIGNS TAKEN AND RECORDED. ALL SAFETY MEASURES IN PLACE, HOB ELEVATED. CALL LIGHT WITHIN REACH. WILL CLOSELEY MONITOR THE PATIENT
[2022-11-25] MEDS: IV NS 0.9% 250 ML IV PRN (21:43)
[2022-11-26] VITALS (7 sets, daily range): BP systolic 67–116; BP diastolic 49–60
[2022-11-26] MEDS: CEFTAZIDIME 2 G in IV D5W 100 ML IV SCH ×4 (01:23→21:39)
--- NOTE | 2022-11-26 01:50 | NUR ---
RN NOTES ENDORSED TO NEXT NURSE FOR NGUYỄN
--- NOTE | 2022-11-26 02:00 | NUR ---
RN NOTE PT RECEIVED FROM SHAQ GALLEGOS, REPORT RECEIVED FOR NGUYỄN.
[2022-11-26] MEDS: DAKINS HALF STRENGTH (0.25%) 480 ML BOTTLE TOP SCH ×2 (05:00→16:54)
--- NOTE | 2022-11-26 06:47 | NUR ---
RN NOTES PT REMAINS IN STABLE CONDITION. NO SIGNIFICANT CHANGES NOTED THROUGHOUT THE SHIFT. ALL NEEDS ANTICIPATED. KEPT PT CLEAN AND DRY. TURN/REPOS Q2H/PRN. SAFETY PRECAUTIONS IMPLEMENTED AT: BED LOCKED AND IN LOWEST POSITION. HOB. ASPIRATION PRECAUTION OBSERVED. Addendum: 11/26/22 at 0700 by HCRIS FROST RN ADDENDUM: FC IN PLACED, PATENT AND SECURED, DRAINING YELLOW URINE. CHOLECYSTOMY TUBE IN PLACED, DRAINING CLEAR DARK YELLOWISH FLUID. WILL ENDORSE TO AM SHIFT.
[2022-11-26 07:17] LABS: BASOPHILS # (AUTO) 0.2 K/uL (0.0-0.2); BASOPHILS % (AUTO) 1.4 % (0.0-2.0); EOSINOPHILS % (AUTO) 12.2 % (0.0-6.0); HEMATOCRIT 31 % (39-51); HEMOGLOBIN 9.3 g/dL (13.5-17.5); LYMPHOCYTES # (AUTO) 2.1 K/uL (0.8-4.8); MEAN CORPUSCULAR HGB CONC 30 g/dl (31.0-36.0); MEAN CORPUSCULAR VOLUME 96 fL (80-96); MONOCYTES # (AUTO) 1.1 K/uL (0.1-1.30); MONOCYTES % (AUTO) 7.1 % (2.0-12.0); NEUTROPHILS # (AUTO) 9.7 K/uL (1.8-8.9); NEUTROPHILS % (AUTO) 65.3 % (43.0-81.0); PLATELET COUNT (AUTO) 83 K/uL (150-450); RED BLOOD CELL COUNT(AUTO) 3.23 MIL/uL (4.5-6.0); WHITE BLOOD COUNT (AUTO) 14.8 K/uL (4.3-11.0)
[2022-11-26 08:02] LABS: DIGOXIN 1.62 ng/mL (0.90-2.00)
[2022-11-26] MEDS: MULTIVITAMINS,THERAGRAN 1 UDTAB TABLET GT SCH (08:55)
[2022-11-26] MEDS: MIDODRINE HCL (5MG) 5 MG TABLET GT SCH ×3 (08:56→16:54)
[2022-11-26] MEDS: ASCORBIC ACID 500 MG TABLET GT SCH (08:56)
[2022-11-26] MEDS: FERROUS SULFATE (325 MG) 325 MG/TAB TABLET GT SCH ×3 (08:56→16:54)
[2022-11-26] MEDS: LEVOTHYROXINE SODIUM 50 MCG TABLET GT SCH (08:56)
[2022-11-26] MEDS: FINASTERIDE (5 MG) 5 MG TABLET GT SCH (08:57)
[2022-11-26] MEDS: SUCRALFATE 1 G/10 ML UDC GT SCH ×4 (08:57→21:40)
[2022-11-26] MEDS: PANTOPRAZOLE 40 MG/PACK PACK GT SCH ×2 (08:57→21:39)
[2022-11-26] MEDS: PROSOURCE / PROSTAT (PYXIS) 30 ML UDC GT SCH ×3 (08:57→16:54)
[2022-11-26] MEDS: ALLOPURINOL 100 MG TABLET GT SCH (08:57)
[2022-11-26] MEDS: CLOTRIMAZOLE 1% 15 GM TUBE TP SCH ×2 (09:11→16:54)
[2022-11-26 09:14] LABS: BAND % (MANUAL) 1 % (0.0-5.0); EOSINOPHILS % (MANUAL) 10 % (0-4); LYMPHOCYTES % (MANUAL) 9 % (16-48); MONOCYTES % (MANUAL) 7 % (0-11.0); NEUTROPHILS % (MANUAL) 73 (42-76)
[2022-11-26] MEDS: COLISTIMETHATE SODIUM 100 MG in IV NS 0.9% 50 ML IV SCH ×2 (10:10→21:39)
[2022-11-26] MEDS ORDERED: MEROPENEM 1 G in IV NS 0.9% 100 ML IV SCH (10:30)
--- NOTE | 2022-11-26 10:41 | NUR ---
RN note Received patient in bed. [id number]. potline monitor showed SR HR 63/min. With ventilator support, CPAP mode, SpO2 100% with FiO2 0.3. Left UA midline is dry and intact. Repositioning is done and heels remain pressure free. ed is locked and placed in the lowest position. All safety measures have been implemented. Will continue monitoring and care.
[2022-11-26 11:24] LABS: BASOPHILS # (AUTO) 0.1 K/uL (0.0-0.2); BASOPHILS % (AUTO) 1.2 % (0.0-2.0); EOSINOPHILS % (AUTO) 13.1 % (0.0-6.0); HEMATOCRIT 27 % (39-51); LYMPHOCYTES # (AUTO) 1.5 K/uL (0.8-4.8); LYMPHOCYTES % (AUTO) 13.3 % (20.0-44.0); MEAN CORPUSCULAR HGB CONC 30 g/dl (31.0-36.0); MEAN CORPUSCULAR VOLUME 95 fL (80-96); MONOCYTES # (AUTO) 0.7 K/uL (0.1-1.30); MONOCYTES % (AUTO) 5.7 % (2.0-12.0); NEUTROPHILS # (AUTO) 7.7 K/uL (1.8-8.9); NEUTROPHILS % (AUTO) 66.7 % (43.0-81.0); PLATELET COUNT (AUTO) 82 K/uL (150-450); WHITE BLOOD COUNT (AUTO) 11.5 K/uL (4.3-11.0)
[2022-11-26 11:37] LABS: BILIRUBIN,TOTAL 0.3 mg/dL (0.2-1.0); CREATININE 1.7 mg/dL (0.6-1.3); POTASSIUM 3.1 mmol/L (3.5-5.1); TOTAL PROTEIN, SERUM 3.8 g/dL (6.4-8.2)
[2022-11-26 11:43] LABS: ALBUMIN 1.3 g/dL (3.4-5.0)
[2022-11-26 12:13] LABS: BAND % (MANUAL) 2 % (0.0-5.0); EOSINOPHILS % (MANUAL) 10 % (0-4); LYMPHOCYTES % (MANUAL) 10 % (16-48); MONOCYTES % (MANUAL) 7 % (0-11.0); NEUTROPHILS % (MANUAL) 71 (42-76)
[2022-11-26] MEDS: DAPTOMYCIN 500 MG in IV NS 0.9% 50 ML IV SCH (13:06)
[2022-11-26] MEDS: NEPRO 1,000 ML BOTTLE GT PRN (15:13)
--- NOTE | 2022-11-26 16:30 | NUR ---
RN note - stopped feeding BP 75/38mmHg. Patient does not appear in distress. monitoring tech showed SR HR 60/min. Stopped feeding and lie patient flat and recheck bp, which was even lower. Informed Dr. Ross, who ordered albumin and fludrocortisone.
--- NOTE | 2022-11-26 17:03 | NUR ---
patient SBP 75,DR. PANDYA NOTIFIED AND ORDERED ALBUMIN,DR. MANZANARES NOTIFIED ALSO ORDERED FLORINEF.WILL CHANGE TO SHIRA STATUS.
--- NOTE | 2022-11-26 17:15 | NUR ---
Hypokalemia Informed Dr. Huynh about K3.1mmol/L. He said to order 10mEq KCL via G-tube.
[2022-11-26] MEDS: ALBUMIN 25% 25 GM in PREMIX 1 EA IV SCH ×2 (17:23→23:13)
--- NOTE | 2022-11-26 18:00 | NUR ---
RN note After albumin infusion and fludrocortisone, BP increased to 92/58mmHg. Will keep patient in supine position and endorse PM nurse to continue monitoring of BP before resuming G-tube feeding.
[2022-11-26] MEDS: FLUDROCORTISONE 0.1 MG TABLET PO SCH (18:21)
[2022-11-26] MEDS ORDERED: POTASSIUM CHLORIDE 20 MEQ POWDER PACKET GT SCH (18:30)
--- NOTE | 2022-11-26 19:50 | NUR ---
SHIRA RN OPENING NOTE RECEIVED PT IN BED, A/O X1, OPENS EYES, HAS #8 SHILEY TRACH CONNECTED TO MV ON CPAP MODE, NO SOB/DISTRESS NOTED, ON TELE WITH CONTROLLED AFIB, HR 70, IV ACCESS AT THADDEUS MIDLINE INTACT AND PATENT, GT INTACT AND PATENT WITH NO RESIDUAL NOTED, F/C IN PLACE, DRAINING CLEAR YELLOW URINE, ALL SAFETY MEASURES IN PLACE: BED LOCKED IN LOWEST POSITION, SIDE RAILS UP X3, CALL LIGHT WITHIN REACH, WILL CONTINUE TO MONITOR.
[2022-11-27] VITALS: BP 107/45
[2022-11-27 04:00] VITALS: BP 108/48
[2022-11-27] MEDS: CEFTAZIDIME 2 G in IV D5W 100 ML IV SCH ×3 (04:22→21:53)
[2022-11-27] MEDS: DAKINS HALF STRENGTH (0.25%) 480 ML BOTTLE TOP SCH ×2 (04:33→17:00)
[2022-11-27] MEDS: ALBUMIN 25% 25 GM in PREMIX 1 EA IV SCH ×2 (04:55→11:21)
[2022-11-27 06:29] LABS: ABG BASE EXCESS -5.7 mmol/L; ABG OXYGEN SATURATION 93.5 % (92.0-98.5); ABG PH 7.324 (7.350-7.450); ABG PO2 74.6 mmHg (75.0-100.0); COHb 0.7 % (0.5-1.5); MetHb 0.3 % (0.0-1.5); O2Hb 92.6 % (94.0-97.0); SITE, ABG Left Radial; VENT MODE, BG CA 28%
--- NOTE | 2022-11-27 06:50 | NUR ---
SHIRA RN CLOSING NOTE PT IN BED, A/O X1, OPENS EYES, HAS #8 SHILEY TRACH, ON COOL AEROSOL 5%, O2 SAT AT 97%, NO SOB/DISTRESS NOTED, ON TELE WITH CONTROLLED AFIB, HR 70, IV ACCESS AT THADDEUS MIDLINE INTACT AND PATENT, GTF NEPRO RUNNING AT 50 ML/HR, GT INTACT AND PATENT WITH NO RESIDUAL NOTED, F/C IN PLACE, DRAINING CLEAR YELLOW URINE, VSS, ALL DUE MEDS WERE GIVEN AND NEEDS ATTENDED, SAFETY MEASURES IN PLACE: BED LOCKED IN LOWEST POSITION, SIDE RAILS UP X3, CALL LIGHT WITHIN REACH, WILL ENDORSE TO ONCOMING NURSE FOR NGUYỄN.
--- NOTE | 2022-11-27 07:20 | NUR ---
SHIRA RN OPENING NOTE RECEIVED PT IN BED, A/O X1, OPENS EYES, HAS #8 SHILEY TRACH CONNECTED TO COOL AEROSOL, NO SOB/DISTRESS NOTED, ON TELE WITH CONTROLLED AFIB, HR 70, IV ACCESS AT THADDEUS MIDLINE INTACT AND PATENT, GT INTACT AND PATENT WITH NO RESIDUAL NOTED RUNNING NEPRO AT 50 ML/HR, F/C IN PLACE, DRAINING CLEAR YELLOW URINE, ALL SAFETY MEASURES IN PLACE: BED LOCKED IN LOWEST POSITION, SIDE RAILS UP X3, CALL LIGHT WITHIN REACH, WILL CONTINUE TO MONITOR.
[2022-11-27 07:24] LABS: BASOPHILS # (AUTO) 0.2 K/uL (0.0-0.2); BASOPHILS % (AUTO) 1.4 % (0.0-2.0); EOSINOPHILS % (AUTO) 13.8 % (0.0-6.0); HEMATOCRIT 24 % (39-51); HEMOGLOBIN 7.5 g/dL (13.5-17.5); LYMPHOCYTES # (AUTO) 1.3 K/uL (0.8-4.8); LYMPHOCYTES % (AUTO) 11.9 % (20.0-44.0); MEAN CORPUSCULAR HGB CONC 31 g/dl (31.0-36.0); MEAN CORPUSCULAR VOLUME 95 fL (80-96); MONOCYTES # (AUTO) 0.6 K/uL (0.1-1.30); MONOCYTES % (AUTO) 5.4 % (2.0-12.0); NEUTROPHILS # (AUTO) 7.3 K/uL (1.8-8.9); NEUTROPHILS % (AUTO) 67.5 % (43.0-81.0); PLATELET COUNT (AUTO) 75 K/uL (150-450); RED BLOOD CELL COUNT(AUTO) 2.53 MIL/uL (4.5-6.0); WHITE BLOOD COUNT (AUTO) 10.8 K/uL (4.3-11.0)
[2022-11-27] MEDS: LEVOTHYROXINE SODIUM 50 MCG TABLET GT SCH (07:36)
[2022-11-27 08:00] VITALS: BP 97/47
[2022-11-27 08:14] LABS: CALCIUM, SERUM 10.3 mg/dL (8.5-10.1); CREATININE 1.8 mg/dL (0.6-1.3); POTASSIUM 3.1 mmol/L (3.5-5.1)
[2022-11-27 08:20] LABS: ALBUMIN 2.4 g/dL (3.4-5.0); BILIRUBIN,TOTAL 0.4 mg/dL (0.2-1.0); TOTAL PROTEIN, SERUM 4.6 g/dL (6.4-8.2)
[2022-11-27 08:49] LABS: BAND % (MANUAL) 4 % (0.0-5.0); EOSINOPHILS % (MANUAL) 9 % (0-4); LYMPHOCYTES % (MANUAL) 19 % (16-48); MONOCYTES % (MANUAL) 4 % (0-11.0); NEUTROPHILS % (MANUAL) 64 (42-76)
[2022-11-27] MEDS: SUCRALFATE 1 G/10 ML UDC GT SCH ×4 (09:25→21:31)
[2022-11-27] MEDS: POTASSIUM CHLORIDE 20 MEQ TAB.PRT.SR PO SCH (09:26)
[2022-11-27] MEDS: PANTOPRAZOLE 40 MG/PACK PACK GT SCH ×2 (09:26→21:31)
[2022-11-27] MEDS: MULTIVITAMINS,THERAGRAN 1 UDTAB TABLET GT SCH (09:26)
[2022-11-27] MEDS: FERROUS SULFATE (325 MG) 325 MG/TAB TABLET GT SCH ×3 (09:26→18:04)
[2022-11-27] MEDS: FLUDROCORTISONE 0.1 MG TABLET PO SCH (09:26)
[2022-11-27] MEDS: ASCORBIC ACID 500 MG TABLET GT SCH (09:26)
[2022-11-27] MEDS: ALLOPURINOL 100 MG TABLET GT SCH (09:29)
[2022-11-27] MEDS: MIDODRINE HCL (5MG) 5 MG TABLET GT SCH ×3 (09:29→18:04)
[2022-11-27] MEDS: FINASTERIDE (5 MG) 5 MG TABLET GT SCH (09:29)
[2022-11-27] MEDS: PROSOURCE / PROSTAT (PYXIS) 30 ML UDC GT SCH ×3 (09:29→17:00)
[2022-11-27] MEDS: CLOTRIMAZOLE 1% 15 GM TUBE TP SCH ×2 (09:29→17:00)
[2022-11-27] MEDS: COLISTIMETHATE SODIUM 100 MG in IV NS 0.9% 50 ML IV SCH ×2 (09:55→21:32)
[2022-11-27 12:00] VITALS: BP 99/44
--- NOTE | 2022-11-27 12:26 | NUR ---
RN NOTES: NOTED AN ORDER CANCELLED CATH TIP CULTURE CALLED THE LAB WHO SAID IT IS SEND OUT TEST PER THE MAIN LAB THEY WERE ABLE TO DO AEROBIC CULTURE THE ONE WAS CANCELLED THE ANAROBIC,LAB ASKED TO SEND ANOTHER SAMPLE MADE AWARE THERE IS NO MORE DIALYSIS CATHETER
[2022-11-27] MEDS: NS 0.9% IV SCH (13:58)
[2022-11-27] MEDS: DAPTOMYCIN IV SCH (13:58)
[2022-11-27 16:00] VITALS: BP 106/46
--- NOTE | 2022-11-27 18:45 | NUR ---
MANAGER OF HUMAN RESOURCES CLOSING NOTES All due meds and tx given as ordered. Pt tolerated everything well. All needs attended to.
--- NOTE | 2022-11-27 19:55 | NUR ---
SHIRA RN OPENING NOTE RECEIVED PT IN BED, ASLEEP, BUT EASY TO AROUSE, HAS #8 SHILEY TRACH CONNECTED TO COOL AEROSOL AT 5%, NO SOB/DISTRESS NOTED, ON TELE WITH SR 1ST AND 2ND DEGREE AV BLOCK HR OF 71, IV ACCESS AT THADDEUS MIDLINE INTACT AND PATENT, GT INTACT AND PATENT WITH NO RESIDUAL NOTED, RUNNING NEPRO AT 50 ML/HR, F/C IN PLACE, DRAINING CLEAR YELLOW URINE, NEPHROSTOMY BAG IN PLACE, DRAINING BY GRAVITY. ALL SAFETY MEASURES IN PLACE: BED LOCKED IN LOWEST POSITION, SIDE RAILS UP X3, CALL LIGHT WITHIN REACH, WILL CONTINUE TO MONITOR.
[2022-11-27 20:00] VITALS: BP 110/51
[2022-11-28] VITALS (49 sets, daily range): BP systolic 80–111; BP diastolic 32–55
[2022-11-28] MEDS: IV NS 0.9% 250 ML IV PRN (00:19)
[2022-11-28] MEDS: NEPRO 1,000 ML BOTTLE GT PRN (00:25)
[2022-11-28] MEDS: DAKINS HALF STRENGTH (0.25%) 480 ML BOTTLE TOP SCH ×2 (04:27→16:51)
[2022-11-28] MEDS: CEFTAZIDIME 2 G in IV D5W 100 ML IV SCH ×3 (05:09→21:14)
--- NOTE | 2022-11-28 05:20 | NUR ---
SHIRA RN NOTE PT IS CONNECTED BACK TO MV ON CPAP MODE. RT BEDSIDE. WILL CONTINUE TO MONITOR.
--- NOTE | 2022-11-28 05:27 | NUR ---
RT NOTE PT NOTED TO HAVE AGONAL BREATHING. PT PLACED ON CPAP AT THIS TIME. CURRENT SETTINGS OF CPAP 5 PS 15, 30%. PT APPEARS TO IMPROVE WITH BREATHING. WILL CONTINUE TO MONITOR. ROSY HELTON NOTIFIED.
--- NOTE | 2022-11-28 06:46 | NUR ---
RN NOTES: PT'S TEMP DECREASED. UNABLE TO ASSESS TEMP. APPLIED AGUILA PELAEZ. WILL CONTINUE TO MONITOR.
--- NOTE | 2022-11-28 06:53 | NUR ---
SHIRA RN CLOSING NOTE PT IN BED, ASLEEP, BUT EASY TO AROUSE, HAS #8 SHILEY TRACH CONNECTED TO MV ON CPAP MODE, NO SOB/DISTRESS NOTED, ON TELE WITH SR 1ST DEGREE AV BLOCK HR OF 71, IV ACCESS AT THADDEUS MIDLINE INTACT AND PATENT, GT INTACT AND PATENT WITH NO RESIDUAL NOTED, RUNNING NEPRO AT 50 ML/HR, F/C IN PLACE, DRAINING CLEAR YELLOW URINE, NEPHROSTOMY BAG IN PLACE, DRAINING BY GRAVITY. ALL DUE MEDS WERE GIVEN AND NEEDS ATTENDED. SAFETY MEASURES MAINTAINED: BED LOCKED IN LOWEST POSITION, SIDE RAILS UP X3, CALL LIGHT WITHIN REACH, WILL ENDORSE TO ONCOMING NURSE FOR NGUYỄN.
--- NOTE | 2022-11-28 07:20 | NUR ---
SHIRA RN OPENING NOTE RECEIVED PT IN BED, A/O X1, OPENS EYES, HAS #8 SHILEY TRACH CONNECTED TO CPAP, NO SOB/DISTRESS NOTED, ON TELE WITH CONTROLLED AFIB, HR 70, IV ACCESS AT THADDEUS MIDLINE INTACT AND PATENT, GT INTACT AND PATENT WITH NO RESIDUAL NOTED RUNNING NEPRO AT 50 ML/HR, F/C IN PLACE, DRAINING CLEAR YELLOW URINE, ALL SAFETY MEASURES IN PLACE: BED LOCKED IN LOWEST POSITION, SIDE RAILS UP X3, CALL LIGHT WITHIN REACH, WILL CONTINUE TO MONITOR.
[2022-11-28 07:32] LABS: BASOPHILS # (AUTO) 0.1 K/uL (0.0-0.2); BASOPHILS % (AUTO) 0.9 % (0.0-2.0); EOSINOPHILS % (AUTO) 13.6 % (0.0-6.0); HEMATOCRIT 25 % (39-51); HEMOGLOBIN 7.6 g/dL (13.5-17.5); LYMPHOCYTES % (AUTO) 9.4 % (20.0-44.0); MEAN CORPUSCULAR HGB CONC 30 g/dl (31.0-36.0); MEAN CORPUSCULAR VOLUME 96 fL (80-96); MONOCYTES # (AUTO) 0.7 K/uL (0.1-1.30); MONOCYTES % (AUTO) 5.9 % (2.0-12.0); NEUTROPHILS # (AUTO) 7.7 K/uL (1.8-8.9); NEUTROPHILS % (AUTO) 70.2 % (43.0-81.0); PLATELET COUNT (AUTO) 79 K/uL (150-450)
[2022-11-28 07:54] LABS: CALCIUM, SERUM 10.5 mg/dL (8.5-10.1); POTASSIUM 3.1 mmol/L (3.5-5.1)
[2022-11-28 08:00] LABS: ALBUMIN 2.1 g/dL (3.4-5.0); BILIRUBIN,TOTAL 0.4 mg/dL (0.2-1.0); TOTAL PROTEIN, SERUM 4.4 g/dL (6.4-8.2)
[2022-11-28] MEDS: FERROUS SULFATE (325 MG) 325 MG/TAB TABLET GT SCH ×3 (08:15→16:51)
[2022-11-28] MEDS: LEVOTHYROXINE SODIUM 50 MCG TABLET GT SCH (08:15)
[2022-11-28] MEDS: PROSOURCE / PROSTAT (PYXIS) 30 ML UDC GT SCH ×3 (08:15→16:52)
[2022-11-28] MEDS: MIDODRINE HCL (5MG) 5 MG TABLET GT SCH ×3 (08:15→16:51)
[2022-11-28] MEDS: SUCRALFATE 1 G/10 ML UDC GT SCH ×4 (08:15→21:14)
[2022-11-28] MEDS: MULTIVITAMINS,THERAGRAN 1 UDTAB TABLET GT SCH (08:16)
[2022-11-28] MEDS: PANTOPRAZOLE 40 MG/PACK PACK GT SCH ×2 (08:16→21:14)
[2022-11-28] MEDS: ASCORBIC ACID 500 MG TABLET GT SCH (08:16)
[2022-11-28] MEDS: POTASSIUM CHLORIDE 20 MEQ TAB.PRT.SR PO SCH (08:16)
[2022-11-28] MEDS: FINASTERIDE (5 MG) 5 MG TABLET GT SCH (08:16)
[2022-11-28] MEDS: ALLOPURINOL 100 MG TABLET GT SCH (08:16)
[2022-11-28] MEDS: FLUDROCORTISONE 0.1 MG TABLET PO SCH (08:16)
[2022-11-28] MEDS: CLOTRIMAZOLE 1% 15 GM TUBE TP SCH ×2 (08:17→16:52)
[2022-11-28] MEDS: COLISTIMETHATE SODIUM 100 MG in IV NS 0.9% 50 ML IV SCH ×2 (09:02→21:33)
--- NOTE | 2022-11-28 09:10 | NUR ---
RN NOTES: WENT TO GIVE MORNING MEDS FOUND PATIENT WITH LABORED BREATHING O2 SAT 69%, START TO SUCTION DR FLORES ENTERED THE ROOM AND ORDERED TO CONNECT PT TO VENT, RT WAS ON THE FLOOR ATTACHED HIM TO VENT SETTING AC 12 VT 500 PEEP +5 FIO2 30%, O2 SAT BECOME 98% ,NO MORE LABORED BREATHING NOTED AFTER . WILL MONITOR
[2022-11-28 09:43] LABS: BAND % (MANUAL) 5 % (0.0-5.0); EOSINOPHILS % (MANUAL) 16 % (0-4); LYMPHOCYTES % (MANUAL) 16 % (16-48); MONOCYTES % (MANUAL) 6 % (0-11.0); NEUTROPHILS % (MANUAL) 57 (42-76)
--- NOTE | 2022-11-28 12:17 | NUR ---
RN NOTES: RECHECKED BP 73/37 CHECKED TWICE ,HELD FEEDING ELEVATE THE LEGS STILL SAME BP NOTIFIED DR RAMIREZ WITH ORDER TO UPGRADE TO ICU AND START LEVOPHED, CHARGE NURSE VERONIKA WELSH CALLED NURSING MOSAICIST
[2022-11-28] MEDS ORDERED: NOREPINEPHRINE 8 MG in IV NS 0.9% 242 ML IV PRN (12:30)
--- NOTE | 2022-11-28 12:30 | NUR ---
RN notes: pt moved to icu [id number], report given to Rodri GALLEGOS
--- NOTE | 2022-11-28 12:45 | NUR ---
DOUGH PANNER REPORT RECEIVED FROM MARSHA GALLEGOS. PT TRANSFERRED BACK TO ICU FOR HYPOTENSION. WILL CONTINUE TO MONITOR. HAD SMALL AMOUNT SOFT DARK BROWN STOOL. DRESSING ON SACRAL AREA CHANGED. Z GUARD APPLIED TO EXORIATED AREAS ON GROIN FOLDS AND PENILE FORESKIN. REPOSITIONED AND SUCTIONED.
[2022-11-28] MEDS: DAPTOMYCIN 500 MG in IV NS 0.9% 50 ML IV SCH (13:35)
--- NOTE | 2022-11-28 14:00 | NUR ---
SEAMING INSPECTOR BP STABILIZING. TF INFUSING. NO VENT CHANGES MADE. NO PRESSORS STARTED
[2022-11-28 15:44] LABS: ABG BASE EXCESS -8.2 mmol/L; ABG OXYGEN SATURATION 96.1 % (92.0-98.5); ABG PCO2 42.9 mmHg (35.0-45.0); ABG PH 7.251 (7.350-7.450); ABG PO2 94.4 mmHg (75.0-100.0); AaDO2 69.1 mmHg; COHb 0.7 % (0.5-1.5); MetHb 0.3 % (0.0-1.5); O2Hb 95.1 % (94.0-97.0); PEEP,BG 5 cm H2O; SITE, ABG Left Radial; VENT MODE, BG AC 30%; VT, ABG 500 mL
--- NOTE | 2022-11-28 16:00 | NUR ---
KILN SETTER SUCTIONED. BP STABLE. NOT REQUIRING PRESSORS AT THIS TIME. WILL CONTINUE TO MONITOR FOR NEED TO START PRESSORS.
--- NOTE | 2022-11-28 18:00 | NUR ---
HEADER UP BP STABILIZING. NO PRESSORS STARTED. SON CAME IN TO SEE PT. UPDATED.
--- NOTE | 2022-11-28 20:05 | NUR ---
LANE HALL PLACED A RIGHT IJ CATHETER FOR HD AT THIS TIME, PATIENT TOLERATED PROCEDURE WELL, PATIENT IN MECHANICAL VENTILATOR, TOLERATING SETTINGS WELL, NSR WITH 1ST DEGREE AV BLOCK, AND OCCASIONAL PVCS, IN TELE MONITOR, WITH SYSTOLIC BLOOD PRESSURE IN 90S-100 AT THIS TIME, THADDEUS MIDLINE IN PLACE PATENT AND INTACT, WILL CONTINUE TO MONITOR CLOSELY.
--- NOTE | 2022-11-28 20:45 | NUR ---
LANE HALL PLACED A RIGHT IJ CATHETER FOR HD AT THIS TIME, PATIENT TOLERATED PROCEDURE WELL, PATIENT IN MECHANICAL VENTILATOR, TOLERATING SETTINGS WELL, NSR WITH 1ST DEGREE AV BLOCK, AND OCCASIONAL PVCS, IN TELE MONITOR, WITH SYSTOLIC BLOOD PRESSURE IN 90S-100 AT THIS TIME, THADDUES SMITH IN PLACE PATENT AND INTACT, WILL CONTINUE TO MONITOR CLOSELY. Addendum: 11/28/22 at 2048 by YANNA CORONADO RN WRONG TIME ENTRY. DUPLICATE, SEE ORIGINAL ENTRY AT 2005
--- NOTE | 2022-11-28 20:45 | NUR ---
SPOKE WITH JERARDO EDGE VIA PHONE AT [phone] AND UPDATED HER ABOUT PT CONDITION, AWARE THAT PT WAS TRANSFERRED TO ICU, AND SHE CONSENTED TO LANE HALL TO PLACE HD CATHETER, PT WILL RECEIVED HD POSSIBLE TOMORROW, DISCUSSED EXTENSIVELY PT CONDITION WITH HER, AND SHE DECIDED TO PLACE PT DNR, PATIENT ALREADY WITH TRACH IN PLACED AND ON MECHANICAL VENTILATOR AT THIS TIME, JI ANSARI DNP INFORMED, WILL PLACE ORDER IN SYSTEM.
--- NOTE | 2022-11-28 20:50 | NUR ---
PER KEEP PATIENT STILL FULL CODE AND SHE WILL TALK TO IN THE MORNING, JI ANSARI AWARE, WILL CONTINUE TO MONITOR CLOSELY.
--- NOTE | 2022-11-28 23:01 | NUR ---
PT CONTINUE WITH MAINTAINED BLOOD PRESSURE IN HIGH 90S AT THIS TIME.
[2022-11-29] VITALS (62 sets, daily range): BP systolic 72–128; BP diastolic 35–66
[2022-11-29] MEDS: NEPRO 1,000 ML BOTTLE GT PRN (03:57)
[2022-11-29] MEDS: CEFTAZIDIME 2 G in IV D5W 100 ML IV SCH ×3 (04:11→23:29)
[2022-11-29 04:46] LABS: BASOPHILS # (AUTO) 0.1 K/uL (0.0-0.2); BASOPHILS % (AUTO) 0.7 % (0.0-2.0); EOSINOPHILS % (AUTO) 15.6 % (0.0-6.0); HEMATOCRIT 23 % (39-51); LYMPHOCYTES # (AUTO) 1.5 K/uL (0.8-4.8); LYMPHOCYTES % (AUTO) 12.1 % (20.0-44.0); MEAN CORPUSCULAR HGB CONC 30 g/dl (31.0-36.0); MEAN CORPUSCULAR VOLUME 97 fL (80-96); MONOCYTES # (AUTO) 0.8 K/uL (0.1-1.30); MONOCYTES % (AUTO) 6.1 % (2.0-12.0); NEUTROPHILS # (AUTO) 8.4 K/uL (1.8-8.9); NEUTROPHILS % (AUTO) 65.5 % (43.0-81.0); PLATELET COUNT (AUTO) 79 K/uL (150-450); RED BLOOD CELL COUNT(AUTO) 2.37 MIL/uL (4.5-6.0); WHITE BLOOD COUNT (AUTO) 12.8 K/uL (4.3-11.0)
[2022-11-29 05:08] LABS: CALCIUM, SERUM 9.8 mg/dL (8.5-10.1); CREATININE 2.1 mg/dL (0.6-1.3); HEMOGLOBIN 6.9 g/dL (13.5-17.5); POTASSIUM 3.2 mmol/L (3.5-5.1)
[2022-11-29] MEDS: DAKINS HALF STRENGTH (0.25%) 480 ML BOTTLE TOP SCH ×2 (05:09→17:06)
[2022-11-29 05:18] LABS: ALBUMIN 1.5 g/dL (3.4-5.0); BILIRUBIN,TOTAL 0.3 mg/dL (0.2-1.0); TOTAL PROTEIN, SERUM 3.8 g/dL (6.4-8.2)
--- NOTE | 2022-11-29 06:22 | NUR ---
END OF SHIFT, PATIENT ON MECHANICAL VENTILATOR TOLERATED SETTING WELL, NO SOB/ACUTE DISTRESS NOTED WITH OPTIMAL O2 SAT LEVEL, MAINTAINING BLOOD PRESSURE AT THIS TIME, NO PRESSORS AT THIS TIME, WITH H&H 6.07/14, WITH ORDER TO INFUSE 1 UNIT PRBC, TYPE AND SCREEN DONE, 3.1 K LEVEL REPORTED TOO, NO ORDERS RECEIVED, AWAITING FOR BLOOD, RIGHT IJ CAT FOR HD IN [facility], PLAN TO GET HD TODAY, OTHERWISE NO SIGNIFICANT CHANGE IN CONDITION, REMAINED GUARDED, WILL ENDORSE CONTINUITY OF CARE TO ONCOMING NURSE.
[2022-11-29] MEDS: NOREPINEPHRINE 8 MG in IV NS 0.9% 242 ML IV PRN ×2 (08:04→21:03)
[2022-11-29] MEDS: IV NS 0.9% 250 ML IV PRN (08:13)
[2022-11-29] MEDS: PANTOPRAZOLE 40 MG/PACK PACK GT SCH ×2 (09:25→21:28)
[2022-11-29] MEDS: POTASSIUM CHLORIDE 20 MEQ TAB.PRT.SR PO SCH (09:25)
[2022-11-29] MEDS: FLUDROCORTISONE 0.1 MG TABLET PO SCH (09:26)
[2022-11-29] MEDS: ALLOPURINOL 100 MG TABLET GT SCH (09:26)
[2022-11-29] MEDS: ASCORBIC ACID 500 MG TABLET GT SCH (09:26)
[2022-11-29] MEDS: FINASTERIDE (5 MG) 5 MG TABLET GT SCH (09:26)
[2022-11-29] MEDS: MIDODRINE HCL (5MG) 5 MG TABLET GT SCH ×3 (09:27→17:04)
[2022-11-29] MEDS: FERROUS SULFATE (325 MG) 325 MG/TAB TABLET GT SCH ×3 (09:27→17:05)
[2022-11-29] MEDS: MULTIVITAMINS,THERAGRAN 1 UDTAB TABLET GT SCH (09:27)
[2022-11-29] MEDS: SUCRALFATE 1 G/10 ML UDC GT SCH ×4 (09:29→21:28)
[2022-11-29] MEDS: PROSOURCE / PROSTAT (PYXIS) 30 ML UDC GT SCH ×3 (09:29→17:05)
[2022-11-29] MEDS: CLOTRIMAZOLE 1% 15 GM TUBE TP SCH ×2 (09:30→17:56)
[2022-11-29] MEDS: COLISTIMETHATE SODIUM 100 MG in IV NS 0.9% 50 ML IV SCH ×2 (09:39→21:28)
[2022-11-29] MEDS: LEVOTHYROXINE SODIUM 50 MCG TABLET GT SCH (09:39)
--- NOTE | 2022-11-29 11:35 | NUR ---
DR. QUIJANO SEEN PT. AND MD WAS MADE AWARE THAT PRBC NOT YET READY.
[2022-11-29] MEDS: DAPTOMYCIN IV SCH (13:00)
[2022-11-29] MEDS: NS 0.9% IV SCH (13:00)
[2022-11-29 16:34] LABS: BAND % (MANUAL) 2 % (0.0-5.0); EOSINOPHILS % (MANUAL) 19 % (0-4); LYMPHOCYTES % (MANUAL) 12 % (16-48); MONOCYTES % (MANUAL) 3 % (0-11.0); NEUTROPHILS % (MANUAL) 63 (42-76); REACTIVE LYMPHOCYTES 1 % (0-0)
--- NOTE | 2022-11-29 19:05 | NUR ---
ENDORSED TO NEEMA THAT PRBC BLOOD NOT YET READY PER LAB DEPT. AT 16:45PM.
--- NOTE | 2022-11-29 19:30 | NUR ---
RN OPENING NOTE RECEIVED PT IN BED, OBTUNDED, OPENS EYES SPONTANEOUSLY. ON [facility] VENT SETTINGS: SHILEY #8, AC 12, TV 525 FI02 30 PEEP 5. PT TOLERATING WELL. SATING @ 100%. NO S/SX OF ACUTE RESPI DISTRESS NOTED, BREATHING IS EVEN AND UNLABORED. ON RN INFUSION READING SR WITH 1ST DEGREE AV BLOCK; HR IN 70s. IV ACCESS AT THADDEUS MIDLINE INTACT AND PATENT RUNNING NS TKO. R JUGULAR HD CATH ALSO NOTED. GTF RUNNING NEPRO AT 50 ML/HR, NO RESIDUAL NOTED. F/C IN PLACE, DRAINING CLEAR YELLOW URINE, NEPHROSTOMY BAG IN PLACE, DRAINING SEROSANGUINEOUS OUTPUT BY GRAVITY. ALL SAFETY MEASURES IN PLACE: BED LOCKED IN LOWEST POSITION, SIDE RAILS UP X3, CALL LIGHT WITHIN REACH, WILL CONTINUE TO MONITOR.
--- NOTE | 2022-11-29 19:40 | NUR ---
RN NOTE PT STILL ON LEVO DRIP RUNNING @ 0.06 MCG/KG/MIN. CURRENT BP IS 118/63. WILL CONTINUE TO MONITOR.
[2022-11-30] VITALS (75 sets, daily range): BP systolic 80–128; BP diastolic 40–76
--- NOTE | 2022-11-30 02:10 | NUR ---
RN NOTE HD STARTED.
--- NOTE | 2022-11-30 02:50 | NUR ---
RN NOTE PT'S BP DROPPED AFTER HD STARTED. LEVO INCREASED TO 0.1 MC/KG/MIN.
[2022-11-30] MEDS: ALBUMIN 25% 25 GM in PREMIX 1 EA IV PRN (03:14)
[2022-11-30] MEDS: DAKINS HALF STRENGTH (0.25%) 480 ML BOTTLE TOP SCH ×2 (04:47→17:38)
[2022-11-30] MEDS: NEPRO 1,000 ML BOTTLE GT PRN (05:43)
[2022-11-30 06:24] LABS: BASOPHILS # (AUTO) 0.1 K/uL (0.0-0.2); BASOPHILS % (AUTO) 0.7 % (0.0-2.0); EOSINOPHILS % (AUTO) 10.9 % (0.0-6.0); HEMATOCRIT 26 % (39-51); HEMOGLOBIN 7.8 g/dL (13.5-17.5); LYMPHOCYTES # (AUTO) 1.7 K/uL (0.8-4.8); LYMPHOCYTES % (AUTO) 8.8 % (20.0-44.0); MEAN CORPUSCULAR HGB CONC 31 g/dl (31.0-36.0); MEAN CORPUSCULAR VOLUME 96 fL (80-96); MONOCYTES # (AUTO) 1.3 K/uL (0.1-1.30); MONOCYTES % (AUTO) 6.9 % (2.0-12.0); NEUTROPHILS # (AUTO) 13.7 K/uL (1.8-8.9); NEUTROPHILS % (AUTO) 72.7 % (43.0-81.0); PLATELET COUNT (AUTO) 83 K/uL (150-450); RED BLOOD CELL COUNT(AUTO) 2.67 MIL/uL (4.5-6.0); WHITE BLOOD COUNT (AUTO) 18.9 K/uL (4.3-11.0)
--- NOTE | 2022-11-30 06:36 | NUR ---
RN CLOSING NOTE PT IS S/P HD, NO FLUIDS REMOVED. LEVO DRIP INCREASED FROM 0.06 TO @ 0.1 MCG/KG/MIN AFTER HD WAS STARTED, BP IS 100/49 AT THIS TIME. STILL WAITING FOR 1 UNIT OF PRBC TO BE TRANSFUSED. WILL ENDORSE TO AM SHIFT NURSE FOR NGUYỄN.
[2022-11-30 06:38] LABS: CALCIUM, SERUM 10.2 mg/dL (8.5-10.1); CREATININE 2.1 mg/dL (0.6-1.3); POTASSIUM 3.4 mmol/L (3.5-5.1)
[2022-11-30 06:44] LABS: ALBUMIN 1.9 g/dL (3.4-5.0); BILIRUBIN,TOTAL 0.4 mg/dL (0.2-1.0); TOTAL PROTEIN, SERUM 4.5 g/dL (6.4-8.2)
--- NOTE | 2022-11-30 06:51 | NUR ---
RN NOTE BLOOD TRANSFUSION D/Cd PER ON JAKE. NEW H/H IS 7.8.
--- NOTE | 2022-11-30 07:10 | NUR ---
MANAGER CLINICAL RESEARCH OPENING NOTE: RECEIVED PT. IN BED, OBTUNDED, MOVES EYELIDS TO PAINFUL STIMULI. NO S/S OF PAIN/DISCOMFORT AT THIS TIME. PT ON TRACH/VENT, TARA#8, AC - 12; VT - 525; FIO2 - 30%; PEEP - 5. NO S/S OF RESPIRATORY DISTRESS. COAL CARRIER READS SINUS RHYTHM WITH 1ST DEGREE HEART BLOCK AT THIS TIME. MULTIPLE SKIN ISSUES NOTED, WILL DO WOUND TREATMENT ORDERED. HAS CHAMORRO CATH WITH CLOUDY YELLOW URINE NOTED IN BAG. IV ACCESS ON THADDEUS MIDLINE WITH NS TKO AND LEVOPHED DRIP RUNNING AT 0.1 MCG/KG/MIN, AND RIGHT IJ HD CATH, PATENT AND SALINE LOCKED. IV DRESSINGS C/D/I WITH NO S/S OF INFILTRATION. ALSO HAS R CHOLECYSTOSTOMY DRAIN WITH SEROSANGUINOUS DRAINAGE NOTED IN BAG. HAS PEG TUBE, 5 ML GASTRIC RESIDUAL NOTED THAT RESEMBLES TUBE FEEDING. NEPRO RUNNING AT 50 ML/HR X 24HRS. SAFETY MEASURES IN PLACE: BED IN LOWEST & LOCKED POSITION, CALL LIGHT WITHIN REACH, SIDE RAILS UP X3, HOB ELEVATED AT 30 DEGREES, CALL LIGHT WITHIN REACH, BED ALARM ON. WILL CONTINUE TO MONITOR PT. FOR ANY CHANGES.
[2022-11-30 08:56] LABS: ABG BASE EXCESS -5.4 mmol/L; ABG OXYGEN SATURATION 97.2 % (92.0-98.5); ABG PCO2 36.2 mmHg (35.0-45.0); ABG PH 7.352 (7.350-7.450); AaDO2 69.4 mmHg; COHb 0.5 % (0.5-1.5); MetHb 0.4 % (0.0-1.5); O2Hb 96.3 % (94.0-97.0); PEEP,BG 5 cm H2O; SITE, ABG Right Radial; VT, ABG 525 mL
[2022-11-30] MEDS: COLISTIMETHATE SODIUM 100 MG in IV NS 0.9% 50 ML IV SCH ×2 (09:11→21:48)
[2022-11-30] MEDS: ALBUMIN 25% 25 GM in PREMIX 1 EA IV SCH ×2 (09:11→21:35)
[2022-11-30] MEDS: PROSOURCE / PROSTAT (PYXIS) 30 ML UDC GT SCH ×3 (09:11→17:38)
[2022-11-30] MEDS: LEVOTHYROXINE SODIUM 50 MCG TABLET GT SCH (09:12)
[2022-11-30] MEDS: PANTOPRAZOLE 40 MG/PACK PACK GT SCH ×2 (09:12→21:35)
[2022-11-30] MEDS: MULTIVITAMINS,THERAGRAN 1 UDTAB TABLET GT SCH (09:12)
[2022-11-30] MEDS: MIDODRINE HCL (5MG) 5 MG TABLET GT SCH ×3 (09:12→17:38)
[2022-11-30] MEDS: SUCRALFATE 1 G/10 ML UDC GT SCH ×4 (09:12→21:35)
[2022-11-30] MEDS: FERROUS SULFATE (325 MG) 325 MG/TAB TABLET GT SCH ×3 (09:13→17:39)
[2022-11-30] MEDS: ALLOPURINOL 100 MG TABLET GT SCH (09:13)
[2022-11-30] MEDS: FINASTERIDE (5 MG) 5 MG TABLET GT SCH (09:13)
[2022-11-30] MEDS: ASCORBIC ACID 500 MG TABLET GT SCH (09:13)
[2022-11-30] MEDS: FLUDROCORTISONE 0.1 MG TABLET PO SCH (09:14)
[2022-11-30] MEDS: CLOTRIMAZOLE 1% 15 GM TUBE TP SCH ×2 (09:14→17:37)
[2022-11-30] MEDS: POTASSIUM CHLORIDE 20 MEQ TAB.PRT.SR PO SCH (10:11)
[2022-11-30] MEDS: IV NS 0.9% 250 ML IV PRN (10:22)
[2022-11-30] MEDS: NOREPINEPHRINE 8 MG in IV NS 0.9% 242 ML IV PRN (10:22)
--- NOTE | 2022-11-30 10:30 | NUR ---
REINSTATEMENT CLERK NOTE: PT.'S POTASSIUM AT 3.[address] QUIJANO ORDERED K DUR 40MEQ DAILY X3 DAYS STARTING TODAY. MED ADMINISTERED. WILL CONTINUE TO MONITOR PT. FOR S/S OF HYPOKALEMIA.
[2022-11-30] MEDS: CEFTAZIDIME 2 G in IV D5W 100 ML IV SCH (11:59)
[2022-11-30] MEDS ORDERED: VANCOMYCIN 1 GM in IV D5W 250 ML IV ONE (13:30)
[2022-11-30 13:36] LABS: BAND % (MANUAL) 6 % (0.0-5.0); LYMPHOCYTES % (MANUAL) 12 % (16-48); MONOCYTES % (MANUAL) 7 % (0-11.0); NEUTROPHILS % (MANUAL) 63 (42-76)
[2022-11-30 13:37] LABS: EOSINOPHILS % (MANUAL) 10 % (0-4); METAMYELOCYTES % 2 % (0-0)
[2022-11-30] MEDS ORDERED: D5W IV SCH ×6 (14:00)
[2022-11-30] MEDS ORDERED: CEFTAZIDIME 1 G in IV D5W 50 ML IV SCH ×5 (14:00→22:00)
[2022-11-30] MEDS ORDERED: CEFTAZIDIME IV SCH ×6 (14:00)
[2022-11-30 16:22] LABS: BILIRUBIN,URINE NEGATIVE (NEGATIVE); COLOR,URINE YELLOW (YELLOW); LEUKOCYTE ESTERASE ,URINE 2+ (NEGATIVE); NITRITE, URINE NEGATIVE (NEGATIVE); PROTEIN,URINE 2+ mg/dl (NEGATIVE); UGLUCOSE NEGATIVE (NEGATIVE); UROBILINOGEN,URINE 0.2 EU/dL (0.2)
[2022-11-30 16:40] LABS: BACTERIA,URINE Moderate /HPF (None Seen); RBC,URINE 21-50 /HPF (0-2); WBC,URINE 21-50 /HPF (0-3)
[2022-11-30 16:41] LABS: YEAST,URINE Many /HPF (None Seen)
[2022-11-30 16:42] LABS: SQUAMOUS EPITHELIAL CELL,UR Few /HPF (None Seen)
--- NOTE | 2022-11-30 19:16 | NUR ---
SINK CUTTER CLOSING NOTE: PT. REMAINS IN BED, OBTUNDED, MOVES EYELIDS TO PAINFUL STIMULI. NO S/S OF PAIN/DISCOMFORT AT THIS TIME. PT ON TRACH/VENT, SHILEY#8, AC - 12; VT - 525; FIO2 - 30%; PEEP - 5. NO S/S OF RESPIRATORY DISTRESS. ALUMNI COORDINATOR READS SINUS RHYTHM WITH 1ST DEGREE HEART BLOCK THIS SHIFT. WOUND TREATMENT DONE ORDERED. CHAMORRO CATH DRAINED 60 ML CLOUDY YELLOW URINE THIS SHIFT. IV ACCESS ON THADDEUS MIDLINE WITH NS TKO AND LEVOPHED DRIP RUNNING AT 0.08 MCG/KG/MIN; RIGHT IJ HD CATH, PATENT AND SALINE LOCKED. IV DRESSINGS C/D/I WITH NO S/S OF INFILTRATION. R CHOLECYSTOSTOMY DRAINED 550 ML SEROSANGUINOUS FLUID THIS SHIFT. PEG TUBE WITH NEPRO RUNNING AT 50 ML/HR X 24HRS, 10 ML GASTRIC RESIDUAL NOTED THAT RESEMBLES TUBE FEEDING. SAFETY MEASURES MAINTAINED: BED IN LOWEST & LOCKED POSITION, CALL LIGHT WITHIN REACH, SIDE RAILS UP X3, HOB ELEVATED AT 30 DEGREES, CALL LIGHT WITHIN REACH, BED ALARM ON. TURNED AND REPOSITIONED IN BED AT LEAST Q2H. ENDORSED CONTINUITY OF CARE TO BRANNER MACHINE TENDER RN RUDDY.
--- NOTE | 2022-11-30 19:20 | NUR ---
RN NOTES RECEIVED REPORT FROM MORNING RN. PATIENT IN BED RESPONSIVE TO TACTILE STIMULI. ON TRACH CONNECTED TO VENT WITH PRESCRIBED SETTINGS TOLERATING WELL NO SOB NO DISTRESS NOTED AT THIS TIME. WITH GT PATENT CONNECTED TO CONTINUOS GT FEEDING TOLERATING WELL NO GASTRIC RESIDUAL NOTED AT THIS TIME. WITH IV ACCESS AT L UA MIDLINE PATENT FLUSHES WELL, WITH ONGOING LEVOPHED AT 0.08MCH/KG/MIN. WITH RIJ CATH INTACT NO BLEEDING NOTED AT THIS TIME WITH LEFT NEPHROSTOMY TUBE INTACT DRAINING PINKISH OUTPUT. CHAMORRO CATHETER PATENT DRAINING YELLOWISH URINE OUTPUT. VITAL SIGNS TAKEN AND RECORDED AFEBRILE. ALL SAFETY MEASURES IN PLACE, HOB ELEVATED. WILL CLOSELY MONITOR THE PATIENT
[2022-12-01] VITALS (97 sets, daily range): BP systolic 75–163; BP diastolic 34–79
[2022-12-01] MEDS: NOREPINEPHRINE 8 MG in IV NS 0.9% 242 ML IV PRN ×3 (00:08→22:09)
[2022-12-01 04:52] LABS: BASOPHILS # (AUTO) 0.1 K/uL (0.0-0.2); BASOPHILS % (AUTO) 0.6 % (0.0-2.0); EOSINOPHILS % (AUTO) 14.5 % (0.0-6.0); HEMATOCRIT 22 % (39-51); LYMPHOCYTES # (AUTO) 1.4 K/uL (0.8-4.8); LYMPHOCYTES % (AUTO) 8.7 % (20.0-44.0); MEAN CORPUSCULAR HGB CONC 31 g/dl (31.0-36.0); MEAN CORPUSCULAR VOLUME 96 fL (80-96); MONOCYTES # (AUTO) 1.3 K/uL (0.1-1.30); MONOCYTES % (AUTO) 8.3 % (2.0-12.0); NEUTROPHILS # (AUTO) 10.8 K/uL (1.8-8.9); NEUTROPHILS % (AUTO) 67.9 % (43.0-81.0); PLATELET COUNT (AUTO) 77 K/uL (150-450); WHITE BLOOD COUNT (AUTO) 15.9 K/uL (4.3-11.0)
[2022-12-01 05:00] LABS: CALCIUM, SERUM 10.5 mg/dL (8.5-10.1); CREATININE 2.4 mg/dL (0.6-1.3); POTASSIUM 3.8 mmol/L (3.5-5.1)
[2022-12-01 05:05] LABS: ALBUMIN 2.2 g/dL (3.4-5.0); BILIRUBIN,TOTAL 0.4 mg/dL (0.2-1.0); TOTAL PROTEIN, SERUM 4.4 g/dL (6.4-8.2)
[2022-12-01] MEDS: DAKINS HALF STRENGTH (0.25%) 480 ML BOTTLE TOP SCH ×2 (05:23→18:08)
[2022-12-01 05:28] LABS: HEMOGLOBIN 6.8 g/dL (13.5-17.5)
--- NOTE | 2022-12-01 05:35 | NUR ---
RN NOTES RELAYED CRITICAL RESULT TO DR WORKMAN WITH NEW ORDER TO TRANSFUSE 1 UNIT PRBC.
[2022-12-01 06:00] LABS: D-DIMER 0.8 mg/L(FEU (0.17-0.50)
--- NOTE | 2022-12-01 06:44 | NUR ---
RN NOTES PATIENT REMAINS STABLE NO SIGNIFICANT CHANGES. STILL ON TRACH CONNECTED TO MV WITH PRESCRIBED SETTINGS. GT INTACT PATIENT ON NPO FOR PERMACATH INSERTION TODAY. IV ACCESS AT L UA MIDLINE PATENT RUNNING LEVOPHED AT 0.07 MCG/KG/MIN. CHAMORRO PATENT. NEPHROSTOMY TUBE INTACT WITH 700CC OUTPUT. FOR BLOOD TRANSFUSION FOR HGB 6.8. ALL NEEDS ATTENDED. WILL ENDORSED TO MORNING SHIFT FOR NGUYỄN
--- NOTE | 2022-12-01 07:10 | NUR ---
SOLDERER ELECTRONIC OPENING NOTE: RECEIVED PT. IN BED, OBTUNDED, MOVES EYELIDS TO PAINFUL STIMULI. NO S/S OF PAIN/DISCOMFORT AT THIS TIME. PT ON TRACH/VENT, TARA#8, AC - 12; VT - 525; FIO2 - 30%; PEEP - 5. NO S/S OF RESPIRATORY DISTRESS. BROOM MACHINE OPERATOR READS SINUS RHYTHM WITH 1ST DEGREE HEART BLOCK AT THIS TIME. MULTIPLE SKIN ISSUES NOTED, WILL DO WOUND TREATMENT ORDERED. HAS CHAMORRO CATH WITH CLOUDY YELLOW URINE NOTED IN BAG. IV ACCESS ON THADDEUS MIDLINE WITH NS TKO AND LEVOPHED DRIP RUNNING AT 0.06 MCG/KG/MIN, AND RIGHT IJ HD CATH, PATENT AND SALINE LOCKED. IV DRESSINGS C/D/I WITH NO S/S OF INFILTRATION. ALSO HAS R CHOLECYSTOSTOMY DRAIN WITH SEROSANGUINOUS DRAINAGE NOTED IN BAG. HAS PEG TUBE, NO GASTRIC RESIDUAL NOTED TUBE FEEDING STOPPED SINCE MIDNIGHT FOR PERMACATH PLACEMENT TODAY BY DR. BURDEN. WILL TRANSFUSE 1 UNIT OF PR[facility] FOR H/H OF 6.8/22. SAFETY MEASURES IN PLACE: BED IN LOWEST & LOCKED POSITION, CALL LIGHT WITHIN REACH, SIDE RAILS UP X3, HOB ELEVATED AT 30 DEGREES, CALL LIGHT WITHIN REACH, BED ALARM ON. WILL CONTINUE TO MONITOR PT. FOR ANY CHANGES.
[2022-12-01] MEDS: LEVOTHYROXINE SODIUM 50 MCG TABLET GT SCH (07:30)
[2022-12-01] MEDS: PROSOURCE / PROSTAT (PYXIS) 30 ML UDC GT SCH ×3 (09:00→18:13)
[2022-12-01] MEDS: MIDODRINE HCL (5MG) 5 MG TABLET GT SCH ×3 (09:00→18:15)
[2022-12-01] MEDS: FERROUS SULFATE (325 MG) 325 MG/TAB TABLET GT SCH ×3 (09:00→18:14)
[2022-12-01] MEDS: CLOTRIMAZOLE 1% 15 GM TUBE TP SCH ×2 (09:00→18:09)
[2022-12-01] MEDS: PANTOPRAZOLE 40 MG/PACK PACK GT SCH ×2 (09:00→21:27)
[2022-12-01] MEDS: SUCRALFATE 1 G/10 ML UDC GT SCH ×4 (09:00→21:26)
--- NOTE | 2022-12-01 09:00 | NUR ---
CUSTOMER CONTACT REPRESENTATIVE NOTES: MORNING MEDS WILL BE HELD DUE TO SCHEDULED PERMACATH PLACEMENT TODAY. PT. NPO AND FEEDINGS HELD SINCE MIDNIGHT.
--- NOTE | 2022-12-01 10:15 | NUR ---
INFORMATION SECURITY SYSTEMS INSTRUCTOR NOTE: 1 UNIT OF PRBC STARTED TRANSFUSING AT 0811 AND ENDED AT 1012. NO TRANSFUSION REACTION NOTED. WILL CONTINUE TO MONITOR PT. FOR S/S OF TRANSFUSION REACTION.
[2022-12-01 10:44] LABS: BAND % (MANUAL) 5 % (0.0-5.0); LYMPHOCYTES % (MANUAL) 13 % (16-48); NEUTROPHILS % (MANUAL) 60 (42-76)
[2022-12-01 10:45] LABS: EOSINOPHILS % (MANUAL) 15 % (0-4); MONOCYTES % (MANUAL) 7 % (0-11.0)
--- NOTE | 2022-12-01 11:05 | NUR ---
DRAFTER CHIEF DESIGN NOTE: PT. BROUGHT TO OR AT 1100, LED BY COLORS CUSTODIANROSY COTO.
[2022-12-01] MEDS ORDERED: IOHEXOL 240MG/ML 0 ML IV ONE (11:06)
[2022-12-01] MEDS ORDERED: HEPARIN SODIUM, PORCINE 1,000 UNIT/ML VIAL ONE (11:06)
[2022-12-01] MEDS ORDERED: LIDOCAINE 1% INJ 50 ML MDV IJ ONE (11:06)
--- NOTE | 2022-12-01 12:05 | NUR ---
DENTURE PROCESSOR NOTE: PT. BACK FROM OR FOR PERMA CATH PLACEMENT AT 1200.
[2022-12-01] MEDS: POTASSIUM CHLORIDE 20 MEQ TAB.PRT.SR PO SCH (12:40)
[2022-12-01] MEDS: FINASTERIDE (5 MG) 5 MG TABLET GT SCH (12:40)
[2022-12-01] MEDS: ASCORBIC ACID 500 MG TABLET GT SCH (12:40)
[2022-12-01] MEDS: MULTIVITAMINS,THERAGRAN 1 UDTAB TABLET GT SCH (12:40)
[2022-12-01] MEDS: FLUDROCORTISONE 0.1 MG TABLET PO SCH (12:43)
[2022-12-01] MEDS: ALLOPURINOL 100 MG TABLET GT SCH (12:43)
[2022-12-01 14:29] LABS: BASOPHILS # (AUTO) 0.1 K/uL (0.0-0.2); BASOPHILS % (AUTO) 0.5 % (0.0-2.0); EOSINOPHILS % (AUTO) 10.7 % (0.0-6.0); HEMATOCRIT 28 % (39-51); HEMOGLOBIN 8.9 g/dL (13.5-17.5); LYMPHOCYTES # (AUTO) 0.9 K/uL (0.8-4.8); LYMPHOCYTES % (AUTO) 8.6 % (20.0-44.0); MEAN CORPUSCULAR HGB CONC 32 g/dl (31.0-36.0); MEAN CORPUSCULAR VOLUME 94 fL (80-96); MONOCYTES # (AUTO) 0.1 K/uL (0.1-1.30); MONOCYTES % (AUTO) 1.1 % (2.0-12.0); NEUTROPHILS # (AUTO) 8.3 K/uL (1.8-8.9); NEUTROPHILS % (AUTO) 79.1 % (43.0-81.0); RED BLOOD CELL COUNT(AUTO) 2.95 MIL/uL (4.5-6.0); WHITE BLOOD COUNT (AUTO) 10.5 K/uL (4.3-11.0)
[2022-12-01 15:43] LABS: PLATELET COUNT (AUTO) 40 K/uL (150-450)
[2022-12-01] MEDS: EPOETIN ALFA-EPBX 4,000 UNIT/ML VIAL SQ SCH (15:55)
--- NOTE | 2022-12-01 16:00 | NUR ---
PROCESS MANAGER NOTE: HEMODIALYSIS (HD) STARTED AT 1250 AND ENDED AT 1550. GOT 1L OUT. VS STABLE AT THIS TIME. WILL CONTINUE TO MONITOR PT.'S HEMODYNAMIC STATUS.
[2022-12-01] MEDS: CEFTAZIDIME 1 G in IV D5W 50 ML IV SCH (16:51)
[2022-12-01] MEDS ORDERED: PHYTONADIONE INJ 10 MG/1 ML AMPUL SQ SCH ×2 (17:00→20:00)
[2022-12-01] MEDS ORDERED: PHYTONADIONE INJ 10 MG in IV D5W 50 ML SQ ONE (17:00)
[2022-12-01] MEDS: NEPRO 1,000 ML BOTTLE GT PRN (18:14)
[2022-12-01] MEDS: IV NS 0.9% 250 ML IV PRN (18:27)
--- NOTE | 2022-12-01 19:15 | NUR ---
DIRECTOR INFORMATION SECURITY CLOSING NOTE: PT. REMAINS IN BED, OBTUNDED, MOVES EYELIDS TO PAINFUL STIMULI. NO S/S OF PAIN/DISCOMFORT AT THIS TIME. PT ON TRACH/VENT, SHILEY#8, AC - 12; VT - 525; FIO2 - 30%; PEEP - 0. NO S/S OF RESPIRATORY DISTRESS. REHABILITATION CASEWORKER READS SINUS RHYTHM WITH 1ST DEGREE HEART BLOCK THIS SHIFT. WOUND TREATMENT DONE ORDERED. CHAMORRO CATH DRAINED 75 ML CLOUDY YELLOW URINE THIS SHIFT. IV ACCESS ON THADDEUS MIDLINE WITH NS TKO AND LEVOPHED DRIP RUNNING AT 0.1 MCG/KG/MIN; RIGHT CHEST PERMACATH, PATENT AND SALINE LOCKED. IV DRESSINGS C/D/I WITH NO S/S OF INFILTRATION. R CHOLECYSTOSTOMY DRAINED 575 ML SEROSANGUINOUS DRAINAGE. HAS PEG TUBE, NO GASTRIC RESIDUAL NOTED, FEEDING RESTARTED AT 50 ML/HR X24HRS. TRANSFUSED 1 UNIT OF PRBC FOR H/H OF 6.8/22, WITH NEW H/H AT 8.9/28. SAFETY MEASURES MAINTAINED: BED IN LOWEST & LOCKED POSITION, CALL LIGHT WITHIN REACH, SIDE RAILS UP X3, HOB ELEVATED AT 30 DEGREES, CALL LIGHT WITHIN REACH, BED ALARM ON. TURNED AND REPOSITIONED IN BED AT LEAST Q2H. ENDORSED CONTINUITY OF CARE TO CQ DEVELOPER ROSY NEW.
--- NOTE | 2022-12-01 19:20 | NUR ---
RN NOTES RECEIVED REPORT FROM MORNING SHIFT. PATIENT ON TRACH CONNECTED TO MV WITH PRESCRIBED SETTINGS. WITH IV ACCESS AT THADDEUS MIDLINE PATENT FLUSHES WELL CONNECTED TO LEVOPHED AT O.1 MCG/KG/MIN, WITH R CW PERMA CATH INTACT NO BLEEDING NOTED AT THE SITE. GT PATENT RUNNING NEPHRO @50CC/HR TOLERATING WELL NO GASTRIC RESIDUAL NOTED AT THIS TIME.WITH CHOLECYSTECTOMY INTACT DRAINING PINKISH OUTPUT. CHAMORRO CATHETER PATENT CONNECTED TO URINE BAG. ALL SAFETY MEASURES IN PLACE. HOB ELEVATED. WILL CLOSELY MONITOR THE PATIENT
[2022-12-01 19:38] LABS: BAND % (MANUAL) 6 % (0.0-5.0); EOSINOPHILS % (MANUAL) 12 % (0-4); LYMPHOCYTES % (MANUAL) 11 % (16-48); MONOCYTES % (MANUAL) 2 % (0-11.0); NEUTROPHILS % (MANUAL) 69 (42-76)
[2022-12-01] MEDS: COLISTIMETHATE SODIUM 100 MG in IV NS 0.9% 50 ML IV SCH (21:26)
[2022-12-02] VITALS (90 sets, daily range): BP systolic 62–127; BP diastolic 28–68
[2022-12-02 04:58] LABS: BASOPHILS # (AUTO) 0.1 K/uL (0.0-0.2); BASOPHILS % (AUTO) 0.8 % (0.0-2.0); HEMATOCRIT 26 % (39-51); HEMOGLOBIN 8.2 g/dL (13.5-17.5); LYMPHOCYTES # (AUTO) 1.2 K/uL (0.8-4.8); LYMPHOCYTES % (AUTO) 7.8 % (20.0-44.0); MEAN CORPUSCULAR HGB CONC 32 g/dl (31.0-36.0); MEAN CORPUSCULAR VOLUME 94 fL (80-96); MONOCYTES # (AUTO) 1.1 K/uL (0.1-1.30); MONOCYTES % (AUTO) 7.2 % (2.0-12.0); NEUTROPHILS # (AUTO) 11.4 K/uL (1.8-8.9); NEUTROPHILS % (AUTO) 75.2 % (43.0-81.0); RED BLOOD CELL COUNT(AUTO) 2.77 MIL/uL (4.5-6.0); WHITE BLOOD COUNT (AUTO) 15.1 K/uL (4.3-11.0)
[2022-12-02 05:02] LABS: PLATELET COUNT (AUTO) 39 K/uL (150-450)
[2022-12-02 05:03] LABS: CALCIUM, SERUM 9.4 mg/dL (8.5-10.1); CREATININE 1.9 mg/dL (0.6-1.3); POTASSIUM 3.5 mmol/L (3.5-5.1)
[2022-12-02 05:09] LABS: ALBUMIN 1.7 g/dL (3.4-5.0); BILIRUBIN,TOTAL 0.4 mg/dL (0.2-1.0); MAGNESIUM 2.2 mg/dL (1.8-2.4); PHOSPHORUS 2.4 mg/dL (2.5-4.9); TOTAL PROTEIN, SERUM 4.1 g/dL (6.4-8.2)
[2022-12-02 05:13] LABS: D-DIMER 1.02 mg/L(FEU (0.17-0.50)
[2022-12-02 05:29] LABS: IRON, SERUM 57 ug/dl (50-175); TOTAL IRON BINDING CAPACITY 79 ug/dl (250-450)
[2022-12-02] MEDS: DAKINS HALF STRENGTH (0.25%) 480 ML BOTTLE TOP SCH ×2 (05:29→16:48)
[2022-12-02 05:39] LABS: FERRITIN 3795 ng/mL (8-388)
--- NOTE | 2022-12-02 06:45 | NUR ---
RN NOTES STILL ON TRACH CONNECTED TO MV WITH PRESCRIBED SETTINGS. GT INTACT PATENT RUNNING NEPHRO @ 50 CC/HR. IV ACCESS AT L UA MIDLINE PATENT RUNNING LEVOPHED AT 0.04 MCG/KG/MIN. CHAMORRO PATENT. CHOLECYSTOSTOMY TUBE INTACT WITH 350 CC OUTPUT.REPOSITION Q2H ALL NEEDS ATTENDED. WILL ENDORSED TO MORNING SHIFT FOR NGUYỄN
--- NOTE | 2022-12-02 07:10 | NUR ---
GLASS CUTTING MACHINE FEEDER OPENING NOTE: RECEIVED PT. IN BED, OBTUNDED, MOVES EYELIDS TO PAINFUL STIMULI. NO S/S OF PAIN/DISCOMFORT AT THIS TIME. PT ON TRACH/VENT, TARA#8, AC - 12; VT - 525; FIO2 - 30%; PEEP - 0. NO S/S OF RESPIRATORY DISTRESS. INSTALL AND REPAIR TECHNICIAN READS SINUS RHYTHM WITH 1ST DEGREE HEART BLOCK AT THIS TIME. MULTIPLE SKIN ISSUES NOTED, WILL DO WOUND TREATMENT ORDERED. HAS CHAMORRO CATH WITH CLOUDY YELLOW URINE NOTED IN BAG. IV ACCESS ON THADDEUS MIDLINE WITH NS TKO AND LEVOPHED DRIP RUNNING AT 0.04 MCG/KG/MIN, AND RIGHT CHEST PERMA CATH, DRESSING C/D/I. IV DRESSINGS C/D/I WITH NO S/S OF INFILTRATION. ALSO HAS R CHOLECYSTOSTOMY DRAIN WITH SEROSANGUINOUS DRAINAGE NOTED IN BAG. HAS PEG TUBE, 50 ML GASTRIC RESIDUAL NOTED THAT RESEMBLES TUBE FEEDING. SAFETY MEASURES IN PLACE: BED IN LOWEST & LOCKED POSITION, CALL LIGHT WITHIN REACH, SIDE RAILS UP X3, HOB ELEVATED AT 30 DEGREES, CALL LIGHT WITHIN REACH, BED ALARM ON. WILL TURN AND REPOSITION AT LEAST Q2H. WILL CONTINUE TO MONITOR PT. FOR ANY CHANGES.
[2022-12-02] MEDS: SUCRALFATE 1 G/10 ML UDC GT SCH ×4 (08:34→21:20)
[2022-12-02] MEDS: ASCORBIC ACID 500 MG TABLET GT SCH (08:34)
[2022-12-02] MEDS: LEVOTHYROXINE SODIUM 50 MCG TABLET GT SCH (08:34)
[2022-12-02] MEDS: MULTIVITAMINS,THERAGRAN 1 UDTAB TABLET GT SCH (08:35)
[2022-12-02] MEDS: POTASSIUM CHLORIDE 20 MEQ TAB.PRT.SR PO SCH (08:35)
[2022-12-02] MEDS: ALLOPURINOL 100 MG TABLET GT SCH (08:35)
[2022-12-02] MEDS: FINASTERIDE (5 MG) 5 MG TABLET GT SCH (08:35)
[2022-12-02] MEDS: PROSOURCE / PROSTAT (PYXIS) 30 ML UDC GT SCH ×3 (08:35→16:52)
[2022-12-02] MEDS: FERROUS SULFATE (325 MG) 325 MG/TAB TABLET GT SCH ×3 (08:35→16:52)
[2022-12-02] MEDS: MIDODRINE HCL (5MG) 5 MG TABLET GT SCH ×3 (08:35→16:52)
[2022-12-02] MEDS: PANTOPRAZOLE 40 MG/PACK PACK GT SCH ×2 (08:35→21:20)
[2022-12-02] MEDS: FLUDROCORTISONE 0.1 MG TABLET PO SCH (08:36)
[2022-12-02] MEDS: CLOTRIMAZOLE 1% 15 GM TUBE TP SCH ×2 (08:37→16:48)
[2022-12-02] MEDS: NOREPINEPHRINE 8 MG in IV NS 0.9% 242 ML IV PRN (12:26)
[2022-12-02] MEDS: CEFTAZIDIME 1 G in IV D5W 50 ML IV SCH (12:44)
--- NOTE | 2022-12-02 12:45 | NUR ---
RETAIL HELPER NOTE: HEMODIALYSIS STARTED AT 1030 AND ENDED AT 1230. NO OUTPUT NOTED. STILL ON LEVOPHED. VS STABLE AT THIS TIME.
--- NOTE | 2022-12-02 14:54 | NUR ---
LOG HOOKER NOTE: NO VANCO POST HEMODIALYSIS TODAY DUE TO VANCO TROUGH OF 21.
[2022-12-02] MEDS ORDERED: NEUTRA PHOS 1 POWD.PACKET NG ONE (16:00)
[2022-12-02 16:13] LABS: EOSINOPHILS % (MANUAL) 13 % (0-4); LYMPHOCYTES % (MANUAL) 10 % (16-48); MONOCYTES % (MANUAL) 5 % (0-11.0); NEUTROPHILS % (MANUAL) 72 (42-76)
[2022-12-02] MEDS: NEPRO 1,000 ML BOTTLE GT PRN (17:02)
--- NOTE | 2022-12-02 19:10 | NUR ---
DIETETICS DIRECTOR CLOSING NOTE: PT. REMAINS IN BED, OBTUNDED, MOVES EYELIDS TO PAINFUL STIMULI. NO S/S OF PAIN/DISCOMFORT AT THIS TIME. PT ON TRACH/VENT, SHILEY#8, AC - 12; VT - 525; FIO2 - 30%; PEEP - 0. NO S/S OF RESPIRATORY DISTRESS. PARADICHLOROBENZENE TENDER READS SINUS RHYTHM WITH 1ST DEGREE HEART BLOCK THIS SHIFT. WOUND TREATMENT DONE ORDERED. CHAMORRO CATH DRAINED 35 ML CLOUDY YELLOW URINE THIS SHIFT. IV ACCESS ON THADDEUS MIDLINE WITH NS TKO AND LEVOPHED DRIP RUNNING AT 0.06 MCG/KG/MIN; RIGHT CHEST PERMACATH, PATENT AND SALINE LOCKED. IV DRESSINGS C/D/I WITH NO S/S OF INFILTRATION. R CHOLECYSTOSTOMY DRAINED 575 ML SEROSANGUINOUS DRAINAGE. HAS PEG TUBE WITH NEPRO RUNNING AT 50 ML/HR, 5 ML GASTRIC RESIDUAL NOTED THAT RESEMBLES TUBE FEEDING. SAFETY MEASURES MAINTAINED: BED IN LOWEST & LOCKED POSITION, CALL LIGHT WITHIN REACH, SIDE RAILS UP X3, HOB ELEVATED AT 30 DEGREES, CALL LIGHT WITHIN REACH, BED ALARM ON. TURNED AND REPOSITIONED IN BED AT LEAST Q2H. ENDORSED CONTINUITY OF CARE TO COAT AGENT RN BERLIN.
--- NOTE | 2022-12-02 19:58 | NUR ---
RT PT RECEIVED TRACHED W/ SHILEY #8 CUFFED ON [facility] VENT ON CURRENT ORDERED VENT SETTINGS AC MODE, RATE 12, VT 525, FIO2 30%, PEEP +0. AIRWAY PATENT AND SECURED. [employer]ER DONE. PT SUCTIONED. ALARMS SET AND AUDIBLE. AMBUBAG AND BACK UP TRACH AT BEDSIDE. WILL CONT TO MONITOR THROUGHOUT SHIFT. Addendum: 12/02/22 at 2019 by MONSERRAT PEREZ RT Amended: Links added.
[2022-12-02] MEDS: COLISTIMETHATE SODIUM 100 MG in IV NS 0.9% 50 ML IV SCH (21:15)
[2022-12-03] VITALS (44 sets, daily range): BP systolic 63–137; BP diastolic 27–75
[2022-12-03] MEDS: DAKINS HALF STRENGTH (0.25%) 480 ML BOTTLE TOP SCH ×2 (05:00→17:15)
[2022-12-03 05:10] LABS: BASOPHILS # (AUTO) 0.1 K/uL (0.0-0.2); BASOPHILS % (AUTO) 0.8 % (0.0-2.0); EOSINOPHILS % (AUTO) 8.1 % (0.0-6.0); HEMATOCRIT 24 % (39-51); HEMOGLOBIN 7.6 g/dL (13.5-17.5); LYMPHOCYTES # (AUTO) 0.8 K/uL (0.8-4.8); LYMPHOCYTES % (AUTO) 6.7 % (20.0-44.0); MEAN CORPUSCULAR HGB CONC 32 g/dl (31.0-36.0); MEAN CORPUSCULAR VOLUME 96 fL (80-96); MONOCYTES # (AUTO) 0.7 K/uL (0.1-1.30); MONOCYTES % (AUTO) 6.1 % (2.0-12.0); NEUTROPHILS # (AUTO) 9.6 K/uL (1.8-8.9); NEUTROPHILS % (AUTO) 78.3 % (43.0-81.0); RED BLOOD CELL COUNT(AUTO) 2.47 MIL/uL (4.5-6.0); WHITE BLOOD COUNT (AUTO) 12.2 K/uL (4.3-11.0)
[2022-12-03 05:18] LABS: ALBUMIN 1.5 g/dL (3.4-5.0); BILIRUBIN,TOTAL 0.4 mg/dL (0.2-1.0); CALCIUM, SERUM 9.6 mg/dL (8.5-10.1); CREATININE 1.9 mg/dL (0.6-1.3); MAGNESIUM 2.3 mg/dL (1.8-2.4); PHOSPHORUS 2.5 mg/dL (2.5-4.9); POTASSIUM 3.7 mmol/L (3.5-5.1); TOTAL PROTEIN, SERUM 3.9 g/dL (6.4-8.2)
[2022-12-03 05:25] LABS: PLATELET COUNT (AUTO) 26 K/uL (150-450)
[2022-12-03 05:30] LABS: D-DIMER 0.63 mg/L(FEU (0.17-0.50)
[2022-12-03 05:59] LABS: BAND % (MANUAL) 5 % (0.0-5.0); BASOPHILS % (MANUAL) 0 % (0.0-2.0); EOSINOPHILS % (MANUAL) 7 % (0-4); LYMPHOCYTES % (MANUAL) 8 % (16-48); MONOCYTES % (MANUAL) 6 % (0-11.0); NEUTROPHILS % (MANUAL) 74 (42-76)
--- NOTE | 2022-12-03 07:20 | NUR ---
THERAPY SITE COORDINATOR Bedside report taken from [facility] nurse Florence GALLEGOS. pt obtunded, opens eyes, does not track, does not follow commands. pt does not move bue or ble 0/5. PERRLA. Pt has trach to vent tolerating well fio2 30%, spo2 100%. natalee lung sounds coarse, diminished at bases. pt has peg and on Nepro @ 50 ml/hr tolerating well. residuals 0 ml. bowel sounds present. pt 1st degree heart block on monitor, bp labile 90s. bue pulses present and ble pulses present but weak. pt has chester cath, intact and draining minimal prince, sediment urine output. HD pt. multiple wounds noted see flow sheet. all lines traced. all drips verified. safety measures in place. will continue to monitor.
[2022-12-03] MEDS: SUCRALFATE 1 G/10 ML UDC GT SCH ×4 (08:31→21:43)
[2022-12-03] MEDS: PANTOPRAZOLE 40 MG/PACK PACK GT SCH ×2 (08:31→21:43)
[2022-12-03] MEDS: ALLOPURINOL 100 MG TABLET GT SCH (08:34)
[2022-12-03] MEDS: FERROUS SULFATE (325 MG) 325 MG/TAB TABLET GT SCH ×3 (08:34→17:12)
[2022-12-03] MEDS: MIDODRINE HCL (5MG) 5 MG TABLET GT SCH ×3 (08:34→17:12)
[2022-12-03] MEDS: FINASTERIDE (5 MG) 5 MG TABLET GT SCH (08:35)
[2022-12-03] MEDS: ASCORBIC ACID 500 MG TABLET GT SCH (08:35)
[2022-12-03] MEDS: LEVOTHYROXINE SODIUM 50 MCG TABLET GT SCH (08:35)
[2022-12-03] MEDS: FLUDROCORTISONE 0.1 MG TABLET PO SCH (08:35)
[2022-12-03] MEDS: CLOTRIMAZOLE 1% 15 GM TUBE TP SCH ×2 (08:36→17:15)
[2022-12-03] MEDS: MULTIVITAMINS,THERAGRAN 1 UDTAB TABLET GT SCH (08:36)
[2022-12-03] MEDS: PROSOURCE / PROSTAT (PYXIS) 30 ML UDC GT SCH ×3 (08:36→17:12)
[2022-12-03] MEDS: CEFTAZIDIME 1 G in IV D5W 50 ML IV SCH (11:26)
--- NOTE | 2022-12-03 16:15 | NUR ---
DEBURR OPERATOR Pt had 1 large liquid brown bm, pt bathed and cleaned. linen change done. skin check done , no new wounds noted. wound care done per protocol, pt tolerated well. tube feed bottle and tubing changed per protocol. vitals stable. safety measures in place. will continue to monitor.
--- NOTE | 2022-12-03 17:30 | NUR ---
EARTH MOVING MACHINE OPERATOR pt hypotensive sbp 60s currently receiving HD, charge nurse Livia GALLEGOS at bedside assessing pt, levophed restarted at 0.5 mcg/kg/min d/t hypotensive emergency, pharmacy called to bring new bag awaiting new bag of levophed. sbp rechecked after levophed sbp 130s hr 119 other vitals stable. pt tolerating HD at this time, will continue to monitor.
[2022-12-03] MEDS: NOREPINEPHRINE 8 MG in IV NS 0.9% 242 ML IV PRN (18:59)
--- NOTE | 2022-12-03 19:03 | NUR ---
LUMBER STACKER DRIVER Bedside report given to [facility] nurse Florence GALLEGOS. pt obtunded, has trach to vent tolerating well with fio2 30 % and spo2 98%. pt currently receiving HD, tolerating well. all lines traced. all drips verified. safety measures in place. pt clean and dry. no signs of acute distress at this time. HD RN at bedside.
[2022-12-03] MEDS: VANCOMYCIN 500 MG in IV D5W 100 ML IV PRN (19:35)
--- NOTE | 2022-12-03 19:46 | NUR ---
RT PT RECEIVED TRACHED W/ SHILEY #8 CUFFED ON ORDERED VENT SETTINGS AC MODE, RATE 12, VT 525, FIO2 30%, PEEP +0. AIRWAY PATENT AND SECURED. AGRICULTURAL SYSTEMS SPECIALIST DONE. PT SUCTIONED BLOOD TINGE SECRETIONS. ALARMS SET AND AUDIBLE. AMBUBAG AND BACK UP TRACH AT BEDSIDE. Addendum: 12/03/22 at 2015 by MONSERRAT PEREZ RT Amended: Links added.
[2022-12-03] MEDS: COLISTIMETHATE SODIUM 100 MG in IV NS 0.9% 50 ML IV SCH (21:43)
[2022-12-04] VITALS (84 sets, daily range): BP systolic 64–130; BP diastolic 27–70
[2022-12-04 04:32] LABS: BASOPHILS # (AUTO) 0.1 K/uL (0.0-0.2); BASOPHILS % (AUTO) 0.6 % (0.0-2.0); EOSINOPHILS % (AUTO) 7.4 % (0.0-6.0); HEMATOCRIT 21 % (39-51); LYMPHOCYTES # (AUTO) 0.9 K/uL (0.8-4.8); LYMPHOCYTES % (AUTO) 6.9 % (20.0-44.0); MEAN CORPUSCULAR HGB CONC 32 g/dl (31.0-36.0); MEAN CORPUSCULAR VOLUME 97 fL (80-96); MONOCYTES # (AUTO) 0.7 K/uL (0.1-1.30); MONOCYTES % (AUTO) 5.8 % (2.0-12.0); NEUTROPHILS # (AUTO) 10.1 K/uL (1.8-8.9); NEUTROPHILS % (AUTO) 79.3 % (43.0-81.0); RED BLOOD CELL COUNT(AUTO) 2.15 MIL/uL (4.5-6.0); WHITE BLOOD COUNT (AUTO) 12.7 K/uL (4.3-11.0)
[2022-12-04 04:40] LABS: HEMOGLOBIN 6.6 g/dL (13.5-17.5); PLATELET COUNT (AUTO) 17 K/uL (150-450)
[2022-12-04 04:46] LABS: ALBUMIN 1.6 g/dL (3.4-5.0); BILIRUBIN,TOTAL 0.4 mg/dL (0.2-1.0); CALCIUM, SERUM 9.5 mg/dL (8.5-10.1); MAGNESIUM 2.2 mg/dL (1.8-2.4); PHOSPHORUS 2.5 mg/dL (2.5-4.9); POTASSIUM 3.7 mmol/L (3.5-5.1); TOTAL PROTEIN, SERUM 3.9 g/dL (6.4-8.2)
[2022-12-04 04:48] LABS: ALBUMIN 1.6 g/dL (3.4-5.0); BILIRUBIN,DIRECT 0.2 mg/dL (0.0-0.2); BILIRUBIN,TOTAL 0.4 mg/dL (0.2-1.0); TOTAL PROTEIN, SERUM 3.9 g/dL (6.4-8.2)
[2022-12-04 04:59] LABS: D-DIMER 0.69 mg/L(FEU (0.17-0.50)
[2022-12-04] MEDS: DAKINS HALF STRENGTH (0.25%) 480 ML BOTTLE TOP SCH ×2 (05:37→18:07)
--- NOTE | 2022-12-04 07:40 | NUR ---
ICU/RN PT HAS TRACH ON THE VENT AC MODE,FIO2-30%,SAT O2-99%.BP DECREASED 74/39.LEVOPHED DRIP RESTARTED. T-99.3.PT IS RESPONSIVE ON PAIN STIMULATION ONLY.BEDBOUND.G-TUBE INFUSING WITH NEPRO NO RESIDUAL NOTED.GENERALIZED EDEMA PRESENT. F/C IN PLACE , ANURIC ON H/D. RIGHT IJ HD CATH .OPT IS ON DAILY HEMODIALYSIS.MULTIPLY WOUNDS ALL OVER THE BODY NOTED.LABS REVIEW H/H 03/27/21.1 UNIT PRBC ORDERED WITH HD.PLT 18.MD AWARE.SUCTION PROVIDED.PT HAS THICK SECRETIONS.WOUND AROUND TRACH AREA AND NECK NOTED.MULTIPLY BRUISES NOTED ALL OVER THE BODY.AM CARE PROVIDED.REPOSITION FOR COMFORT.LEFT UPPER ARM MIDLINE. RIGHT CHOLECYSTOSTOMY ,DRAINING WITH S/S DRAINAGE.LAST NIGHT WAS 150 ML.
[2022-12-04] MEDS: NOREPINEPHRINE 8 MG in IV NS 0.9% 242 ML IV PRN ×2 (07:46→17:59)
[2022-12-04 07:47] LABS: BAND % (MANUAL) 2 % (0.0-5.0); EOSINOPHILS % (MANUAL) 9 % (0-4); LYMPHOCYTES % (MANUAL) 10 % (16-48); METAMYELOCYTES % 1 % (0-0); MONOCYTES % (MANUAL) 4 % (0-11.0); MYELOCYTES % 1 % (0-0); NEUTROPHILS % (MANUAL) 73 (42-76)
[2022-12-04] MEDS: PROSOURCE / PROSTAT (PYXIS) 30 ML UDC GT SCH ×3 (08:56→18:06)
[2022-12-04] MEDS: LEVOTHYROXINE SODIUM 50 MCG TABLET GT SCH (08:57)
[2022-12-04] MEDS: PANTOPRAZOLE 40 MG/PACK PACK GT SCH ×2 (08:57→20:47)
[2022-12-04] MEDS: ALLOPURINOL 100 MG TABLET GT SCH (08:57)
[2022-12-04] MEDS: MULTIVITAMINS,THERAGRAN 1 UDTAB TABLET GT SCH (08:57)
[2022-12-04] MEDS: MIDODRINE HCL (5MG) 5 MG TABLET GT SCH ×3 (08:57→18:06)
[2022-12-04] MEDS: FERROUS SULFATE (325 MG) 325 MG/TAB TABLET GT SCH ×2 (08:57→12:54)
[2022-12-04] MEDS: FINASTERIDE (5 MG) 5 MG TABLET GT SCH (08:57)
[2022-12-04] MEDS: SUCRALFATE 1 G/10 ML UDC GT SCH ×4 (08:57→20:47)
[2022-12-04] MEDS: ASCORBIC ACID 500 MG TABLET GT SCH (08:57)
[2022-12-04] MEDS: FLUDROCORTISONE 0.1 MG TABLET PO SCH (08:57)
[2022-12-04] MEDS: CLOTRIMAZOLE 1% 15 GM TUBE TP SCH ×2 (08:58→18:07)
[2022-12-04] MEDS: NEPRO 1,000 ML BOTTLE GT PRN (08:59)
[2022-12-04] MEDS: CEFTAZIDIME 1 G in IV D5W 50 ML IV SCH (12:01)
[2022-12-04] MEDS: IV NS 0.9% 250 ML IV PRN (12:03)
[2022-12-04] MEDS: FERROUS SULFATE UDC 300 MG/5 ML UDC GT SCH ×2 (13:24→18:05)
--- NOTE | 2022-12-04 13:37 | NUR ---
ICU/RN F/C D/C ORDERED.PT IS ANURIC ON HD.NO NEED F/C. DUE MEDS ARE GIVEN ORDERED.WAITING FOR PRBC
--- NOTE | 2022-12-04 17:00 | NUR ---
ICU/RN 1 UNIT PLT IV GIVEN ORDERED. HD IS OVER 1 L OUTPUT. SC TOLERATED PROCEDURE WELL .STILL WAITING FOR PRBC FROM [facility] PT HAS ANTIBODY.PT IS ON LEVOPHED DRIP. PM CARE PROVIDED. WOUND DRESSING DONE .DUE MEDS ARE GIVEN ORDERED.SUCTION PROVIDED.REPOSITION FOR COMFORT.
--- NOTE | 2022-12-04 17:35 | NUR ---
ICU/RN 1 UNIT PRBC STARTED ORDERED.
--- NOTE | 2022-12-04 19:47 | NUR ---
RN NOTE PRBC TRANSFUSION FINISHED AT THIS TIME; TOLERATED WELL.
--- NOTE | 2022-12-04 20:16 | NUR ---
TURBINE ROOM ATTENDANT OPENING NOTE PT RECEIVED IN BED, OBTUNDED. PT ON SHILEY SIZE #8, AC 12, TV 525, FIO2 30%, PEEP +0 WITH CURRENT O2SAT OF 100%; NO S/S OF RESP DISTRESS, NO SOB OR COUGH, NON-LABORED AND EQUAL BREATHING; APPEARS COMFORTABLE OVERALL. PT ATTACHED TO BEDSIDE MONITOR, SR WITH HR OF 77. GTD C/D/I WITH NEPRO AT 50 ML/HR; NO RESIDUAL NOTED. CHOLECYSTOSTOMY TUBE IN PLACE, INTACT, DRAINING SEROSANGUINEOUS FLUIDS. THADDEUS MIDLINE INTACT AND PATENT, FLUSHES EASILY WITH NO RESISTANCE, NS TKO INFUSING AND LEVO AT 0.1 MCG/KG/MIN. BED IN LOWEST POSITION, CALL LIGHT WITHIN REACH, SIDE RAILS UP X3. WILL CONTINUE TO MONITOR THROUGHOUT THE NIGHT.
[2022-12-04] MEDS: COLISTIMETHATE SODIUM 100 MG in IV NS 0.9% 50 ML IV SCH (21:10)
[2022-12-05] VITALS (86 sets, daily range): BP systolic 79–136; BP diastolic 38–71
[2022-12-05 04:22] LABS: BASOPHILS # (AUTO) 0.1 K/uL (0.0-0.2); BASOPHILS % (AUTO) 0.6 % (0.0-2.0); EOSINOPHILS % (AUTO) 5.6 % (0.0-6.0); HEMATOCRIT 26 % (39-51); HEMOGLOBIN 8.1 g/dL (13.5-17.5); LYMPHOCYTES # (AUTO) 0.9 K/uL (0.8-4.8); LYMPHOCYTES % (AUTO) 5.5 % (20.0-44.0); MEAN CORPUSCULAR HGB CONC 32 g/dl (31.0-36.0); MEAN CORPUSCULAR VOLUME 97 fL (80-96); MONOCYTES % (AUTO) 6.3 % (2.0-12.0); NEUTROPHILS # (AUTO) 13.5 K/uL (1.8-8.9); RED BLOOD CELL COUNT(AUTO) 2.65 MIL/uL (4.5-6.0); WHITE BLOOD COUNT (AUTO) 16.5 K/uL (4.3-11.0)
[2022-12-05 04:27] LABS: ALBUMIN 1.5 g/dL (3.4-5.0); BILIRUBIN,TOTAL 0.3 mg/dL (0.2-1.0); CALCIUM, SERUM 9.5 mg/dL (8.5-10.1); CREATININE 1.9 mg/dL (0.6-1.3); MAGNESIUM 2.2 mg/dL (1.8-2.4); PHOSPHORUS 2.7 mg/dL (2.5-4.9); POTASSIUM 3.9 mmol/L (3.5-5.1); TOTAL PROTEIN, SERUM 4.3 g/dL (6.4-8.2)
[2022-12-05 04:38] LABS: D-DIMER 0.84 mg/L(FEU (0.17-0.50)
[2022-12-05 04:39] LABS: PLATELET COUNT (AUTO) 35 K/uL (150-450)
--- NOTE | 2022-12-05 04:40 | NUR ---
RN NOTE RECEIVED CRITICAL FROM LAB, PLTS 35; NOTED TO BE TRENDING UP FROM 18.
[2022-12-05] MEDS: DAKINS HALF STRENGTH (0.25%) 480 ML BOTTLE TOP SCH ×2 (05:13→17:38)
--- NOTE | 2022-12-05 07:05 | NUR ---
ADVANCED QUALITY ENGINEER Bedside report taken from [facility] nurse Butler RN. pt obtunded, opens eyes, does not track, does not follow commands. pt does not move bue or ble 0/5. PERRLA. Pt has trach to vent tolerating well fio2 30%, spo2 100%. natalee lung sounds coarse, diminished at bases. pt has peg and on Nepro @ 50 ml/hr tolerating well. residuals 0 ml. bowel sounds present. pt 1st degree heart block on monitor, bp labile 90s on levophed. bue pulses present and ble pulses present but weak. pt anuric, HD pt. multiple wounds noted see flow sheet. all lines traced. all drips verified. safety measures in place. will continue to monitor.
--- NOTE | 2022-12-05 07:33 | NUR ---
SUPERVISOR GARMENT MANUFACTURING CLOSING NOTE PT REMAINS IN BED, OBTUNDED, NON-VERBAL, OPENS EYES, RESPONDS TO PAIN. CONTINUES ON SAME VENT SETTINGS; TOLERATING WELL WITH O2SAT RANGING FROM 98%-100%; NO S/S OF RESP DISTRESS, NO SOB OR COUGH, NON-LABORED AND EQUAL BREATHING. ATTACHED TO BEDSIDE MONITOR, SR WITH 1ST DEGREE AV BLOCK. GTD C/D/I WITH NEPRO INFUSING AT 50 ML/HR; TOLERATING WELL WITH NO RESIDUALS. THADDEUS MIDLINE INTACT AND PATENT, FLUSHES EASILY WITH NO RESISTANCE; NS TKO AND LEVO AT 0.06 MCG/KG/MIN INFUSING. WOUNDS CLEANSED AND NEW DRESSINGS APPLIED. ALL DUE MEDS ADMINISTERED DURING THE NIGHT. BED IN LOWEST POSITION, CALL LIGHT WITHIN REACH, SIDE RAILS UP X3. WILL ENDORSE TO DAYSHIFT NURSE TO CONTINUE CARE.
[2022-12-05] MEDS: PANTOPRAZOLE 40 MG/PACK PACK GT SCH ×2 (08:38→20:52)
[2022-12-05] MEDS: LEVOTHYROXINE SODIUM 50 MCG TABLET GT SCH (08:38)
[2022-12-05] MEDS: ASCORBIC ACID 500 MG TABLET GT SCH (08:38)
[2022-12-05] MEDS: NOREPINEPHRINE 8 MG in IV NS 0.9% 242 ML IV PRN ×2 (08:38→17:51)
[2022-12-05] MEDS: MULTIVITAMINS,THERAGRAN 1 UDTAB TABLET GT SCH (08:39)
[2022-12-05] MEDS: FINASTERIDE (5 MG) 5 MG TABLET GT SCH (08:40)
[2022-12-05] MEDS: SUCRALFATE 1 G/10 ML UDC GT SCH ×4 (08:40→20:52)
[2022-12-05] MEDS: FLUDROCORTISONE 0.1 MG TABLET PO SCH (08:40)
[2022-12-05] MEDS: FERROUS SULFATE UDC 300 MG/5 ML UDC GT SCH ×3 (08:40→17:35)
[2022-12-05] MEDS: MIDODRINE HCL (5MG) 5 MG TABLET GT SCH ×3 (08:40→17:35)
[2022-12-05] MEDS: ALLOPURINOL 100 MG TABLET GT SCH (08:40)
[2022-12-05] MEDS: CLOTRIMAZOLE 1% 15 GM TUBE TP SCH ×2 (08:42→17:38)
[2022-12-05] MEDS: PROSOURCE / PROSTAT (PYXIS) 30 ML UDC GT SCH ×3 (08:42→17:36)
--- NOTE | 2022-12-05 09:00 | NUR ---
SUPERVISOR PLEATING Linen change done, large amount of bright red blood and active bleeding noted from pt left thigh and buttocks wounds, luis saturated. linen change done. skin check done, no new wounds noted. wound care done, wounds padded in attempt to place pressure and stop bleeding. charge nurse Rodri RN at bedside aware of bleeding and assessing wound. Dr Kohli messaged and made aware awaiting response. vitals stable.
[2022-12-05 10:35] LABS: BAND % (MANUAL) 5 % (0.0-5.0); BASOPHILS % (MANUAL) 0 % (0.0-2.0); EOSINOPHILS % (MANUAL) 5 % (0-4); LYMPHOCYTES % (MANUAL) 6 % (16-48); MONOCYTES % (MANUAL) 8 % (0-11.0); NEUTROPHILS % (MANUAL) 76 (42-76)
[2022-12-05] MEDS: CEFTAZIDIME 1 G in IV D5W 50 ML IV SCH (11:25)
--- NOTE | 2022-12-05 12:00 | NUR ---
GAS APPLIANCE INSTALLER HD nurse at bedside to start dialysis. pt obtunded, has trach to vent, tolerating well. pt on levophed vitals stable. at this time. will continue to monitor.
--- NOTE | 2022-12-05 18:05 | NUR ---
FIELD CROP FARMING SUPERVISOR pt bathed and cleaned. linen change done. skin check done with Serjio GALLEGOS, no new wounds noted. wound care and dressing change done per md order. pt tolerated well. vitals stable. safety measures in place. will continue to monitor.
--- NOTE | 2022-12-05 19:13 | NUR ---
ORACLE ADF DEVELOPER Bedside report given to [facility] nurse Princess GALLEGOS. pt obtunded, has trach to vent tolerating well with fio2 30 % and spo2 98%. All lines traced. all drips verified. safety measures in place. pt clean and dry. no signs of acute distress at this time.
--- NOTE | 2022-12-05 20:26 | NUR ---
PONY CYLINDER PRESS OPERATOR OPENING NOTE PT RECEIVED IN BED, OBTUNDED, OPENS EYES, FACIAL GRIMACES AND MOVES EXTREMITIES TO LOCALIZED PAIN. PT ON SHILEY SIZE #8, AC 12, TV 525, FIO2 30%, PEEP 0 WITH CURRENT O2SAT OF 99%; NO S/S OF RESP DISTRESS, NON-LABORED AND EQUAL BREATHING; APPEARS COMFORTABLE OVERALL. PT ATTACHED TO BEDSIDE MONITOR SR WITH HR OF 73. GTD C/D/I WITH NEPRO AT 50 ML/HR; NO RESIDUAL NOTED. THADDEUS MIDLINE INTACT AND PATENT WITH LEVO AT 0.04 MCG/KG/MIN; TOLERATING WELL WITH CURRENT SBP IN HIGH 90S TO LOW 100S. RIJ HD CATH DRESSING C/D/I. BED IN LOWEST POSITION, CALL LIGHT WITHIN REACH, SIDE RAILS UP X3. WILL CONTINUE TO MONITOR THROUGHOUT THE NIGHT.
[2022-12-05] MEDS: COLISTIMETHATE SODIUM 100 MG in IV NS 0.9% 50 ML IV SCH (20:52)
[2022-12-06] VITALS (95 sets, daily range): BP systolic 82–157; BP diastolic 35–93
[2022-12-06 04:39] LABS: BASOPHILS # (AUTO) 0.2 K/uL (0.0-0.2); EOSINOPHILS % (AUTO) 5.6 % (0.0-6.0); HEMATOCRIT 25 % (39-51); HEMOGLOBIN 7.7 g/dL (13.5-17.5); LYMPHOCYTES # (AUTO) 0.8 K/uL (0.8-4.8); LYMPHOCYTES % (AUTO) 4.9 % (20.0-44.0); MEAN CORPUSCULAR HGB CONC 31 g/dl (31.0-36.0); MEAN CORPUSCULAR VOLUME 98 fL (80-96); MONOCYTES # (AUTO) 0.9 K/uL (0.1-1.30); MONOCYTES % (AUTO) 5.5 % (2.0-12.0); NEUTROPHILS # (AUTO) 13.1 K/uL (1.8-8.9); RED BLOOD CELL COUNT(AUTO) 2.52 MIL/uL (4.5-6.0); WHITE BLOOD COUNT (AUTO) 15.8 K/uL (4.3-11.0)
[2022-12-06 04:43] LABS: BILIRUBIN,TOTAL 0.3 mg/dL (0.2-1.0); CALCIUM, SERUM 8.9 mg/dL (8.5-10.1); CREATININE 1.9 mg/dL (0.6-1.3); POTASSIUM 3.7 mmol/L (3.5-5.1); TOTAL PROTEIN, SERUM 4.2 g/dL (6.4-8.2)
[2022-12-06 04:51] LABS: PLATELET COUNT (AUTO) 21 K/uL (150-450)
[2022-12-06 05:00] LABS: ALBUMIN 1.5 g/dL (3.4-5.0)
--- NOTE | 2022-12-06 05:01 | NUR ---
RN NOTE RECEIVED CRITICAL FROM LAB. PLTS 21, NOTED TO BE TRENDING DOWN FROM 35. MENDEZ GLYNN NOTIFIED WITH NO NEW ORDERS.
[2022-12-06] MEDS: IV NS 0.9% 250 ML IV PRN (05:14)
[2022-12-06] MEDS: DAKINS HALF STRENGTH (0.25%) 480 ML BOTTLE TOP SCH ×2 (05:15→16:27)
[2022-12-06 06:07] LABS: BAND % (MANUAL) 2 % (0.0-5.0); EOSINOPHILS % (MANUAL) 2 % (0-4); LYMPHOCYTES % (MANUAL) 6 % (16-48); MONOCYTES % (MANUAL) 10 % (0-11.0); NEUTROPHILS % (MANUAL) 77 (42-76)
--- NOTE | 2022-12-06 07:10 | NUR ---
MANAGER COLLECTION CLOSING NOTE PT REMAINS IN BED WITH NO CHANGES TO NEURO STATUS. CONTINUES ON SAME VENT SETTINGS; TOLERATING WELL WITH O2SAT RANGING FROM 98%-100% WITH NO S/S OF RESP DISTRESS. ATTACHED TO BEDSIDE MONITOR, SR WITH 1ST DEGREE AV BLOCK. CHOLECYSTOSTOMY INTACT AND PATENT, DRAINING SEROSANGUINEOUS FLUIDS. GTD C/D/I WITH NEPRO INFUSING AT 50 ML/HR; TOLERATING WELL WITH NO RESIDUALS NOTED. THADDEUS MIDLINE INTACT AND PATENT, NS TKO AND LEVO AT 0.02 MCG/KG/MIN; BP SUSTAINED WELL. WOUNDS CLEANSED WITH NO OVERT SIGNS OF BLEEDING/CLOTTING NOTED; NEW DRESSINGS APPLIED. ALL DUE MEDS ADMINISTERED DURING THE NIGHT. BED IN LOWEST POSITION, CALL LIGHT WITHIN REACH, SIDE RAILS UP X3. WILL ENDORSE TO DAYSHIFT NURSE TO CONTINUE CARE.
--- NOTE | 2022-12-06 07:36 | NUR ---
0710 RECEIVED REPORT FROM OUT GOING NURSE
[2022-12-06] MEDS: SUCRALFATE 1 G/10 ML UDC GT SCH ×4 (08:19→20:37)
[2022-12-06] MEDS: FINASTERIDE (5 MG) 5 MG TABLET GT SCH (08:19)
[2022-12-06] MEDS: MULTIVITAMINS,THERAGRAN 1 UDTAB TABLET GT SCH (08:19)
[2022-12-06] MEDS: FERROUS SULFATE UDC 300 MG/5 ML UDC GT SCH ×2 (08:19→13:19)
[2022-12-06] MEDS: ALLOPURINOL 100 MG TABLET GT SCH (08:20)
[2022-12-06] MEDS: LEVOTHYROXINE SODIUM 50 MCG TABLET GT SCH (08:20)
[2022-12-06] MEDS: ASCORBIC ACID 500 MG TABLET GT SCH (08:20)
[2022-12-06] MEDS: MIDODRINE HCL (5MG) 5 MG TABLET GT SCH ×3 (08:20→16:27)
[2022-12-06] MEDS: FLUDROCORTISONE 0.1 MG TABLET PO SCH (08:20)
[2022-12-06] MEDS: PANTOPRAZOLE 40 MG/PACK PACK GT SCH ×2 (08:20→20:37)
[2022-12-06] MEDS: CLOTRIMAZOLE 1% 15 GM TUBE TP SCH ×2 (08:21→16:28)
[2022-12-06] MEDS: PROSOURCE / PROSTAT (PYXIS) 30 ML UDC GT SCH ×3 (08:22→16:27)
--- NOTE | 2022-12-06 12:00 | NUR ---
RN NOTES PT OFF LEVO , BP STABLE , CONTINUE TO MONITOR
[2022-12-06] MEDS: CEFTAZIDIME 1 G in IV D5W 50 ML IV SCH (12:40)
[2022-12-06] MEDS: NEPRO 1,000 ML BOTTLE GT PRN (17:40)
--- NOTE | 2022-12-06 18:33 | NUR ---
RN NOTES NO SIGNFICANT CHANGES NOTED ON THIS SHIFT, PT REAMINS OFF LEVO , BP STABLE, WILL ENDORSE TO HEALTH AND SAFETY MANAGER NURSE FOR CONTINUITY OF CARE .
--- NOTE | 2022-12-06 20:31 | NUR ---
CAFETERIA MANAGER OPENING NOTE PT RECEIVED IN BED, OBTUNDED, OPENS EYES. PT ON TRACH WITH SHILEY SIZE #8, AC 12, TV 525, FIO2 30%, PEEP 0 WITH CURRENT O2SAT OF 99%; NO S/S OF RESP DISTRESS, NO SOB OR COUGH, NON-LABORED AND EQUAL BREATHING. PT ATTACHED TO BEDSIDE MONITOR SR WITH 1ST DEGREE AV BLOCK WITH HR OF 72. CHOLECYSTOSTOMY IN PLACE, DRAINING SEROSANGUINEOUS FLUIDS. GTD C/D/I WITH NEPRO INFUSING AT 50 ML/HR. THADDEUS MIDLINE INTACT AND PATENT, FLUSHES EASILY WITH NO RESISTANCE; NS TKO INFUSING, CURRENTLY OFF LEVO WITH BP SUSTAINED; WILL CLOSELY MONITOR BP. BED IN LOWEST POSITION, CALL LIGHT WITHIN REACH, SIDE RAILS UP X3. WILL CONTINUE TO MONITOR THROUGHOUT THE NIGHT.
[2022-12-06] MEDS: COLISTIMETHATE SODIUM 100 MG in IV NS 0.9% 50 ML IV SCH (20:37)
--- NOTE | 2022-12-06 20:55 | NUR ---
RN NOTE HD NURSE PRITI AT BEDSIDE FOR HD SESSION.
--- NOTE | 2022-12-06 21:23 | NUR ---
RN NOTE LEVO STARTED AT 0.1 D/T LOW BP ONCE HD STARTED; HR ALSO NOTED TO BE HIGH IN THE 130S. Addendum: 12/06/22 at 2125 by PRINCESS DIANA GALLEGOS CURRENTLY NOT REMOVING FLUIDS THROUGH HD.
--- NOTE | 2022-12-06 23:04 | NUR ---
RN NOTE HD FINISHED AT THIS TIME WITH 1L REMOVED; BP STABLE, LEVO TITRATED BACK DOWN TO 0.1 MCG/KG/MIN.
[2022-12-06] MEDS: VANCOMYCIN 500 MG in IV D5W 100 ML IV PRN (23:10)
--- NOTE | 2022-12-06 23:12 | NUR ---
RN NOTE VANCO 500 MG PRN HD GIVEN AT THIS TIME WITH VANCO TROUGH OF 17.
[2022-12-07] VITALS (97 sets, daily range): BP systolic 84–155; BP diastolic 38–87
[2022-12-07 05:00] LABS: ALBUMIN 1.5 g/dL (3.4-5.0); BILIRUBIN,TOTAL 0.3 mg/dL (0.2-1.0); CREATININE 1.8 mg/dL (0.6-1.3); POTASSIUM 3.3 mmol/L (3.5-5.1); TOTAL PROTEIN, SERUM 4.4 g/dL (6.4-8.2)
[2022-12-07 05:03] LABS: BASOPHILS # (AUTO) 0.1 K/uL (0.0-0.2); BASOPHILS % (AUTO) 0.6 % (0.0-2.0); EOSINOPHILS % (AUTO) 4.8 % (0.0-6.0); HEMATOCRIT 25 % (39-51); HEMOGLOBIN 7.8 g/dL (13.5-17.5); LYMPHOCYTES # (AUTO) 0.8 K/uL (0.8-4.8); MEAN CORPUSCULAR HGB CONC 32 g/dl (31.0-36.0); MEAN CORPUSCULAR VOLUME 98 fL (80-96); MONOCYTES # (AUTO) 0.9 K/uL (0.1-1.30); MONOCYTES % (AUTO) 5.3 % (2.0-12.0); NEUTROPHILS # (AUTO) 13.8 K/uL (1.8-8.9); NEUTROPHILS % (AUTO) 84.3 % (43.0-81.0); WHITE BLOOD COUNT (AUTO) 16.4 K/uL (4.3-11.0)
[2022-12-07 05:10] LABS: PLATELET COUNT (AUTO) 24 K/uL (150-450)
--- NOTE | 2022-12-07 05:17 | NUR ---
RN NOTE RECEIVED CRITICAL FROM LAB; PLTS 24, NOTED TO BE TRENDING UP FROM 21.
[2022-12-07] MEDS: DAKINS HALF STRENGTH (0.25%) 480 ML BOTTLE TOP SCH ×2 (05:36→17:06)
[2022-12-07] MEDS: NOREPINEPHRINE 8 MG in IV NS 0.9% 242 ML IV PRN (06:18)
--- NOTE | 2022-12-07 07:28 | NUR ---
MANAGER PLAN CLOSING NOTE PT REMAINS IN BED, OBTUNDED. CONTINUES ON SAME VENT SETTINGS, TOLERATING WELL WITH O2SAT RANGING FROM 92%-100%; NO S/S OF RESP DISTRESS, APPEARS COMFORTABLE OVERALL. ATTACHED TO BEDSIDE MONITOR SR WITH 1ST DEGREE AV BLOCK WITH HR RANGING FROM 72-99; HR NOTED TO BE HIGH 160S NOT SUSTAINED DURING HD. CHOLECYSTOSTOMY IN PLACE WITH SEROSANGUINEOUS DRAINAGE. NEPRO AT 50 ML/HR WITH NO RESIDUALS. THADDEUS MIDLINE INTACT AND PATENT WITH LEVO AT 0.02 MCG/KG/MIN AND NS TKO; BP SUSTAINED. WOUNDS CLEANSED AND NEW DRESSINGS APPLIED. ALL DUE MEDS ADMINISTERED DURING THE NIGHT. BED IN LOWEST POSITION, CALL LIGHT WITHIN REACH, SIDE RAILS UP X3. WILL ENDORSE TO DAYSHIFT NURSE TO CONTINUE CARE.
--- NOTE | 2022-12-07 08:00 | NUR ---
RN NOTES RECEIVED PATIENT TRACHEA/VENT DEPENDENT, TOLERATING SETTING WELL, SUCTION, MOUTH CARE DONE, FIO2-30%, PEEP-0, O2-1-00% ON BEDSIDE MONITOR, HR -82 AV BLOCK. SUCTION MOUTH CARE DONE. PATIENT HAS GENERALIZED EDEMA, ANURIC, THADDEUS MIDLINE INTACT INFUSING LEVOPHED 0.02 MCG/KG/MIN, HD CATH ON RIGHT UPPER CHEST INTACT, CHOLECYSTOSTOMY TUBE INTACT, AND DRAINING WELL. RUNNING NEPRO @50ML RESIDUAL IS 5ML. WILL FOLLOW UP.
--- NOTE | 2022-12-07 08:30 | NUR ---
ICU/RN DR DUBOIS TALK TO THE OF THE PT .CODED STATUS CHANGED TO DNR.
[2022-12-07] MEDS: LEVOTHYROXINE SODIUM 50 MCG TABLET GT SCH (08:47)
[2022-12-07] MEDS ORDERED: IV NS 0.9% 1,000 ML IV ONE (10:00)
[2022-12-07] MEDS: PANTOPRAZOLE 40 MG/PACK PACK GT SCH ×2 (10:05→20:33)
[2022-12-07] MEDS: FINASTERIDE (5 MG) 5 MG TABLET GT SCH (10:05)
[2022-12-07] MEDS: SUCRALFATE 1 G/10 ML UDC GT SCH ×4 (10:05→20:33)
[2022-12-07] MEDS: ASCORBIC ACID 500 MG TABLET GT SCH (10:06)
[2022-12-07] MEDS: CLOTRIMAZOLE 1% 15 GM TUBE TP SCH ×2 (10:06→17:06)
[2022-12-07] MEDS: MULTIVITAMINS,THERAGRAN 1 UDTAB TABLET GT SCH (10:06)
[2022-12-07] MEDS: ALLOPURINOL 100 MG TABLET GT SCH (10:06)
[2022-12-07] MEDS: MIDODRINE HCL (5MG) 5 MG TABLET GT SCH ×3 (10:06→17:06)
[2022-12-07] MEDS: PROSOURCE / PROSTAT (PYXIS) 30 ML UDC GT SCH ×3 (10:07→17:07)
[2022-12-07] MEDS: FLUDROCORTISONE 0.1 MG TABLET PO SCH (10:07)
[2022-12-07] MEDS: ACETAMINOPHEN 650 MG/20.3 ML UDC GT PRN (10:29)
--- NOTE | 2022-12-07 10:30 | NUR ---
RN NOTES ADMINISTERED TYLENOL 650 ML VIA GT FOR PAIN. RESIDUAL CHECKED 5 ML/ DUE MEDICATION ADMINISTERED, RUNNING LEVOPHED 0.02 MCG/KG/MIN, ASSIST TURN AND REPOSTION Q 2 HR.
[2022-12-07] MEDS ORDERED: POTASSIUM CL. PREMIX PERIPHER. 50 ML IV SCH (11:00)
[2022-12-07] MEDS: IV NS 0.9% 250 ML IV PRN (11:10)
[2022-12-07] MEDS: CEFTAZIDIME 1 G in IV D5W 50 ML IV SCH (12:28)
[2022-12-07 12:36] LABS: BAND % (MANUAL) 7 % (0.0-5.0); EOSINOPHILS % (MANUAL) 9 % (0-4); LYMPHOCYTES % (MANUAL) 9 % (16-48); MONOCYTES % (MANUAL) 8 % (0-11.0); NEUTROPHILS % (MANUAL) 67 (42-76)
--- NOTE | 2022-12-07 15:30 | NUR ---
rn notes patient getting HD at this time .
--- NOTE | 2022-12-07 16:52 | NUR ---
rn notes get critical lab values from lab platelet is 16 at this time, notified oncology SENIOR BUSINESS CONSULTANT Annalise waiting for new orders.
[2022-12-07] MEDS: NEPRO 1,000 ML BOTTLE GT PRN (17:07)
--- NOTE | 2022-12-07 18:15 | NUR ---
rn notes called lab for platelet, per analytical laboratory technician notified no palette available today, shortage of blood on the [facility]. Oncology ANGELES Woody aware of. finished HD output was 1000 ml. Titrated Levophed per protocol bp 155/67, p-78. Due medication administered, assist turn and reposition q 2 hr. patient anuric. running Nepro @50 ml/hr intact. endorsed oncoming nurse follow plan of care.
--- NOTE | 2022-12-07 19:14 | NUR ---
ICU/RN: PER FERNANDA FROM BLOOD BANK. PLT ORDER WAS CANCELED AND SHE "DOESN'T KNOW WHY". 1 UNIT PLT REORDERED. PLT COUNT 15.
[2022-12-07] MEDS: COLISTIMETHATE SODIUM 100 MG in IV NS 0.9% 50 ML IV SCH (20:33)
[2022-12-08] VITALS (47 sets, daily range): BP systolic 87–155; BP diastolic 31–79
[2022-12-08 04:54] LABS: BASOPHILS # (AUTO) 0.1 K/uL (0.0-0.2); BASOPHILS % (AUTO) 0.7 % (0.0-2.0); EOSINOPHILS % (AUTO) 5.5 % (0.0-6.0); HEMATOCRIT 23 % (39-51); HEMOGLOBIN 7.3 g/dL (13.5-17.5); LYMPHOCYTES # (AUTO) 0.8 K/uL (0.8-4.8); LYMPHOCYTES % (AUTO) 5.8 % (20.0-44.0); MEAN CORPUSCULAR HGB CONC 31 g/dl (31.0-36.0); MEAN CORPUSCULAR VOLUME 99 fL (80-96); MONOCYTES # (AUTO) 0.8 K/uL (0.1-1.30); MONOCYTES % (AUTO) 5.9 % (2.0-12.0); NEUTROPHILS # (AUTO) 11.9 K/uL (1.8-8.9); NEUTROPHILS % (AUTO) 82.1 % (43.0-81.0); RED BLOOD CELL COUNT(AUTO) 2.35 MIL/uL (4.5-6.0); WHITE BLOOD COUNT (AUTO) 14.5 K/uL (4.3-11.0)
[2022-12-08 05:04] LABS: PLATELET COUNT (AUTO) 31 K/uL (150-450)
[2022-12-08 05:10] LABS: BILIRUBIN,TOTAL 0.4 mg/dL (0.2-1.0); CALCIUM, SERUM 8.9 mg/dL (8.5-10.1); CREATININE 1.7 mg/dL (0.6-1.3); POTASSIUM 3.6 mmol/L (3.5-5.1); TOTAL PROTEIN, SERUM 4.3 g/dL (6.4-8.2)
[2022-12-08] MEDS: DAKINS HALF STRENGTH (0.25%) 480 ML BOTTLE TOP SCH ×2 (05:10→16:25)
[2022-12-08 05:12] LABS: D-DIMER 0.74 mg/L(FEU (0.17-0.50)
[2022-12-08 05:15] LABS: ALBUMIN 1.4 g/dL (3.4-5.0)
[2022-12-08] MEDS: NOREPINEPHRINE 8 MG in IV NS 0.9% 242 ML IV PRN (05:18)
[2022-12-08] MEDS: ALBUMIN 25% 25 GM in PREMIX 1 EA IV PRN (07:46)
--- NOTE | 2022-12-08 08:00 | NUR ---
NOTIFIED DR GALLARDO OF PLTS LEVEL OF 31 THIS AM WITH AN ORDER FROM YESTERDAY TO INFUSE PLATELETS. PLATELET INFUSION ORDER CANCELLED PER DR GALLARDO.
--- NOTE | 2022-12-08 08:07 | NUR ---
SQE OPENING NOTE RECEIVED PATIENT IN BED, OBTUNDED. CONTINUES ON SAME VENT SETTINGS, TOLERATING WELL WITH O2SAT RANGING FROM 92%-100%; NO S/S OF RESP DISTRESS, APPEARS COMFORTABLE OVERALL. ON HEMODIALYSIS AT THIS MOMENT. ATTACHED TO BEDSIDE MONITOR SR HR 93. CHOLECYSTOSTOMY IN PLACE WITH SEROSANGUINEOUS DRAINAGE. NEPRO AT 50 ML/HR WITH NO RESIDUALS NOTED. THADDEUS MIDLINE INTACT AND PATENT WITH LEVO AT 0.03 MCG/KG/MIN AND NS TKO; BP CHECKED. BED IN LOWEST POSITION, CALL LIGHT WITHIN REACH, SIDE RAILS UP X3. PLAN OF CARE CONTINUE.
--- NOTE | 2022-12-08 08:30 | NUR ---
PATIENT IS ON GOING HD AT THIS MOMENT, WILL GIVE 0900 MEDICATION AFTER HD.
[2022-12-08] MEDS: CLOTRIMAZOLE 1% 15 GM TUBE TP SCH ×2 (09:00→16:25)
[2022-12-08] MEDS: PANTOPRAZOLE 40 MG/PACK PACK GT SCH ×2 (10:24→21:00)
[2022-12-08] MEDS: PROSOURCE / PROSTAT (PYXIS) 30 ML UDC GT SCH ×2 (10:25→16:27)
[2022-12-08] MEDS: MULTIVITAMINS,THERAGRAN 1 UDTAB TABLET GT SCH (10:25)
[2022-12-08] MEDS: MIDODRINE HCL (5MG) 5 MG TABLET GT SCH ×2 (10:25→16:28)
[2022-12-08] MEDS: SUCRALFATE 1 G/10 ML UDC GT SCH ×3 (10:25→21:00)
[2022-12-08] MEDS: FINASTERIDE (5 MG) 5 MG TABLET GT SCH (10:25)
[2022-12-08] MEDS: ALLOPURINOL 100 MG TABLET GT SCH (10:25)
[2022-12-08] MEDS: ASCORBIC ACID 500 MG TABLET GT SCH (10:25)
[2022-12-08] MEDS: LEVOTHYROXINE SODIUM 50 MCG TABLET GT SCH (10:25)
[2022-12-08] MEDS: VANCOMYCIN 500 MG in IV D5W 100 ML IV PRN (10:26)
[2022-12-08] MEDS: FLUDROCORTISONE 0.1 MG TABLET PO SCH (10:28)
--- NOTE | 2022-12-08 10:30 | NUR ---
HD DONE, AM MEDICATIONS GIVEN THRU GT, NO RESIDUAL NOTED AND PRN IV VANCO GIVEN. PLAN OF CARE CONTINUE.
[2022-12-08] MEDS: IV NS 0.9% 250 ML IV PRN (10:34)
--- NOTE | 2022-12-08 10:40 | NUR ---
NOTED BP 110/56, HR 83, RR 15, LEVOPHED HELD PER MD'S ORDER. PLAN OF CARE CONTINUE.
[2022-12-08 11:04] LABS: BAND % (MANUAL) 11 % (0.0-5.0); EOSINOPHILS % (MANUAL) 6 % (0-4); LYMPHOCYTES % (MANUAL) 9 % (16-48); MONOCYTES % (MANUAL) 7 % (0-11.0); NEUTROPHILS % (MANUAL) 67 (42-76)
[2022-12-08] MEDS: CEFTAZIDIME 1 G in IV D5W 50 ML IV SCH (12:02)
--- NOTE | 2022-12-08 13:53 | NUR ---
HD DONE 1L REMOVED.
[2022-12-08] MEDS: EPOETIN ALFA-EPBX 4,000 UNIT/ML VIAL SQ SCH (15:28)
--- NOTE | 2022-12-08 16:30 | NUR ---
WOUND CARE DONE.
--- NOTE | 2022-12-08 16:40 | NUR ---
RECEIVED PATIENT ON MD ORDERED VENT SETTINGS. AIRWAY PATENT AND SECURE. Q2 VENT CHECK, SUCTION PRN. AMBU BAG AND EMERGENCY TRACH AT THE BEDSIDE. VENT PLUGGED INTO RED OUTLET. ALARMS SET AND AUDIBLE. SMALL THICK SECRETIONS NOTED.
--- NOTE | 2022-12-08 18:07 | NUR ---
PAPER ROLL MACHINE OPERATOR SARA BRITT NOTE PATIENT IN BED, OBTUNDED. CONTINUES ON SAME VENT SETTINGS, TOLERATING WELL WITH O2SAT 100%, NO S/S OF RESP DISTRESS, APPEARS COMFORTABLE OVERALL. ATTACHED TO BEDSIDE MONITOR SR HR 70-. CHOLECYSTOSTOMY IN PLACE DRESSING C/D/I, WITH SEROSANGUINEOUS DRAINAGE. GT PATENT AND INTACT, FLUSHES WELL, ON NEPRO AT 50 ML/HR WITH NO RESIDUALS NOTED. THADDEUS MIDLINE PATENT AND INTACT, FLUSHES WELL, WITH NS TKO RUNNING. WOUND DRESING INTACT. BED IN LOWEST POSITION, CALL LIGHT WITHIN REACH, SIDE RAILS UP X3. WILL ENDORSE TO NIGHT NURSE FOR NGUYỄN.
[2022-12-08] MEDS: COLISTIMETHATE SODIUM 100 MG in IV NS 0.9% 50 ML IV SCH (21:00)
[2022-12-09] VITALS (26 sets, daily range): BP systolic 88–123; BP diastolic 44–83
[2022-12-09] MEDS: PROSOURCE / PROSTAT (PYXIS) 30 ML UDC GT SCH ×3 (01:11→17:09)
[2022-12-09] MEDS: MIDODRINE HCL (5MG) 5 MG TABLET GT SCH ×3 (01:14→17:09)
[2022-12-09] MEDS: SUCRALFATE 1 G/10 ML UDC GT SCH ×4 (04:32→20:32)
[2022-12-09] MEDS: DAKINS HALF STRENGTH (0.25%) 480 ML BOTTLE TOP SCH ×2 (05:13→08:50)
[2022-12-09 05:17] LABS: BASOPHILS # (AUTO) 0.1 K/uL (0.0-0.2); BASOPHILS % (AUTO) 0.8 % (0.0-2.0); HEMATOCRIT 22 % (39-51); MEAN CORPUSCULAR HGB CONC 31 g/dl (31.0-36.0); NEUTROPHILS # (AUTO) 11.1 K/uL (1.8-8.9)
[2022-12-09 05:32] LABS: EOSINOPHILS % (AUTO) 5.1 % (0.0-6.0); LYMPHOCYTES # (AUTO) 0.8 K/uL (0.8-4.8); LYMPHOCYTES % (AUTO) 5.9 % (20.0-44.0); MEAN CORPUSCULAR VOLUME 99 fL (80-96); MONOCYTES % (AUTO) 7.3 % (2.0-12.0); NEUTROPHILS % (AUTO) 80.9 % (43.0-81.0); RED BLOOD CELL COUNT(AUTO) 2.26 MIL/uL (4.5-6.0); WHITE BLOOD COUNT (AUTO) 13.7 K/uL (4.3-11.0)
[2022-12-09 05:39] LABS: HEMOGLOBIN 6.9 g/dL (13.5-17.5); PLATELET COUNT (AUTO) 34 K/uL (150-450)
[2022-12-09 05:51] LABS: ALBUMIN 1.5 g/dL (3.4-5.0); BILIRUBIN,TOTAL 0.4 mg/dL (0.2-1.0); CREATININE 1.9 mg/dL (0.6-1.3); POTASSIUM 3.9 mmol/L (3.5-5.1); TOTAL PROTEIN, SERUM 4.4 g/dL (6.4-8.2)
--- NOTE | 2022-12-09 05:55 | NUR ---
ICU/RN: CRITICAL HEMOGLOBIN 6.9 RELAYED TO MENDEZ GLYNN DNP. 1 UNIT PRBC ORDERED.
[2022-12-09] MEDS: NEPRO 1,000 ML BOTTLE GT PRN (06:19)
--- NOTE | 2022-12-09 07:30 | NUR ---
RN OPENING NOTE RECEIVED PATIENT IN BED, OBTUNDED WITH HOB AT 40 DEGREES. BREATHING ON MECHANICAL VENT TOLERATING WELL, WITH NO SIGNS OF LABORED BREATHING/RESPIRATORY DISTRESS. NEPRO INFUSING AT 50MLS/HR. PATIENT ANURIC. HD SCHEDULED FOR TODAY. IV ACCESS THADDEUS MIDLINE INTACT, R HD PERMACATH. NO FLUIDS RUNNING AT THIS TIME. WILL CONTINUE TO MONITOR
[2022-12-09] MEDS: CLOTRIMAZOLE 1% 15 GM TUBE TP SCH ×2 (08:16→17:05)
[2022-12-09] MEDS: PANTOPRAZOLE 40 MG/PACK PACK GT SCH ×2 (08:42→20:32)
[2022-12-09] MEDS: ALLOPURINOL 100 MG TABLET GT SCH (08:43)
[2022-12-09] MEDS: FLUDROCORTISONE 0.1 MG TABLET PO SCH (08:43)
[2022-12-09] MEDS: LEVOTHYROXINE SODIUM 50 MCG TABLET GT SCH (08:43)
[2022-12-09] MEDS: MULTIVITAMINS,THERAGRAN 1 UDTAB TABLET GT SCH (08:43)
[2022-12-09] MEDS: ASCORBIC ACID 500 MG TABLET GT SCH (08:43)
[2022-12-09] MEDS: FINASTERIDE (5 MG) 5 MG TABLET GT SCH (08:43)
[2022-12-09] MEDS: ALBUMIN 25% 25 GM in PREMIX 1 EA IV PRN (11:39)
--- NOTE | 2022-12-09 11:50 | NUR ---
RN NOTE PATIENT BEGAN DIALYSIS AT THIS TIME, AND STARTED BLOOD TRANSFUSION OF 1 UNIT PRBC. PRE TRANSFUSION VS: BP: 104/58; HR 91, RR: 24, AXILLARY TEMP 97.6. NO SIGNS OF REACTIONS WAS NOTED. WILL CONTINUE TO MONITOR.
--- NOTE | 2022-12-09 13:23 | NUR ---
RN NOTE BLOOD TRANSFUSION ENDED. TOLERATED WELL. VS: BP: 99/66, AXILLARY TEMP 97.7; FL: 105, RR:20. O2 SAT 96%.
[2022-12-09 13:48] LABS: BAND % (MANUAL) 5 % (0.0-5.0); EOSINOPHILS % (MANUAL) 10 % (0-4); LYMPHOCYTES % (MANUAL) 6 % (16-48); METAMYELOCYTES % 1 % (0-0); MONOCYTES % (MANUAL) 6 % (0-11.0); NEUTROPHILS % (MANUAL) 72 (42-76)
--- NOTE | 2022-12-09 14:45 | NUR ---
RN NOTE DIALYSIS REMOVED 1.9L TODAY. PATIENT TOLERATED WELL. WILL GIVE PRN VANCO PER PROTOCOL, VANCO TROUGH 20, PHARMACY NOTIFIED, OK TO GIVE.
[2022-12-09] MEDS: CEFTAZIDIME 1 G in IV D5W 50 ML IV SCH (15:05)
[2022-12-09] MEDS: VANCOMYCIN 500 MG in IV D5W 100 ML IV PRN (15:51)
[2022-12-09] MEDS: IV NS 0.9% 250 ML IV PRN (15:52)
--- NOTE | 2022-12-09 18:36 | NUR ---
RN NOTE FLEXI-SEAL INSERTED.
--- NOTE | 2022-12-09 19:17 | NUR ---
RN CLOSING NOTE PATIENT IN BED, OBTUNDED WITH HOB AT 40 DEGREES. BREATHING ON MECHANICAL VENT TOLERATING WELL, WITH NO SIGNS OF LABORED BREATHING/RESPIRATORY DISTRESS. NEPRO INFUSING AT 50MLS/HR. PATIENT ANURIC. HD REMOVED 1.9L. 1 UNIT PRBC GIVEN THIS SHIFT. IV ACCESS THADDEUS MIDLINE INTACT, R HD PERMACATH. NO FLUIDS RUNNING AT THIS TIME. RIGHT CHOLECYSTECTOMY DRAIN -300MLS TODAY. PATIENT HAD 1 BM, SOFT LIQUID BROWN, FLEXI SEAL INSERTED. WOUND CARE COMPLETED PRESCRIBED. ALL SAFETY MEASURES IN PLACE, BED LOCKED IN LOWEST POSITION. WILL ENDORSE TO DERMATOLOGICAL SURGEON NURSE FOR NGUYỄN.
[2022-12-09] MEDS: COLISTIMETHATE SODIUM 100 MG in IV NS 0.9% 50 ML IV SCH (20:32)
[2022-12-10] VITALS (25 sets, daily range): BP systolic 78–114; BP diastolic 36–69
[2022-12-10] MEDS: PROSOURCE / PROSTAT (PYXIS) 30 ML UDC GT SCH ×3 (00:17→16:11)
[2022-12-10] MEDS: MIDODRINE HCL (5MG) 5 MG TABLET GT SCH ×3 (00:18→16:18)
[2022-12-10] MEDS: SUCRALFATE 1 G/10 ML UDC GT SCH ×4 (03:16→21:35)
[2022-12-10] MEDS: DAKINS HALF STRENGTH (0.25%) 480 ML BOTTLE TOP SCH ×2 (04:21→16:18)
[2022-12-10 05:05] LABS: BASOPHILS # (AUTO) 0.1 K/uL (0.0-0.2); BASOPHILS % (AUTO) 0.8 % (0.0-2.0); EOSINOPHILS % (AUTO) 5.6 % (0.0-6.0); HEMATOCRIT 23 % (39-51); HEMOGLOBIN 7.2 g/dL (13.5-17.5); LYMPHOCYTES # (AUTO) 0.7 K/uL (0.8-4.8); LYMPHOCYTES % (AUTO) 4.9 % (20.0-44.0); MEAN CORPUSCULAR HGB CONC 31 g/dl (31.0-36.0); MEAN CORPUSCULAR VOLUME 98 fL (80-96); MONOCYTES # (AUTO) 1.1 K/uL (0.1-1.30); MONOCYTES % (AUTO) 8.2 % (2.0-12.0); NEUTROPHILS % (AUTO) 80.5 % (43.0-81.0); RED BLOOD CELL COUNT(AUTO) 2.34 MIL/uL (4.5-6.0); WHITE BLOOD COUNT (AUTO) 13.6 K/uL (4.3-11.0)
[2022-12-10 05:10] LABS: CALCIUM, SERUM 8.8 mg/dL (8.5-10.1); CREATININE 1.9 mg/dL (0.6-1.3); POTASSIUM 3.4 mmol/L (3.5-5.1)
[2022-12-10 05:13] LABS: PLATELET COUNT (AUTO) 38 K/uL (150-450)
[2022-12-10 05:16] LABS: ALBUMIN 1.7 g/dL (3.4-5.0); BILIRUBIN,TOTAL 0.5 mg/dL (0.2-1.0); TOTAL PROTEIN, SERUM 4.4 g/dL (6.4-8.2)
[2022-12-10] MEDS: NEPRO 1,000 ML BOTTLE GT PRN (06:04)
--- NOTE | 2022-12-10 07:30 | NUR ---
AM ICU OPENING NOTES: RECEIVED PATIENT IN BED ASLEEP BUT EASILY AROUSES TO VOICE AND TOUCH. OBTUNDED WITH MECHANICAL VENT SETTING FOLLOWS: AC 12, TV 525, FI02 30, PEEP 5 WITH OXYGEN SATURATION 100%. ON SR PER TELE MONITOR WITH HR OF 74. NO RESPIRATORY DISTRESS NOTED. IV ACCESS ON LEFT UPPER ARM MIDLINE, PATENT AND NO S/S INFILTRATION NOTED, FLUSHES WELL. HAS RIGHT HD PERMACATH. PATIENT IS SCHEDULED FOR HD TODAY. G-TUBE IN PLACE, WITH 60 ML OF GASTRIC RESIDUAL, PATENT, FLUSHES WELL, ON NEPRO @ 50 ML/HR, TOLERATING IT WELL. FLEXISEAL INTACT AND DRAINING TO GRAVITY. SURGICAL DRAIN INTACT, DRAINING TO GRAVITY. ALL SAFETY MEASURES IN PLACE. BED LOCKED AND IN LOWEST POSITION WITH BED ALARM ON. WILL CONTINUE TO MONITOR PATIENT THROUGHOUT SHIFT.
[2022-12-10] MEDS: FINASTERIDE (5 MG) 5 MG TABLET GT SCH (08:47)
[2022-12-10] MEDS: FLUDROCORTISONE 0.1 MG TABLET PO SCH (08:47)
[2022-12-10] MEDS: LEVOTHYROXINE SODIUM 50 MCG TABLET GT SCH (08:47)
[2022-12-10] MEDS: ALLOPURINOL 100 MG TABLET GT SCH (08:47)
[2022-12-10] MEDS: PANTOPRAZOLE 40 MG/PACK PACK GT SCH ×2 (08:47→21:35)
[2022-12-10] MEDS: ASCORBIC ACID 500 MG TABLET GT SCH (08:49)
[2022-12-10] MEDS: CLOTRIMAZOLE 1% 15 GM TUBE TP SCH ×2 (08:49→16:19)
[2022-12-10] MEDS: MULTIVITAMINS,THERAGRAN 1 UDTAB TABLET GT SCH (08:50)
[2022-12-10] MEDS: ALBUMIN 25% 25 GM in PREMIX 1 EA IV PRN (08:51)
[2022-12-10] MEDS: CEFTAZIDIME 1 G in IV D5W 50 ML IV SCH (11:55)
--- NOTE | 2022-12-10 12:46 | NUR ---
SPOKE WITH TRINI AT THE PHARMACY AND INFORMED OF TROUGH LEVEL OF 20 AND RANDOM VANCO RESULT OF 23 AND STATED THAT IT'S OK TO GIVE VANCO ORDERED BY .
[2022-12-10] MEDS: VANCOMYCIN 500 MG in IV D5W 100 ML IV PRN (13:00)
[2022-12-10 13:02] LABS: BAND % (MANUAL) 6 % (0.0-5.0); BASOPHILS % (MANUAL) 0 % (0.0-2.0); EOSINOPHILS % (MANUAL) 3 % (0-4); LYMPHOCYTES % (MANUAL) 4 % (16-48); MONOCYTES % (MANUAL) 11 % (0-11.0); NEUTROPHILS % (MANUAL) 76 (42-76)
--- NOTE | 2022-12-10 17:25 | NUR ---
RN NOTE: TRANSFER 111/ PATIENT STABLE AT THIS TIME. PATIENT WAS TRANSFERRED TO [facility] VIA ACLS PROTOCOL ACCOMPANIED BY AN RN AND A RESPIRATORY THERAPIST. GAVE BEDSIDE REPORT TO ROSY CALERO. PATIENT IN NO ACUTE DISTRESS.
--- NOTE | 2022-12-10 17:30 | NUR ---
[facility] RN NOTE: RECEIVED PATIENT TRANSFERED FROM ICU IN BED ASLEEP, OBTUNDED WITH MECHANICAL VENT SETTING FOLLOWS: AC 12, TV 525, FI02 30, PEEP 5 WITH OXYGEN SATURATION 100%. ON SR PER TELE MONITOR WITH HR OF 73. NO RESPIRATORY DISTRESS NOTED. IV ACCESS ON LEFT UPPER ARM MIDLINE, PATENT AND NO S/S INFILTRATION NOTED, FLUSHES WELL. HAS RIGHT HD PERMACATH, HAS HEMODIALYSIS DAILY. G-TUBE IN PLACE, FLUSHES WELL, ON NEPRO @ 50 ML/HR, TOLERATING IT WELL. FLEXISEAL INTACT AND DRAINING TO GRAVITY. SURGICAL DRAIN INTACT, DRAINING TO GRAVITY. ALL SAFETY MEASURES IN PLACE. BED LOCKED AND IN LOWEST POSITION WITH BED ALARM ON. WILL CONTINUE TO MONITOR PATIENT.
--- NOTE | 2022-12-10 19:08 | NUR ---
SHIRA RN CLOSING NOTE PATIENT IN BED ASLEEP ON MECHANICAL VENT, NO RESPIRATORY DISTRESS NOTED. IV ACCESS ON LEFT UPPER ARM MIDLINE, FLUSHES WELL. G-TUBE IN PLACE, ON NEPRO @ 50 ML/HR, TOLERATING IT WELL. FLEXISEAL INTACT AND DRAINING TO GRAVITY. SURGICAL DRAIN INTACT, DRAINING TO GRAVITY. ALL SAFETY MEASURES IN PLACE. BED LOCKED AND IN LOWEST POSITION WITH BED ALARM ON. WILL ENDORSE TO THE CAGER OPERATOR NURSE FOR NGUYỄN.
[2022-12-10] MEDS: COLISTIMETHATE SODIUM 100 MG in IV NS 0.9% 50 ML IV SCH (21:33)
[2022-12-11] VITALS: BP 119/50
[2022-12-11] MEDS: PROSOURCE / PROSTAT (PYXIS) 30 ML UDC GT SCH ×3 (00:40→16:01)
[2022-12-11] MEDS: MIDODRINE HCL (5MG) 5 MG TABLET GT SCH ×3 (00:41→16:01)
[2022-12-11] MEDS: SUCRALFATE 1 G/10 ML UDC GT SCH ×4 (02:00→20:54)
[2022-12-11 04:00] VITALS: BP 122/55
[2022-12-11] MEDS: DAKINS HALF STRENGTH (0.25%) 480 ML BOTTLE TOP SCH ×2 (05:15→16:02)
[2022-12-11 05:42] LABS: BASOPHILS # (AUTO) 0.1 K/uL (0.0-0.2); BASOPHILS % (AUTO) 0.8 % (0.0-2.0); EOSINOPHILS % (AUTO) 5.5 % (0.0-6.0); HEMATOCRIT 22 % (39-51); LYMPHOCYTES # (AUTO) 0.5 K/uL (0.8-4.8); MEAN CORPUSCULAR HGB CONC 32 g/dl (31.0-36.0); MEAN CORPUSCULAR VOLUME 98 fL (80-96); MONOCYTES # (AUTO) 1.3 K/uL (0.1-1.30); MONOCYTES % (AUTO) 10.2 % (2.0-12.0); NEUTROPHILS # (AUTO) 10.5 K/uL (1.8-8.9); NEUTROPHILS % (AUTO) 79.5 % (43.0-81.0); PLATELET COUNT (AUTO) 58 K/uL (150-450); RED BLOOD CELL COUNT(AUTO) 2.24 MIL/uL (4.5-6.0); WHITE BLOOD COUNT (AUTO) 13.2 K/uL (4.3-11.0)
[2022-12-11 06:05] LABS: D-DIMER 0.82 mg/L(FEU (0.17-0.50)
--- NOTE | 2022-12-11 06:15 | NUR ---
[facility]/RN: HD RN TAIWO AT BEDSIDE TO PERFORM HD.
[2022-12-11 06:19] LABS: BILIRUBIN,TOTAL 0.5 mg/dL (0.2-1.0); CALCIUM, SERUM 8.8 mg/dL (8.5-10.1); CREATININE 1.7 mg/dL (0.6-1.3); POTASSIUM 3.4 mmol/L (3.5-5.1)
[2022-12-11 06:20] LABS: ALBUMIN 1.8 g/dL (3.4-5.0); TOTAL PROTEIN, SERUM 4.4 g/dL (6.4-8.2)
--- NOTE | 2022-12-11 06:59 | NUR ---
Creatinine 1.7 Dr santillan made aware, orders made and carried out for dry UF today.
--- NOTE | 2022-12-11 07:10 | NUR ---
RN OPENING NOTE RECEIVED PATIENT IN BED, OBTUNDED WITH HOB AT 40 DEGREES. BREATHING ON MECHANICAL VENT TOLERATING WELL, WITH NO SIGNS OF LABORED BREATHING/RESPIRATORY DISTRESS. ON HEMODIALYSIS AT THIS TIME.NEPRO INFUSING AT 50MLS/HR. PATIENT ANURIC. . IV ACCESS THADDEUS MIDLINE INTACT, R HD PERMACATH. NO FLUIDS RUNNING AT THIS TIME.WITH RECTAL TUBE AND RIGHT ABDOMEN CHOLECYSTOSTOMY DRAIN WITH PINK DRAINAGE.WILL CONTINUE TO MONITOR
[2022-12-11 08:00] VITALS: BP 108/71
[2022-12-11] MEDS: LEVOTHYROXINE SODIUM 50 MCG TABLET GT SCH (08:00)
[2022-12-11 08:43] LABS: BAND % (MANUAL) 2 % (0.0-5.0); EOSINOPHILS % (MANUAL) 6 % (0-4); LYMPHOCYTES % (MANUAL) 9 % (16-48); METAMYELOCYTES % 1 % (0-0); MONOCYTES % (MANUAL) 8 % (0-11.0); MYELOCYTES % 1 % (0-0); NEUTROPHILS % (MANUAL) 73 (42-76)
[2022-12-11] MEDS: FLUDROCORTISONE 0.1 MG TABLET PO SCH (08:49)
[2022-12-11] MEDS: FINASTERIDE (5 MG) 5 MG TABLET GT SCH (08:49)
[2022-12-11] MEDS: PANTOPRAZOLE 40 MG/PACK PACK GT SCH ×2 (08:49→20:54)
[2022-12-11] MEDS: ALLOPURINOL 100 MG TABLET GT SCH (08:49)
[2022-12-11] MEDS: ASCORBIC ACID 500 MG TABLET GT SCH (08:49)
[2022-12-11] MEDS: MULTIVITAMINS,THERAGRAN 1 UDTAB TABLET GT SCH (08:49)
[2022-12-11] MEDS: CLOTRIMAZOLE 1% 15 GM TUBE TP SCH ×2 (08:50→16:02)
[2022-12-11] MEDS ORDERED: POTASSIUM CHLORIDE 10 MEQ TABLET.SA PO ONE (10:00)
[2022-12-11] MEDS ORDERED: POTASSIUM CL. PREMIX PERIPHER. 50 ML IV SCH (11:00)
[2022-12-11 12:00] VITALS: BP 91/44
[2022-12-11] MEDS: CEFTAZIDIME 1 G in IV D5W 50 ML IV SCH (12:25)
--- NOTE | 2022-12-11 15:11 | NUR ---
RN NOTES: RELAYED HEMOGLOBIN 7.0 TO CAMRON EDUCATION ADMINISTRATIVE ASSISTANT NO NEED FOR BLOOD TRANSFUSION UNLESS HEMOGLOBIN IS BELOW 7
[2022-12-11 16:00] VITALS: BP 99/51
--- NOTE | 2022-12-11 19:21 | NUR ---
SHIRA RN CLOSING NOTE PATIENT IN BED ASLEEP ON MECHANICAL VENT, NO RESPIRATORY DISTRESS NOTED. IV ACCESS ON LEFT UPPER ARM MIDLINE, FLUSHES WELL. G-TUBE IN PLACE, ON NEPRO @ 50 ML/HR, TOLERATING IT WELL. FLEXISEAL INTACT AND DRAINING TO GRAVITY. SURGICAL DRAIN INTACT, DRAINING TO GRAVITY. ALL SAFETY MEASURES IN PLACE. BED LOCKED AND IN LOWEST POSITION WITH BED ALARM ON. WILL ENDORSE TO THE RN LVN NURSE FOR NGUYỄN.
--- NOTE | 2022-12-11 19:32 | NUR ---
SHIRA RN OPENING NOTES: RECEIVED PATIENT IN BED ASLEEP, OBTUNDED. ON TRACH WITH MECHANICAL VENT SETTING FOLLOWS: S#8, AC 12, TV 525, FI02 30, PEEP 5. O2 SAT 97%. BREATHING EVEN AND UNLABORED. IV ACCESS ON LEFT UPPER ARM MIDLINE INTACT AND PATENT. RT HD PERMACATH COVERED WITH DRESSING. NO ACTIVE BLEEDING NOTED. G-TUBE WELL TOLERATED. ON NEPRO @ 50 ML/HR X24 HOURS. PT TOLERATED WELL. NO FACIAL GRIMACING NOTED. PT HAS FLEXISEAL IN PLACE. DRAINING BY GRAVITY. CHOLECYSTECTOMY BAG DRAINING WELL. DRAINING BY GRAVITY. ON ISOLATION PRECAUTION FOR XRO BLOOD. ALL SAFETY MEASURES IN PLACE. BED IN LOWEST POSITION AND LOCKED. SIDE RAILS UP X3, PLACE CALL LIGHT WITH IN REACH. WILL CONTINUE TO MONITOR.
[2022-12-11 20:00] VITALS: BP 117/54
[2022-12-11] MEDS: COLISTIMETHATE SODIUM 100 MG in IV NS 0.9% 50 ML IV SCH (20:54)
[2022-12-12] VITALS: BP 102/49
[2022-12-12] MEDS: PROSOURCE / PROSTAT (PYXIS) 30 ML UDC GT SCH ×3 (01:37→17:36)
[2022-12-12] MEDS: MIDODRINE HCL (5MG) 5 MG TABLET GT SCH ×3 (01:37→17:36)
[2022-12-12] MEDS: SUCRALFATE 1 G/10 ML UDC GT SCH ×4 (03:13→22:01)
[2022-12-12 04:00] VITALS: BP 114/57
[2022-12-12] MEDS: DAKINS HALF STRENGTH (0.25%) 480 ML BOTTLE TOP SCH ×2 (04:05→17:37)
[2022-12-12 07:14] LABS: BASOPHILS # (AUTO) 0.1 K/uL (0.0-0.2); BASOPHILS % (AUTO) 0.6 % (0.0-2.0); HEMATOCRIT 23 % (39-51); LYMPHOCYTES # (AUTO) 0.6 K/uL (0.8-4.8); LYMPHOCYTES % (AUTO) 4.7 % (20.0-44.0); MEAN CORPUSCULAR HGB CONC 31 g/dl (31.0-36.0); MEAN CORPUSCULAR VOLUME 98 fL (80-96); MONOCYTES # (AUTO) 1.3 K/uL (0.1-1.30); MONOCYTES % (AUTO) 9.9 % (2.0-12.0); NEUTROPHILS # (AUTO) 10.5 K/uL (1.8-8.9); NEUTROPHILS % (AUTO) 77.8 % (43.0-81.0); PLATELET COUNT (AUTO) 91 K/uL (150-450); RED BLOOD CELL COUNT(AUTO) 2.29 MIL/uL (4.5-6.0); WHITE BLOOD COUNT (AUTO) 13.4 K/uL (4.3-11.0)
--- NOTE | 2022-12-12 07:15 | NUR ---
RN note Received patient in bed. GCS [id number]. On ventilator support via tracheostomy, AC mode rate 12, TV 525mL, SpO2 98% with FiO2 30%. No respiratory distress was noted. Oral and tracheostomy suction was done, 2+ from oral and 1+ from tracheostomy. parts product analyst showed SR with HR 83/min. Vital signs are WNL. Bed is locked and placed in the lowest position. Call tilley is placed within reach. Will continue monitoring and care.
[2022-12-12 07:20] LABS: CALCIUM, SERUM 8.6 mg/dL (8.5-10.1); POTASSIUM 3.4 mmol/L (3.5-5.1)
[2022-12-12 07:25] LABS: ALBUMIN 1.7 g/dL (3.4-5.0); BILIRUBIN,TOTAL 0.4 mg/dL (0.2-1.0); TOTAL PROTEIN, SERUM 4.4 g/dL (6.4-8.2)
[2022-12-12 08:00] VITALS: BP 90/49
[2022-12-12] MEDS: LEVOTHYROXINE SODIUM 50 MCG TABLET GT SCH (08:31)
[2022-12-12] MEDS: CLOTRIMAZOLE 1% 15 GM TUBE TP SCH ×2 (08:33→17:37)
[2022-12-12] MEDS: ALLOPURINOL 100 MG TABLET GT SCH (08:33)
[2022-12-12] MEDS: PANTOPRAZOLE 40 MG/PACK PACK GT SCH ×2 (08:33→22:01)
[2022-12-12] MEDS: MULTIVITAMINS,THERAGRAN 1 UDTAB TABLET GT SCH (08:33)
[2022-12-12] MEDS: FINASTERIDE (5 MG) 5 MG TABLET GT SCH (08:33)
[2022-12-12] MEDS: ASCORBIC ACID 500 MG TABLET GT SCH (08:33)
[2022-12-12] MEDS: FLUDROCORTISONE 0.1 MG TABLET PO SCH (08:33)
[2022-12-12] MEDS: CEFTAZIDIME 1 G in IV D5W 50 ML IV SCH (11:00)
[2022-12-12] MEDS ORDERED: POTASSIUM CL. PREMIX PERIPHER. 50 ML IV SCH (11:30)
[2022-12-12 12:00] VITALS: BP 97/54
[2022-12-12 12:00] LABS: BAND % (MANUAL) 4 % (0.0-5.0); EOSINOPHILS % (MANUAL) 6 % (0-4); LYMPHOCYTES % (MANUAL) 6 % (16-48); MONOCYTES % (MANUAL) 7 % (0-11.0)
[2022-12-12 12:01] LABS: METAMYELOCYTES % 1 % (0-0); MYELOCYTES % 1 % (0-0); NEUTROPHILS % (MANUAL) 76 (42-76)
[2022-12-12] MEDS: ALBUMIN 25% 25 GM in PREMIX 1 EA IV PRN (12:10)
[2022-12-12] MEDS: NEPRO 1,000 ML BOTTLE GT PRN (12:52)
[2022-12-12] MEDS: IV NS 0.9% 250 ML IV PRN (12:53)
--- NOTE | 2022-12-12 15:00 | NUR ---
RN note HD done, nasra 1L fluid out. As vancomycin level is high, not for vancomycin today.
[2022-12-12 16:00] VITALS: BP 93/49
--- NOTE | 2022-12-12 19:35 | NUR ---
SHIRA RN OPENING NOTES: RECEIVED PATIENT IN BED ASLEEP, OBTUNDED. ON TRACH WITH MECHANICAL VENT SETTING FOLLOWS: S#8, AC 12, TV 525, FI02 30, PEEP 5. O2 SAT 97%. BREATHING EVEN AND UNLABORED. IV ACCESS ON LEFT UPPER ARM MIDLINE INTACT AND PATENT. RT HD PERMACATH COVERED WITH DRESSING. NO ACTIVE BLEEDING NOTED. G-TUBE WELL TOLERATED. ON NEPRO @ 50 ML/HR X 24 HOURS. PT TOLERATED WELL. NO FACIAL GRIMACING NOTED. PT HAS FLEXISEAL IN PLACE. DRAINING BY GRAVITY. CHOLECYSTECTOMY BAG DRAINING WELL. DRAINING BY GRAVITY. ON CONTACT ISOLATION PRECAUTION FOR MDRC BLOOD AND AIRBORNE/DROPLET ISOLATION FOR COVID POSITIVE. ALL SAFETY MEASURES IN PLACE. BED IN LOWEST POSITION AND LOCKED. SIDE RAILS UP X3, PLACE CALL LIGHT WITH IN REACH. WILL CONTINUE TO MONITOR.
[2022-12-12 20:00] VITALS: BP 106/60
[2022-12-12] MEDS: COLISTIMETHATE SODIUM 100 MG in IV NS 0.9% 50 ML IV SCH (22:01)
[2022-12-13] VITALS (14 sets, daily range): BP systolic 85–120; BP diastolic 45–77
[2022-12-13] MEDS: PROSOURCE / PROSTAT (PYXIS) 30 ML UDC GT SCH ×3 (01:12→16:12)
[2022-12-13] MEDS: MIDODRINE HCL (5MG) 5 MG TABLET GT SCH ×3 (01:13→16:12)
[2022-12-13] MEDS: SUCRALFATE 1 G/10 ML UDC GT SCH ×4 (02:09→20:00)
[2022-12-13] MEDS: DAKINS HALF STRENGTH (0.25%) 480 ML BOTTLE TOP SCH ×2 (05:22→16:13)
--- NOTE | 2022-12-13 06:52 | NUR ---
SHIRA RN CLOSING NOTES: PATIENT IN BED ASLEEP, OBTUNDED. ON TRACH WITH MECHANICAL VENT SETTING FOLLOWS: S#8, AC 12, TV 525, FI02 30, PEEP 5. O2 SAT 97%. WILL CHANGE TO SIMV MODE TODAY. BREATHING EVEN AND UNLABORED. IV ACCESS ON LEFT UPPER ARM MIDLINE INTACT AND PATENT. RT HD PERMACATH COVERED WITH DRESSING. NO ACTIVE BLEEDING NOTED. G-TUBE WELL TOLERATED. ON NEPRO @ 50 ML/HR X 24 HOURS. PT TOLERATED WELL. NO FACIAL GRIMACING NOTED. PT HAS FLEXISEAL IN PLACE. DRAINING BY GRAVITY. 100CC OUTPUT. CHOLECYSTECTOMY BAG DRAINING WELL. DRAINING BY GRAVITY. ON CONTACT ISOLATION PRECAUTION FOR MDRC BLOOD AND AIRBORNE/DROPLET ISOLATION FOR COVID POSITIVE. ALL DUE MEDS GIVEN ORDERED. ALL SAFETY MEASURES IN PLACE. BED IN LOWEST POSITION AND LOCKED. SIDE RAILS UP X3, PLACE CALL LIGHT WITH IN REACH. WILL ENDORSE TO MORNING SHIFT NURSE.
[2022-12-13 07:19] LABS: BASOPHILS # (AUTO) 0.1 K/uL (0.0-0.2); EOSINOPHILS % (AUTO) 7.4 % (0.0-6.0); HEMATOCRIT 21 % (39-51); LYMPHOCYTES # (AUTO) 0.4 K/uL (0.8-4.8); LYMPHOCYTES % (AUTO) 3.4 % (20.0-44.0); MEAN CORPUSCULAR HGB CONC 31 g/dl (31.0-36.0); MEAN CORPUSCULAR VOLUME 100 fL (80-96); MONOCYTES # (AUTO) 1.3 K/uL (0.1-1.30); MONOCYTES % (AUTO) 11.4 % (2.0-12.0); NEUTROPHILS # (AUTO) 9.1 K/uL (1.8-8.9); NEUTROPHILS % (AUTO) 76.8 % (43.0-81.0); PLATELET COUNT (AUTO) 98 K/uL (150-450); RED BLOOD CELL COUNT(AUTO) 2.13 MIL/uL (4.5-6.0); WHITE BLOOD COUNT (AUTO) 11.8 K/uL (4.3-11.0)
--- NOTE | 2022-12-13 07:21 | NUR ---
SHIRA RN OPEN NOTES: PATIENT IN BED ASLEEP, OBTUNDED. ON TRACH WITH MECHANICAL VENT SETTING FOLLOWS: S#8, AC 12, TV 525, FI02 30, PEEP 5. O2 SAT 97%. PATIENT RECEIVING HEMODIALYSIS RIGHT NOW BREATHING EVEN AND UNLABORED. IV ACCESS ON LEFT UPPER ARM MIDLINE INTACT AND PATENT. HD PERMACATH COVERED WITH DRESSING. NO ACTIVE BLEEDING NOTED. G-TUBE WELL TOLERATED. ON NEPRO @ 50 ML/HR X 24 HOURS. PT TOLERATED WELL. NO FACIAL GRIMACING NOTED. PT HAS FLEXISEAL IN PLACE. DRAINING BY GRAVITY. 100CC OUTPUT. CHOLECYSTECTOMY BAG DRAINING WELL. DRAINING BY GRAVITY. ON CONTACT ISOLATION PRECAUTION FOR MDRC BLOOD AND AIRBORNE/DROPLET ISOLATION FOR COVID POSITIVE. ALL SAFETY MEASURES IN PLACE. BED IN LOWEST POSITION AND LOCKED. SIDE RAILS UP X3, PLACE CALL LIGHT WITH IN REACH. WILL CONTINUE TO MONITOR
[2022-12-13 07:43] LABS: HEMOGLOBIN 6.5 g/dL (13.5-17.5)
[2022-12-13 07:47] LABS: CALCIUM, SERUM 8.5 mg/dL (8.5-10.1); CREATININE 1.9 mg/dL (0.6-1.3); POTASSIUM 3.6 mmol/L (3.5-5.1)
[2022-12-13] MEDS: LEVOTHYROXINE SODIUM 50 MCG TABLET GT SCH (07:57)
[2022-12-13 08:01] LABS: ALBUMIN 1.8 g/dL (3.4-5.0); BILIRUBIN,TOTAL 0.4 mg/dL (0.2-1.0); TOTAL PROTEIN, SERUM 4.5 g/dL (6.4-8.2)
[2022-12-13] MEDS: ALBUMIN 25% 25 GM in PREMIX 1 EA IV PRN (08:02)
[2022-12-13] MEDS: PANTOPRAZOLE 40 MG/PACK PACK GT SCH ×2 (08:43→20:00)
[2022-12-13] MEDS: ASCORBIC ACID 500 MG TABLET GT SCH (08:44)
[2022-12-13] MEDS: ALLOPURINOL 100 MG TABLET GT SCH (08:44)
[2022-12-13] MEDS: FLUDROCORTISONE 0.1 MG TABLET PO SCH (08:44)
[2022-12-13] MEDS: FINASTERIDE (5 MG) 5 MG TABLET GT SCH (08:44)
[2022-12-13] MEDS: MULTIVITAMINS,THERAGRAN 1 UDTAB TABLET GT SCH (08:44)
[2022-12-13] MEDS: CLOTRIMAZOLE 1% 15 GM TUBE TP SCH ×2 (08:50→16:13)
[2022-12-13] MEDS: ACETAMINOPHEN 650 MG/20.3 ML UDC GT PRN ×2 (12:00→20:00)
[2022-12-13] MEDS: CEFTAZIDIME 1 G in IV D5W 50 ML IV SCH (12:01)
--- NOTE | 2022-12-13 12:11 | NUR ---
RN NOTE BLOOD IS READY FOR TRANSFUSION , HOLD BECAUSE PATIENT HAS TEMP 100.2 , ADMINISTERED TYLENOL 650 MG BU G TUBE .
[2022-12-13 12:16] LABS: BAND % (MANUAL) 2 % (0.0-5.0); BASOPHILS % (MANUAL) 0 % (0.0-2.0); EOSINOPHILS % (MANUAL) 6 % (0-4); LYMPHOCYTES % (MANUAL) 6 % (16-48); MONOCYTES % (MANUAL) 14 % (0-11.0); NEUTROPHILS % (MANUAL) 72 (42-76)
--- NOTE | 2022-12-13 14:30 | NUR ---
RN NOTE PATIENT HAS TEMP 99.2, AFTRE THE TYLENOL 650 MG VIA G TUBE 40 MIN AGO , DR DUBOIS GIVEN REPORT . ORDER TO START TRANSFUSION ANY WAY RECEIVED STRATDE TRANSFUSION AT 1421
[2022-12-13] MEDS: NEPRO 1,000 ML BOTTLE GT PRN (15:30)
[2022-12-13] MEDS ORDERED: REMDESIVIR (CHARGED) 200 MG, *LOADING DOSE 1 EA in IV NS 0.9% 210 ML IV ONE (17:30)
--- NOTE | 2022-12-13 18:50 | NUR ---
SHIRA RN CLOSING NOTES: PATIENT IN BED ASLEEP, OBTUNDED. ON TRACH WITH MECHANICAL VENT SETTING FOLLOWS: S#8, AC 12, TV 525, FI02 30, PEEP 5. O2 SAT 97%. PATIENT RECEIVED HEMODIALYSIS 800 ML WAS REMOVED BREATHING EVEN AND UNLABORED. IV ACCESS ON LEFT UPPER ARM MIDLINE INTACT AND PATENT. HD PERMACATH COVERED WITH DRESSING. NO ACTIVE BLEEDING NOTED.PATIENT RECEIVED 1 UNIT OF BLOOD TODAY DUE TO HB WAS 6.5. G-TUBE WELL TOLERATED. ON NEPRO @ 50 ML/HR X 24 HOURS. PT TOLERATED WELL. NO FACIAL GRIMACING NOTED. PT HAS FLEXISEAL IN PLACE. DRAINING BY GRAVITY. 80 CC OUTPUT. CHOLECYSTECTOMY BAG DRAINING WELL. DRAINING BY GRAVITY 200 CC WAS DRAINED . ON CONTACT ISOLATION PRECAUTION FOR MDRC BLOOD AND AIRBORNE/DROPLET ISOLATION FOR COVID POSITIVE. ALL SAFETY MEASURES IN PLACE. BED IN LOWEST POSITION AND LOCKED. SIDE RAILS UP X3, PLACE CALL LIGHT WITH IN REACH. WILL ENDORSE STAFF PHYSICAL THERAPY ASSISTANT NURSE TO FALLOW POC
[2022-12-13] MEDS: VANCOMYCIN 500 MG in IV D5W 100 ML IV PRN (19:59)
[2022-12-13] MEDS: COLISTIMETHATE SODIUM 100 MG in IV NS 0.9% 50 ML IV SCH (20:56)
--- NOTE | 2022-12-13 21:28 | NUR ---
SHIRA RN OPENING NOTES RECEIVED PATIENT IN BED OBTUNDED. ON TRACH WITH MECHANICAL VENT SETTING FOLLOWS: S#8, AC 12, TV 525, FI02 30, PEEP 5. O2 SAT 97%. BREATHING EVEN AND UNLABORED. IV ACCESS ON LEFT UPPER ARM MIDLINE INTACT AND PATENT. HD PERMACATH COVERED WITH DRESSING. NO ACTIVE BLEEDING NOTED. G-TUBE WELL TOLERATED. ON NEPRO @ 50 ML/HR X 24 HOURS. PT TOLERATED WELL. NO FACIAL GRIMACING NOTED. PT HAS FLEXISEAL IN PLACE. DRAINING BY GRAVITY. CHOLECYSTECTOMY BAG DRAINING WELL. DRAINING BY GRAVITY. ON CONTACT ISOLATION PRECAUTION FOR MDRC BLOOD AND AIRBORNE/DROPLET ISOLATION FOR COVID POSITIVE. ALL SAFETY MEASURES IN PLACE. BED IN LOWEST POSITION AND LOCKED. SIDE RAILS UP X3, PLACE CALL LIGHT WITH IN REACH. WILL CONTINUE TO MONITOR THROUGHOUT THE SHIFT.
[2022-12-14] VITALS: BP 90/52
[2022-12-14] MEDS: PROSOURCE / PROSTAT (PYXIS) 30 ML UDC GT SCH ×3 (00:49→16:36)
[2022-12-14] MEDS: MIDODRINE HCL (5MG) 5 MG TABLET GT SCH ×3 (00:51→16:37)
[2022-12-14] MEDS: SUCRALFATE 1 G/10 ML UDC GT SCH ×4 (03:00→21:15)
[2022-12-14 04:00] VITALS: BP 95/52
[2022-12-14] MEDS: DAKINS HALF STRENGTH (0.25%) 480 ML BOTTLE TOP SCH ×2 (04:50→16:36)
--- NOTE | 2022-12-14 06:34 | NUR ---
SHIRA RN CLOSING NOTES: PATIENT IN BED, OBTUNDED. ON TRACH WITH MECHANICAL VENT SETTING FOLLOWS: S#8, AC 12, TV 525, FI02 30, PEEP 5. O2 SAT 98%. BREATHING EVEN AND UNLABORED. IV ACCESS ON LEFT UPPER ARM MIDLINE INTACT AND PATENT. HD PERMACATH COVERED WITH DRESSING. NO ACTIVE BLEEDING NOTED. ON NEPRO @ 50 ML/HR X 24 HOURS. PT TOLERATED WELL. PT HAS FLEXISEAL IN PLACE. DRAINING BY GRAVITY. CHOLECYSTECTOMY BAG DRAINING WELL. DRAINING BY GRAVITY 300 CC WAS DRAINED. ON CONTACT ISOLATION PRECAUTION FOR MDRC BLOOD AND AIRBORNE/DROPLET ISOLATION FOR COVID POSITIVE. ALL DUE MEDS GIVEN, KEPT DRY AND CLEAN, ALL SAFETY MEASURES IN PLACE. BED IN LOWEST POSITION AND LOCKED. SIDE RAILS UP X3, PLACE CALL LIGHT WITH IN REACH. WILL ENDORSE TO AM SHIFT NURSE FOR CONTINUITY OF CARE.
[2022-12-14 06:38] LABS: BASOPHILS # (AUTO) 0.2 K/uL (0.0-0.2); BASOPHILS % (AUTO) 1.1 % (0.0-2.0); EOSINOPHILS % (AUTO) 11.4 % (0.0-6.0); HEMATOCRIT 24 % (39-51); HEMOGLOBIN 7.6 g/dL (13.5-17.5); LYMPHOCYTES # (AUTO) 0.5 K/uL (0.8-4.8); LYMPHOCYTES % (AUTO) 3.5 % (20.0-44.0); MEAN CORPUSCULAR HGB CONC 32 g/dl (31.0-36.0); MEAN CORPUSCULAR VOLUME 97 fL (80-96); MONOCYTES # (AUTO) 1.4 K/uL (0.1-1.30); NEUTROPHILS # (AUTO) 10.4 K/uL (1.8-8.9); PLATELET COUNT (AUTO) 108 K/uL (150-450); RED BLOOD CELL COUNT(AUTO) 2.42 MIL/uL (4.5-6.0); WHITE BLOOD COUNT (AUTO) 14.1 K/uL (4.3-11.0)
[2022-12-14 06:57] LABS: CALCIUM, SERUM 8.5 mg/dL (8.5-10.1); CREATININE 2.3 mg/dL (0.6-1.3); POTASSIUM 3.5 mmol/L (3.5-5.1)
[2022-12-14 06:58] LABS: D-DIMER 1.38 mg/L(FEU (0.17-0.50)
[2022-12-14 07:03] LABS: ALBUMIN 1.7 g/dL (3.4-5.0); BILIRUBIN,TOTAL 0.4 mg/dL (0.2-1.0); TOTAL PROTEIN, SERUM 4.5 g/dL (6.4-8.2)
--- NOTE | 2022-12-14 07:20 | NUR ---
RN NOTE RECEIVED PATIENT IN BED OBTUNDED,ON MECHANICAL VENT SETTING PRESCRIBED,IV SITE IS ON LEFT UPPER ARM MIDLINE INTACT PATENT,IJ PERM CATH IN PLACE,DRESSING INTACT,ON G-TUBE FEEDING,NEPRO 50CC/HR CHECKED PLACEMENT IN PLACE,NO RESIDUAL NOTED,CHOLECYSTECTOMY BAG DRAINING WELL,RECTAL TUBE IN PLACE,SAFETY MEASURE IMPLEMENT BED IN LOW POSITION AND LOCKED,HEAD OF THE BED ELEVATED,WILL REPOSITION EVERY 2 HOURS,CONTINUE TO MONITOR.
[2022-12-14] MEDS: LEVOTHYROXINE SODIUM 50 MCG TABLET GT SCH (07:27)
[2022-12-14 08:00] VITALS: BP_SYST 115; BP_SYST 95; BP_DIAS 52; BP_DIAS 60
[2022-12-14] MEDS: ALLOPURINOL 100 MG TABLET GT SCH (08:38)
[2022-12-14] MEDS: ASCORBIC ACID 500 MG TABLET GT SCH (08:38)
[2022-12-14] MEDS: PANTOPRAZOLE 40 MG/PACK PACK GT SCH ×2 (08:38→21:15)
[2022-12-14] MEDS: FLUDROCORTISONE 0.1 MG TABLET PO SCH (08:38)
[2022-12-14] MEDS: MULTIVITAMINS,THERAGRAN 1 UDTAB TABLET GT SCH (08:38)
[2022-12-14] MEDS: FINASTERIDE (5 MG) 5 MG TABLET GT SCH (08:38)
[2022-12-14] MEDS: CLOTRIMAZOLE 1% 15 GM TUBE TP SCH ×2 (08:42→16:37)
[2022-12-14] MEDS: ALBUMIN 25% 25 GM in PREMIX 1 EA IV PRN (10:51)
[2022-12-14 12:00] VITALS: BP 118/61
[2022-12-14] MEDS: CEFTAZIDIME 1 G in IV D5W 50 ML IV SCH (12:12)
[2022-12-14 16:00] VITALS: BP 92/59
[2022-12-14 16:22] LABS: BAND % (MANUAL) 3 % (0.0-5.0); EOSINOPHILS % (MANUAL) 12 % (0-4); LYMPHOCYTES % (MANUAL) 5 % (16-48); MONOCYTES % (MANUAL) 5 % (0-11.0); NEUTROPHILS % (MANUAL) 75 (42-76)
[2022-12-14] MEDS: REMDESIVIR (CHARGED) 100 MG in IV NS 0.9% 100 ML IV SCH (16:38)
[2022-12-14] MEDS: NEPRO 1,000 ML BOTTLE GT PRN (17:21)
--- NOTE | 2022-12-14 18:26 | NUR ---
RN NOTE PATIENT REMAINS OBTUNDED,ON MECHANICAL VENT PER SETTING PRESCRIBED ON G-TUBE FEEDING,NO SOB NOTED,ALL DUE MEDS GIVEN MD ORDERED,KEPT CLEAN AND DRY ALL THE TIME,TURNED AND REPOSITIONED EVERY 2 HOURS,WOUND TREATMENT DONE,KEPT HEAD OF THE BED ELEVATED,WILL ENDORSE NEXT COMING SHIFT FOR CONTINUATION OF CARE.
--- NOTE | 2022-12-14 19:30 | NUR ---
SHIRA RN OPENING NOTES RECEIVED PATIENT IN BED OBTUNDED. ON TRACH WITH MECHANICAL VENT SETTING FOLLOWS: S#8, AC 12, TV 525, FI02 30, PEEP 5. O2 SAT 98%. BREATHING EVEN AND UNLABORED. IV ACCESS ON LEFT UPPER ARM MIDLINE INTACT AND PATENT. HD PERMACATH COVERED WITH DRESSING. NO ACTIVE BLEEDING NOTED. G-TUBE WELL TOLERATED. ON NEPRO @ 50 ML/HR X 24 HOURS. PT TOLERATED WELL. NO FACIAL GRIMACING NOTED. PT HAS FLEXISEAL IN PLACE. DRAINING BY GRAVITY. CHOLECYSTECTOMY BAG DRAINING WELL. DRAINING BY GRAVITY. ON CONTACT ISOLATION PRECAUTION FOR MDRC BLOOD AND AIRBORNE/DROPLET ISOLATION FOR COVID POSITIVE. ALL SAFETY MEASURES IN PLACE. BED IN LOWEST POSITION AND LOCKED. SIDE RAILS UP X3, PLACE CALL LIGHT WITH IN REACH. WILL CONTINUE TO MONITOR THROUGHOUT THE SHIFT.
[2022-12-14 20:00] VITALS: BP 97/52
[2022-12-14] MEDS: ACETAMINOPHEN 650 MG/20.3 ML UDC GT PRN (21:15)
[2022-12-14] MEDS: COLISTIMETHATE SODIUM 100 MG in IV NS 0.9% 50 ML IV SCH (21:15)
[2022-12-15] VITALS: BP 104/62
[2022-12-15] MEDS: SUCRALFATE 1 G/10 ML UDC GT SCH ×4 (02:33→21:19)
[2022-12-15] MEDS: PROSOURCE / PROSTAT (PYXIS) 30 ML UDC GT SCH ×3 (02:33→16:57)
[2022-12-15] MEDS: MIDODRINE HCL (5MG) 5 MG TABLET GT SCH ×3 (02:35→17:00)
[2022-12-15 04:00] VITALS: BP 96/57
[2022-12-15] MEDS: DAKINS HALF STRENGTH (0.25%) 480 ML BOTTLE TOP SCH ×2 (05:14→16:29)
[2022-12-15] MEDS: ACETAMINOPHEN 650 MG/20.3 ML UDC GT PRN ×3 (05:44→20:56)
--- NOTE | 2022-12-15 05:50 | NUR ---
RN NOTE PT NOTED WITH FEVER AT 99.9. PRN TYLENOL GIVEN ORDERED, COOLING MEASURES PROVIDED, WILL CONT TO MONITOR.
--- NOTE | 2022-12-15 06:35 | NUR ---
SHIRA RN CLOSING NOTES: PATIENT IN BED, OBTUNDED. ON TRACH WITH MECHANICAL VENT SETTING FOLLOWS: S#8, AC 12, TV 525, FI02 30. O2 SAT 98%. BREATHING EVEN AND UNLABORED. IV ACCESS ON LEFT UPPER ARM MIDLINE INTACT AND PATENT. HD PERMACATH COVERED WITH DRESSING. NO ACTIVE BLEEDING NOTED. ON NEPRO @ 50 ML/HR X 24 HOURS. PT TOLERATED WELL. PT HAS FLEXISEAL IN PLACE. DRAINING BY GRAVITY. CHOLECYSTECTOMY BAG DRAINING WELL 250 CC OUTPUT. ON CONTACT ISOLATION PRECAUTION FOR MDRC BLOOD AND AIRBORNE/DROPLET ISOLATION FOR COVID POSITIVE. ALL DUE MEDS GIVEN, KEPT DRY AND CLEAN, PICTURES TAKEN AND PLACED ON CHART, ALL SAFETY MEASURES IN PLACE. BED IN LOWEST POSITION AND LOCKED. SIDE RAILS UP X3, PLACE CALL LIGHT WITH IN REACH. WILL ENDORSE TO AM SHIFT NURSE FOR CONTINUITY OF CARE.
[2022-12-15 08:00] VITALS: BP 91/54
[2022-12-15] MEDS: ALLOPURINOL 100 MG TABLET GT SCH (08:23)
[2022-12-15] MEDS: FINASTERIDE (5 MG) 5 MG TABLET GT SCH (08:23)
[2022-12-15] MEDS: PANTOPRAZOLE 40 MG/PACK PACK GT SCH ×2 (08:23→21:19)
[2022-12-15] MEDS: LEVOTHYROXINE SODIUM 50 MCG TABLET GT SCH (08:23)
[2022-12-15] MEDS: MULTIVITAMINS,THERAGRAN 1 UDTAB TABLET GT SCH (08:24)
[2022-12-15] MEDS: ASCORBIC ACID 500 MG TABLET GT SCH (08:24)
[2022-12-15] MEDS: ACETAMINOPHEN 650 MG/SUPP.RECT RC PRN (08:24)
[2022-12-15] MEDS: CLOTRIMAZOLE 1% 15 GM TUBE TP SCH ×2 (08:24→16:29)
[2022-12-15] MEDS: FLUDROCORTISONE 0.1 MG TABLET PO SCH (08:24)
[2022-12-15] MEDS: CEFTAZIDIME 1 G in IV D5W 50 ML IV SCH (11:54)
[2022-12-15 12:00] VITALS: BP 109/57
[2022-12-15 12:29] LABS: BASOPHILS # (AUTO) 0.1 K/uL (0.0-0.2); BASOPHILS % (AUTO) 1.1 % (0.0-2.0); HEMATOCRIT 25 % (39-51); HEMOGLOBIN 7.8 g/dL (13.5-17.5); LYMPHOCYTES # (AUTO) 0.4 K/uL (0.8-4.8); MEAN CORPUSCULAR HGB CONC 32 g/dl (31.0-36.0); MEAN CORPUSCULAR VOLUME 96 fL (80-96); MONOCYTES # (AUTO) 1.4 K/uL (0.1-1.30); MONOCYTES % (AUTO) 10.3 % (2.0-12.0); NEUTROPHILS # (AUTO) 9.7 K/uL (1.8-8.9); NEUTROPHILS % (AUTO) 72.6 % (43.0-81.0); PLATELET COUNT (AUTO) 130 K/uL (150-450); RED BLOOD CELL COUNT(AUTO) 2.59 MIL/uL (4.5-6.0); WHITE BLOOD COUNT (AUTO) 13.3 K/uL (4.3-11.0)
[2022-12-15 12:42] LABS: ALBUMIN 1.8 g/dL (3.4-5.0); BILIRUBIN,DIRECT 0.2 mg/dL (0.0-0.2); BILIRUBIN,TOTAL 0.4 mg/dL (0.2-1.0); CALCIUM, SERUM 8.6 mg/dL (8.5-10.1); CREATININE 2.5 mg/dL (0.6-1.3); POTASSIUM 3.5 mmol/L (3.5-5.1); TOTAL PROTEIN, SERUM 4.5 g/dL (6.4-8.2)
--- NOTE | 2022-12-15 14:00 | NUR ---
STOOL SAMPLE FOR C-DIFF COLLECTED BY ME AND SENT TO THE LAB.
[2022-12-15] MEDS: EPOETIN ALFA-EPBX 4,000 UNIT/ML VIAL SQ SCH (15:25)
[2022-12-15 16:00] VITALS: BP 137/76
--- NOTE | 2022-12-15 16:00 | NUR ---
NOTED PATIENT HAVING HEMODIALYIS AT THIS MOMENT, ON MECHANICAL VENT, NOT IN DISTRESS. PLAN OF CARE CONTINUE.
--- NOTE | 2022-12-15 16:30 | NUR ---
HEMODIALYSIS DONE REMOVED 1L. BP 137/76, PLAN OF CARE CONTINUE.
[2022-12-15] MEDS: REMDESIVIR (CHARGED) 100 MG in IV NS 0.9% 100 ML IV SCH (17:07)
--- NOTE | 2022-12-15 17:30 | NUR ---
URINE COLLECTED VIA STRAIGHT CATH AND CALLED LAB TO PICK IT UP, PLAN OF CARE CONTINUE.
--- NOTE | 2022-12-15 18:07 | NUR ---
RECHECK TEMPERATURE NOTED T 99.0
[2022-12-15] MEDS: VANCOMYCIN 500 MG in IV D5W 100 ML IV PRN (18:08)
--- NOTE | 2022-12-15 18:29 | NUR ---
SHIRA RN CLOSING NOTES: PATIENT IN BED, OBTUNDED. ON TRACH WITH MECHANICAL VENT SETTING FOLLOWS: S#8, AC 12, TV 525, FI02 30. O2 SAT 99%. BREATHING EVEN AND UNLABORED. IV ACCESS ON LEFT UPPER ARM MIDLINE INTACT AND PATENT, FLUSHES WELL, WITH PRN IV VANCO RUNNING, HD PERMACATH COVERED WITH DRESSING. NO ACTIVE BLEEDING NOTED. GT PATENT AND INTACT,NO RESIDUAL NOTED, ON NEPRO @ 50 ML/HR X 24 HOURS. PT TOLERATED WELL. PT HAS FLEXISEAL IN PLACE. DRAINING BY GRAVITY WITH 500ML LIQUID STOOL NOTED. CHOLECYSTECTOMY BAG DRAINING WELL 350 CC SEROSANGUINEOUS DRAINAGE. ON CONTACT ISOLATION PRECAUTION FOR MDRC BLOOD AND AIRBORNE/DROPLET ISOLATION FOR COVID POSITIVE. ALL SAFETY MEASURES IN PLACE. WOUND DRESSING INTACT. BED IN LOWEST POSITION AND LOCKED. SIDE RAILS UP X3, PLACE CALL LIGHT WITH IN REACH. WILL ENDORSE TO HAND THERMAL CUTTER NURSE FOR CONTINUITY OF CARE. Addendum: 12/15/22 at 1836 by THOR MACE RN ON TELE MONITORING SR HR 93.
[2022-12-15 18:36] LABS: BILIRUBIN,URINE 1+ (NEGATIVE); COLOR,URINE YELLOW (YELLOW); LEUKOCYTE ESTERASE ,URINE 3+ (NEGATIVE); NITRITE, URINE NEGATIVE (NEGATIVE); PH,URINE 6.5 (5.0-8.0); PROTEIN,URINE 2+ mg/dl (NEGATIVE); UGLUCOSE NEGATIVE (NEGATIVE); UROBILINOGEN,URINE 0.2 EU/dL (0.2)
--- NOTE | 2022-12-15 19:10 | NUR ---
RN NOTE RECEIVED PT FOR CONTINUITY OF CARE. PATIENT OBTUNDED IN NO S/SX OF ACUTE DISTRESS AT THIS TIME; CURRENTLY ON MECHANICAL VENT; SETTING PRESCRIBED, WITH 02 SAT >95% AT THIS TIME. WITH IV ACCESS PATENT, INTACT AND FLUSHING WELL. WITH GTUBE FEEDING RUNNING PRESCRIBED. WITH TRINI DRAIN ON R SIDE ABDOMEN DRAINING SMALL AMOUNT OF RED COLORED OUTPUT. WITH FLEXISEAL SECURED AND INTACT DRAINING MODERATE AMOUNT OF OUTPUT. WILL ENSURE SAFETY MEASURES WITHIN THE SHIFT. PATIENT BED ALARM IS ON. HEAD OF BED ELEVATED. BED IS LOCKED, IN LOWEST POSITION AND SIDE RAILS UP. CALL LIGHT WITHIN REACH OF THE PATIENT. APPLICABLE ISOLATION PRECAUTIONS IN PLACE. WILL CONTINUE TO MONITOR AND REASSESS FOR ANY CHANGES AND WILL CARRY OUT ANY ONGOING AND ACTIVE MD ORDER.
[2022-12-15 20:00] VITALS: BP 92/47
[2022-12-15 20:07] LABS: RBC,URINE 51-80 /HPF (0-2); WBC,URINE 81-100 /HPF (0-3)
[2022-12-15 20:08] LABS: BACTERIA,URINE 2+ /HPF (None Seen); SQUAMOUS EPITHELIAL CELL,UR 0-2 /HPF (None Seen)
--- NOTE | 2022-12-15 20:55 | NUR ---
RN NOTE NOTED PT'S TEMP IS AT 100.3@2000; PRN MEDICATION GIVEN AND COOLING MEASURES RENDERED. ATTIC FANS MECHANIC MADE AWARE. WILL CONTINUE TO MONITOR AND ASSESS THROUGHOUT THE SHIFT.
[2022-12-15] MEDS: COLISTIMETHATE SODIUM 100 MG in IV NS 0.9% 50 ML IV SCH (21:21)
[2022-12-15] MEDS: NEPRO 1,000 ML BOTTLE GT PRN (21:42)
[2022-12-16] VITALS: BP 94/47
[2022-12-16] MEDS: PROSOURCE / PROSTAT (PYXIS) 30 ML UDC GT SCH ×3 (00:22→17:06)
[2022-12-16] MEDS: MIDODRINE HCL (5MG) 5 MG TABLET GT SCH ×3 (01:10→17:03)
[2022-12-16] MEDS: SUCRALFATE 1 G/10 ML UDC GT SCH ×4 (02:02→21:10)
[2022-12-16 04:00] VITALS: BP 94/54
--- NOTE | 2022-12-16 04:00 | NUR ---
RN NOTE PATIENT REMAINED TO BE IN NO SIGNS OF ACUTE RESPIRATORY DISTRESS , VITAL SIGNS STABLE AT THIS TIME. REGULAR TURNING AND REPOSITIONING DONE, SUCTIONING DONE, WOUND CARE AND AM PATIENT CARE RENDERED WILL CONTINUE TO MONITOR AND REASSESS FOR ANY CHANGES THROUGHOUT THE SHIFT.
[2022-12-16 04:37] LABS: BAND % (MANUAL) 4 % (0.0-5.0); EOSINOPHILS % (MANUAL) 11 % (0-4); LYMPHOCYTES % (MANUAL) 6 % (16-48); MONOCYTES % (MANUAL) 11 % (0-11.0); NEUTROPHILS % (MANUAL) 68 (42-76)
[2022-12-16] MEDS: DAKINS HALF STRENGTH (0.25%) 480 ML BOTTLE TOP SCH ×2 (05:44→17:18)
--- NOTE | 2022-12-16 06:28 | NUR ---
RN CLOSING NOTE: PATIENT REMAINS IN ROOM IN NO SIGNS OF RESPIRATORY DISTRESS, PATIENT STILL ON MECH VENT; SETTINGS PRESCRIBED;TOLERATING WELL SATURATING @ >95% SP02. SR ON MONITOR. SAFETY MEASURES IMPLEMENTED, BED IN LOWEST POSITION, LOCKED, SIDE RAILS UP, CALL LIGHT WITHIN REACH. ALL NEEDS AND ORDERS ADDRESSED DURING THE SHIFT. IV ACCESS MAINTAINED INTACT, SECURED AND FLUSHING WELL. ALL DUE MEDS GIVEN ORDERED & SCHEDULED ; PATIENT TOLERATED WELL. TUBE FEEDING STILL RUNNING ORDERED. PATIENT KEPT CLEAN AND COMFORTABLE WITHIN THE SHIFT. PATIENT ENDORSED TO INCOMING SHIFT RN WITH STABLE VITAL SIGN AND FOR CONTINUITY OF CARE.
[2022-12-16 08:00] VITALS: BP 108/54
[2022-12-16] MEDS: ACETAMINOPHEN 650 MG/20.3 ML UDC GT PRN ×2 (08:09→21:18)
[2022-12-16] MEDS: LEVOTHYROXINE SODIUM 50 MCG TABLET GT SCH (08:09)
[2022-12-16 08:28] LABS: BASOPHILS # (AUTO) 0.1 K/uL (0.0-0.2); BASOPHILS % (AUTO) 0.4 % (0.0-2.0); EOSINOPHILS % (AUTO) 10.7 % (0.0-6.0); HEMATOCRIT 25 % (39-51); HEMOGLOBIN 7.8 g/dL (13.5-17.5); LYMPHOCYTES # (AUTO) 0.4 K/uL (0.8-4.8); LYMPHOCYTES % (AUTO) 3.2 % (20.0-44.0); MEAN CORPUSCULAR HGB CONC 32 g/dl (31.0-36.0); MEAN CORPUSCULAR VOLUME 96 fL (80-96); MONOCYTES # (AUTO) 1.3 K/uL (0.1-1.30); NEUTROPHILS # (AUTO) 9.5 K/uL (1.8-8.9); NEUTROPHILS % (AUTO) 75.7 % (43.0-81.0); PLATELET COUNT (AUTO) 128 K/uL (150-450); RED BLOOD CELL COUNT(AUTO) 2.54 MIL/uL (4.5-6.0); WHITE BLOOD COUNT (AUTO) 12.6 K/uL (4.3-11.0)
[2022-12-16 08:51] LABS: ALBUMIN 1.8 g/dL (3.4-5.0); BILIRUBIN,DIRECT 0.2 mg/dL (0.0-0.2); BILIRUBIN,TOTAL 0.4 mg/dL (0.2-1.0); CALCIUM, SERUM 8.6 mg/dL (8.5-10.1); CREATININE 2.1 mg/dL (0.6-1.3); POTASSIUM 3.6 mmol/L (3.5-5.1); TOTAL PROTEIN, SERUM 4.5 g/dL (6.4-8.2)
[2022-12-16] MEDS: PANTOPRAZOLE 40 MG/PACK PACK GT SCH ×2 (09:12→21:10)
[2022-12-16] MEDS: FLUDROCORTISONE 0.1 MG TABLET PO SCH (09:12)
[2022-12-16] MEDS: ALLOPURINOL 100 MG TABLET GT SCH (09:12)
[2022-12-16] MEDS: ASCORBIC ACID 500 MG TABLET GT SCH (09:13)
[2022-12-16] MEDS: MULTIVITAMINS,THERAGRAN 1 UDTAB TABLET GT SCH (09:13)
[2022-12-16] MEDS: FINASTERIDE (5 MG) 5 MG TABLET GT SCH (09:13)
[2022-12-16] MEDS: CLOTRIMAZOLE 1% 15 GM TUBE TP SCH ×2 (09:18→17:18)
[2022-12-16] MEDS: ALBUMIN 25% 25 GM in PREMIX 1 EA IV PRN (11:58)
[2022-12-16 12:00] VITALS: BP 108/54
--- NOTE | 2022-12-16 12:00 | NUR ---
RN NOTE DIALYSIS WILL BEGIN AT THIS TIME.
--- NOTE | 2022-12-16 12:11 | NUR ---
RN NOTE PER PHARMACY GIVE 1200 FORTAZ DOSE AND VANCO AFTER DIALYSIS TODAY.
--- NOTE | 2022-12-16 14:44 | NUR ---
RN NOTE DIALYSIS COMPLETED AT THIS TIME, REMOVED 2.2L.
[2022-12-16 14:49] LABS: EOSINOPHILS % (MANUAL) 4 % (0-4); LYMPHOCYTES % (MANUAL) 5 % (16-48); MONOCYTES % (MANUAL) 10 % (0-11.0); NEUTROPHILS % (MANUAL) 81 (42-76)
[2022-12-16] MEDS: CEFTAZIDIME 1 G in IV D5W 50 ML IV SCH (15:27)
[2022-12-16 16:00] VITALS: BP 111/68
[2022-12-16] MEDS: REMDESIVIR (CHARGED) 100 MG in IV NS 0.9% 100 ML IV SCH (18:30)
--- NOTE | 2022-12-16 19:20 | NUR ---
RN NOTE RECEIVED PT FOR CONTINUITY OF CARE. PATIENT OBTUNDED IN NO S/SX OF ACUTE DISTRESS AT THIS TIME; CURRENTLY ON MECHANICAL VENT; SETTING PRESCRIBED, WITH 02 SAT >95% AT THIS TIME. WITH IV ACCESS PATENT, INTACT AND FLUSHING WELL. WITH GTUBE FEEDING RUNNING PRESCRIBED. WITH TRINI DRAIN ON R SIDE ABDOMEN DRAINING SECURED AND INTACT. WITH FLEXISEAL SECURED AND INTACT DRAINING MODERATE AMOUNT OF OUTPUT. WILL ENSURE SAFETY MEASURES WITHIN THE SHIFT. PATIENT BED ALARM IS ON. HEAD OF BED ELEVATED. BED IS LOCKED, IN LOWEST POSITION AND SIDE RAILS UP. CALL LIGHT WITHIN REACH OF THE PATIENT. APPLICABLE ISOLATION PRECAUTIONS IN PLACE. WILL CONTINUE TO MONITOR AND REASSESS FOR ANY CHANGES AND WILL CARRY OUT ANY ONGOING AND ACTIVE MD ORDER.
--- NOTE | 2022-12-16 19:41 | NUR ---
RN CLOSING NOTE: PATIENT REMAINS IN ROOM IN NO SIGNS OF RESPIRATORY DISTRESS, PATIENT STILL ON MECH VENT; SETTINGS PRESCRIBED;TOLERATING WELL SATURATING @ >95% SP02. SR ON MONITOR. SAFETY MEASURES IMPLEMENTED, HEAD OF BED AT 40 DEGREES IN LOWEST POSITION, LOCKED, SIDE RAILS UP, CALL LIGHT WITHIN REACH. ALL NEEDS AND ORDERS ADDRESSED DURING THE SHIFT. IV ACCESS MAINTAINED INTACT, SECURED AND FLUSHING WELL. ALL DUE MEDS GIVEN ORDERED & SCHEDULED ; PATIENT TOLERATED WELL. TUBE FEEDING STILL RUNNING ORDERED. PATIENT KEPT CLEAN AND COMFORTABLE WITHIN THE SHIFT. PATIENT ENDORSED TO INCOMING SHIFT RN WITH STABLE VITAL SIGN AND FOR CONTINUITY OF CARE.
[2022-12-16 20:00] VITALS: BP 97/59
[2022-12-16] MEDS: COLISTIMETHATE SODIUM 100 MG in IV NS 0.9% 50 ML IV SCH (21:10)
[2022-12-17] VITALS: BP 98/52
[2022-12-17] MEDS: NEPRO 1,000 ML BOTTLE GT PRN (00:09)
[2022-12-17] MEDS: PROSOURCE / PROSTAT (PYXIS) 30 ML UDC GT SCH ×3 (01:07→16:00)
[2022-12-17] MEDS: MIDODRINE HCL (5MG) 5 MG TABLET GT SCH ×3 (01:08→16:28)
[2022-12-17] MEDS: SUCRALFATE 1 G/10 ML UDC GT SCH ×4 (02:42→21:22)
[2022-12-17 04:00] VITALS: BP 99/55
[2022-12-17] MEDS: DAKINS HALF STRENGTH (0.25%) 480 ML BOTTLE TOP SCH ×2 (04:09→16:28)
[2022-12-17 07:17] LABS: BASOPHILS # (AUTO) 0.1 K/uL (0.0-0.2); EOSINOPHILS % (AUTO) 10.2 % (0.0-6.0); HEMATOCRIT 26 % (39-51); HEMOGLOBIN 8.1 g/dL (13.5-17.5); LYMPHOCYTES # (AUTO) 0.3 K/uL (0.8-4.8); LYMPHOCYTES % (AUTO) 2.9 % (20.0-44.0); MEAN CORPUSCULAR HGB CONC 31 g/dl (31.0-36.0); MEAN CORPUSCULAR VOLUME 98 fL (80-96); MONOCYTES % (AUTO) 8.7 % (2.0-12.0); NEUTROPHILS # (AUTO) 8.9 K/uL (1.8-8.9); NEUTROPHILS % (AUTO) 77.2 % (43.0-81.0); PLATELET COUNT (AUTO) 143 K/uL (150-450); RED BLOOD CELL COUNT(AUTO) 2.65 MIL/uL (4.5-6.0); WHITE BLOOD COUNT (AUTO) 11.5 K/uL (4.3-11.0)
[2022-12-17 07:35] LABS: ALBUMIN 1.9 g/dL (3.4-5.0); BILIRUBIN,DIRECT 0.2 mg/dL (0.0-0.2); BILIRUBIN,TOTAL 0.4 mg/dL (0.2-1.0); CALCIUM, SERUM 8.6 mg/dL (8.5-10.1); CREATININE 2.1 mg/dL (0.6-1.3); POTASSIUM 3.8 mmol/L (3.5-5.1); TOTAL PROTEIN, SERUM 4.6 g/dL (6.4-8.2)
--- NOTE | 2022-12-17 07:39 | NUR ---
RN OPENING NOTES: PATIENT RECEIVED IN BED, OBTUNDED. ON TRACH, BREATHING EVEN AND UNLABORED. IV ACCESS ON LEFT UPPER ARM MIDLINE INTACT AND PATENT. HD PERMACATH COVERED WITH DRESSING. NO ACTIVE BLEEDING NOTED. PT HAS FLEXISEAL IN PLACE DRAINING BY GRAVITY. CHOLECYSTECTOMY BAG DRAINING WELL. ON CONTACT ISOLATION PRECAUTION FOR MDRC BLOOD AND AIRBORNE/DROPLET ISOLATION FOR COVID POSITIVE. ALL SAFETY MEASURES IN PLACE. BED IN LOWEST POSITION AND LOCKED. SIDE RAILS UP X3, PLACE CALL LIGHT WITH IN REACH. WILL CONTINUE TO MONITOR.
[2022-12-17] MEDS: LEVOTHYROXINE SODIUM 50 MCG TABLET GT SCH (07:45)
[2022-12-17 08:23] VITALS: BP 112/58
[2022-12-17] MEDS: MULTIVITAMINS,THERAGRAN 1 UDTAB TABLET GT SCH (08:48)
[2022-12-17] MEDS: PANTOPRAZOLE 40 MG/PACK PACK GT SCH ×2 (08:48→21:22)
[2022-12-17] MEDS: ASCORBIC ACID 500 MG TABLET GT SCH (08:48)
[2022-12-17] MEDS: FINASTERIDE (5 MG) 5 MG TABLET GT SCH (08:48)
[2022-12-17] MEDS: ALLOPURINOL 100 MG TABLET GT SCH (08:49)
[2022-12-17] MEDS: FLUDROCORTISONE 0.1 MG TABLET PO SCH (08:49)
[2022-12-17] MEDS: CLOTRIMAZOLE 1% 15 GM TUBE TP SCH ×2 (09:09→16:29)
[2022-12-17] MEDS: CEFTAZIDIME 1 G in IV D5W 50 ML IV SCH (11:35)
[2022-12-17 12:00] VITALS: BP 132/63
--- NOTE | 2022-12-17 12:00 | NUR ---
RN notes: temp 101.3 tylenol 650 mg given via gt and cooling measures rendered
[2022-12-17] MEDS: ACETAMINOPHEN 650 MG/20.3 ML UDC GT PRN ×2 (12:01→21:29)
--- NOTE | 2022-12-17 13:00 | NUR ---
RN NOTES: NOTIFIED DR GRANADOS OF THE TEMP 101.3 WITH ORDER OF BLOOD CULTURE
[2022-12-17 16:00] VITALS: BP 95/49
[2022-12-17] MEDS: REMDESIVIR (CHARGED) 100 MG in IV NS 0.9% 100 ML IV SCH (17:27)
--- NOTE | 2022-12-17 19:05 | NUR ---
RN OPENING NOTES RECEIVED PATIENT ON BED, OBTUNDED, OPEN EYES, ON TRACH, SHILEY # 8, ON MECHANICAL VENT WITH SETTINGS AC-12, TV-525, FIO2-30%, PEEP-OFF. AFEBRILE, NO S/S OF DISTRESS NOTED. NOTED WITH THADDEUS MID LINE, PATENT AND INTACT, FLUSHED WITH NS. GTUBE PATENT AND INTACT, VERIFIED PLACEMENT BY AUSCULTATION, NO RESIDUAL NOTED UPON ASPIRATION RUNNING WITH NEPHRO @ 50 ML/HR, HEAD OF BED KEPT ELEVATED. RIGHT UPPER CHEST PERMA CATH, NO ACTIVE BLEEDING NOTED AT THIS TIME. RIGHT LATERAL BODY CHOLECYSTOSTOMY, DRAINING WITH REDDISH OUTPUT, CONNECTED TO DRAINAGE BAG VIA GRAVITY. NOTED WITH RECTAL TUBE DRAINING WITH WATERY STOOL. ALL SAFETY PRECAUTION PROVIDED. BED IN LOWEST POSITION, LOCKED. CALL LIGHT WITH IN REACH.
[2022-12-17 20:00] VITALS: BP 105/59
[2022-12-17] MEDS: COLISTIMETHATE SODIUM 100 MG in IV NS 0.9% 50 ML IV SCH (21:22)
--- NOTE | 2022-12-17 21:30 | NUR ---
RN NOTES NOTED WITH TEMP- 99.8 FAHRENHEIT, COOLING MEASURE PROVIDED, ACETAMINOPHEN 650MG GT GIVEN, CONTINUE TO MONITOR.
[2022-12-18] VITALS: BP 110/54
[2022-12-18] MEDS: PROSOURCE / PROSTAT (PYXIS) 30 ML UDC GT SCH ×3 (01:28→16:09)
[2022-12-18] MEDS: MIDODRINE HCL (5MG) 5 MG TABLET GT SCH ×3 (01:29→16:10)
[2022-12-18] MEDS: SUCRALFATE 1 G/10 ML UDC GT SCH ×4 (03:21→20:34)
[2022-12-18] MEDS: ACETAMINOPHEN 650 MG/20.3 ML UDC GT PRN ×2 (03:32→15:53)
--- NOTE | 2022-12-18 03:32 | NUR ---
RN NOTES NOTED WITH TEMP- 100.3 FAHRENHEIT, COOLING MEASURE PROVIDED, ACETAMINOPHEN 650MG GT GIVEN, CONTINUE TO MONITOR.
[2022-12-18] MEDS: NEPRO 1,000 ML BOTTLE GT PRN (03:43)
[2022-12-18 04:00] VITALS: BP 110/54
[2022-12-18] MEDS: DAKINS HALF STRENGTH (0.25%) 480 ML BOTTLE TOP SCH ×2 (06:17→16:10)
--- NOTE | 2022-12-18 07:20 | NUR ---
RN OPEN NOTES RECEIVED PATIENT ON BED, OBTUNDED, OPEN EYES, ON TRACH, SHILEY # 8, ON MECHANICAL VENT WITH SETTINGS AC-12, TV-525, FIO2-30%, O2 SAT 95% PEEP-OFF. AFEBRILE, NO S/S OF DISTRESS NOTED. PATIENT HAS IV ACCESS THADDEUS MID LINE, PATENT AND INTACT, FLUSHED WITH NS. GTUBE PATENT AND INTACT, VERIFIED PLACEMENT BY AUSCULTATION, NO RESIDUAL NOTED UPON ASPIRATION RUNNING WITH NEPHRO @ 50 ML/HR, HEAD OF BED KEPT ELEVATED. RIGHT UPPER CHEST PERMA CATH, NO ACTIVE BLEEDING NOTED . RIGHT LATERAL BODY CHOLECYSTOSTOMY, DRAINING WITH REDDISH OUTPUT, CONNECTED TO DRAINAGE BAG VIA GRAVITY. NOTED WITH RECTAL TUBE DRAINING WITH WATERY STOOL. ALL SAFETY PRECAUTION IN PLACE. BED IN LOWEST POSITION, LOCKED. CALL LIGHT WITH IN REACH.WILL CONTINUE TO MONITOR
[2022-12-18] MEDS: LEVOTHYROXINE SODIUM 50 MCG TABLET GT SCH (07:35)
[2022-12-18] MEDS: FINASTERIDE (5 MG) 5 MG TABLET GT SCH (08:06)
[2022-12-18] MEDS: MULTIVITAMINS,THERAGRAN 1 UDTAB TABLET GT SCH (08:06)
[2022-12-18] MEDS: FLUDROCORTISONE 0.1 MG TABLET PO SCH (08:06)
[2022-12-18] MEDS: ALLOPURINOL 100 MG TABLET GT SCH (08:06)
[2022-12-18] MEDS: CLOTRIMAZOLE 1% 15 GM TUBE TP SCH ×2 (08:06→16:10)
[2022-12-18] MEDS: PANTOPRAZOLE 40 MG/PACK PACK GT SCH ×2 (08:06→20:34)
[2022-12-18] MEDS: ASCORBIC ACID 500 MG TABLET GT SCH (08:06)
[2022-12-18 08:49] VITALS: BP 87/47
[2022-12-18] MEDS: ALBUMIN 25% 25 GM in PREMIX 1 EA IV PRN (09:26)
[2022-12-18] MEDS: CEFTAZIDIME 1 G in IV D5W 50 ML IV SCH (11:47)
[2022-12-18 12:00] VITALS: BP 101/56
--- NOTE | 2022-12-18 12:21 | NUR ---
rn note patient s/p hemodialysis developed tachycardia of 170 bpm , then it started to fluctuate from [address] Bowers and dr Flynn was notified .
--- NOTE | 2022-12-18 12:24 | NUR ---
rn note patient is c diff positive dr Jeffers notified.
[2022-12-18 16:24] VITALS: BP 85/75
[2022-12-18] MEDS: VANCOMYCIN HCL 125 MG/2.5 ML ORAL.SUSP PO SCH ×2 (17:53→18:07)
--- NOTE | 2022-12-18 18:25 | NUR ---
RN CLOSING NOTES PATIENT ON BED, OBTUNDED, OPEN EYES, ON TRACH, SHILEY # 8, ON MECHANICAL VENT WITH SETTINGS AC-12, TV-525, FIO2-30%, O2 SAT 98% PEEP-OFF. AFEBRILE, NO S/S OF DISTRESS NOTED. PATIENT HAS IV ACCESS THADDEUS MID LINE, PATENT AND INTACT, FLUSHED WITH NS. GTUBE PATENT AND INTACT, VERIFIED PLACEMENT BY AUSCULTATION, NO RESIDUAL NOTED, RUNNING WITH NEPHRO @ 50 ML/HR, HEAD OF BED KEPT ELEVATED. RIGHT UPPER CHEST PERMA CATH, NO ACTIVE BLEEDING NOTED . RIGHT LATERAL BODY CHOLECYSTOSTOMY, DRAINING WITH REDDISH OUTPUT WITH 150CC REMOVED. CONNECTED TO DRAINAGE BAG VIA GRAVITY. NOTED WITH RECTAL TUBE DRAINING WITH WATERY STOOL. ALL SAFETY PRECAUTION IN PLACE. BED IN LOWEST POSITION, LOCKED. CALL LIGHT WITH IN REACH. ALL MEDS WERE ADMINISTERED. HD DONE REMOVED 1LITER. WILL ENDORSED TO SPINE SURGEON NURSE TO FOLLOW PLAN OF CARE
--- NOTE | 2022-12-18 19:45 | NUR ---
RN OPENING NOTES: RECEIVED PATIENT IN BED ASLEEP, OBTUNDED. ON TRACH WITH MECHANICAL VENT SETTING FOLLOWS: S#8, AC 12, TV 525, FI02 30, PEEP OFF. BREATHING EVEN AND UNLABORED. IV ACCESS ON LEFT UPPER ARM MIDLINE INTACT AND PATENT. RT HD PERMACATH COVERED WITH DRESSING. NO ACTIVE BLEEDING NOTED. G-TUBE WELL TOLERATED. ON NEPRO @ 50 ML/HR X 24 HOURS. PT TOLERATED WELL. NO FACIAL GRIMACING NOTED. PT HAS FLEXISEAL IN PLACE. DRAINING BY GRAVITY. CHOLECYSTECTOMY BAG DRAINING WELL. DRAINING BY GRAVITY. ON CONTACT ISOLATION PRECAUTION FOR MDRC BLOOD, C-DIFF POSITIVE, AND AIRBORNE/DROPLET ISOLATION FOR COVID POSITIVE. ALL SAFETY MEASURES IN PLACE. BED IN LOWEST POSITION AND LOCKED. SIDE RAILS UP X3, PLACE CALL LIGHT WITH IN REACH. WILL CONTINUE TO MONITOR.
[2022-12-18 19:58] LABS: BASOPHILS # (AUTO) 0.2 K/uL (0.0-0.2); BASOPHILS % (AUTO) 1.5 % (0.0-2.0); EOSINOPHILS % (AUTO) 7.8 % (0.0-6.0); HEMATOCRIT 23 % (39-51); HEMOGLOBIN 7.4 g/dL (13.5-17.5); LYMPHOCYTES # (AUTO) 0.3 K/uL (0.8-4.8); LYMPHOCYTES % (AUTO) 3.2 % (20.0-44.0); MEAN CORPUSCULAR HGB CONC 32 g/dl (31.0-36.0); MEAN CORPUSCULAR VOLUME 96 fL (80-96); MONOCYTES % (AUTO) 9.4 % (2.0-12.0); NEUTROPHILS # (AUTO) 8.4 K/uL (1.8-8.9); NEUTROPHILS % (AUTO) 78.1 % (43.0-81.0); PLATELET COUNT (AUTO) 148 K/uL (150-450); RED BLOOD CELL COUNT(AUTO) 2.41 MIL/uL (4.5-6.0); WHITE BLOOD COUNT (AUTO) 10.8 K/uL (4.3-11.0)
[2022-12-18 20:00] VITALS: BP 115/47
[2022-12-18 20:32] LABS: BAND % (MANUAL) 6 % (0.0-5.0); EOSINOPHILS % (MANUAL) 9 % (0-4); LYMPHOCYTES % (MANUAL) 1 % (16-48); METAMYELOCYTES % 2 % (0-0); MONOCYTES % (MANUAL) 8 % (0-11.0); NEUTROPHILS % (MANUAL) 74 (42-76)
[2022-12-18] MEDS: COLISTIMETHATE SODIUM 100 MG in IV NS 0.9% 50 ML IV SCH (20:50)
[2022-12-19] VITALS: BP 97/54
[2022-12-19] MEDS: VANCOMYCIN HCL 125 MG/2.5 ML ORAL.SUSP PO SCH ×4 (00:30→17:43)
[2022-12-19] MEDS: PROSOURCE / PROSTAT (PYXIS) 30 ML UDC GT SCH ×3 (01:15→17:18)
[2022-12-19] MEDS: MIDODRINE HCL (5MG) 5 MG TABLET GT SCH ×3 (01:35→17:18)
[2022-12-19] MEDS: SUCRALFATE 1 G/10 ML UDC GT SCH ×4 (02:31→21:27)
[2022-12-19 04:00] VITALS: BP 102/59
[2022-12-19] MEDS: DAKINS HALF STRENGTH (0.25%) 480 ML BOTTLE TOP SCH ×2 (04:47→17:18)
[2022-12-19] MEDS: NEPRO 1,000 ML BOTTLE GT PRN (04:47)
--- NOTE | 2022-12-19 06:30 | NUR ---
RN CLOSING NOTES: PATIENT IN BED ASLEEP, OBTUNDED. ON TRACH WITH MECHANICAL VENT SETTING FOLLOWS: S#8, AC 12, TV 525, FI02 30, PEEP OFF. BREATHING EVEN AND UNLABORED. IV ACCESS ON LEFT UPPER ARM MIDLINE INTACT AND PATENT. RT UPPER CHEST HD PERMACATH COVERED WITH DRESSING. NO ACTIVE BLEEDING NOTED. G-TUBE WELL TOLERATED. ON NEPRO @ 50 ML/HR X 24 HOURS. PT TOLERATED WELL. NO FACIAL GRIMACING NOTED. PT HAS FLEXISEAL IN PLACE. 200 CC OUTPUT. DRAINING BY GRAVITY. CHOLECYSTECTOMY BAG DRAINING WELL. DRAINING BY GRAVITY. ON CONTACT ISOLATION PRECAUTION FOR MDRC BLOOD, C-DIFF POSITIVE, AND AIRBORNE/DROPLET ISOLATION FOR COVID POSITIVE. ALL DUE MEDS GIVEN ORDERED. ALL SAFETY MEASURES IN PLACE. BED IN LOWEST POSITION AND LOCKED. SIDE RAILS UP X3, PLACE CALL LIGHT WITH IN REACH. WILL ENDORSE TO MORNING SHIFT NURSE.
--- NOTE | 2022-12-19 07:22 | NUR ---
RN OPENING NOTES: RECEIVED PATIENT IN BED ASLEEP, OBTUNDED. ON TRACH WITH MECHANICAL VENT SETTING FOLLOWS: S#8, AC 12, TV 525, FI02 30, PEEP OFF. BREATHING EVEN AND UNLABORED. IV ACCESS ON LEFT UPPER ARM MIDLINE INTACT AND PATENT. RT HD PERMACATH COVERED WITH DRESSING. NO ACTIVE BLEEDING NOTED. G-TUBE WELL TOLERATED. ON NEPRO @ 50 ML/HR X 24 HOURS. PT TOLERATED WELL. NO FACIAL GRIMACING NOTED. PT HAS FLEXISEAL IN PLACE. DRAINING BY GRAVITY. CHOLECYSTECTOMY BAG DRAINING WELL. ON CONTACT ISOLATION PRECAUTION FOR MDRC BLOOD, C-DIFF POSITIVE, AND AIRBORNE/DROPLET ISOLATION FOR COVID POSITIVE. ALL SAFETY MEASURES IN PLACE. BED IN LOWEST POSITION AND LOCKED. SIDE RAILS UP X3, PLACE CALL LIGHT WITH IN REACH. WILL CONTINUE TO MONITOR.
[2022-12-19] MEDS: LEVOTHYROXINE SODIUM 50 MCG TABLET GT SCH (07:49)
[2022-12-19 08:00] VITALS: BP 108/53
[2022-12-19] MEDS ORDERED: LIDOCAINE 2%-EPI 1:100,000 30 ML VIAL TP ONE (08:00)
[2022-12-19] MEDS ORDERED: SILVER NITRATE APPLICATOR 1 EA BOX TP PRN (08:00)
[2022-12-19 08:18] LABS: BASOPHILS # (AUTO) 0.1 K/uL (0.0-0.2); BASOPHILS % (AUTO) 0.7 % (0.0-2.0); EOSINOPHILS % (AUTO) 9.7 % (0.0-6.0); HEMATOCRIT 28 % (39-51); LYMPHOCYTES # (AUTO) 0.4 K/uL (0.8-4.8); LYMPHOCYTES % (AUTO) 3.4 % (20.0-44.0); MEAN CORPUSCULAR HGB CONC 29 g/dl (31.0-36.0); MEAN CORPUSCULAR VOLUME 106 fL (80-96); MONOCYTES # (AUTO) 1.3 K/uL (0.1-1.30); MONOCYTES % (AUTO) 10.3 % (2.0-12.0); NEUTROPHILS # (AUTO) 9.7 K/uL (1.8-8.9); NEUTROPHILS % (AUTO) 75.9 % (43.0-81.0); PLATELET COUNT (AUTO) 185 K/uL (150-450); RED BLOOD CELL COUNT(AUTO) 2.62 MIL/uL (4.5-6.0); WHITE BLOOD COUNT (AUTO) 12.8 K/uL (4.3-11.0)
[2022-12-19] MEDS: MULTIVITAMINS,THERAGRAN 1 UDTAB TABLET GT SCH (08:50)
[2022-12-19] MEDS: PANTOPRAZOLE 40 MG/PACK PACK GT SCH ×2 (08:50→21:27)
[2022-12-19] MEDS: FLUDROCORTISONE 0.1 MG TABLET PO SCH (08:53)
[2022-12-19] MEDS: ALLOPURINOL 100 MG TABLET GT SCH (08:53)
[2022-12-19] MEDS: FINASTERIDE (5 MG) 5 MG TABLET GT SCH (08:53)
[2022-12-19] MEDS: ASCORBIC ACID 500 MG TABLET GT SCH (08:53)
[2022-12-19] MEDS: CLOTRIMAZOLE 1% 15 GM TUBE TP SCH ×2 (08:54→17:18)
[2022-12-19 08:57] LABS: CALCIUM, SERUM 8.5 mg/dL (8.5-10.1); CREATININE 2.1 mg/dL (0.6-1.3); POTASSIUM 3.6 mmol/L (3.5-5.1)
[2022-12-19] MEDS: ACETAMINOPHEN 650 MG/20.3 ML UDC GT PRN (10:15)
[2022-12-19] MEDS: CEFTAZIDIME 1 G in IV D5W 50 ML IV SCH (11:03)
[2022-12-19 12:05] VITALS: BP 90/48
[2022-12-19 12:33] LABS: BAND % (MANUAL) 17 % (0.0-5.0); EOSINOPHILS % (MANUAL) 10 % (0-4); LYMPHOCYTES % (MANUAL) 9 % (16-48); MONOCYTES % (MANUAL) 4 % (0-11.0); NEUTROPHILS % (MANUAL) 60 (42-76)
[2022-12-19 16:22] VITALS: BP 98/65
--- NOTE | 2022-12-19 18:39 | NUR ---
RN CLOSING NOTE PATIENT IN BED ASLEEP, OBTUNDED. ON TRACH WITH MECHANICAL VENT SETTING FOLLOWS: S#8, AC 12, TV 525, FI02 30, PEEP OFF. BREATHING EVEN AND UNLABORED. IV ACCESS ON LEFT UPPER ARM MIDLINE INTACT AND PATENT. RT HD PERMACATH COVERED WITH DRESSING. NO ACTIVE BLEEDING NOTED. G-TUBE WELL TOLERATED. ON NEPRO @ 50 ML/HR X 24 HOURS. NO FACIAL GRIMACING NOTED. PT HAS FLEXISEAL IN PLACE. DRAINING BY GRAVITY. CHOLECYSTECTOMY BAG DRAINING WELL. ON CONTACT ISOLATION PRECAUTION FOR MDRC BLOOD, C-DIFF POSITIVE, AND AIRBORNE/DROPLET ISOLATION FOR COVID POSITIVE. ALL SAFETY MEASURES IN PLACE. BED IN LOWEST POSITION AND LOCKED. SIDE RAILS UP X3, PLACE CALL LIGHT WITH IN REACH. WILL WILL IMNDORSE STRUCTURAL STEEL ERECTOR NURSE TO FALLOW POC
[2022-12-19 20:00] VITALS: BP 90/54
[2022-12-19] MEDS: COLISTIMETHATE SODIUM 100 MG in IV NS 0.9% 50 ML IV SCH (21:27)
[2022-12-20] VITALS (7 sets, daily range): BP systolic 93–115; BP diastolic 51–72
[2022-12-20] MEDS: VANCOMYCIN HCL 125 MG/2.5 ML ORAL.SUSP PO SCH ×5 (00:31→23:42)
[2022-12-20] MEDS: PROSOURCE / PROSTAT (PYXIS) 30 ML UDC GT SCH ×3 (00:31→17:00)
[2022-12-20] MEDS: MIDODRINE HCL (5MG) 5 MG TABLET GT SCH ×3 (00:32→18:11)
[2022-12-20] MEDS: SUCRALFATE 1 G/10 ML UDC GT SCH ×4 (02:03→20:34)
[2022-12-20] MEDS: DAKINS HALF STRENGTH (0.25%) 480 ML BOTTLE TOP SCH ×2 (05:04→17:00)
[2022-12-20 07:10] LABS: CALCIUM, SERUM 8.8 mg/dL (8.5-10.1); CREATININE 2.5 mg/dL (0.6-1.3)
[2022-12-20 07:50] LABS: BASOPHILS # (AUTO) 0.1 K/uL (0.0-0.2); BASOPHILS % (AUTO) 0.6 % (0.0-2.0); EOSINOPHILS % (AUTO) 6.8 % (0.0-6.0); HEMATOCRIT 24 % (39-51); HEMOGLOBIN 7.5 g/dL (13.5-17.5); LYMPHOCYTES # (AUTO) 0.5 K/uL (0.8-4.8); LYMPHOCYTES % (AUTO) 3.9 % (20.0-44.0); MEAN CORPUSCULAR HGB CONC 32 g/dl (31.0-36.0); MEAN CORPUSCULAR VOLUME 94 fL (80-96); MONOCYTES # (AUTO) 1.3 K/uL (0.1-1.30); MONOCYTES % (AUTO) 10.2 % (2.0-12.0); NEUTROPHILS # (AUTO) 9.9 K/uL (1.8-8.9); NEUTROPHILS % (AUTO) 78.5 % (43.0-81.0); PLATELET COUNT (AUTO) 193 K/uL (150-450); WHITE BLOOD COUNT (AUTO) 12.6 K/uL (4.3-11.0)
[2022-12-20] MEDS: CLOTRIMAZOLE 1% 15 GM TUBE TP SCH ×2 (09:00→17:00)
[2022-12-20] MEDS: ACETAMINOPHEN 650 MG/20.3 ML UDC GT PRN ×2 (10:27→18:11)
[2022-12-20] MEDS: ASCORBIC ACID 500 MG TABLET GT SCH (10:27)
[2022-12-20] MEDS: LEVOTHYROXINE SODIUM 50 MCG TABLET GT SCH (10:27)
[2022-12-20] MEDS: PANTOPRAZOLE 40 MG/PACK PACK GT SCH ×2 (10:27→20:35)
[2022-12-20] MEDS: FINASTERIDE (5 MG) 5 MG TABLET GT SCH (10:27)
[2022-12-20] MEDS: MULTIVITAMINS,THERAGRAN 1 UDTAB TABLET GT SCH (10:27)
[2022-12-20] MEDS: FLUDROCORTISONE 0.1 MG TABLET PO SCH (10:27)
[2022-12-20] MEDS: ALLOPURINOL 100 MG TABLET GT SCH (10:28)
[2022-12-20] MEDS: NEPRO 1,000 ML BOTTLE GT PRN (11:49)
--- NOTE | 2022-12-20 12:36 | NUR ---
RN NOTE PATIENT WILL BE DIALYZED TODAY, PER DIALYSIS NURSE. PER PHARMACY, HOLD 1200 VANCO DOSE UNTIL AFTER DIALYSIS IS COMPLETE.
--- NOTE | 2022-12-20 15:15 | NUR ---
RN NOTE DIALYSIS WILL BEGIN AT THIS TIME.
[2022-12-20] MEDS: ALBUMIN 25% 25 GM in PREMIX 1 EA IV PRN (17:53)
--- NOTE | 2022-12-20 18:02 | NUR ---
RN NOTE PRITI DIALYSIS NURSE, REMOVED 1L TODAY.
--- NOTE | 2022-12-20 18:05 | NUR ---
RN NOTE NOTIFIED PHARMACY DIALYSIS COMPLETED AT THIS TIME WILL GIVE 1200 DOSE OF FORTAZ NOW.
[2022-12-20] MEDS: CEFTAZIDIME 1 G in IV D5W 50 ML IV SCH (18:10)
--- NOTE | 2022-12-20 20:00 | NUR ---
STUDENT FINANCIAL SERVICES COUNSELOR OPENING NOTES: RECEIVED PATIENT IN BED OBTUNDED. ON TRACH WITH MECHANICAL VENT SETTING FOLLOWS: S#8, AC 12, TV 525, FI02 30, PEEP 0. BREATHING EVEN AND UNLABORED. IV ACCESS ON LEFT UPPER ARM MIDLINE INTACT AND PATENT. RT SUBCLAVIAN PERMACATH COVERED WITH DRESSING. NO ACTIVE BLEEDING NOTED. G-TUBE WELL TOLERATED. ON NEPRO @ 50 ML/HR X 24 HOURS. PT TOLERATED WELL. NO RESIDUAL NOTED NO FACIAL GRIMACING NOTED. PT HAS FLEXISEAL IN PLACE . DRAINING BY GRAVITY. CHOLECYSTECTOMY BAG DRAINING WELL. DRAINING BY GRAVITY. ON CONTACT ISOLATION PRECAUTION FOR MDRO BLOOD, C-DIFF POSITIVE, AND AIRBORNE/DROPLET ISOLATION FOR COVID POSITIVE. ALL DUE MEDS GIVEN ORDERED. ALL SAFETY MEASURES IN PLACE. BED IN LOWEST POSITION AND LOCKED. SIDE RAILS UP X3, PLACE CALL LIGHT WITH IN REACH.V/S STABLE AFEBRILE . WILL CONTINUE TO MONITOR
--- NOTE | 2022-12-20 20:16 | NUR ---
RN CLOSING NOTES: PATIENT IN BED OBTUNDED. ON TRACH WITH MECHANICAL VENT SETTING FOLLOWS: S#8, AC 12, TV 525, FI02 30, PEEP OFF. BREATHING EVEN AND UNLABORED. IV ACCESS ON LEFT UPPER ARM MIDLINE INTACT AND PATENT. RT SUBCLAVIAN PERMACATH COVERED WITH DRESSING. NO ACTIVE BLEEDING NOTED. G-TUBE WELL TOLERATED. ON NEPRO @ 50 ML/HR X 24 HOURS. PT TOLERATED WELL. NO FACIAL GRIMACING NOTED. PT HAS FLEXISEAL IN PLACE 150CC OUTPUT. DRAINING BY GRAVITY. CHOLECYSTECTOMY BAG DRAINING WELL. DRAINING BY GRAVITY. ON CONTACT ISOLATION PRECAUTION FOR MDRC BLOOD, C-DIFF POSITIVE, AND AIRBORNE/DROPLET ISOLATION FOR COVID POSITIVE. ALL DUE MEDS GIVEN ORDERED. ALL SAFETY MEASURES IN PLACE. BED IN LOWEST POSITION AND LOCKED. SIDE RAILS UP X3, PLACE CALL LIGHT WITH IN REACH. WILL ENDORSE CONTINUITY OF CARE TO INSTRUCTOR TRAINER CANINE SERVICE NURSE.
[2022-12-20] MEDS: COLISTIMETHATE SODIUM 100 MG in IV NS 0.9% 50 ML IV SCH (20:35)
[2022-12-21] VITALS: BP 94/59
[2022-12-21] MEDS: PROSOURCE / PROSTAT (PYXIS) 30 ML UDC GT SCH ×3 (00:03→16:18)
[2022-12-21] MEDS: MIDODRINE HCL (5MG) 5 MG TABLET GT SCH ×3 (00:03→16:23)
[2022-12-21] MEDS: SUCRALFATE 1 G/10 ML UDC GT SCH ×4 (02:56→21:36)
[2022-12-21 04:00] VITALS: BP_SYST 101; BP_SYST 94; BP_DIAS 50; BP_DIAS 59
[2022-12-21] MEDS: DAKINS HALF STRENGTH (0.25%) 480 ML BOTTLE TOP SCH ×2 (04:51→16:19)
[2022-12-21] MEDS: VANCOMYCIN HCL 125 MG/2.5 ML ORAL.SUSP PO SCH ×3 (05:02→18:37)
--- NOTE | 2022-12-21 06:39 | NUR ---
RN CLOSING NOTES: PATIENT REMAIN IN BED OBTUNDED. ON TRACH WITH MECHANICAL VENT SETTING FOLLOWS: S#8, AC 12, TV 525, FI02 30, PEEP OFF. BREATHING EVEN AND UNLABORED. IV ACCESS ON LEFT UPPER ARM MIDLINE INTACT AND PATENT. RT SUBCLAVIAN PERMACATH COVERED WITH DRESSING. NO ACTIVE BLEEDING NOTED. G-TUBE WELL TOLERATED. ON NEPRO @ 50 ML/HR X 24 HOURS. PT TOLERATED WELL. NO FACIAL GRIMACING NOTED. PT HAS FLEXISEAL IN PLACE 300CC OUTPUT. DRAINING BY GRAVITY. CHOLECYSTECTOMY BAG AT 300CC DRAINAGE .DRAINING BY GRAVITY. ON CONTACT ISOLATION PRECAUTION FOR MDRC BLOOD, C-DIFF POSITIVE, AND AIRBORNE/DROPLET ISOLATION FOR COVID POSITIVE. ALL DUE MEDS GIVEN ORDERED. ALL SAFETY MEASURES IN PLACE. BED IN LOWEST POSITION AND LOCKED. SIDE RAILS UP X3, PLACE CALL LIGHT WITH IN REACH. WILL ENDORSE RN DAY SHIFT FOR CONTINUITY OF CARE
--- NOTE | 2022-12-21 07:05 | NUR ---
RN OPENING NOTES: RECEIVED PATIENT IN BED ASLEEP, OBTUNDED. ON TRACH WITH MECHANICAL VENT SETTING FOLLOWS: S#8, AC 12, TV 525, FI02 30, PEEP OFF. BREATHING EVEN AND UNLABORED. IV ACCESS ON LEFT UPPER ARM MIDLINE INTACT AND PATENT. RT HD PERMACATH COVERED WITH DRESSING. NO ACTIVE BLEEDING NOTED. G-TUBE WELL TOLERATED. ON NEPRO @ 50 ML/HR X 24 HOURS TOLERATED WELL. NO FACIAL GRIMACING NOTED. PT HAS FLEXISEAL IN PLACE. DRAINING BY GRAVITY. CHOLECYSTECTOMY BAG DRAINING WELL. ON CONTACT ISOLATION PRECAUTION FOR MDRC BLOOD, C-DIFF POSITIVE, AND AIRBORNE/DROPLET ISOLATION FOR COVID POSITIVE. ALL SAFETY MEASURES IN PLACE. BED IN LOWEST POSITION AND LOCKED. SIDE RAILS UP X3, PLACE CALL LIGHT WITH IN REACH. WILL CONTINUE TO MONITOR.
[2022-12-21 07:08] LABS: BASOPHILS # (AUTO) 0.1 K/uL (0.0-0.2); BASOPHILS % (AUTO) 0.8 % (0.0-2.0); EOSINOPHILS % (AUTO) 5.6 % (0.0-6.0); HEMATOCRIT 22 % (39-51); HEMOGLOBIN 7.1 g/dL (13.5-17.5); LYMPHOCYTES # (AUTO) 0.5 K/uL (0.8-4.8); LYMPHOCYTES % (AUTO) 3.7 % (20.0-44.0); MEAN CORPUSCULAR HGB CONC 33 g/dl (31.0-36.0); MEAN CORPUSCULAR VOLUME 94 fL (80-96); MONOCYTES # (AUTO) 1.3 K/uL (0.1-1.30); MONOCYTES % (AUTO) 9.8 % (2.0-12.0); NEUTROPHILS # (AUTO) 10.6 K/uL (1.8-8.9); NEUTROPHILS % (AUTO) 80.1 % (43.0-81.0); PLATELET COUNT (AUTO) 178 K/uL (150-450); RED BLOOD CELL COUNT(AUTO) 2.32 MIL/uL (4.5-6.0); WHITE BLOOD COUNT (AUTO) 13.2 K/uL (4.3-11.0)
[2022-12-21 07:15] LABS: CALCIUM, SERUM 8.7 mg/dL (8.5-10.1); CREATININE 2.3 mg/dL (0.6-1.3)
[2022-12-21 07:25] LABS: POTASSIUM 2.5 mmol/L (3.5-5.1)
--- NOTE | 2022-12-21 07:41 | NUR ---
lab called in his potassium level is 2.5 DR DICKINSON was notified waiting for retuning call back
[2022-12-21] MEDS: LEVOTHYROXINE SODIUM 50 MCG TABLET GT SCH (07:46)
[2022-12-21 08:00] VITALS: BP 108/47
[2022-12-21] MEDS ORDERED: POTASSIUM CHLORIDE 20 MEQ POWDER PACKET GT ONE (08:00)
[2022-12-21] MEDS: ACETAMINOPHEN 650 MG/20.3 ML UDC GT PRN ×2 (08:32→16:23)
[2022-12-21] MEDS: PANTOPRAZOLE 40 MG/PACK PACK GT SCH ×2 (08:33→21:36)
[2022-12-21] MEDS: FLUDROCORTISONE 0.1 MG TABLET PO SCH (08:33)
[2022-12-21] MEDS: ALLOPURINOL 100 MG TABLET GT SCH (08:33)
[2022-12-21] MEDS: FINASTERIDE (5 MG) 5 MG TABLET GT SCH (08:33)
[2022-12-21] MEDS: MULTIVITAMINS,THERAGRAN 1 UDTAB TABLET GT SCH (08:33)
[2022-12-21] MEDS: CLOTRIMAZOLE 1% 15 GM TUBE TP SCH ×2 (08:34→16:19)
[2022-12-21] MEDS: ASCORBIC ACID 500 MG TABLET GT SCH (08:34)
[2022-12-21 09:05] LABS: D-DIMER 1.6 mg/L(FEU (0.17-0.50)
[2022-12-21 12:00] VITALS: BP 88/51
[2022-12-21] MEDS: CEFTAZIDIME 1 G in IV D5W 50 ML IV SCH (12:04)
[2022-12-21] MEDS: ALBUMIN 25% 25 GM in PREMIX 1 EA IV PRN (12:04)
--- NOTE | 2022-12-21 12:15 | NUR ---
RN NOTES: RECEIVED A CALL FROM PHARMACY TO GIVE IV VANCO TODAY AFTER DIALYSIS 500 MG IV VANCO GIVEN IV
[2022-12-21] MEDS: VANCOMYCIN 500 MG in IV D5W 100 ML IV PRN (12:16)
[2022-12-21 13:35] LABS: BAND % (MANUAL) 15 % (0.0-5.0); EOSINOPHILS % (MANUAL) 1 % (0-4); LYMPHOCYTES % (MANUAL) 2 % (16-48); MONOCYTES % (MANUAL) 10 % (0-11.0); NEUTROPHILS % (MANUAL) 72 (42-76)
[2022-12-21 16:00] VITALS: BP 94/45
[2022-12-21] MEDS ORDERED: VANCOMYCIN 1 GM in IV D5W 250 ML IV ONE (16:00)
--- NOTE | 2022-12-21 16:16 | NUR ---
RN NOTES: NOTED AN ORDER FOR 1 GRAM VANCOMYCIN IV SPOKE TO PHARMCAY THEY SAID RECOMMENDED DOSE TO BE GIVEN TODAY 1 GRAM, INFORMED THEM I GAVE 500 MG EARLIER TODAY WITH ORDER TO GIVE ANOTHER 500 MG IV VANCOMYCIN NOW, RECEIVED A DOSE FROM PHARMACY AND STARTED THE DOSE
[2022-12-21 16:18] LABS: HEMOGLOBIN 7.3 g/dL (13.5-17.5)
[2022-12-21] MEDS: NEPRO 1,000 ML BOTTLE GT PRN (16:33)
--- NOTE | 2022-12-21 19:30 | NUR ---
RN CLOSING NOTES: PATIENT IN BED ASLEEP, OBTUNDED. ON TRACH WITH MECHANICAL VENT SETTING FOLLOWS: S#8, AC 12, TV 525, FI02 30, PEEP OFF. BREATHING EVEN AND UNLABORED. IV ACCESS ON LEFT UPPER ARM MIDLINE INTACT AND PATENT. RT UPPER CHEST HD PERMACATH COVERED WITH DRESSING. NO ACTIVE BLEEDING NOTED. G-TUBE WELL TOLERATED. ON NEPRO @ 50 ML/HR X 24 HOURS. PT TOLERATED WELL. NO FACIAL GRIMACING NOTED. PT HAS FLEXISEAL IN PLACE. 200 CC OUTPUT. DRAINING BY GRAVITY. CHOLECYSTECTOMY BAG DRAINING WELL. DRAINING BY GRAVITY. ON CONTACT ISOLATION PRECAUTION FOR MDRC BLOOD, C-DIFF POSITIVE, AND AIRBORNE/DROPLET ISOLATION FOR COVID POSITIVE. ALL DUE MEDS GIVEN ORDERED. ALL SAFETY MEASURES IN PLACE. BED IN LOWEST POSITION AND LOCKED. SIDE RAILS UP X3, PLACE CALL LIGHT WITH IN REACH. ENDORSED TO ONCOMING SHIFT NURSE.
--- NOTE | 2022-12-21 19:40 | NUR ---
SEAMSTRESS FITTER OPENING NOTES RECEIVED PATIENT IN BED ASLEEP, OBTUNDED. ON TRACH WITH MECHANICAL VENT SETTING FOLLOWS: S#8, AC 12, TV 525, FI02 30, PEEP OFF. BREATHING EVEN AND UNLABORED. IV ACCESS ON THADDEUS MIDLINE INTACT AND PATENT. RT UPPER CHEST HD PERMACATH COVERED WITH DRY DRESSING. NO ACTIVE BLEEDING NOTED. GTF RUNNING NEPRO @ 50 ML/HR X 24 HOURS. PT HAS FLEXISEAL IN PLACE, DRAINING BY GRAVITY. CHOLECYSTECTOMY BAG NOTED. ON CONTACT ISOLATION PRECAUTION FOR MDRC BLOOD, C-DIFF POSITIVE, AND AIRBORNE/DROPLET ISOLATION FOR COVID POSITIVE. SAFETY MEASURES IN PLACE: BED LOCKED AND IN LOWEST POSITION, CALL LIGHT WITHIN REACH, SIDE RAILS UP X3.
[2022-12-21 20:00] VITALS: BP 86/41
[2022-12-21] MEDS: COLISTIMETHATE SODIUM 100 MG in IV NS 0.9% 50 ML IV SCH (21:36)
[2022-12-21] MEDS: IV NS 0.9% 250 ML IV PRN (22:23)
[2022-12-22] VITALS: BP 87/51
[2022-12-22] MEDS: VANCOMYCIN HCL 125 MG/2.5 ML ORAL.SUSP PO SCH ×4 (00:21→17:50)
[2022-12-22] MEDS: PROSOURCE / PROSTAT (PYXIS) 30 ML UDC GT SCH ×3 (01:21→16:38)
[2022-12-22] MEDS: MIDODRINE HCL (5MG) 5 MG TABLET GT SCH ×3 (01:21→16:38)
[2022-12-22] MEDS: SUCRALFATE 1 G/10 ML UDC GT SCH ×4 (03:11→21:30)
[2022-12-22 04:00] VITALS: BP 98/45
[2022-12-22] MEDS: DAKINS HALF STRENGTH (0.25%) 480 ML BOTTLE TOP SCH ×2 (05:07→16:39)
[2022-12-22] MEDS ORDERED: VANCOMYCIN 500 MG in IV D5W 100 ML IV PRN (06:00)
--- NOTE | 2022-12-22 07:17 | NUR ---
PROCESS STRIPPER CLOSING NOTES PATIENT IN BED ASLEEP, OBTUNDED. ON TRACH WITH MECHANICAL VENT SETTING FOLLOWS: S#8, AC 12, TV 525, FI02 30, PEEP OFF. BREATHING EVEN AND UNLABORED. IV ACCESS ON THADDEUS MIDLINE INTACT AND PATENT. RT UPPER CHEST HD PERMACATH COVERED WITH DRY DRESSING. NO ACTIVE BLEEDING NOTED. GTF RUNNING NEPRO @ 50 ML/HR X 24 HOURS. PT HAS FLEXISEAL IN PLACE, DRAINING BY GRAVITY. CHOLECYSTECTOMY BAG NOTED. ON CONTACT ISOLATION PRECAUTION FOR MDRC BLOOD, C-DIFF POSITIVE, AND AIRBORNE/DROPLET ISOLATION FOR COVID POSITIVE. ALL DUE MEDS WERE GIVEN AND NEEDS ATTENDED. SAFETY MEASURES IN PLACE: BED LOCKED AND IN LOWEST POSITION, CALL LIGHT WITHIN REACH, SIDE RAILS UP X3.
[2022-12-22 08:00] VITALS: BP 100/46
[2022-12-22 08:39] LABS: BASOPHILS # (AUTO) 0.1 K/uL (0.0-0.2); BASOPHILS % (AUTO) 0.8 % (0.0-2.0); HEMATOCRIT 23 % (39-51); HEMOGLOBIN 7.2 g/dL (13.5-17.5); LYMPHOCYTES # (AUTO) 0.6 K/uL (0.8-4.8); LYMPHOCYTES % (AUTO) 4.7 % (20.0-44.0); MEAN CORPUSCULAR HGB CONC 32 g/dl (31.0-36.0); MEAN CORPUSCULAR VOLUME 95 fL (80-96); MONOCYTES # (AUTO) 1.5 K/uL (0.1-1.30); MONOCYTES % (AUTO) 11.1 % (2.0-12.0); NEUTROPHILS # (AUTO) 10.7 K/uL (1.8-8.9); NEUTROPHILS % (AUTO) 78.4 % (43.0-81.0); PLATELET COUNT (AUTO) 176 K/uL (150-450); WHITE BLOOD COUNT (AUTO) 13.6 K/uL (4.3-11.0)
[2022-12-22] MEDS: CLOTRIMAZOLE 1% 15 GM TUBE TP SCH ×2 (09:00→16:39)
[2022-12-22] MEDS: FLUDROCORTISONE 0.1 MG TABLET PO SCH (09:22)
[2022-12-22] MEDS: PANTOPRAZOLE 40 MG/PACK PACK GT SCH ×2 (09:22→21:30)
[2022-12-22] MEDS: ALLOPURINOL 100 MG TABLET GT SCH (09:22)
[2022-12-22] MEDS: MULTIVITAMINS,THERAGRAN 1 UDTAB TABLET GT SCH (09:22)
[2022-12-22] MEDS: FINASTERIDE (5 MG) 5 MG TABLET GT SCH (09:22)
[2022-12-22 09:23] LABS: CALCIUM, SERUM 8.8 mg/dL (8.5-10.1); CREATININE 2.5 mg/dL (0.6-1.3)
[2022-12-22] MEDS: ASCORBIC ACID 500 MG TABLET GT SCH (09:25)
[2022-12-22] MEDS: LEVOTHYROXINE SODIUM 50 MCG TABLET GT SCH (09:32)
[2022-12-22 11:34] LABS: BAND % (MANUAL) 12 % (0.0-5.0); BASOPHILS % (MANUAL) 0 % (0.0-2.0); EOSINOPHILS % (MANUAL) 2 % (0-4); LYMPHOCYTES % (MANUAL) 5 % (16-48); MONOCYTES % (MANUAL) 13 % (0-11.0); NEUTROPHILS % (MANUAL) 68 (42-76)
[2022-12-22 12:00] VITALS: BP 94/52
[2022-12-22] MEDS: ACETAMINOPHEN 650 MG/20.3 ML UDC GT PRN ×3 (12:17→21:31)
[2022-12-22] MEDS: CEFTAZIDIME 1 G in IV D5W 50 ML IV SCH (12:17)
[2022-12-22] MEDS ORDERED: MEROPENEM 500 MG in IV NS 0.9% 50 ML IV SCH (13:00)
[2022-12-22] MEDS: EPOETIN ALFA-EPBX 4,000 UNIT/ML VIAL SQ SCH (14:42)
--- NOTE | 2022-12-22 15:37 | NUR ---
RN NOTES - DIAYLSIS STARTED AT 1500 AND ENDED AT 1530 , DUE TO HYPOTENSIVE LOW B/P THE DIALYSIS PROCEDURE WAS D/C AND MD AWARE, B/P = 70/40 , HR = 113, RR = 18, TEMP 99.0 AXILLARY LEFT , OXYGEN =100%, AND NO C/O OF PAIN NO DISTRESS NOTED, PT MONITORED CLOSELY FOR ANY SIDE EFFECTS OR OTHER AT THIS TIME, IV SITE IS PATENT FLUSHING WELL, THE G-TUBE IS PATENT FLUSHING AND WORKING WELL.
[2022-12-22 16:00] VITALS: BP 95/57
[2022-12-22] MEDS: ALBUMIN 25% 25 GM in PREMIX 1 EA IV PRN (16:03)
--- NOTE | 2022-12-22 18:34 | NUR ---
RN NOTES WOUND CARE TO SITES COMPLETED, NO S/S OF ANY IMPROVEMENT STABLE CONDITION, ANUS TUBING IN PLACE PATENT AND WORKING PROPERLY FECES NOTED FLOWING EASILY OUT OF TUBING, PT TRACH INTACT , NO SOB AND NO DISTRESS NOTED, PT TOLERATED TX WELL, PT REPOSITIONED AND FLORY AREA CLEAN AND DRY. RT NOTIFIED FOR SUCTION, WILL CONTINUE TO MONITOR
[2022-12-22 20:00] VITALS: BP 93/53
[2022-12-22] MEDS: COLISTIMETHATE SODIUM 100 MG in IV NS 0.9% 50 ML IV SCH (21:31)
[2022-12-23] VITALS: BP 101/63
[2022-12-23] MEDS: VANCOMYCIN HCL 125 MG/2.5 ML ORAL.SUSP PO SCH ×4 (01:33→18:20)
[2022-12-23] MEDS: PROSOURCE / PROSTAT (PYXIS) 30 ML UDC GT SCH ×3 (01:34→17:04)
[2022-12-23] MEDS: MIDODRINE HCL (5MG) 5 MG TABLET GT SCH ×3 (01:34→17:00)
[2022-12-23] MEDS: NEPRO 1,000 ML BOTTLE GT PRN (01:52)
[2022-12-23] MEDS: SUCRALFATE 1 G/10 ML UDC GT SCH ×4 (02:15→21:19)
[2022-12-23 04:00] VITALS: BP 103/66
[2022-12-23] MEDS: DAKINS HALF STRENGTH (0.25%) 480 ML BOTTLE TOP SCH ×2 (04:56→17:21)
--- NOTE | 2022-12-23 06:42 | NUR ---
RN CLOSING NOTE PATIENT REMAINS IN ROOM IN NO SIGNS OF RESPIRATORY DISTRESS, PATIENT STILL ON MECH VENT; SETTINGS PRESCRIBED;TOLERATING WELL SATURATING @ >95% SP02. SR ON MONITOR. SAFETY MEASURES IMPLEMENTED, BED IN LOWEST POSITION, LOCKED, SIDE RAILS UP, CALL LIGHT WITHIN REACH. ALL NEEDS AND ORDERS ADDRESSED DURING THE SHIFT. IV ACCESS MAINTAINED INTACT, SECURED AND FLUSHING WELL. ALL DUE MEDS GIVEN ORDERED & SCHEDULED ; PATIENT TOLERATED WELL. TUBE FEEDING STILL RUNNING ORDERED. PATIENT KEPT CLEAN AND COMFORTABLE WITHIN THE SHIFT. ISO PREC STILL IN PLACE. PATIENT ENDORSED TO INCOMING SHIFT RN WITH STABLE VITAL SIGN AND FOR CONTINUITY OF CARE.
[2022-12-23 07:37] LABS: BASOPHILS # (AUTO) 0.2 K/uL (0.0-0.2); EOSINOPHILS % (AUTO) 6.2 % (0.0-6.0); HEMATOCRIT 22 % (39-51); LYMPHOCYTES # (AUTO) 0.7 K/uL (0.8-4.8); LYMPHOCYTES % (AUTO) 4.8 % (20.0-44.0); MEAN CORPUSCULAR HGB CONC 31 g/dl (31.0-36.0); MEAN CORPUSCULAR VOLUME 97 fL (80-96); MONOCYTES # (AUTO) 1.5 K/uL (0.1-1.30); MONOCYTES % (AUTO) 9.5 % (2.0-12.0); NEUTROPHILS % (AUTO) 78.5 % (43.0-81.0); PLATELET COUNT (AUTO) 159 K/uL (150-450); RED BLOOD CELL COUNT(AUTO) 2.29 MIL/uL (4.5-6.0); WHITE BLOOD COUNT (AUTO) 15.3 K/uL (4.3-11.0)
[2022-12-23 08:00] VITALS: BP 101/56
[2022-12-23 08:00] LABS: CALCIUM, SERUM 8.6 mg/dL (8.5-10.1); CREATININE 2.6 mg/dL (0.6-1.3); POTASSIUM 2.9 mmol/L (3.5-5.1)
[2022-12-23] MEDS: LEVOTHYROXINE SODIUM 50 MCG TABLET GT SCH (08:16)
[2022-12-23] MEDS: CLOTRIMAZOLE 1% 15 GM TUBE TP SCH ×2 (08:31→17:21)
[2022-12-23] MEDS: PANTOPRAZOLE 40 MG/PACK PACK GT SCH ×2 (09:18→21:19)
[2022-12-23] MEDS: FINASTERIDE (5 MG) 5 MG TABLET GT SCH (09:18)
[2022-12-23] MEDS: MULTIVITAMINS,THERAGRAN 1 UDTAB TABLET GT SCH (09:19)
[2022-12-23] MEDS: ASCORBIC ACID 500 MG TABLET GT SCH (09:21)
[2022-12-23] MEDS: FLUDROCORTISONE 0.1 MG TABLET PO SCH (09:21)
[2022-12-23] MEDS: ALLOPURINOL 100 MG TABLET GT SCH (09:21)
[2022-12-23] MEDS: MEROPENEM 1 G in IV NS 0.9% 100 ML IV SCH ×2 (11:41→21:19)
[2022-12-23 12:00] VITALS: BP 99/51
[2022-12-23 16:00] VITALS: BP 97/48
[2022-12-23] MEDS: HYDROCODONE/APAP 5/325MG TABLET GT PRN (17:03)
[2022-12-23 17:23] LABS: BAND % (MANUAL) 10 % (0.0-5.0); EOSINOPHILS % (MANUAL) 9 % (0-4); LYMPHOCYTES % (MANUAL) 6 % (16-48); METAMYELOCYTES % 1 % (0-0); MONOCYTES % (MANUAL) 11 % (0-11.0); NEUTROPHILS % (MANUAL) 63 (42-76)
--- NOTE | 2022-12-23 19:15 | NUR ---
RN NOTE RECEIVED PT FOR CONTINUITY OF CARE. PATIENT A/OX0 IN NO S/SX OF ACUTE DISTRESS AT THIS TIME; CURRENTLY ON 2L OF VIA ; WITH 02 SAT >95% AT THIS TIME.WITH IV ACCESS PATENT, INTACT AND FLUSHING WELL. WITH RUNNING NS@75CC/HR. AMIO DRIP RECEIVED @0.5MG/MIN, INFUSING WELL. WILL ENSURE SAFETY MEASURES WITHIN THE SHIFT. PATIENT BED ALARM IS ON. HEAD OF BED ELEVATED. BED IS LOCKED, IN LOWEST POSITION AND SIDE RAILS UP. CALL LIGHT WITHIN REACH OF THE PATIENT. WILL CONTINUE TO MONITOR AND REASSESS FOR ANY CHANGES AND WILL CARRY OUT ANY ONGOING AND ACTIVE MD ORDER. Addendum: 12/23/22 at 2112 by JERED RAMIREZ RN PLS DISREGARD , WRONG PT ENTRY
[2022-12-23 20:00] VITALS: BP 102/52
--- NOTE | 2022-12-23 20:30 | NUR ---
RN NOTES NOTED PT'S CHAMORRO CATH TO BE SECURED AND INTACT, DRAINING REDDISH COLORED URINE OUTPUT, MODERATE IN AMT. FLUSHED AND IRRIGATED STILL DRAINING REDDISH OUTPUT. SPLITTING MACHINE FEEDER MADE AWARE. JORGE NEAL (MILLA WILL) DID HER ROUNDS AND WELL AWARE. Addendum: 12/23/22 at 2112 by JERED RAMIREZ RN PLS DISREGARD , WRONG PT ENTRY
--- NOTE | 2022-12-23 20:32 | NUR ---
RT Received pt on ordered vent settings: AC 12 525 30% +0. Pt on contact precaution. SPO2 99%. No respiratory distress noted. Suctioned x2 & PRN with thick secretions. Trach is patent and secured. Ambu-bag bedside. Vent is plugged into red outlet, and alarms are on and audible.
[2022-12-23] MEDS: COLISTIMETHATE SODIUM 100 MG in IV NS 0.9% 50 ML IV SCH (21:19)
[2022-12-24] VITALS: BP 106/51
[2022-12-24] MEDS: NEPRO 1,000 ML BOTTLE GT PRN (00:35)
[2022-12-24] MEDS: PROSOURCE / PROSTAT (PYXIS) 30 ML UDC GT SCH ×3 (00:35→16:15)
[2022-12-24] MEDS: VANCOMYCIN HCL 125 MG/2.5 ML ORAL.SUSP PO SCH ×4 (00:37→17:35)
[2022-12-24] MEDS: MIDODRINE HCL (5MG) 5 MG TABLET GT SCH ×3 (00:37→16:14)
[2022-12-24] MEDS: SUCRALFATE 1 G/10 ML UDC GT SCH ×4 (02:04→21:11)
[2022-12-24 04:00] VITALS: BP 106/46
[2022-12-24] MEDS: DAKINS HALF STRENGTH (0.25%) 480 ML BOTTLE TOP SCH ×2 (05:26→16:15)
[2022-12-24 06:59] LABS: BASOPHILS # (AUTO) 0.1 K/uL (0.0-0.2); BASOPHILS % (AUTO) 0.8 % (0.0-2.0); EOSINOPHILS % (AUTO) 7.3 % (0.0-6.0); HEMATOCRIT 23 % (39-51); LYMPHOCYTES # (AUTO) 0.6 K/uL (0.8-4.8); LYMPHOCYTES % (AUTO) 4.2 % (20.0-44.0); MEAN CORPUSCULAR HGB CONC 31 g/dl (31.0-36.0); MEAN CORPUSCULAR VOLUME 96 fL (80-96); MONOCYTES # (AUTO) 1.1 K/uL (0.1-1.30); MONOCYTES % (AUTO) 7.5 % (2.0-12.0); NEUTROPHILS # (AUTO) 11.7 K/uL (1.8-8.9); NEUTROPHILS % (AUTO) 80.2 % (43.0-81.0); PLATELET COUNT (AUTO) 165 K/uL (150-450); RED BLOOD CELL COUNT(AUTO) 2.34 MIL/uL (4.5-6.0); WHITE BLOOD COUNT (AUTO) 14.5 K/uL (4.3-11.0)
--- NOTE | 2022-12-24 07:19 | NUR ---
PROCESS PROJECT ENGINEER OPENING NOTES RECEIVED PATIENT IN BED ASLEEP, OBTUNDED. ON TRACH WITH MECHANICAL VENT SETTING FOLLOWS: S#8, AC 12, TV 525, FI02 30, PEEP OFF. BREATHING EVEN AND UNLABORED. IV ACCESS ON THADDEUS MIDLINE INTACT AND PATENT. UPPER CHEST HD PERMACATH COVERED WITH DRY DRESSING. NO ACTIVE BLEEDING NOTED. GTF RUNNING NEPRO @ 50 ML/HR X 24 HOURS. PT HAS FLEXISEAL IN PLACE, DRAINING BY GRAVITY. CHOLECYSTECTOMY BAG NOTED. ON CONTACT ISOLATION PRECAUTION FOR MDRC BLOOD, C-DIFF POSITIVE, SAFETY MEASURES IN PLACE: BED LOCKED AND IN LOWEST POSITION, CALL LIGHT WITHIN REACH, SIDE RAILS UP X3.WILL CONTINUE TO MONITOR
[2022-12-24 07:20] LABS: CALCIUM, SERUM 9.1 mg/dL (8.5-10.1); CREATININE 3.1 mg/dL (0.6-1.3)
[2022-12-24 07:31] LABS: POTASSIUM 2.5 mmol/L (3.5-5.1)
[2022-12-24] MEDS: LEVOTHYROXINE SODIUM 50 MCG TABLET GT SCH (07:50)
[2022-12-24 08:00] VITALS: BP 72/42
[2022-12-24] MEDS: ALLOPURINOL 100 MG TABLET GT SCH (08:03)
[2022-12-24] MEDS: FLUDROCORTISONE 0.1 MG TABLET PO SCH (08:03)
[2022-12-24] MEDS: MULTIVITAMINS,THERAGRAN 1 UDTAB TABLET GT SCH (08:03)
[2022-12-24] MEDS: PANTOPRAZOLE 40 MG/PACK PACK GT SCH ×2 (08:03→21:11)
[2022-12-24] MEDS: FINASTERIDE (5 MG) 5 MG TABLET GT SCH (08:04)
[2022-12-24] MEDS: ASCORBIC ACID 500 MG TABLET GT SCH (08:04)
[2022-12-24] MEDS: CLOTRIMAZOLE 1% 15 GM TUBE TP SCH ×2 (08:06→16:15)
[2022-12-24] MEDS: MEROPENEM 500 MG in IV NS 0.9% 50 ML IV SCH ×2 (11:03→21:11)
[2022-12-24] MEDS ORDERED: POTASSIUM CL. PREMIX PERIPHER. 50 ML IV SCH (11:30)
[2022-12-24 12:00] VITALS: BP 87/56
[2022-12-24 13:32] LABS: BAND % (MANUAL) 10 % (0.0-5.0); BASOPHILS % (MANUAL) 0 % (0.0-2.0); EOSINOPHILS % (MANUAL) 5 % (0-4); LYMPHOCYTES % (MANUAL) 5 % (16-48); MONOCYTES % (MANUAL) 9 % (0-11.0); NEUTROPHILS % (MANUAL) 71 (42-76)
[2022-12-24 16:00] VITALS: BP 96/59
--- NOTE | 2022-12-24 16:12 | NUR ---
RN NOTE POTASSIUN 2.5 DR MANZANARES NOTIFIED , ORDER FOR 10 MEQ OF POTASSIUM IV ORDERED AND INFUSED.
[2022-12-24 16:59] LABS: BASOPHILS # (AUTO) 0.1 K/uL (0.0-0.2); HEMATOCRIT 23 % (39-51); HEMOGLOBIN 7.3 g/dL (13.5-17.5)
[2022-12-24 17:14] LABS: BASOPHILS % (AUTO) 0.9 % (0.0-2.0); EOSINOPHILS % (AUTO) 7.9 % (0.0-6.0); LYMPHOCYTES # (AUTO) 0.6 K/uL (0.8-4.8); LYMPHOCYTES % (AUTO) 4.2 % (20.0-44.0); MEAN CORPUSCULAR HGB CONC 32 g/dl (31.0-36.0); MEAN CORPUSCULAR VOLUME 95 fL (80-96); MONOCYTES % (AUTO) 6.7 % (2.0-12.0); NEUTROPHILS # (AUTO) 12.2 K/uL (1.8-8.9); NEUTROPHILS % (AUTO) 80.3 % (43.0-81.0); PLATELET COUNT (AUTO) 177 K/uL (150-450); RED BLOOD CELL COUNT(AUTO) 2.42 MIL/uL (4.5-6.0); WHITE BLOOD COUNT (AUTO) 15.1 K/uL (4.3-11.0)
--- NOTE | 2022-12-24 18:37 | NUR ---
RN CLOSING NOTE PATIENT HAS NO SIGNS OF RESPIRATORY DISTRESS, PATIENT STILL ON MECH VENT; SETTINGS PRESCRIBED;TOLERATING WELL SATURATING @ >95% SP02. SR ON MONITOR. SAFETY MEASURES IMPLEMENTED, BED IN LOWEST POSITION, LOCKED, SIDE RAILS UP, CALL LIGHT WITHIN REACH. ALL NEEDS AND ORDERS ADDRESSED DURING THE SHIFT. IV ACCESS MAINTAINED INTACT, SECURED AND FLUSHING WELL. ALL DUE MEDS GIVEN ORDERED & SCHEDULED ; PATIENT TOLERATED WELL. TUBE FEEDING STILL RUNNING ORDERED. PATIENT KEPT CLEAN AND COMFORTABLE WITHIN THE SHIFT.WILL ENDORSED TO INCOMING SHIFT RN FOR CONTINUITY OF CARE.
[2022-12-24 18:45] LABS: BAND % (MANUAL) 5 % (0.0-5.0); EOSINOPHILS % (MANUAL) 9 % (0-4); LYMPHOCYTES % (MANUAL) 10 % (16-48); METAMYELOCYTES % 3 % (0-0); MONOCYTES % (MANUAL) 6 % (0-11.0); MYELOCYTES % 1 % (0-0); NEUTROPHILS % (MANUAL) 66 (42-76)
--- NOTE | 2022-12-24 19:30 | NUR ---
noc rn opening received patient in bed obtunded. generalized edema noted. no s/s of apparent distress-- vent dependent. not exhibiting pain via flacc. contact Isolation in place, patient with flexiseal drining via gravty, and cholecystostomy bag draining well. G-tube feeding running nepro @50mls/hr. THADDEUS midline running TKO. R. subclavian Permacath dressing intact. reading sr in the tele monitor with occasional PVC's. safety in place. will continue with the patient's plan of care and strictly follow isolation precaution.
[2022-12-24 20:00] VITALS: BP 97/51
[2022-12-24] MEDS: COLISTIMETHATE SODIUM 100 MG in IV NS 0.9% 50 ML IV SCH (21:00)
--- NOTE | 2022-12-24 21:29 | NUR ---
noc rn note- non-admin scheduled 2099 colistimethate sodium IV non-admin, verified with [facility] Pharmacist, only to be given after dialysis days. patient did not have dialysis today.
[2022-12-25] VITALS (10 sets, daily range): BP systolic 82–114; BP diastolic 49–57
[2022-12-25] MEDS: VANCOMYCIN HCL 125 MG/2.5 ML ORAL.SUSP PO SCH ×4 (00:10→17:36)
[2022-12-25] MEDS: MIDODRINE HCL (5MG) 5 MG TABLET GT SCH ×3 (00:55→16:04)
[2022-12-25] MEDS: PROSOURCE / PROSTAT (PYXIS) 30 ML UDC GT SCH ×3 (00:56→16:04)
[2022-12-25] MEDS: NEPRO 1,000 ML BOTTLE GT PRN ×2 (01:30→18:25)
[2022-12-25] MEDS ORDERED: DAKINS HALF STRENGTH (0.25%) 480 ML BOTTLE ONE (02:11)
[2022-12-25] MEDS: SUCRALFATE 1 G/10 ML UDC GT SCH ×4 (03:32→20:31)
[2022-12-25] MEDS: HYDROCODONE/APAP 5/325MG TABLET GT PRN (04:25)
--- NOTE | 2022-12-25 04:25 | NUR ---
noc rn note patient heart rate going up to 125 bpm, withdrawal from touch, and noted to be perspiring. Given [place] 5 as ordered PRN for pain. will re-assess.
--- NOTE | 2022-12-25 04:56 | NUR ---
noc rn note back to NSR 85bpm after norco.
[2022-12-25] MEDS: DAKINS HALF STRENGTH (0.25%) 480 ML BOTTLE TOP SCH ×2 (05:04→16:04)
[2022-12-25 06:46] LABS: BASOPHILS # (AUTO) 0.2 K/uL (0.0-0.2); BASOPHILS % (AUTO) 1.1 % (0.0-2.0); EOSINOPHILS % (AUTO) 7.2 % (0.0-6.0); HEMATOCRIT 21 % (39-51); LYMPHOCYTES # (AUTO) 0.7 K/uL (0.8-4.8); LYMPHOCYTES % (AUTO) 4.5 % (20.0-44.0); MEAN CORPUSCULAR HGB CONC 32 g/dl (31.0-36.0); MEAN CORPUSCULAR VOLUME 96 fL (80-96); MONOCYTES # (AUTO) 1.3 K/uL (0.1-1.30); MONOCYTES % (AUTO) 7.9 % (2.0-12.0); NEUTROPHILS # (AUTO) 12.7 K/uL (1.8-8.9); NEUTROPHILS % (AUTO) 79.3 % (43.0-81.0); PLATELET COUNT (AUTO) 194 K/uL (150-450); RED BLOOD CELL COUNT(AUTO) 2.23 MIL/uL (4.5-6.0); WHITE BLOOD COUNT (AUTO) 16.1 K/uL (4.3-11.0)
[2022-12-25 07:09] LABS: HEMOGLOBIN 6.8 g/dL (13.5-17.5)
--- NOTE | 2022-12-25 07:17 | NUR ---
noc rn closing needs attended. will endorse to morning shift rn for continuity of patient care.
[2022-12-25 07:23] LABS: CALCIUM, SERUM 9.2 mg/dL (8.5-10.1); CREATININE 3.2 mg/dL (0.6-1.3); POTASSIUM 2.9 mmol/L (3.5-5.1)
[2022-12-25] MEDS: ASCORBIC ACID 500 MG TABLET GT SCH (08:48)
[2022-12-25] MEDS: FLUDROCORTISONE 0.1 MG TABLET PO SCH (08:48)
[2022-12-25] MEDS: MULTIVITAMINS,THERAGRAN 1 UDTAB TABLET GT SCH (08:48)
[2022-12-25] MEDS: FINASTERIDE (5 MG) 5 MG TABLET GT SCH (08:48)
[2022-12-25] MEDS: LEVOTHYROXINE SODIUM 50 MCG TABLET GT SCH (08:48)
[2022-12-25] MEDS: ALLOPURINOL 100 MG TABLET GT SCH (08:48)
[2022-12-25] MEDS: PANTOPRAZOLE 40 MG/PACK PACK GT SCH ×2 (08:48→20:31)
[2022-12-25] MEDS: MEROPENEM 500 MG in IV NS 0.9% 50 ML IV SCH ×2 (08:50→20:31)
[2022-12-25] MEDS: CLOTRIMAZOLE 1% 15 GM TUBE TP SCH ×2 (08:50→16:04)
--- NOTE | 2022-12-25 09:00 | NUR ---
RN NOTE HGB LEVEL 6.8 ONE UNIT RBC ORDERED WAITING FOR LAB TO HAVE IT READY.
[2022-12-25 09:18] LABS: BAND % (MANUAL) 14 % (0.0-5.0); EOSINOPHILS % (MANUAL) 4 % (0-4); LYMPHOCYTES % (MANUAL) 7 % (16-48); METAMYELOCYTES % 1 % (0-0); MONOCYTES % (MANUAL) 2 % (0-11.0); MYELOCYTES % 1 % (0-0); NEUTROPHILS % (MANUAL) 71 (42-76)
--- NOTE | 2022-12-25 14:30 | NUR ---
RN NOTE I HAD A CALL FROM PHARMACY REGARDING PATIENT'S POTASSIUM REPLACEMENT. POTASSIUM LEVEL 2.9 DR. ROCHA NOTIFIED WAITING FOR HIS RESPONSE FOR THE REPLACEMENT
--- NOTE | 2022-12-25 15:00 | NUR ---
RN NOTE I JUST CALLED BLOOD BANK FOLLOWING UP ON 1 UNIT OF RBC THEY SAID PATIENT HAD ANTIBODY AND THEY ARE WAITING FROM [facility] TO RECEIVE BLOOD AND WILL LET US KNOW.
--- NOTE | 2022-12-25 15:54 | NUR ---
RN NOTE DR. ROCHA NOTIFIED ABOUT POTASSIUM LEVEL 2.9 REPLACEMENT HE SAID PATIENT IS DIALYSIS.
--- NOTE | 2022-12-25 19:45 | NUR ---
RN OPENING NOTES: RECEIVED PATIENT IN BED ASLEEP, OBTUNDED. ON TRACH WITH MECHANICAL VENT SETTING FOLLOWS: S#8, AC 12, TV 525, FI02 30, PEEP OFF. BREATHING EVEN AND UNLABORED. IV ACCESS ON LEFT UPPER ARM MIDLINE INTACT AND PATENT. RT HD PERMACATH COVERED WITH DRESSING. NO ACTIVE BLEEDING NOTED. G-TUBE WELL TOLERATED. ON NEPRO @ 50 ML/HR X 24 HOURS. PT TOLERATED WELL. NO FACIAL GRIMACING NOTED. PT HAS FLEXISEAL IN PLACE. DRAINING BY GRAVITY. CHOLECYSTECTOMY BAG DRAINING WELL. DRAINING BY GRAVITY. ON CONTACT ISOLATION PRECAUTION FOR MDRC BLOOD. ALL SAFETY MEASURES IN PLACE. BED IN LOWEST POSITION AND LOCKED. SIDE RAILS UP X3, PLACE CALL LIGHT WITH IN REACH. WILL CONTINUE TO MONITOR.
--- NOTE | 2022-12-25 21:45 | NUR ---
RN NOTES: 1 UNIT OF BLOOD TRANSFUSION STARTED. PT AFEBRILE. VITAL SIGN STABLE. WILL CONTINUE TO MONITOR
--- NOTE | 2022-12-25 22:05 | NUR ---
RN NOTES: CONTINUE BLOOD TRANSFUSION. AFTER 15 MINUTES, PT STILL AFEBRILE. V/S SIGN STABLE. NO S/S OF ADVERSE REACTIONS. WILL CONTINUE TO MONITOR
[2022-12-26] VITALS (8 sets, daily range): BP systolic 90–115; BP diastolic 51–65
[2022-12-26] MEDS: PROSOURCE / PROSTAT (PYXIS) 30 ML UDC GT SCH ×3 (00:47→16:03)
[2022-12-26] MEDS: MIDODRINE HCL (5MG) 5 MG TABLET GT SCH ×3 (00:47→16:11)
[2022-12-26] MEDS: VANCOMYCIN HCL 125 MG/2.5 ML ORAL.SUSP PO SCH ×4 (00:47→17:02)
--- NOTE | 2022-12-26 01:25 | NUR ---
RN NOTES: COMPLETED 1 UNIT OF BLOOD TRANSFUSION. V/S STABLE. PT AFEBRILE. TOLERATED WELL. NO ADVERSE REACTIONS NOTED. WILL CONTINUE TO MONITOR
[2022-12-26] MEDS: SUCRALFATE 1 G/10 ML UDC GT SCH ×4 (03:17→21:11)
[2022-12-26] MEDS: DAKINS HALF STRENGTH (0.25%) 480 ML BOTTLE TOP SCH ×2 (05:05→16:03)
--- NOTE | 2022-12-26 06:35 | NUR ---
RN CLOSING NOTES: PATIENT IN BED ASLEEP, OBTUNDED. ON TRACH WITH MECHANICAL VENT SETTING FOLLOWS: S#8, AC 12, TV 525, FI02 30, PEEP OFF. BREATHING EVEN AND UNLABORED. IV ACCESS ON LEFT UPPER ARM MIDLINE INTACT AND PATENT. RT HD PERMACATH COVERED WITH DRESSING. NO ACTIVE BLEEDING NOTED. G-TUBE WELL TOLERATED. ON NEPRO @ 50 ML/HR X 24 HOURS. PT TOLERATED WELL. NO FACIAL GRIMACING NOTED. PT HAS FLEXISEAL IN PLACE. DRAINING BY GRAVITY. CHOLECYSTECTOMY BAG DRAINING WELL. DRAINING BY GRAVITY. ON CONTACT ISOLATION PRECAUTION FOR MDRC BLOOD. ALL DUE MEDS GIVEN ORDERED. ALL SAFETY MEASURES IN PLACE. BED IN LOWEST POSITION AND LOCKED. SIDE RAILS UP X3, PLACE CALL LIGHT WITH IN REACH. WILL ENDORSE TO MORNING SHIFT NURSE.
[2022-12-26 06:38] LABS: BASOPHILS # (AUTO) 0.3 K/uL (0.0-0.2); BASOPHILS % (AUTO) 1.6 % (0.0-2.0); EOSINOPHILS % (AUTO) 9.1 % (0.0-6.0); HEMATOCRIT 28 % (39-51); HEMOGLOBIN 9.2 g/dL (13.5-17.5); LYMPHOCYTES # (AUTO) 0.9 K/uL (0.8-4.8); LYMPHOCYTES % (AUTO) 4.4 % (20.0-44.0); MEAN CORPUSCULAR HGB CONC 32 g/dl (31.0-36.0); MEAN CORPUSCULAR VOLUME 95 fL (80-96); MONOCYTES # (AUTO) 1.3 K/uL (0.1-1.30); MONOCYTES % (AUTO) 6.5 % (2.0-12.0); NEUTROPHILS # (AUTO) 15.7 K/uL (1.8-8.9); NEUTROPHILS % (AUTO) 78.4 % (43.0-81.0); PLATELET COUNT (AUTO) 197 K/uL (150-450)
[2022-12-26 07:13] LABS: CREATININE 3.4 mg/dL (0.6-1.3); POTASSIUM 3.1 mmol/L (3.5-5.1)
[2022-12-26 07:22] LABS: D-DIMER 2.27 mg/L(FEU (0.17-0.50)
--- NOTE | 2022-12-26 08:00 | NUR ---
RN OPENING NOTES: PATIENT IN BED ASLEEP, OBTUNDED. ON TRACH WITH MECHANICAL VENT SETTING FOLLOWS: S#8, AC 12, TV 525, FI02 30, PEEP OFF. BREATHING EVEN AND UNLABORED. MIDLINE ON LEFT UPPER ARM INTACT AND PATENT. HD PERMACATH COVERED WITH DRESSING, C/D/I. NO ACTIVE BLEEDING NOTED. ON G-TUBE PATENT AND INTACT, DRESSING C/D/I ON NEPRO @ 50 ML/HR X 24 HOURS. PT TOLERATED WELL. NO FACIAL GRIMACING NOTED. PT HAS FLEXISEAL IN PLACE. DRAINING BY GRAVITY, NO RESIDUAL NOTED. CHOLECYSTECTOMY BAG DRAINING WELL, DRAINING BY GRAVITY. ON CONTACT ISOLATION PRECAUTION FOR MDRC BLOOD. RECTAL TUBE IN PLACE. ALL SAFETY MEASURES IN PLACE. BED IN LOWEST POSITION AND LOCKED. SIDE RAILS UP X3, PLACE CALL LIGHT WITH IN REACH. PLAN OF CARE CONTINUE.
[2022-12-26] MEDS: FINASTERIDE (5 MG) 5 MG TABLET GT SCH (08:38)
[2022-12-26] MEDS: ALLOPURINOL 100 MG TABLET GT SCH (08:38)
[2022-12-26] MEDS: FLUDROCORTISONE 0.1 MG TABLET PO SCH (08:38)
[2022-12-26] MEDS: LEVOTHYROXINE SODIUM 50 MCG TABLET GT SCH (08:38)
[2022-12-26] MEDS: PANTOPRAZOLE 40 MG/PACK PACK GT SCH ×2 (08:38→21:11)
[2022-12-26] MEDS: ASCORBIC ACID 500 MG TABLET GT SCH (08:38)
[2022-12-26] MEDS: MEROPENEM 500 MG in IV NS 0.9% 50 ML IV SCH ×2 (08:39→21:10)
[2022-12-26] MEDS: MULTIVITAMINS,THERAGRAN 1 UDTAB TABLET GT SCH (08:39)
[2022-12-26] MEDS: CLOTRIMAZOLE 1% 15 GM TUBE TP SCH ×2 (08:40→16:03)
[2022-12-26 10:09] LABS: BAND % (MANUAL) 10 % (0.0-5.0); EOSINOPHILS % (MANUAL) 8 % (0-4); LYMPHOCYTES % (MANUAL) 6 % (16-48); METAMYELOCYTES % 1 % (0-0); MONOCYTES % (MANUAL) 8 % (0-11.0); MYELOCYTES % 1 % (0-0); NEUTROPHILS % (MANUAL) 66 (42-76)
--- NOTE | 2022-12-26 19:26 | NUR ---
RN CLOSING NOTES: PATIENT IN BED ASLEEP, OBTUNDED. ON TRACH WITH MECHANICAL VENT SETTING FOLLOWS: S#8, AC 12, TV 525, FI02 30, PEEP OFF. BREATHING EVEN AND UNLABORED. MIDLINE ON LEFT UPPER ARM INTACT AND PATENT. HD PERMACATH COVERED WITH DRESSING, C/D/I. NO ACTIVE BLEEDING NOTED. ON G-TUBE PATENT AND INTACT, DRESSING C/D/I ON NEPRO @ 50 ML/HR X 24 HOURS. PT TOLERATED WELL. NO FACIAL GRIMACING NOTED. PT HAS FLEXISEAL IN PLACE. DRAINING BY GRAVITY, NO RESIDUAL NOTED. CHOLECYSTECTOMY BAG DRAINING WELL, DRAINING BY GRAVITY. ON CONTACT ISOLATION PRECAUTION FOR MDRC BLOOD. RECTAL TUBE IN PLACE. ALL SAFETY MEASURES IN PLACE. BED IN LOWEST POSITION AND LOCKED. SIDE RAILS UP X3, PLACE CALL LIGHT WITH IN REACH. ENDORSED TO NIGHT NURSE FOR NGUYỄN.
--- NOTE | 2022-12-26 19:45 | NUR ---
RN OPENING NOTES: RECEIVED PATIENT IN BED ASLEEP, OBTUNDED. ON TRACH WITH MECHANICAL VENT SETTING FOLLOWS: S#8, AC 12, TV 525, FI02 30, PEEP OFF. IV ACCESS ON LEFT UPPER ARM MIDLINE INTACT AND PATENT. RT HD PERMACATH COVERED WITH DRESSING. NO ACTIVE BLEEDING NOTED. G-TUBE WELL TOLERATED. ON NEPRO @ 50 ML/HR X 24 HOURS. NO FACIAL GRIMACING NOTED. PT HAS FLEXISEAL IN PLACE. DRAINING BY GRAVITY. CHOLECYSTECTOMY BAG DRAINING WELL. DRAINING BY GRAVITY. ON CONTACT ISOLATION PRECAUTION FOR MDRC BLOOD. PT IS HAVING DIALYSIS AT THIS MOMENT. ALL SAFETY MEASURES IN PLACE. BED IN LOWEST POSITION AND LOCKED. SIDE RAILS UP X3, PLACE CALL LIGHT WITH IN REACH. WILL CONTINUE TO MONITOR.
[2022-12-26] MEDS: ALBUMIN 25% 25 GM in PREMIX 1 EA IV PRN (20:29)
[2022-12-26] MEDS: NEPRO 1,000 ML BOTTLE GT PRN (21:55)
--- NOTE | 2022-12-26 22:00 | NUR ---
RN NOTES: DIALYSIS COMPLETED. 500 ML OUT. B/P STABLE BUT NOTED PT HAS EPISODES OF TACHYPNEA. WILL CONTINUE TO MONITOR
[2022-12-26] MEDS: HYDROCODONE/APAP 5/325MG TABLET GT PRN (22:28)
--- NOTE | 2022-12-26 22:36 | NUR ---
RN NOTES: NOTED PT WITH FACIAL GRIMACING WHEN TRYING TO REPOSITION THE PT. PT STILL NOTED WITH TACHYPNEA. NORCO GIVEN PER PRN ORDERED. WILL CONTINUE TO MONITOR
[2022-12-27] VITALS (35 sets, daily range): BP systolic 72–144; BP diastolic 41–96
[2022-12-27] MEDS: PROSOURCE / PROSTAT (PYXIS) 30 ML UDC GT SCH ×3 (00:09→16:59)
[2022-12-27] MEDS: VANCOMYCIN HCL 125 MG/2.5 ML ORAL.SUSP PO SCH ×4 (00:09→18:20)
[2022-12-27] MEDS: MIDODRINE HCL (5MG) 5 MG TABLET GT SCH ×3 (00:09→17:56)
--- NOTE | 2022-12-27 00:21 | NUR ---
RN NOTES: PT'S BLOOD PRESSURE 79/52, PULSE- 124. MIDODRINE 10 MG [address] DUBOIS. ORDER TO GIVE NS 500ML BOLUS. WILL CONTINUE TO MONITOR
[2022-12-27] MEDS ORDERED: IV NS 0.9% 500 ML BAG IV ONE (00:30)
--- NOTE | 2022-12-27 01:44 | NUR ---
RN NOTES: BLOOD PRESSURE INCREASED TO 100/55, HR-92 AFTER NS 500 ML BOLUS GIVEN. WILL CONTINUE TO MONITOR
[2022-12-27] MEDS: SUCRALFATE 1 G/10 ML UDC GT SCH ×4 (02:47→21:18)
[2022-12-27] MEDS: DAKINS HALF STRENGTH (0.25%) 480 ML BOTTLE TOP SCH ×2 (04:43→16:59)
--- NOTE | 2022-12-27 06:36 | NUR ---
RN CLOSING NOTES: PATIENT IN BED ASLEEP, OBTUNDED. ON TRACH WITH MECHANICAL VENT SETTING FOLLOWS: S#8, AC 12, TV 525, FI02 30, PEEP OFF. BREATHING EVEN AND UNLABORED. MIDLINE ON LEFT UPPER ARM INTACT AND PATENT. HD PERMACATH COVERED WITH DRESSING, C/D/I. NO ACTIVE BLEEDING NOTED. ON G-TUBE PATENT AND INTACT, DRESSING C/D/I ON NEPRO @ 50 ML/HR X 24 HOURS. PT TOLERATED WELL. NO FACIAL GRIMACING NOTED. PT HAS FLEXISEAL IN PLACE. DRAINING BY GRAVITY, NO RESIDUAL NOTED. CHOLECYSTECTOMY BAG DRAINING WELL, DRAINING BY GRAVITY. ON CONTACT ISOLATION PRECAUTION FOR MDRC BLOOD. RECTAL TUBE IN PLACE. ALL DUE MEDS GIVEN ORDERED. ALL SAFETY MEASURES IN PLACE. BED IN LOWEST POSITION AND LOCKED. SIDE RAILS UP X3, PLACE CALL LIGHT WITH IN REACH. WILL ENDORSE TO MORNING SHIFT NURSE.
[2022-12-27] MEDS: CLOTRIMAZOLE 1% 15 GM TUBE TP SCH ×2 (08:09→16:59)
[2022-12-27] MEDS: LEVOTHYROXINE SODIUM 50 MCG TABLET GT SCH (08:16)
[2022-12-27] MEDS: MULTIVITAMINS,THERAGRAN 1 UDTAB TABLET GT SCH (08:16)
[2022-12-27] MEDS: ASCORBIC ACID 500 MG TABLET GT SCH (08:16)
[2022-12-27] MEDS: FLUDROCORTISONE 0.1 MG TABLET PO SCH (08:16)
[2022-12-27] MEDS: PANTOPRAZOLE 40 MG/PACK PACK GT SCH ×2 (08:16→21:18)
[2022-12-27] MEDS: ALLOPURINOL 100 MG TABLET GT SCH (08:16)
[2022-12-27] MEDS: FINASTERIDE (5 MG) 5 MG TABLET GT SCH (08:16)
[2022-12-27] MEDS: MEROPENEM 500 MG in IV NS 0.9% 50 ML IV SCH ×2 (08:23→21:18)
[2022-12-27 10:24] LABS: ALBUMIN 1.8 g/dL (3.4-5.0); BILIRUBIN,TOTAL 0.4 mg/dL (0.2-1.0); CALCIUM, SERUM 9.7 mg/dL (8.5-10.1); CREATININE 3.2 mg/dL (0.6-1.3); TOTAL PROTEIN, SERUM 4.7 g/dL (6.4-8.2)
[2022-12-27 10:34] LABS: POTASSIUM 2.6 mmol/L (3.5-5.1)
[2022-12-27 10:41] LABS: BASOPHILS # (AUTO) 0.2 K/uL (0.0-0.2); BASOPHILS % (AUTO) 1.1 % (0.0-2.0); EOSINOPHILS % (AUTO) 7.9 % (0.0-6.0); HEMATOCRIT 28 % (39-51); HEMOGLOBIN 8.6 g/dL (13.5-17.5); LYMPHOCYTES # (AUTO) 0.6 K/uL (0.8-4.8); LYMPHOCYTES % (AUTO) 3.5 % (20.0-44.0); MEAN CORPUSCULAR HGB CONC 31 g/dl (31.0-36.0); MEAN CORPUSCULAR VOLUME 98 fL (80-96); MONOCYTES % (AUTO) 5.7 % (2.0-12.0); NEUTROPHILS # (AUTO) 14.2 K/uL (1.8-8.9); NEUTROPHILS % (AUTO) 81.8 % (43.0-81.0); PLATELET COUNT (AUTO) 153 K/uL (150-450); RED BLOOD CELL COUNT(AUTO) 2.83 MIL/uL (4.5-6.0); WHITE BLOOD COUNT (AUTO) 17.4 K/uL (4.3-11.0)
[2022-12-27] MEDS: ACETAMINOPHEN 650 MG/20.3 ML UDC GT PRN ×2 (10:52→21:18)
--- NOTE | 2022-12-27 11:30 | NUR ---
NOTED POTASSIUM 2.6, INFORMED DR. MANZANARES, WITH NEW ORDER TO GIVE 10MEQ IV X1 NOW, NOTED AND CARRIED OUT.
[2022-12-27] MEDS ORDERED: POTASSIUM CL. PREMIX PERIPHER. 50 ML IV SCH (12:00)
[2022-12-27] MEDS ORDERED: POTASSIUM CHLORIDE 10 MEQ/50 ML PREMIXED IVPB FOR PERIPHERAL LINE IV ONE (12:00)
--- NOTE | 2022-12-27 12:00 | NUR ---
RECHECKED TEMP. 99.1 AFTER GIVING PRN TYLENOL. PLAN OF CARE CONTINUE.
--- NOTE | 2022-12-27 14:52 | NUR ---
Family Conference: Per attending physician's request, Dr. Sepulveda's request SW called the pt.'s , Addie Contreras tel: [phone] and notified her the MD would like to speak to her tomorrow. Per Addie, she is available after 2:30pm. MD made aware and we will contact family after 2:30pm
--- NOTE | 2022-12-27 15:52 | NUR ---
INFORMED DR. RAMIREZ OF PATIENT'S BP MANUALLY 77/41 HR 97-100 AND EPISODE OF FEVER THIS AM, WITH ORDER TO INFORMED ID DOCTOR STAT, UPGRADE PATIENT TO ICU AND START LEVOPHED. INFORMED CHARGE NURSE VERONIKA AND CRUSHER PLANT OPERATOR.
[2022-12-27] MEDS ORDERED: NOREPINEPHRINE 8 MG in IV NS 0.9% 242 ML IV PRN ×2 (16:30→19:00)
--- NOTE | 2022-12-27 16:35 | NUR ---
RECEIVED PATIENT FROM [facility] TO ICU DUE TO HYPOTENSION, BEDSIDE REPORT GIVEN BY- RN-THOR CHURCH. ORAL TEMP=99.3F, WILL CONTINUE TO MONITOR PATIENT. AWAITING FOR LEVOPHED DRIP BAG FROM PHARMACY.CHARGE NURSE-SOBIA WELSH.
--- NOTE | 2022-12-27 16:35 | NUR ---
TRANSFERRED TO ICU UNIT WITH ACLS TO ROOM 257, GAVE REPORT TO SONAM RN, ALL PERSONAL BELONGINGS AND MEDICATIONS GAVE TO SONAM GALLEGOS.
[2022-12-27] MEDS ORDERED: VANCOMYCIN 1 GM in IV D5W 250 ML IV SCH (17:00)
[2022-12-27] MEDS: NEPRO 1,000 ML BOTTLE GT PRN (17:31)
[2022-12-27] MEDS: IV NS 0.9% 250 ML IV PRN (17:34)
[2022-12-27] MEDS: MICAFUNGIN SODIUM 100 MG in IV NS 0.9% 100 ML IV SCH (17:57)
[2022-12-27] MEDS ORDERED: VANCOMYCIN 1 GM in IV D5W 250ml IV ONE (18:30)
--- NOTE | 2022-12-27 20:44 | NUR ---
ICU/RN: SPOKE WITH DR. SHERLY MUELLER TO CHANGE VASOPRESSOR TO CHAVO FOR BP SUPPORT. PT HEART RATE ELEVATED 130-140.
[2022-12-27] MEDS: PHENYLEPHRINE 100 MG in IV NS 0.9% 240 ML IV PRN (20:53)
[2022-12-28] VITALS (96 sets, daily range): BP systolic 84–124; BP diastolic 42–68
[2022-12-28] MEDS: MIDODRINE HCL (5MG) 5 MG TABLET GT SCH ×3 (00:40→16:46)
[2022-12-28] MEDS: VANCOMYCIN HCL 125 MG/2.5 ML ORAL.SUSP PO SCH ×4 (00:41→17:42)
[2022-12-28] MEDS: PROSOURCE / PROSTAT (PYXIS) 30 ML UDC GT SCH ×3 (00:42→16:45)
[2022-12-28] MEDS: SUCRALFATE 1 G/10 ML UDC GT SCH ×4 (03:38→21:51)
[2022-12-28 03:42] LABS: BAND % (MANUAL) 11 % (0.0-5.0); BASOPHILS % (MANUAL) 0 % (0.0-2.0); EOSINOPHILS % (MANUAL) 3 % (0-4); LYMPHOCYTES % (MANUAL) 4 % (16-48); MONOCYTES % (MANUAL) 6 % (0-11.0); NEUTROPHILS % (MANUAL) 76 (42-76)
[2022-12-28] MEDS: ACETAMINOPHEN 650 MG/20.3 ML UDC GT PRN (04:16)
--- NOTE | 2022-12-28 04:27 | NUR ---
ICU/RN: PT NOTED WITH 101.4 AX TEMP. TYLENOL ADMINISTERED ORDERED. ICE PACKS IN PLACE FOR COOLING MEASURES.
[2022-12-28 04:30] LABS: BASOPHILS # (AUTO) 0.2 K/uL (0.0-0.2); BASOPHILS % (AUTO) 0.9 % (0.0-2.0); EOSINOPHILS % (AUTO) 7.3 % (0.0-6.0); HEMATOCRIT 26 % (39-51); HEMOGLOBIN 8.4 g/dL (13.5-17.5); LYMPHOCYTES # (AUTO) 1.2 K/uL (0.8-4.8); LYMPHOCYTES % (AUTO) 5.4 % (20.0-44.0); MEAN CORPUSCULAR HGB CONC 32 g/dl (31.0-36.0); MEAN CORPUSCULAR VOLUME 96 fL (80-96); MONOCYTES # (AUTO) 1.8 K/uL (0.1-1.30); MONOCYTES % (AUTO) 8.1 % (2.0-12.0); NEUTROPHILS # (AUTO) 17.2 K/uL (1.8-8.9); NEUTROPHILS % (AUTO) 78.3 % (43.0-81.0); PLATELET COUNT (AUTO) 186 K/uL (150-450); RED BLOOD CELL COUNT(AUTO) 2.75 MIL/uL (4.5-6.0); WHITE BLOOD COUNT (AUTO) 21.9 K/uL (4.3-11.0)
[2022-12-28] MEDS: DAKINS HALF STRENGTH (0.25%) 480 ML BOTTLE TOP SCH ×2 (04:33→16:46)
--- NOTE | 2022-12-28 04:33 | NUR ---
MED NOTE: NO DAKINS SOLUTION AVAILABLE. WET TO DRY NORMAL SALINE DRESSING APPLIED TO WOUNDS. WILL ENDORSE TO AM SHIFT TO GET MORE FROM PHARM.
[2022-12-28 04:41] LABS: CALCIUM, SERUM 9.3 mg/dL (8.5-10.1); CREATININE 2.7 mg/dL (0.6-1.3); POTASSIUM 3.1 mmol/L (3.5-5.1)
[2022-12-28 04:43] LABS: D-DIMER 2.37 mg/L(FEU (0.17-0.50)
[2022-12-28 04:47] LABS: ALBUMIN 1.9 g/dL (3.4-5.0); BILIRUBIN,TOTAL 0.5 mg/dL (0.2-1.0); TOTAL PROTEIN, SERUM 4.7 g/dL (6.4-8.2)
[2022-12-28] MEDS: NEPRO 1,000 ML BOTTLE GT PRN (06:20)
--- NOTE | 2022-12-28 07:40 | NUR ---
ICU/RN PT IS ON THE VENT /TRACH AC MODE,FIO2-30%.SAT O2-100%. ON NEOSYNEPHRINE DRIP. AFEBRILE.NO PAIN REPORTED AT THIS TIME.OPEN EYES ,REACTIVE ON PAIN STIMULATION.ANURIC ON HD .RIGHT SUBCLAVIAN HD CATHETER.LEFT UPPER ARM MIDLINE.GENERALIZED EDEMA PRESENT.G-TUBE INFUSING NEPRO AT 50 ML/HR , 5ML RESIDUAL NOTED.SACRAL WOUND COVERED WITH DRESSING.R SIDE CHOLECYSTOTOMY DRAINING WITH YELLOW FLUIDS. LABS REVIEW.K-3.1 . NOTIFIED.
[2022-12-28] MEDS: LEVOTHYROXINE SODIUM 50 MCG TABLET GT SCH (08:13)
[2022-12-28] MEDS: FINASTERIDE (5 MG) 5 MG TABLET GT SCH (08:13)
[2022-12-28] MEDS: ASCORBIC ACID 500 MG TABLET GT SCH (08:13)
[2022-12-28] MEDS: PANTOPRAZOLE 40 MG/PACK PACK GT SCH ×2 (08:13→21:51)
[2022-12-28] MEDS: FLUDROCORTISONE 0.1 MG TABLET PO SCH (08:13)
[2022-12-28] MEDS: MULTIVITAMINS,THERAGRAN 1 UDTAB TABLET GT SCH (08:13)
[2022-12-28] MEDS: ALLOPURINOL 100 MG TABLET GT SCH (08:14)
[2022-12-28] MEDS: MEROPENEM 500 MG in IV NS 0.9% 50 ML IV SCH ×2 (08:14→21:52)
[2022-12-28] MEDS: CLOTRIMAZOLE 1% 15 GM TUBE TP SCH ×2 (08:18→16:47)
[2022-12-28] MEDS: IV NS 0.9% 250 ML IV PRN (08:31)
--- NOTE | 2022-12-28 09:00 | NUR ---
ICU/RN DUE MEDS ARE GIVEN ORDERED.
[2022-12-28] MEDS: POTASSIUM CHLORIDE 20 MEQ POWDER PACKET GT SCH ×2 (11:03→16:46)
--- NOTE | 2022-12-28 15:40 | NUR ---
ICU/RN PT TRANSFER TO TELE UNIT.V/S STABLE AFEBRILE.NO PAIN REPORTED AT THIS TIME.
[2022-12-28] MEDS: MICAFUNGIN SODIUM 100 MG in IV NS 0.9% 100 ML IV SCH (16:45)
--- NOTE | 2022-12-28 18:00 | NUR ---
ICU/RN PM CARE PROVIDED.WOUND DRESSING DONE ORDERED. DUE MEDS ARE GIVEN .SUCTION PROVIDED.REPOSITION FOR COMFORT.RECTAL TUBE 600 ML OUTPUT .ANURIC. AFEBRILE.STILL ON NEOSYNEPHRINE DRIP .
--- NOTE | 2022-12-28 19:41 | NUR ---
ICU/TABLE GAMES DEALER RECIEVED REPORT DAY NURSE. SEE FLOWSHEET FOR ASSESSMENT AND IV SPREAD SHEET FOR TITRATION. WILL CONTINUE TO MONITOR THIS PT. NO SIGNS OF DISTRESS SEEN.
[2022-12-28] MEDS: PHENYLEPHRINE 100 MG in IV NS 0.9% 240 ML IV PRN (21:52)
[2022-12-29] VITALS (67 sets, daily range): BP systolic 79–138; BP diastolic 42–111
[2022-12-29] MEDS: MIDODRINE HCL (5MG) 5 MG TABLET GT SCH ×3 (01:36→17:48)
[2022-12-29] MEDS: VANCOMYCIN HCL 125 MG/2.5 ML ORAL.SUSP PO SCH ×5 (01:36→23:54)
[2022-12-29] MEDS: PROSOURCE / PROSTAT (PYXIS) 30 ML UDC GT SCH ×3 (01:37→17:49)
[2022-12-29] MEDS: SUCRALFATE 1 G/10 ML UDC GT SCH ×4 (03:57→21:18)
[2022-12-29] MEDS: DAKINS HALF STRENGTH (0.25%) 480 ML BOTTLE TOP SCH ×2 (03:58→17:42)
[2022-12-29 04:32] LABS: BASOPHILS # (AUTO) 0.2 K/uL (0.0-0.2); BASOPHILS % (AUTO) 1.1 % (0.0-2.0); EOSINOPHILS % (AUTO) 11.2 % (0.0-6.0); HEMATOCRIT 25 % (39-51); LYMPHOCYTES # (AUTO) 1.2 K/uL (0.8-4.8); LYMPHOCYTES % (AUTO) 5.5 % (20.0-44.0); MEAN CORPUSCULAR HGB CONC 32 g/dl (31.0-36.0); MEAN CORPUSCULAR VOLUME 97 fL (80-96); MONOCYTES # (AUTO) 1.9 K/uL (0.1-1.30); NEUTROPHILS # (AUTO) 15.8 K/uL (1.8-8.9); NEUTROPHILS % (AUTO) 73.2 % (43.0-81.0); PLATELET COUNT (AUTO) 205 K/uL (150-450); RED BLOOD CELL COUNT(AUTO) 2.63 MIL/uL (4.5-6.0); WHITE BLOOD COUNT (AUTO) 21.6 K/uL (4.3-11.0)
[2022-12-29 04:45] LABS: CALCIUM, SERUM 9.4 mg/dL (8.5-10.1); POTASSIUM 3.7 mmol/L (3.5-5.1)
[2022-12-29 04:49] LABS: D-DIMER 2.34 mg/L(FEU (0.17-0.50)
[2022-12-29 04:50] LABS: ALBUMIN 1.7 g/dL (3.4-5.0); BILIRUBIN,TOTAL 0.4 mg/dL (0.2-1.0); TOTAL PROTEIN, SERUM 4.4 g/dL (6.4-8.2)
[2022-12-29] MEDS: NEPRO 1,000 ML BOTTLE GT PRN (06:06)
[2022-12-29] MEDS: IV NS 0.9% 250 ML IV PRN (06:06)
--- NOTE | 2022-12-29 06:33 | NUR ---
ICU/GENERATING STATION MECHANIC CHAVO TURNED OFF FOR STABLE BP, WILL MONITOR THIS PT'S BP
--- NOTE | 2022-12-29 07:30 | NUR ---
OPENING NOTE: REPORT RECEIVED FROM THOR RAMOS. LABS AND ORDERS REVIEWED DURING REPORT. PER REPORT, CHAVO DRIP STOPPED AT 6AM. PATIENT IS CHECKED ON HOURLY AND PRN BY NURSING STAFF.
[2022-12-29] MEDS: MULTIVITAMINS,THERAGRAN 1 UDTAB TABLET GT SCH (08:47)
[2022-12-29] MEDS: POTASSIUM CHLORIDE 20 MEQ POWDER PACKET GT SCH ×2 (08:48→17:40)
[2022-12-29] MEDS: ASCORBIC ACID 500 MG TABLET GT SCH (08:48)
[2022-12-29] MEDS: PANTOPRAZOLE 40 MG/PACK PACK GT SCH ×2 (08:48→21:18)
[2022-12-29] MEDS: FINASTERIDE (5 MG) 5 MG TABLET GT SCH (08:49)
[2022-12-29] MEDS: ALLOPURINOL 100 MG TABLET GT SCH (08:49)
[2022-12-29] MEDS: FLUDROCORTISONE 0.1 MG TABLET PO SCH (08:49)
[2022-12-29] MEDS: LEVOTHYROXINE SODIUM 50 MCG TABLET GT SCH (08:53)
[2022-12-29] MEDS: CLOTRIMAZOLE 1% 15 GM TUBE TP SCH ×2 (08:55→17:42)
[2022-12-29 10:47] LABS: BAND % (MANUAL) 10 % (0.0-5.0); EOSINOPHILS % (MANUAL) 10 % (0-4); LYMPHOCYTES % (MANUAL) 9 % (16-48); MONOCYTES % (MANUAL) 11 % (0-11.0); NEUTROPHILS % (MANUAL) 60 (42-76)
[2022-12-29] MEDS: VANCOMYCIN 500 MG in IV D5W 100 ML IV PRN (15:45)
[2022-12-29] MEDS: EPOETIN ALFA-EPBX 4,000 UNIT/ML VIAL SQ SCH (15:46)
[2022-12-29] MEDS: MICAFUNGIN SODIUM 100 MG in IV NS 0.9% 100 ML IV SCH (17:49)
--- NOTE | 2022-12-29 19:11 | NUR ---
CLOSING NOTE: THERE ARE NO CHANGE IN PATIENT'S STATUS. PLAN OF CARE CONTINUES. VITALS WITHIN PATIENT'S PARAMETERS ON VENTILATOR. WOUND CARE COMPLETED PER ORDER. PLAN FOR COMFORT CARE ON SUNDAY. SAFETY CHECKED. ENDORSE CARE TO THOR RAMOS.
--- NOTE | 2022-12-29 19:20 | NUR ---
ICU/OIL FIELD EQUIPMENT MECHANIC RECIEVED REPORT DAY NURSE. SEE FLOWSHEET FOR ASSESSMENT. WILL CONTINUE TO MONITOR THIS PT. NO SIGNS OF DISTRESS SEEN.
[2022-12-30] VITALS (31 sets, daily range): BP systolic 87–139; BP diastolic 43–87
[2022-12-30] MEDS: MIDODRINE HCL (5MG) 5 MG TABLET GT SCH ×3 (01:35→17:05)
[2022-12-30] MEDS: PROSOURCE / PROSTAT (PYXIS) 30 ML UDC GT SCH ×3 (01:36→17:05)
[2022-12-30] MEDS: SUCRALFATE 1 G/10 ML UDC GT SCH ×4 (04:17→21:31)
[2022-12-30] MEDS: DAKINS HALF STRENGTH (0.25%) 480 ML BOTTLE TOP SCH ×2 (04:18→17:06)
[2022-12-30] MEDS: VANCOMYCIN HCL 125 MG/2.5 ML ORAL.SUSP PO SCH ×4 (04:49→23:20)
[2022-12-30 05:07] LABS: BASOPHILS # (AUTO) 0.2 K/uL (0.0-0.2); BASOPHILS % (AUTO) 0.8 % (0.0-2.0); EOSINOPHILS % (AUTO) 14.5 % (0.0-6.0); HEMATOCRIT 26 % (39-51); HEMOGLOBIN 8.1 g/dL (13.5-17.5); LYMPHOCYTES % (AUTO) 5.3 % (20.0-44.0); MEAN CORPUSCULAR HGB CONC 31 g/dl (31.0-36.0); MEAN CORPUSCULAR VOLUME 99 fL (80-96); MONOCYTES # (AUTO) 1.5 K/uL (0.1-1.30); MONOCYTES % (AUTO) 7.5 % (2.0-12.0); NEUTROPHILS # (AUTO) 13.9 K/uL (1.8-8.9); NEUTROPHILS % (AUTO) 71.9 % (43.0-81.0); PLATELET COUNT (AUTO) 168 K/uL (150-450); RED BLOOD CELL COUNT(AUTO) 2.66 MIL/uL (4.5-6.0); WHITE BLOOD COUNT (AUTO) 19.3 K/uL (4.3-11.0)
[2022-12-30 05:16] LABS: CALCIUM, SERUM 9.3 mg/dL (8.5-10.1); CREATININE 2.4 mg/dL (0.6-1.3)
[2022-12-30 05:21] LABS: ALBUMIN 1.8 g/dL (3.4-5.0); BILIRUBIN,TOTAL 0.4 mg/dL (0.2-1.0); TOTAL PROTEIN, SERUM 4.7 g/dL (6.4-8.2)
[2022-12-30] MEDS: NEPRO 1,000 ML BOTTLE GT PRN (05:59)
[2022-12-30] MEDS: IV NS 0.9% 250 ML IV PRN (06:00)
--- NOTE | 2022-12-30 07:10 | NUR ---
ICU/DIRECTOR OF CLINICAL EDUCATION GAVE REPORT TO DAY NURSE FOR CONTINUITY OF CARE.
--- NOTE | 2022-12-30 07:39 | NUR ---
RN OPENING NOTES RECEIVED PT IN STABLE CONDITION, VSS, NO VISUAL SIGNS OF PAIN AT THIS TIME. PT ON ET TRACH AND VENT. PT ON CONT FEEDING AT GOAL RATE OF 50 ML/HR AND TOLERATING AT THIS TIME.
[2022-12-30] MEDS: LEVOTHYROXINE SODIUM 50 MCG TABLET GT SCH (08:56)
[2022-12-30] MEDS: MULTIVITAMINS,THERAGRAN 1 UDTAB TABLET GT SCH (08:56)
[2022-12-30] MEDS: FLUDROCORTISONE 0.1 MG TABLET PO SCH (08:56)
[2022-12-30] MEDS: PANTOPRAZOLE 40 MG/PACK PACK GT SCH ×2 (08:57→21:31)
[2022-12-30] MEDS: ALLOPURINOL 100 MG TABLET GT SCH (08:58)
[2022-12-30] MEDS: POTASSIUM CHLORIDE 20 MEQ POWDER PACKET GT SCH (08:58)
[2022-12-30] MEDS: FINASTERIDE (5 MG) 5 MG TABLET GT SCH (08:58)
[2022-12-30] MEDS: ASCORBIC ACID 500 MG TABLET GT SCH (08:58)
[2022-12-30] MEDS: CLOTRIMAZOLE 1% 15 GM TUBE TP SCH ×2 (09:03→17:06)
--- NOTE | 2022-12-30 15:00 | NUR ---
RN NOTES COMPLETED WOUND CARE ORDERS FOR PT'S COCCYX AREA.
--- NOTE | 2022-12-30 16:30 | NUR ---
RN NOTES PT'S FAMILY CAME BY TO VISIT PT. NO NEEDS FROM FAMILY AT THIS TIME.
[2022-12-30] MEDS: VANCOMYCIN 500 MG in IV D5W 100 ML IV PRN (16:50)
[2022-12-30] MEDS: MICAFUNGIN SODIUM 100 MG in IV NS 0.9% 100 ML IV SCH (17:41)
--- NOTE | 2022-12-30 19:15 | NUR ---
ICU/ASSURANCE ANALYST RECIEVED REPORT DAY NURSE. SEE FLOWSHEET FOR ASSESSMENT. WILL CONTINUE TO MONITOR THIS PT. NO SIGNS OF DISTRESS SEEN. WILL MONITOR THIS PT
--- NOTE | 2022-12-30 19:16 | NUR ---
RN CLOSING NOTES PT IS COMFORTABLE, VSS, ALL DUE MEDICATIONS GIVEN. STILL ON CONT FEEDING AT RATE OF 50 ML/HR. REPORT GIVEN TO ONCOMING NURSE FOR CONTINUATION OF CARE.
--- NOTE | 2022-12-30 21:00 | NUR ---
ICU/INFANTRYMAN PT GIVEN TYLENOL VIA G/T FOR TEMP 100.0AX WILL CONTINUE TO MONITOR THIS PT.
[2022-12-30] MEDS: ACETAMINOPHEN 650 MG/20.3 ML UDC GT PRN (21:31)
[2022-12-31] VITALS (23 sets, daily range): BP systolic 83–145; BP diastolic 49–73
[2022-12-31] MEDS: MIDODRINE HCL (5MG) 5 MG TABLET GT SCH ×2 (01:02→09:00)
[2022-12-31] MEDS: PROSOURCE / PROSTAT (PYXIS) 30 ML UDC GT SCH ×2 (01:03→09:15)
[2022-12-31] MEDS: SUCRALFATE 1 G/10 ML UDC GT SCH ×2 (03:12→09:15)
[2022-12-31 04:38] LABS: BASOPHILS # (AUTO) 0.1 K/uL (0.0-0.2); BASOPHILS % (AUTO) 0.8 % (0.0-2.0); HEMATOCRIT 25 % (39-51); HEMOGLOBIN 7.7 g/dL (13.5-17.5); LYMPHOCYTES # (AUTO) 1.3 K/uL (0.8-4.8); LYMPHOCYTES % (AUTO) 7.4 % (20.0-44.0); MEAN CORPUSCULAR HGB CONC 31 g/dl (31.0-36.0); MEAN CORPUSCULAR VOLUME 98 fL (80-96); MONOCYTES # (AUTO) 1.2 K/uL (0.1-1.30); MONOCYTES % (AUTO) 7.3 % (2.0-12.0); NEUTROPHILS # (AUTO) 11.8 K/uL (1.8-8.9); NEUTROPHILS % (AUTO) 69.5 % (43.0-81.0); PLATELET COUNT (AUTO) 136 K/uL (150-450); RED BLOOD CELL COUNT(AUTO) 2.55 MIL/uL (4.5-6.0); WHITE BLOOD COUNT (AUTO) 16.9 K/uL (4.3-11.0)
[2022-12-31 04:50] LABS: CALCIUM, SERUM 9.3 mg/dL (8.5-10.1); CREATININE 2.3 mg/dL (0.6-1.3)
[2022-12-31 04:56] LABS: ALBUMIN 1.7 g/dL (3.4-5.0); BILIRUBIN,TOTAL 0.4 mg/dL (0.2-1.0); TOTAL PROTEIN, SERUM 4.4 g/dL (6.4-8.2)
[2022-12-31] MEDS: DAKINS HALF STRENGTH (0.25%) 480 ML BOTTLE TOP SCH (05:07)
[2022-12-31] MEDS: VANCOMYCIN HCL 125 MG/2.5 ML ORAL.SUSP PO SCH (05:08)
[2022-12-31] MEDS: NEPRO 1,000 ML BOTTLE GT PRN (05:08)
[2022-12-31] MEDS: IV NS 0.9% 250 ML IV PRN (05:08)
[2022-12-31 05:23] LABS: BAND % (MANUAL) 11 % (0.0-5.0); BASOPHILS % (MANUAL) 0 % (0.0-2.0); EOSINOPHILS % (MANUAL) 13 % (0-4); LYMPHOCYTES % (MANUAL) 10 % (16-48); MONOCYTES % (MANUAL) 6 % (0-11.0); NEUTROPHILS % (MANUAL) 60 (42-76)
[2022-12-31] MEDS: FINASTERIDE (5 MG) 5 MG TABLET GT SCH (09:15)
[2022-12-31] MEDS: PANTOPRAZOLE 40 MG/PACK PACK GT SCH (09:15)
[2022-12-31] MEDS: ASCORBIC ACID 500 MG TABLET GT SCH (09:15)
[2022-12-31] MEDS: LEVOTHYROXINE SODIUM 50 MCG TABLET GT SCH (09:15)
[2022-12-31] MEDS: ALLOPURINOL 100 MG TABLET GT SCH (09:15)
[2022-12-31] MEDS: MULTIVITAMINS,THERAGRAN 1 UDTAB TABLET GT SCH (09:15)
[2022-12-31] MEDS: FLUDROCORTISONE 0.1 MG TABLET PO SCH (09:15)
[2022-12-31] MEDS: CLOTRIMAZOLE 1% 15 GM TUBE TP SCH (09:16)
[2022-12-31] MEDS ORDERED: MORPHINE SULFATE PF DRIP 250 MG in IV D5W 240 ML IV PRN (11:30)
[2022-12-31] MEDS ORDERED: MORPHINE SULFATE INJ 4 MG/ML DISP.SYRIN IV ONE (12:00)
[2022-12-31] MEDS ORDERED: MORPHINE SULFATE INJ 4 MG/ML DISP.SYRIN IV PRN (12:30)
--- NOTE | 2022-12-31 12:42 | NUR ---
RN NOTES PER FAMILY'S REQUEST, STARTED PT ON CONT MORPHINE DRIP FOR COMFORT CARE.
--- NOTE | 2022-12-31 13:10 | NUR ---
RN NOTES TERMINALLY EXTUBATED PT PER MD ORDERS. FAMILY AT BEDSIDE. WILL CONT TO BE ON STANDBY FOR FAMILY NEEDS.
[2022-12-31] MEDS: LORAZEPAM INJ 2 MG/ML VIAL IV SCH ×2 (18:15→21:21)
--- NOTE | 2022-12-31 19:10 | NUR ---
ICU/EXCEPTIONAL STUDENT EDUCATION AIDE RECIEVED REPORT DAY NURSE. SEE FLOWSHEET FOR ASSESSMENT. WILL CONTINUE TO MONITOR THIS PT. NO SIGNS OF DISTRESS SEEN. WILL MONITOR THIS PT PT WAS STARTED ON MORPHINE DRIP, AND IS ON COMFORT MEASURES WITH TERMINAL EXTUBATION. RECIEVED PT AT MORPHINE 8MG THEN INCREASED TO MORPHINE 9 MG BY SUPERVISING FILM OR VIDEOTAPE EDITOR NURSE
--- NOTE | 2022-12-31 19:15 | NUR ---
RN CLOSING NOTES PT IS ON CONT MORPHINE DRIP FOR COMFORT MEASURES AT THIS TIME. REPORT GIVEN TO ONCOMING NURSE FOR CONTINUATION OF CARE. FAMILY AT BEDSIDE; NO NEEDS AT THIS TIME.
--- NOTE | 2022-12-31 19:59 | NUR ---
ICU/MARKETING PROJECT SPECIALIST PT IS BEING MOVED TO 329 WITH MORPHINE DRIP.
--- NOTE | 2022-12-31 20:00 | NUR ---
ICU/GAS EXAMINER HIGH RESPIRATIONS, INCREASED MORHINE FOR THIS BY PAPER MILL MANAGER NURSE
--- NOTE | 2022-12-31 21:00 | NUR ---
ICU/RCIS HIGH RESPIRATIONS, INCREASED MORPHINE FOR THIS BY PROP WORKER NURSE PT WAS TRANSFERED TO [facility] REPORT GIVEN TO LALA GALLEGOS.
[2022-12-31] MEDS ORDERED: KEY,NONCONTROL,TO KEEP IN PYXI 1 EA MC ONE (21:10)
--- NOTE | 2022-12-31 21:30 | NUR ---
MS RN ADMITTING NOTE PATIENT WAS TRANSFERRED FROM ICU TO [facility] 329 -1 VIA HIS BED AT 2110H, PATIENT IS LETHARGIC; ON COMFORT MEASURES; WITH PEG TUBE IN PLACE - CLAMPED, WITH MERLENE MIDLINE RUNNING MORPHINE DRIP VIA QUICK PRINT OPERATOR; WITH TRINI BAG AT RIGHT; WITH RIGHT SUBCLAVIAN HD CATH; VITAL SIGNS TAKEN; NO S/S OF DISTRESS NOTED AT THIS TIME; WITH FAMILY AT BEDSIDE; ORIENTED FAMILY TO STAFFS AND ROOM; ADMINISTERED DUE ATIVAN ORDERED; SAFETY MEASURES IN PLACE, BED IN LOW AND LOCKED POSITION, SIDE RAILS UP X 3; WILL CONTINUE TO MONITOR THROUGHOUT SHIFT
[2023-01-01] MEDS ORDERED: KEY,NONCONTROL,TO KEEP IN PYXI 1 EA MC ONE ×2 (00:03→00:10)
[2023-01-01] MEDS: LORAZEPAM INJ 2 MG/ML VIAL IV SCH ×2 (01:05→05:25)
--- NOTE | 2023-01-01 06:46 | NUR ---
MS RN CLOSING NOTE PATIENT IS LETHARGIC; ON COMFORT MEASURES; AT BEDSIDE; NOTED TO HAVE SHALLOW BREATHING WITH OXYGEN SATURATION OF 60-70%; WITH PEG TUBE IN PLACE - CLAMPED, WITH MERLENE MIDLINE RUNNING MORPHINE DRIP VIA PLANT OPERATOR HELPER; WITH CHOLECYSTOSTOMY BAG AT RIGHT; WITH RIGHT SUBCLAVIAN HD CATH; NO S/S OF DISTRESS NOTED AT THIS TIME; ADMINISTERED DUE MEDICATIONS ORDERED; MONITORED PATIENT ACCORDINGLY; SAFETY MEASURES IMPLEMENTED; BED IN LOCKED POSITION, SIDE RAILS UP X 3; WILL ENDORSE TO AM NURSE FOR NGUYỄN.
--- NOTE | 2023-01-01 07:30 | NUR ---
PT RECEIVED IN BED WITH EYES CLOSED. FAMILY AT BEDSIDE.
--- NOTE | 2023-01-01 08:10 | NUR ---
MS GALLEGOS NOTE FAMILY CALLED AT AROUND 0655H ASKING IF THE PATIENT IS STILL BREATHING; UPON ASSESSMENT, PATIENT IS NO LONGER BREATHING BUT UPON AUSCULTATION, PRESENCE OF HEART BEAT IS PRESENT. HOOKED TO ACID PLANT HELPER AND ECG TRACING IS ST Addendum: 01/01/23 at 0816 by THOR MAK RN MS GALLEGOS NOTE FAMILY CALLED AT AROUND 0655H ASKING IF THE PATIENT IS STILL BREATHING; UPON ASSESSMENT, PATIENT IS NO LONGER BREATHING BUT UPON AUSCULTATION, PRESENCE OF HEART BEAT IS PRESENT. HOOKED TO ACID PLANT HELPER AND ECG TRACING IS STILL PRESENT. AT 0716H, ASYSTOLE WAS ALREADY NOTED. TIME OF WAS CALLED BY GM GALLEGOS; INFORMED ATTENDING DOCTOR; ENDORSED TO AM NURSE FOR POSTMORTEM CARE; CALLED [facility] REGARDING PATIENT'S CASE, TALKED TO HUSSAIN OF [facility] AND CASE NUMBER RECORDED; RECORD OF WAS DONE AND GIVEN TO AM NURSE.
--- NOTE | 2023-01-01 10:00 | NUR ---
POST MORTEM CARE ALL REMOVABLE LINES AND DRESSING REMOVED. PATIENT PLACED IN BODY BAG WITH TOE IDENTIFICATION APPLIED. PT TAKEN TO [facility] [place] [place] VIA [facility] BY SECURITY.
--- NOTE | 2023-01-03 16:15 | NUR ---
arrangements: SW received call from the pt.'s , Roxanne Contreras tel: [phone] requesting list of mortuaries and cremation locations. RADHA emailed resources to her at [email or web address] RADHA also received call from the pt.'s son ASHLEY who states that he will completed arrangements and will call SW tomorrow with information. RADHA discussed with nursing supervisor evaporator,
== END 2023-01-01 07:16 | DRG 3 ==
LOC: ER 22:19 → TELE1 10-04 00:04 → ICU 10-04 11:28 → TELE-TD 11-20 19:05 → TELE1 11-22 14:32 → TELE-TD 11-26 17:07 → ICU 11-28 12:37 → TELE-TD 12-10 17:35 → TELE1 12-18 17:39 → ICU 12-27 16:17 → MED 12-31 19:59
PROVIDERS: ADMIT Registered Nurse; ATTEND Internal Medicine
PROC: 05HF33Z Insertion of Infusion Device into Left Cephalic Vein, Percutaneous Approach (ICD-10-PCS; 2022-10-04)
PROC: 30233M1 Transfusion of Nonautologous Plasma Cryoprecipitate into Peripheral Vein, Percutaneous Approach (ICD-10-PCS; 2022-10-05)
PROC: XW033E5 Introduction of Remdesivir Anti-infective into Peripheral Vein, Percutaneous Approach, New Technology Group 5 (ICD-10-PCS; 2022-10-06)
PROC: 30233N1 Transfusion of Nonautologous Red Blood Cells into Peripheral Vein, Percutaneous Approach (ICD-10-PCS; 2022-10-06)
PROC: 30233R1 Transfusion of Nonautologous Platelets into Peripheral Vein, Percutaneous Approach (ICD-10-PCS; 2022-10-07)
PROC: 30233K1 Transfusion of Nonautologous Frozen Plasma into Peripheral Vein, Percutaneous Approach (ICD-10-PCS; 2022-10-08)
PROC: 02HV33Z Insertion of Infusion Device into Superior Vena Cava, Percutaneous Approach (ICD-10-PCS; 2022-10-11)
PROC: B548ZZA Ultrasonography of Superior Vena Cava, Guidance (ICD-10-PCS; 2022-10-11)
PROC: 5A1D70Z Performance of Urinary Filtration, Intermittent, Less than 6 Hours Per Day (ICD-10-PCS; 2022-10-13)
PROC: 06HY33Z Insertion of Infusion Device into Lower Vein, Percutaneous Approach (ICD-10-PCS; 2022-10-13)
PROC: B54BZZA Ultrasonography of Right Lower Extremity Veins, Guidance (ICD-10-PCS; 2022-10-13)
PROC: 5A1955Z Respiratory Ventilation, Greater than 96 Consecutive Hours (ICD-10-PCS; principal; 2022-10-14)
PROC: 0BH18EZ Insertion of Endotracheal Airway into Trachea, Via Natural or Artificial Opening Endoscopic (ICD-10-PCS; 2022-10-14)
PROC: 0F9430Z Drainage of Gallbladder with Drainage Device, Percutaneous Approach (ICD-10-PCS; 2022-10-16)
PROC: 02HV33Z Insertion of Infusion Device into Superior Vena Cava, Percutaneous Approach (ICD-10-PCS; 2022-10-29)
PROC: B548ZZA Ultrasonography of Superior Vena Cava, Guidance (ICD-10-PCS; 2022-10-29)
PROC: 0B113Z4 Bypass Trachea to Cutaneous, Percutaneous Approach (ICD-10-PCS; 2022-11-03)
PROC: 0KBN0ZZ Excision of Right Hip Muscle, Open Approach (ICD-10-PCS; 2022-11-03)
PROC: 0KBP0ZZ Excision of Left Hip Muscle, Open Approach (ICD-10-PCS; 2022-11-03)
PROC: 0BJ08ZZ Inspection of Tracheobronchial Tree, Via Natural or Artificial Opening Endoscopic (ICD-10-PCS; 2022-11-07)
PROC: 0JH63XZ Insertion of Tunneled Vascular Access Device into Chest Subcutaneous Tissue and Fascia, Percutaneous Approach (ICD-10-PCS; 2022-11-09)
PROC: 05HM33Z Insertion of Infusion Device into Right Internal Jugular Vein, Percutaneous Approach (ICD-10-PCS; 2022-11-09)
PROC: B543ZZA Ultrasonography of Right Jugular Veins, Guidance (ICD-10-PCS; 2022-11-09)
PROC: 0KBP0ZZ Excision of Left Hip Muscle, Open Approach (ICD-10-PCS; 2022-11-17)
PROC: 0KBN0ZZ Excision of Right Hip Muscle, Open Approach (ICD-10-PCS; 2022-11-17)
PROC: 05HC33Z Insertion of Infusion Device into Left Basilic Vein, Percutaneous Approach (ICD-10-PCS; 2022-11-19)
PROC: 0JPV3XZ Removal of Tunneled Vascular Access Device from Upper Extremity Subcutaneous Tissue and Fascia, Percutaneous Approach (ICD-10-PCS; 2022-11-20)
PROC: 05PYX3Z Removal of Infusion Device from Upper Vein, External Approach (ICD-10-PCS; 2022-11-20)
PROC: 0DH63UZ Insertion of Feeding Device into Stomach, Percutaneous Approach (ICD-10-PCS; 2022-11-24)
PROC: 5A1945Z Respiratory Ventilation, 24-96 Consecutive Hours (ICD-10-PCS; 2022-11-24)
PROC: 0DH63UZ Insertion of Feeding Device into Stomach, Percutaneous Approach (ICD-10-PCS; 2022-11-24)
PROC: 5A09357 Assistance with Respiratory Ventilation, Less than 24 Consecutive Hours, Continuous Positive Airway Pressure (ICD-10-PCS; 2022-11-28)
PROC: 5A1955Z Respiratory Ventilation, Greater than 96 Consecutive Hours (ICD-10-PCS; 2022-11-28)
PROC: 05HM33Z Insertion of Infusion Device into Right Internal Jugular Vein, Percutaneous Approach (ICD-10-PCS; 2022-11-28)
PROC: B543ZZA Ultrasonography of Right Jugular Veins, Guidance (ICD-10-PCS; 2022-11-28)
PROC: 0JH63XZ Insertion of Tunneled Vascular Access Device into Chest Subcutaneous Tissue and Fascia, Percutaneous Approach (ICD-10-PCS; 2022-12-01)
PROC: 05HM33Z Insertion of Infusion Device into Right Internal Jugular Vein, Percutaneous Approach (ICD-10-PCS; 2022-12-01)
PROC: B543ZZA Ultrasonography of Right Jugular Veins, Guidance (ICD-10-PCS; 2022-12-01)
DX: A41.89 Other specified sepsis (principal); L89.154 Pressure ulcer of sacral region, stage 4; L89.324 Pressure ulcer of left buttock, stage 4; L89.314 Pressure ulcer of right buttock, stage 4; D65 Disseminated intravascular coagulation [defibrination syndrome]; U07.1 COVID-19; N18.6 End stage renal disease; G92.8 Other toxic encephalopathy; R65.21 Severe sepsis with septic shock; J12.82 Pneumonia due to coronavirus disease 2019; N17.0 Acute kidney failure with tubular necrosis; D61.89 Other specified aplastic anemias and other bone marrow failure syndromes; J15.9 Unspecified bacterial pneumonia; J96.01 Acute respiratory failure with hypoxia; J96.02 Acute respiratory failure with hypercapnia; I62.03 Nontraumatic chronic subdural hemorrhage; E43 Unspecified severe protein-calorie malnutrition; I13.2 Hypertensive heart and chronic kidney disease with heart failure and with stage 5 chronic kidney disease, or end stage renal disease; C85.90 Non-Hodgkin lymphoma, unspecified, unspecified site; D61.818 Other pancytopenia; N39.0 Urinary tract infection, site not specified; E87.20 Acidosis, unspecified; Z16.24 Resistance to multiple antibiotics; Z16.12 Extended spectrum beta lactamase (ESBL) resistance; N12 Tubulo-interstitial nephritis, not specified as acute or chronic; K80.01 Calculus of gallbladder with acute cholecystitis with obstruction; D62 Acute posthemorrhagic anemia; I31.39 Other pericardial effusion (noninflammatory); J98.11 Atelectasis; A04.72 Enterocolitis due to Clostridium difficile, not specified as recurrent; E87.1 Hypo-osmolality and hyponatremia; D68.9 Coagulation defect, unspecified; B49 Unspecified mycosis; Z51.5 Encounter for palliative care; Z66 Do not resuscitate; I50.9 Heart failure, unspecified; Z78.9 Other specified health status; Z99.2 Dependence on renal dialysis; D63.8 Anemia in other chronic diseases classified elsewhere; Z79.899 Other long term (current) drug therapy; B96.89 Other specified bacterial agents as the cause of diseases classified elsewhere; R74.01 Elevation of levels of liver transaminase levels; E80.6 Other disorders of bilirubin metabolism; E66.9 Obesity, unspecified; Z68.33 Body mass index [BMI] 33.0-33.9, adult; Y95 Nosocomial condition; R13.10 Dysphagia, unspecified; E86.0 Dehydration; K76.0 Fatty (change of) liver, not elsewhere classified; R16.2 Hepatomegaly with splenomegaly, not elsewhere classified; D64.9 Anemia, unspecified; B96.20 Unspecified Escherichia coli [E. coli] as the cause of diseases classified elsewhere; E03.9 Hypothyroidism, unspecified; B96.4 Proteus (mirabilis) (morganii) as the cause of diseases classified elsewhere; I70.0 Atherosclerosis of aorta; I48.91 Unspecified atrial fibrillation; E88.09 Other disorders of plasma-protein metabolism, not elsewhere classified; E87.6 Hypokalemia; A41.50 Gram-negative sepsis, unspecified; Z74.09 Other reduced mobility
CPT/HCPCS: 31720; 36410; 36415; 36569; 36600; 43246; 70450-TC; 71045-TC; 71250-TC; 76700-TC; 76705-TC; 76770-TC; 76942-TC; 78226; 80048-TC; 80053-TC; 80076-TC; 80162-TC; 80202-TC; 81001; 82247-TC; 82248-TC; 82272-TC; 82533; 82550-TC; 82570-TC; 82607-TC; 82728-TC; 82784; 82803-TC; 82962-TC; 83540-TC; 83605-TC; 83615-TC; 83690-TC; 83735-TC; 83880; 84100-TC; 84155; 84165; 84300-TC; 84439-TC; 84443-TC; 84478-TC; 84484-TC; 85025-TC; 85027-TC; 85045-TC; 85378-TC; 85396; 85610-TC; 85730-TC; 86140-TC; 86225; 86235; 86334; 86431-TC; 86704; 86705; 86706; 86803; 86850-TC; 87040-TC; 87070-TC; 87081-TC; 87086-TC; 87340; 87806; 90935-TC; 92526; 92611-TC; 93307-TC; 94002-TC; 94003-TC; 94640-TC; 94760-TC; 94762-TC; 94799-TC; 99082-TC; A4216; A4223; A4623; A4624; A4649; A6253; A6403; A7526; A9537; C1750; C1757; C1769; C1894; C9113; G0378; J0282; J0690; J0692; J0696; J0713; J0770; J0878; J0885; J1160; J1200; J1644; J1720; J2060; J2185; J2248; J2250; J2270; J2274; J2370; J2597; J2704; J3010; J3370; J3430; J3480; J3490; J7030; J7040; J7042; J7050; J7060; J7070; J7120; P9012; P9016; P9017; P9034; P9035; P9045; P9047; Q9966; Q9967